=== PATIENT | female | born 1940 | race Caucasian/White ===

== ENCOUNTER 2016-10-13 17:09 | Observation (INO) | payer OTHER ==
[2016-10-13 17:19] VITALS: BMI 23.9
--- NOTE | 2016-10-13 17:20 | PDOC ---
History of Present Illness - General Chief Complaint: Chest Pain Stated Complaint: CHEST PAIN Time Seen by Provider: 10/13/16 17:19 - History of Present Illness Initial Comments: 10/13/16 17:49 CHIEF COMPLAINT: Left sided chest pain and diffuse cramps PCP: Dr. Rj Zhou ([employer]) HISTORY OF PRESENT ILLNESS: 76 year old female presented to the ED with left sided chest pain. A/c to the patient, she developed chest tightness 4days ago on/off, went to [facility] 2 days ago for the same problem, was sent home from the ED after excluding cardiac cause of chest pain and UTI. She was given antibiotics for UTI, urinary symptoms are resolving. Chest pain is located on the left side, 6/10 in intensity, non reproducible, non radiating, pressure type, associated with SOB even at rest. Also reports to have nausea on/off but no episodes of vomiting. Patient has h/o diffuse muscle cramps since 2 years, getting worse since yesterday. Cramps occur for 10-20 sec, 10/10 in intensity, non radiating, more on the right calf and left fingers. Headache on/off mostly on the frontal area since few days. Had fever Tmax 100F 4 days ago, not associated with chills, rigors or sweating. Bowel habit normal. Urinary symptoms improving. Sleep disturbed. Appetite decreased As per EMS, vitals were unremarkable. Patient received 162mg of aspirin stat. Recent Travel: None PAST MEDICAL HISTORY: s/p multiple PCI in past mLAD and pRCA and most recently 12/21/2015 PCI with IRASEMA of D1 with residual RCA disease followed by readmission for chest pain 12/29/15 and underwent PCI of dRCA, moderate b/l carotid stenosis , COPD, HTN, HLD, known chronic LBBB PAST SURGICAL HISTORY: As mentioned above Recent travel: denies Family History: DM, cancer Social History: denies all toxic habits. [place] Allergies: Codeine, Penicillins 10/13/16 18:50 Past History - Past Medical History Allergies/Adverse Reactions: Allergies Allergy/AdvReac Type Severity Reaction Status Date / Time codeine [Codeine] Allergy Intermediate Nausea Verified 10/13/16 18:28 Penicillins Allergy Intermediate Rash Verified 10/13/16 18:28 Home Medications: Ambulatory Orders Albuterol Sulfate Inhaler - [Ventolin HFA Inhaler -] 1 - 2 inh PO Q4H 02/17/16 Aspirin [ASA -] 81 mg PO DAILY 02/17/16 Clopidogrel Bisulfate [Clopidogrel] 75 mg PO DAILY 02/17/16 Furosemide 20 mg PO DAILY 02/17/16 Hydroxyzine HCl [Atarax -] 25 mg PO TID 02/17/16 Meclizine HCl 25 mg PO Q6H PRN 02/17/16 Salmeterol/Fluticasone [Advair 100Mcg/50Mcg -] 1 inh IH DAILY 02/17/16 Gabapentin [Neurontin -] 300 mg PO BID #60 capsule 10/17/16 Losartan Potassium [Cozaar -] 25 mg PO DAILY #30 tablet 10/17/16 Metoprolol Tartrate [Lopressor -] 25 mg PO DAILY #30 tablet 10/17/16 Ranolazine [Ranexa -] 500 mg PO BID #60 tab 10/17/16 Anemia: No Asthma: Yes Cancer: No Cardiac Disorders: Yes (CAD, stent) CVA: No COPD: No CHF: No Dementia: No Diabetes: No GI Disorders: Yes (REFLUX) Disorders: No HTN: Yes Hypercholesterolemia: Yes Liver Disease: No Seizures: No Thyroid Disease: No - Surgical History Abdominal Surgery: No Appendectomy: Yes Cardiac Surgery: Yes (STENTS) Cholecystectomy: No Lung Surgery: No Neurologic Surgery: No Orthopedic Surgery: Yes (right shoulder sx) - Immunization History Immunization Up to Date: No - Psycho/Social/Smoking Cessation Hx Anxiety: No Suicidal Ideation: No Smoking History: Former smoker Have you smoked in the past 12 months: No If you are a former smoker, when did you quit?: 20 years Information on smoking cessation initiated: No 'Breaking Loose' booklet given: 01/28/16 Hx Alcohol Use: No Drug/Substance Use Hx: No Substance Use Type: None Hx Substance Use Treatment: No Review of Systems - Review of Systems Able to Perform ROS?: Yes Comments:: 10/13/16 18:42 CONSTITUTIONAL:~ Absent: fever, chills, diaphoresis, generalized weakness, malaise, loss of appetite HEENT:~ Absent: rhinorrhea, nasal congestion, throat pain, throat swelling, difficulty swallowing, mouth swelling, ear pain, eye pain, visual Changes CARDIOVASCULAR: Present: Chest pain Absent: syncope, palpitations, irregular heart rate, lightheadedness, peripheral edema RESPIRATORY: Present: SOB, dyspnea with exertion Absent: cough,, orthopnea, wheezing, stridor, hemoptysis GASTROINTESTINAL: Absent: abdominal pain, abdominal distension, nausea, vomiting, diarrhea, constipation, melena, hematochezia GENITOURINARY:~ Absent: dysuria, frequency, urgency, hesitancy, hematuria, flank pain, genital pain MUSCULOSKELETAL: Present: Diffuse cramps Absent: myalgia, arthralgia, joint swelling SKIN: Absent: rash, itching, pallor HEMATOLOGIC/IMMUNOLOGIC: Absent: easy bleeding, easy bruising, lymphadenopathy, frequent infections ENDOCRINE: Absent: unexplained weight gain, unexplained weight loss, heat intolerance, cold intolerance NEUROLOGIC: Absent: headache, focal weakness or paresthesias, dizziness, unsteady gait, seizure, mental status changes, bladder or bowel incontinence PSYCHIATRIC: Absent: anxiety, depression, suicidal or homicidal ideation, hallucinations. Is the patient limited Trinidadian proficient: No *Physical Exam - Vital Signs Last Vital Signs Temp Pulse Resp BP Pulse Ox 98.0 F 106 H 20 130/76 100 10/13/16 17:16 10/13/16 17:16 10/13/16 17:16 10/13/16 17:16 10/13/16 17:16 - Physical Exam Comments: 10/13/16 18:43 PE: GENERAL: Awake, alert, and fully oriented, in no acute distress HEAD: No signs of trauma EYES: PERRLA, EOMI, sclera anicteric, conjunctiva clear ENT: Auricles normal inspection, hearing grossly normal, nares patent, oropharynx clear without exudates. Moist mucosa NECK: Normal ROM, supple, no lymphadenopathy, JVD, or masses Chest: Reproducible pain LUNGS: Breath sounds equal, clear to auscultation bilaterally. No wheezes, and no crackles.. HEART: Regular rate and rhythm, normal S1 and S2, soft murmur+ ABDOMEN: Soft, nontender, normoactive bowel sounds. No guarding, no rebound. No masses EXTREMITIES: Normal range of motion, no edema. No clubbing or cyanosis. No cords, erythema, or tenderness NEUROLOGICAL: Cranial nerves II through XII grossly intact. Normal speech, normal gait SKIN: Warm, Dry, normal turgor, no rashes or lesions noted. ED Treatment Course - LABORATORY CBC & Chemistry Diagram: 10/14/16 05:35 10/15/16 06:00 Medical Decision Making - Medical Decision Making 10/13/16 17:20 Patient seen and examined at bed side. Vitals, unremarkable. In severe pain during cramps lasting for 10-20 seconds. Physical examination: Benign Will order CBC, CMP, Cardiac profile, EKG, CXR, UA IV Morphine 2mg stat IV NS 250mls bolus Aspirin 81mg stat As patient received 81mg of aspirin this morning, 162mg of aspirin en route to the ED, will give 81 mg of aspirin, received total of 324mg of aspirin. 10/13/2016 17: 50 Patient reassessed. Still complaining of chest pressure and pain due to diffuse cramps. Ordered IV Morphine 2 mg stat 10/13/2016 18:50 Illness, Investigation and Plan of care explained to the patient. She verbalized understanding. Case seen and discussed with Dr. Castro. *DC/Admit/Observation/Transfer Diagnosis at time of Disposition: Chest pain - Discharge Dispostion Disposition: [facility] Condition at time of disposition: Stable - Prescriptions
[2016-10-13] MEDS ORDERED: morphine CARPU-JECT 2 MG/1 ML DISP.SYRIN ONE ×2 (17:39→18:15)
[2016-10-13] MEDS ORDERED: morphine CARPU-JECT 2 MG/1 ML DISP.SYRIN IVPUSH ONE ×3 (17:40→18:14)
[2016-10-13] MEDS ORDERED: ASPIRIN 81 MG CHEWABLE TABLETS PO ONE (17:47)
[2016-10-13] MEDS ORDERED: SODIUM CHLORIDE 250 ML IV STA (17:48)
--- NOTE | 2016-10-13 17:51 | PDOC ---
Attending Attestation - Resident Resident Name: Imelda Manzanares - ED Attending Attestation I have performed the following: I have examined & evaluated the patient, The case was reviewed & discussed with the resident, I agree w/resident's findings & plan, Exceptions are as noted - HPI HPI: 10/13/16 17:48 76-year-old female with history of asthma, coronary disease status post stents, GERD, hypertension, hyperlipidemia, TIA presents with chest pressure. 5 days ago , patient started developing intermittent chest tightness with radiation to her left side of the chest with intermittent associated with shortness of breath and nausea. Denies diaphoresis or vomiting. Patient went to [facility] 2 days ago where she was evaluated and discharged with a diagnosis of urinary tract infections. Patient was discharged on oral antibiotics which she reports adherence and reports that her urinary frequency has improved. However, patient is started noticed intermittent chest tightness that has not been improving. She currently denies shortness of breath at this time. She noted yesterday of a low-grade temperature 100.1 degrees any tension-like headache and generalized malaise. She came into the ED for further evaluation. Patient has seen cardiology's Dr. Zhou in the past but does not remember last provocative test. - Physicial Exam PE: 10/13/16 17:51 GENERAL: Awake, alert, and fully oriented, in no acute distress. HEAD: No signs of trauma EYES: PERRLA, EOMI, sclera anicteric, conjunctiva clear ENT: Auricles normal inspection, hearing grossly normal, nares patent, oropharynx clear without exudates. NECK: Normal ROM, supple, no lymphadenopathy, JVD, or masses LUNGS: Breath sounds equal, clear to auscultation bilaterally. No wheezes, and no crackles HEART: Regular rate and rhythm, normal S1 and S2, no murmurs, rubs or gallops ABDOMEN: Soft, nontender, normoactive bowel sounds. No guarding, no rebound. No masses EXTREMITIES: Normal range of motion, no edema. No clubbing or cyanosis. No cords, erythema, or tenderness NEUROLOGICAL: Cranial nerves II through XII grossly intact. Normal speech, normal gait SKIN: Warm, Dry, normal turgor, no rashes or lesions noted. - Medical Decision Making 10/13/16 17:48 ECG at 17:22: NSR 112, LBBB, scarbossa negative, QTC 496 msec Given significant cardiac history, patient will need a rule out myocardial infarction. We'll dispense aspirin. Given that the patient is persistent chest pain, differential includes unstable angina versus NSTEMI. Chest x-ray, labs and admission to the hospital for further evaluation.
[2016-10-13 18:14] LABS: INR 0.93 (0.82-1.09); PROTHROMBIN TIME (PATIENT) 10.2 SEC (9.98-11.88)
[2016-10-13 18:24] LABS: BASOPHIL 0.7 % (0-2.0); MCHC 33.4 g/dl (32.0-36.0); MEAN CELL VOLUME 89.9 fl (80-96); NEUTROPHILS 62.3 % (42.8-82.8); PLATELET COUNT 284 K/MM3 (134-434); RDW 13.2 % (11.6-15.6); WHITE BLOOD COUNT 6.6 K/mm3 (4.0-10.0)
[2016-10-13 19:03] LABS: ALBUMIN 3.6 g/dl (3.4-5.0); ANION GAP 11 (8-16); CALCIUM 8.8 mg/dL (8.5-10.1); CO2 25 mmol/L (21-32); GLUCOSE,RANDOM 120 mg/dL (74-106); MAGNESIUM 2.1 mg/dL (1.8-2.4); PHOSPHOROUS 2.6 mg/dL (2.5-4.9); SGOT/AST 33 U/L (15-37)
[2016-10-13 19:08] LABS: ALK PHOS 142 U/L (45-117); BILIRUBIN,TOTAL 0.2 mg/dL (0.2-1.0); CREATININE 0.6 mg/dL (0.55-1.02); SGPT/ALT 48 U/L (12-78); TROPONIN I < 0.02 ng/ml (0.00-0.05)
[2016-10-13] MEDS ORDERED: ASPIRIN 81 MG CHEWABLE TABLETS ONE (19:11)
--- NOTE | 2016-10-13 20:52 | PDOC ---
*Heart Score (ED) - History History: Moderately suspicious - Electrocardiogram EKG: Non specific repolarization disturbance - Age Age: >/= 65 - Risk Factors Based on the list above the patient has:: >/=3 risk factors or Hx atherosclerotic disease - Troponin Troponin: </= normal limit - Score Heart Score - Total: 6
--- NOTE | 2016-10-13 21:00 | HP ---
CHIEF COMPLAINT: Chest Pain, SOB PCP: Dr. De La Rosa HISTORY OF PRESENT ILLNESS: This is a 76 y/o female with a past medical history of s/p multiple PCI, HTN, HLD, Chronic LBBB, COPD, GERD. Who presents to the emergency department with left sided chest pain and SOB. Patient reports the pain occurred while at rest, radiating to her left arm and left side of her face/ear. Patient's daughter reports the patient being seen at [facility] for same 2 days ago - having a work up in the ED- wnl. Patient reports increased SOB, PETTIT. Patient states" I can't walk one block without getting SOB. Patient reports having bilateral leg cramps worse at night. Patient reports seeing her Transfer Man 6 months ago-wnl, last Stress Test and ECHO 2015- wnl per patient and daughter. ER course was notable for: (1) Cardiac Enzyme neg x1 (2) BNP 400 (3) EKG ST with PACs Recent Travel: None PAST MEDICAL HISTORY: See HPI PAST SURGICAL HISTORY: Social History: Smoking: Former Alcohol: Denies Drugs: Denies Family History: Allergies codeine [Codeine] Allergy (Intermediate, Verified 10/13/16 18:28) Nausea vomitting,dizziness Penicillins Allergy (Intermediate, Verified 10/13/16 18:28) Rash HOME MEDICATIONS: Home Medications Medication Instructions Recorded Albuterol Sulfate Inhaler - 1 - 2 inh PO Q4H 02/17/16 [Ventolin Hfa Inhaler -] Amlodipine Besylate 10 mg PO DAILY 02/17/16 Aspirin [ASA -] 81 mg PO DAILY 02/17/16 Clopidogrel Bisulfate [Clopidogrel] 75 mg PO DAILY 02/17/16 Furosemide 20 mg PO DAILY 02/17/16 Hydroxyzine HCl [Atarax -] 25 mg PO TID 02/17/16 Losartan Potassium 10 mg PO DAILY 02/17/16 Meclizine HCl 25 mg PO Q6H PRN 02/17/16 Salmeterol/Fluticasone [Advair 1 inh IH DAILY 02/17/16 100Mcg/50Mcg -] REVIEW OF SYSTEMS CONSTITUTIONAL: Absent: fever, chills, diaphoresis, generalized weakness, malaise, loss of appetite, weight change HEENT: Absent: rhinorrhea, nasal congestion, throat pain, throat swelling, difficulty swallowing, mouth swelling, ear pain, eye pain, visual changes CARDIOVASCULAR: chest pain Absent: syncope, palpitations, irregular heart rate, lightheadedness, peripheral edema RESPIRATORY: shortness of breath, dyspnea with exertion Absent: cough, orthopnea, wheezing, stridor, hemoptysis GASTROINTESTINAL: Absent: abdominal pain, abdominal distension, nausea, vomiting, diarrhea, constipation, melena, hematochezia GENITOURINARY: Absent: dysuria, frequency, urgency, hesitancy, hematuria, flank pain, genital pain MUSCULOSKELETAL: myalgia Absent: arthralgia, joint swelling, back pain, neck pain SKIN: Absent: rash, itching, pallor HEMATOLOGIC/IMMUNOLOGIC: Absent: easy bleeding, easy bruising, lymphadenopathy, frequent infections ENDOCRINE: Absent: unexplained weight gain, unexplained weight loss, heat intolerance, cold intolerance NEUROLOGIC: Absent: headache, focal weakness or paresthesias, dizziness, unsteady gait, seizure, mental status changes, bladder or bowel incontinence PSYCHIATRIC: Absent: anxiety, depression, suicidal or homicidal ideation, hallucinations. PHYSICAL EXAMINATION Vital Signs - 24 hr 10/13/16 10/13/16 17:16 17:50 Temperature 98.0 F Pulse Rate 106 H Respiratory 20 Rate Blood Pressure 130/76 O2 Sat by Pulse 100 100 Oximetry (%) GENERAL: Awake, alert, and fully oriented, in no acute distress. HEAD: Normal with no signs of trauma. EYES: Pupils equal, round and reactive to light, extraocular movements intact, sclera anicteric, conjunctiva clear. No lid lag. EARS, NOSE, THROAT: Ears normal, nares patent, oropharynx clear without exudates. Moist mucous membranes. NECK: Normal range of motion, supple without lymphadenopathy, JVD, or masses. LUNGS: Breath sounds equal, clear to auscultation bilaterally. No wheezes, and no crackles. No accessory muscle use. HEART: Regular rate and rhythm, normal S1 and S2 without murmur, rub or gallop. ABDOMEN: Soft, nontender, not distended, normoactive bowel sounds, no guarding, no rebound, no masses. No hepatomegaly or splenomegaly. MUSCULOSKELETAL: Normal range of motion at all joints. No bony deformities. + tenderness to bilateral lower legs. No CVA tenderness. UPPER EXTREMITIES: 2+ pulses, warm, well-perfused. No cyanosis. No clubbing. Cap refill <2 seconds. No peripheral edema. LOWER EXTREMITIES: 2+ pulses, warm, well-perfused. No calf tenderness. No peripheral edema. NEUROLOGICAL: Cranial nerves II-XII intact. Normal speech. Gait not observed. PSYCHIATRIC: Cooperative. Good eye contact. Appropriate mood and affect. SKIN: Warm, dry, normal turgor, no rashes or lesions noted. Laboratory Results - last 24 hr 10/13/16 10/13/16 10/13/16 17:40 17:40 17:40 WBC 6.6 RBC 3.70 Hgb 11.1 Hct 33.3 MCV 89.9 MCHC 33.4 RDW 13.2 Plt Count 284 MPV 10.0 D Neutrophils % 62.3 Lymphocytes % 20.4 Monocytes % 15.6 H D Eosinophils % 1.0 Basophils % 0.7 INR 0.93 Sodium Cancelled Potassium Cancelled Chloride Cancelled Carbon Dioxide Cancelled Anion Gap Cancelled BUN Cancelled Creatinine Cancelled Creat Clearance w eGFR Cancelled Random Glucose Cancelled Calcium Cancelled Phosphorus Magnesium Cancelled Total Bilirubin Cancelled AST Cancelled ALT Cancelled Alkaline Phosphatase Cancelled Creatine Kinase Cancelled Troponin I Cancelled B-Natriuretic Peptide Total Protein Cancelled Albumin Cancelled 10/13/16 10/13/16 17:49 18:29 WBC RBC Hgb Hct MCV MCHC RDW Plt Count MPV Neutrophils % Lymphocytes % Monocytes % Eosinophils % Basophils % INR Sodium 143 Potassium 4.2 D Chloride 107 Carbon Dioxide 25 Anion Gap 11 BUN 14 D Creatinine 0.6 Creat Clearance w eGFR > 60 Random Glucose 120 H D Calcium 8.8 Phosphorus Cancelled 2.6 D Magnesium 2.1 Total Bilirubin 0.2 D AST 33 ALT 48 D Alkaline Phosphatase 142 H Creatine Kinase 113 Troponin I < 0.02 B-Natriuretic Peptide Cancelled 421.46 H Total Protein 7.0 Albumin 3.6 ASSESSMENT/PLAN: This is a 76 y/o female with a PMHx of s/p multiple PCIs, Chronic LBBB, HTN, HLD , COPD, GERD. Presents to the ED for Chest Pain and SOB. Admitted for Chest Pain r/o AK, SOB for further evaluation of their emergent condition. Plan: FEN - Patient tolerates PO fluids - Replete lytes prn - Low Na Low Cholesterol Diet Code Status: Full Code Dispo: Requires Inpatient Care Problem List - Problem (1) Chest pain in adult Assessment/Plan: - r/o AK vs Angina - Patient reports work up 2 days ago at [facility]- wnl - Tele monitoring - HEART Score 6 - ARIAS 6 - Serial Enzymes - EKG- ST with PACs change compared to prior study - Appreciate Cardiology Consult - Given Asa, Morphine in ED - Continue Asa - Pain Mgmt- Morphine prn - Echo 01/2016- LV normal size, LVSF normal, mild AR - Consider Stress Test Code(s): R07.9 - CHEST PAIN, UNSPECIFIED (2) Stable angina Assessment/Plan: - See above Code(s): I20.9 - ANGINA PECTORIS, UNSPECIFIED (3) Coronary artery disease Assessment/Plan: - Continue Metoprolol, Asa Code(s): I25.10 - ATHSCL HEART DISEASE OF [place] CORONARY ARTERY W/O ANG PCTRS Qualifiers: (4) COPD (chronic obstructive pulmonary disease) Assessment/Plan: - Sub Optimal - Patient reports ability to only walk one block, then having PETTIT - Chest Xray showed no acute interval change - Continue Advair - Albuterol nebs - Post peak flow BID - f/u with Pulmonology outpatient at d/c Code(s): J44.9 - CHRONIC OBSTRUCTIVE PULMONARY DISEASE, UNSPECIFIED (5) Cardiomyopathy Code(s): I42.9 - CARDIOMYOPATHY, UNSPECIFIED (6) Bilateral leg cramps Assessment/Plan: - r/o RLS - Patient reports pain to bilateral legs occurring at night - Mg- wnl - Gabapentin 100mg x1 now Code(s): R25.2 - CRAMP AND SPASM (7) Carotid stenosis Code(s): I65.29 - OCCLUSION AND STENOSIS OF UNSPECIFIED CAROTID ARTERY Qualifiers: (8) HTN (hypertension) Assessment/Plan: - Monitor BP - Continue Metoprolol, Losartan - Monitor renal function Code(s): I10 - ESSENTIAL (PRIMARY) HYPERTENSION (9) Hyperlipemia Assessment/Plan: - Continue Simvastatin - Monitor LFTs Code(s): E78.5 - HYPERLIPIDEMIA, UNSPECIFIED (10) DVT prophylaxis Assessment/Plan: - OOB - SCDs - Hold ACs 2/2 Plavix Code(s): YKS6529 - Visit type - Emergency Visit Emergency Visit: Yes ED Registration Date: 10/13/16 Care time: The patient presented to the Emergency Department on the above date and was hospitalized for further evaluation of their emergent condition. - New Patient This patient is new to me today: Yes Date on this admission: 10/13/16 - Critical Care Critical Care patient: No
--- NOTE | 2016-10-13 21:02 | PDOC ---
*Physical Exam - Vital Signs Last Vital Signs Temp Pulse Resp BP Pulse Ox 98.0 F 106 H 20 130/76 100 10/13/16 17:16 10/13/16 17:16 10/13/16 17:16 10/13/16 17:16 10/13/16 17:50 ED Treatment Course - LABORATORY CBC & Chemistry Diagram: 10/13/16 17:40 10/13/16 18:29 - ADDITIONAL ORDERS Additional order review: Laboratory Results 10/13/16 10/13/16 10/13/16 18:29 17:49 17:40 INR Sodium 143 Cancelled Potassium 4.2 D Cancelled Chloride 107 Cancelled Carbon Dioxide 25 Cancelled Anion Gap 11 Cancelled BUN 14 D Cancelled Creatinine 0.6 Cancelled Creat Clearance w eGFR > 60 Cancelled Random Glucose 120 H D Cancelled Calcium 8.8 Cancelled Phosphorus 2.6 D Cancelled Magnesium 2.1 Cancelled Total Bilirubin 0.2 D Cancelled AST 33 Cancelled ALT 48 D Cancelled Alkaline Phosphatase 142 H Cancelled Creatine Kinase 113 Cancelled Troponin I < 0.02 Cancelled B-Natriuretic Peptide 421.46 H Cancelled Total Protein 7.0 Cancelled Albumin 3.6 Cancelled 10/13/16 17:40 INR 0.93 Sodium Potassium Chloride Carbon Dioxide Anion Gap BUN Creatinine Creat Clearance w eGFR Random Glucose Calcium Phosphorus Magnesium Total Bilirubin AST ALT Alkaline Phosphatase Creatine Kinase Troponin I B-Natriuretic Peptide Total Protein Albumin 10/13/16 17:40 RBC 3.70 MCV 89.9 MCHC 33.4 RDW 13.2 MPV 10.0 D Neutrophils % 62.3 Lymphocytes % 20.4 Monocytes % 15.6 H D Eosinophils % 1.0 Basophils % 0.7 - Medications Given in the ED: ED Medications Discontinued Medications Generic Name Dose Route Start Last Admin Trade Name Freq PRN Reason Stop Dose Admin Aspirin 81 mg 10/13/16 17:47 10/13/16 19:27 Asa - PO 10/13/16 17:48 81 mg ONCE ONE Administration Sodium Chloride 250 mls @ 500 mls/hr 10/13/16 17:48 10/13/16 18:04 Normal Saline - IV 10/13/16 18:17 500 mls/hr ASDIR STA Administration Morphine Sulfate 2 mg 10/13/16 18:00 10/13/16 18:03 Morphine Injection - IVPUSH 10/13/16 18:01 2 mg ONCE ONE Administration Morphine Sulfate 2 mg 10/13/16 18:14 10/13/16 18:32 Morphine Injection - IVPUSH 10/13/16 18:15 2 mg ONCE ONE Administration Medical Decision Making - Medical Decision Making 10/13/16 21:12 CBC, BMP 10/13/16 17:40 10/13/16 18:29 CMP Sodium 143 mmol/L (136-145) 10/13/16 18:29 Potassium 4.2 mmol/L (3.5-5.1) D 10/13/16 18:29 Chloride 107 mmol/L (98-107) 10/13/16 18:29 Carbon Dioxide 25 mmol/L (21-32) 10/13/16 18:29 Anion Gap 11 (8-16) 10/13/16 18:29 BUN 14 mg/dL (7-18) D 10/13/16 18:29 Creatinine 0.6 mg/dL (0.55-1.02) 10/13/16 18:29 Creat Clearance w eGFR > 60 (>60) 10/13/16 18:29 Random Glucose 120 mg/dL (74-106) H D 10/13/16 18:29 Calcium 8.8 mg/dL (8.5-10.1) 10/13/16 18:29 Phosphorus 2.6 mg/dL (2.5-4.9) D 10/13/16 18:29 Magnesium 2.1 mg/dL (1.8-2.4) 10/13/16 18:29 Total Bilirubin 0.2 mg/dL (0.2-1.0) D 10/13/16 18:29 AST 33 U/L (15-37) 10/13/16 18:29 ALT 48 U/L (12-78) D 10/13/16 18:29 Alkaline Phosphatase 142 U/L (45-117) H 10/13/16 18:29 Creatine Kinase 113 IU/L (26-192) 10/13/16 18:29 Troponin I < 0.02 ng/ml (0.00-0.05) 10/13/16 18:29 B-Natriuretic Peptide 421.46 pg/ml (5-125) H 10/13/16 18:29 Total Protein 7.0 g/dl (6.4-8.2) 10/13/16 18:29 Albumin 3.6 g/dl (3.4-5.0) 10/13/16 18:29 Labs reviewed. Trop negative. Case discussed with Dr. Lamas. She accepts the patient to telemetry admission. Dr. Abelardo hansen. Case discussed in detail with admitting physician including history, physical exam and ancillary studies. Admitting physician has assumed care for the patient, will follow all pending diagnostics and will complete the evaluation and treatment. *DC/Admit/Observation/Transfer Diagnosis at time of Disposition: Chest pain Qualifiers: Chest pain type: unspecified Qualified Code(s): R07.9 - Chest pain, unspecified - Discharge Dispostion Condition at time of disposition: Stable Admit: Yes
[2016-10-13] MEDS ORDERED: ALBUTEROL SO4 0.083% IH SOL 2.5 MG/3 ML VIAL.NEB. NEB PRN (21:11)
[2016-10-13] MEDS ORDERED: GABAPENTIN 100 MG CAPSULE (FP) PO ONE (21:49)
[2016-10-13] MEDS ORDERED: HEPARIN NA (PORCINE) 5,000 UNITS/ML 1ML VIAL SQ SCH (22:00)
[2016-10-13] MEDS ORDERED: morphine CARPU-JECT 4 MG/1 ML DISP.SYRIN IVPUSH ONE (22:06)
[2016-10-13] MEDS ORDERED: morphine CARPU-JECT 4 MG/1 ML DISP.SYRIN ONE (22:09)
[2016-10-13] MEDS ORDERED: GABAPENTIN 100 MG CAPSULE (FP) ONE (22:15)
[2016-10-13] MEDS ORDERED: HEPARIN NA (PORCINE) 5,000 UNITS/ML 1ML VIAL ONE (22:15)
[2016-10-13] MEDS: hydrOXYzine HCL 25 MG TABLET (FP) PO SCH (22:53)
[2016-10-14 01:02] LABS: TROPONIN I < 0.02 ng/ml (0.00-0.05)
[2016-10-14] MEDS ORDERED: morphine CARPU-JECT 2 MG/1 ML DISP.SYRIN IVPUSH ONE (01:39)
[2016-10-14] MEDS: hydrOXYzine HCL 25 MG TABLET (FP) PO SCH ×3 (05:20→21:36)
[2016-10-14 07:15] LABS: BASOPHIL 0.5 % (0-2.0); EOSINOPHIL 1.4 % (0-4.5); MCH 30.6 pg (25.7-33.7); MCHC 33.8 g/dl (32.0-36.0); MEAN CELL VOLUME 90.5 fl (80-96); MEAN PLT VOLUME 8.8 fl (7.5-11.1); NEUTROPHILS 61.5 % (42.8-82.8); PLATELET COUNT 231 K/MM3 (134-434); RDW 12.8 % (11.6-15.6); WHITE BLOOD COUNT 5.5 K/mm3 (4.0-10.0)
[2016-10-14 07:47] LABS: ANION GAP 9 (8-16); CO2 26 mmol/L (21-32); CREATININE 0.6 mg/dL (0.55-1.02); GLUCOSE,RANDOM 92 mg/dL (74-106)
[2016-10-14 07:48] LABS: CALCIUM 8.4 mg/dL (8.5-10.1)
[2016-10-14 08:31] LABS: CHOLESTEROL 190 mg/dL (50-200); LDL CHOLESTEROL (ONLY SJRH) 116 mg/dL (5-100); TROPONIN I < 0.02 ng/ml (0.00-0.05)
[2016-10-14] MEDS ORDERED: PT OWN MED DRAWER 7, Y5N ONE ×2 (09:14→21:28)
[2016-10-14] MEDS: CLOPIDOGREL BISULFATE 75 MG TABLET (FP) PO SCH (09:26)
[2016-10-14] MEDS: ASPIRIN 81 MG CHEWABLE TABLETS PO SCH (09:26)
[2016-10-14] MEDS: amLODIPine BESYLATE 10 MG TABLET (FP) PO SCH (09:26)
[2016-10-14] MEDS: METOPROLOL TARTRATE 25 MG TABLET (FP) PO SCH ×2 (09:26→21:29)
[2016-10-14] MEDS: FUROSEMIDE 20 MG TABLET (FP) PO SCH (09:26)
[2016-10-14] MEDS: LOSARTAN POTASSIUM 25 MG TABLET PO SCH (09:27)
[2016-10-14] MEDS ORDERED: LOSARTAN POTASSIUM 25 MG TABLET PO SCH (10:00)
--- NOTE | 2016-10-14 10:34 | CON.CARD ---
Consult Consult Specialty:: Cardiology Referred by:: Hospitalist Reason for Consultation:: chest pain, cad - History of Present Illness Chief Complaint: fever, body aches, chest pain History of Present Illness: 76 year old woman with a history of HTN, HLD, CAD with multiple prior stents including 12/2015 at which time she had IRASEMA D1 followed by IRASEMA dRCA with prior IRASEMA pRCA and LAD, h/o TIA, Asthma, chronic atypical chest pain, possible stable angina, admitted with fever, chills, body aches, chest tightness, sob, nausea. Pt was at [facility] this week treated for UTI. Pt. seen and examined today in [facility]. states her chest pain is the same as it always is, not changed recently. main complaint is total body aches, fever, overall not feeling well. no pnd, orthopnea, or LE edema. no lightheadedness, dizziness, syncope or near syncope. - History Source History Provided By: Patient, Medical Record Limitations to Obtaining History: Language Barrier - Past Medical History Cardio/Vascular: Yes: CAD, CHF (moderate chronic LV dysfunction), HTN, Hyperlipdemia, Other (carotid stenosis) Pulmonary: Yes: COPD ...: No - Past Surgical History Past Surgical History: Yes: Appendectomy, Cholecystectomy, Stent (last 2013) - Alcohol/Substance Use Hx Alcohol Use: No - Smoking History Smoking history: Former smoker Have you smoked in the past 12 months: No If you are a former smoker, when did you quit?: 20 years - Social History ADL: Independent History of Recent Travel: No Home Medications - Allergies Allergies/Adverse Reactions: Allergies Allergy/AdvReac Type Severity Reaction Status Date / Time codeine [Codeine] Allergy Intermediate Nausea Verified 10/13/16 18:28 Penicillins Allergy Intermediate Rash Verified 10/13/16 18:28 - Home Medications Home Medications: Ambulatory Orders Albuterol Sulfate Inhaler - [Ventolin Hfa Inhaler -] 1 - 2 inh PO Q4H 02/17/16 Amlodipine Besylate 10 mg PO DAILY 02/17/16 Aspirin [ASA -] 81 mg PO DAILY 02/17/16 Clopidogrel Bisulfate [Clopidogrel] 75 mg PO DAILY 02/17/16 Furosemide 20 mg PO DAILY 02/17/16 Hydroxyzine HCl [Atarax -] 25 mg PO TID 02/17/16 Losartan Potassium 10 mg PO DAILY 02/17/16 Meclizine HCl 25 mg PO Q6H PRN 02/17/16 Salmeterol/Fluticasone [Advair 100Mcg/50Mcg -] 1 inh IH DAILY 02/17/16 Family Disease History - Family Disease History Family History: Denies Review of Systems - Review of Systems Constitutional: reports: Fever, Malaise. denies: No Symptoms, Chills, Diaphoresis, Lethargy, Loss of Appetite, Night Sweats, Unintentional Wgt. Loss, Weakness, Other Eyes: denies: No Symptoms, Blind Spots, Blurred Vision, Double Vision, Eye Pain , Floaters, Photophobia, Recent Change in Vision, Other HENT: denies: No Symptoms, Difficult Swallowing, Ear Discharge, Ear Pain, Epistaxis, Gingival Bleeding, Hearing Loss, Mouth Swelling, Nasal Congestion, Ocular Prosthesis, Throat Pain, Toothache, Ringing in Ears, Other Neck: denies: No Symptoms, Decreased ROM, Lumps, Pain on Movement, Stiffness, Swollen Glands, Tenderness, Other Cardiovascular: reports: Chest Pain, Shortness of Breath. denies: No Symptoms, Edema, Palpitations, Other Respiratory: reports: Cough, Exercise Intolerance, SOB, SOB on Exertion. denies : No Symptoms, Hemoptysis, Orthopnea, PND, Snoring, Wheezing, Other Gastrointestinal: denies: No Symptoms, Abdominal Pain, Bloating, Constipation, Diarrhea, Dysphagia, Indigestion, Melena, Nausea, Rectal Bleeding, Vomiting, Vomiting Blood, Other Genitourinary: denies: No Symptoms, Burning, Discharge, Dysuria, Flank Pain, Frequency, Hematuria, Incontinence, Lesions, Menses, Pain, Testicular Mass, Testicular Pain, Testicular Swelling, Urgency, Vaginal Bleeding, Other Breasts: denies: No Symptoms Reported, See HPI, Breast Implants, Discharge from Nipple, Lumps, Pain, Skin Changes, Other Musculoskeletal: reports: Muscle Pain, Muscle Cramps. denies: No Symptoms, Back Pain, Crepitus, Decreased ROM, Extremity Pain, Joint Pain, Joint Swelling, Muscle Weakness, Other Integumentary: denies: No Symptoms, Blister, Bruising, Change in Color, Eczema, Erythema, Incision, Lesions, Lump, Pallor, Pruritis, Rash, Wound, Other Neurological: denies: No Symptoms, Change in LOC, Change in Speech, Confusion, Dizziness, Headache, Incoordination, Numbness, Parasthesia, Pre-Existing Deficit , Seizure, Syncope, Tremors, Unsteady Gait, Weakness, Other Endocrine: denies: No Symptoms, Excessive Sweating, Flushing, Increased Hunger, Increased Thirst, Intolerance to Cold, Intolerance to Heat, Unexplained Weight Gain, Unexplained Weight Loss, Other Hematology/Lymphatic: denies: No Symptoms, Easily Bruised, Excessive Bleeding, Swollen Glands, Other Psychiatric: denies: No Symptoms, Altered Sleep Pattern, Anxiety, Depression, Hallucinations, Panic, Paranoia, Suicidal, Other - Risk Factors Known Risk Factors: Yes: Hypercholesterolemia, Hypertension Vital Signs: Vital Signs Temperature 97.8 F 10/14/16 09:14 Pulse Rate 75 10/14/16 09:14 Respiratory Rate 18 10/14/16 09:14 Blood Pressure 114/69 10/14/16 09:14 O2 Sat by Pulse Oximetry (%) 96 10/14/16 09:14 Constitutional: Yes: Well Nourished, No Distress, Calm Eyes: Yes: WNL, Conjunctiva Clear, EOM Intact HENT: Yes: WNL, Atraumatic, Normocephalic Neck: Yes: WNL, Supple, Trachea Midline Respiratory: Yes: Regular, On Nasal O2, Rhonchi, Wheezes. No: Rales, SOB, Tachypnea Gastrointestinal: Yes: WNL, Normal Bowel Sounds, Soft. No: Distention, Tenderness Renal/: Yes: WNL Cardiovascular: Yes: Regular Rate and Rhythm. No: Bradycardia, Tachycardia, Pulse Irregular, Gallop, Rub, Varicosities JVD: No Carotid Bruit: No PMI: Non-Displaced Heart Sounds: Yes: S1, S2. No: Split S2, S3, S4, Clicks, Gallop, Rub, Bruit Murmur: No: Systolic Murmur, Diastolic Murmur Musculoskeletal: Yes: Muscle Pain Extremities: Yes: WNL Edema: No Peripheral Pulses WNL: Yes Peripheral Pulses: 2+ Left Doralis Pedis, 2+ Right Dorsalis Pedis Integumentary: Yes: WNL Neurological: Yes: WNL, Alert, Oriented, Cran Nerves II-XII Intact ...Motor Strength: WNL Psychiatric: Yes: WNL, Alert, Oriented - Other Data Labs, Other Data: INR, PTT INR 0.93 (0.82-1.09) 10/13/16 17:40 ekg-sinus tach 112bpm, LBBB, baseline 1st deg AVB Echo: Report Reviewed Prior Cardiac Procedures: Cardiac Catheterization, PTCA with Stent Ejection Fraction %: LVEF > or = 40 % Imaging - Results Chest X-ray: Report Reviewed, Image Reviewed EKG: Report Reviewed, Image Reviewed Other: Report Reviewed, Image Reviewed (tele-nsr, apcs, pvcs) Assessment/Plan 76 year old woman with a history of HTN, HLD, CAD with multiple prior stents including 12/2015 at which time she had IRASEMA D1 followed by IRASEMA dRCA with prior IRASEMA pRCA and LAD, h/o TIA, Asthma, chronic atypical chest pain, possible stable angina, admitted with fever, chills, body aches, chest tightness, sob, nausea. Pt was at [facility] this week treated for UTI. Chest pain-atypical, prior stents as above, unlikely ACS -cardiac enzymes wnl x3 -no ischemia on ekg -no sig arrhythmia on telemetry -cont ASA, Plavix, lopressor, losartan -clarify why not on statin and start if no contraindication -no additional inpatient cardiac work up needed at this time, pt is acceptable for discharge with close outpatient follow up -will consider anti-anginals as outpatient, she was treated with Ranexa in the past SOB-possible asthma exacerbation, chronic diastolic CHF -does not appear to be in decompensated chf -cont home lasix HTN-adequately controlled -cont home medical regimen
[2016-10-14] MEDS ORDERED: ACETAMINOPHEN 325 MG TABLET (FP) PO PRN (12:49)
--- NOTE | 2016-10-14 14:27 | PN ---
Physical Exam: SUBJECTIVE: Patient seen and examined. She says she feels chest tightness, no sob or pain. She does say her lower extremities are painful and she can't walk. OBJECTIVE: Last Vital Signs Temp Pulse Resp BP Pulse Ox 97.8 F 102 H 18 114/69 95 10/14/16 09:14 10/14/16 11:33 10/14/16 09:14 10/14/16 09:14 10/14/16 11:33 PE Neuro: alert, awake, cn 2-12intact Pulm: bi basilar crackles + NC, no cough noted, or sob CV: s1 s2 rrr no mrg Abd: s nt nd + bs Ext: ++tender to palpation, gait unsteady CBCD WBC 5.5 K/mm3 (4.0-10.0) 10/14/16 05:35 RBC 3.29 M/mm3 (3.60-5.2) L 10/14/16 05:35 Hgb 10.1 GM/dL (10.7-15.3) L 10/14/16 05:35 Hct 29.7 % (32.4-45.2) L 10/14/16 05:35 MCV 90.5 fl (80-96) 10/14/16 05:35 MCHC 33.8 g/dl (32.0-36.0) 10/14/16 05:35 RDW 12.8 % (11.6-15.6) 10/14/16 05:35 Plt Count 231 K/MM3 (134-434) 10/14/16 05:35 MPV 8.8 fl (7.5-11.1) D 10/14/16 05:35 CMP Sodium 143 mmol/L (136-145) 10/14/16 05:35 Potassium 4.1 mmol/L (3.5-5.1) 10/14/16 05:35 Chloride 108 mmol/L (98-107) H 10/14/16 05:35 Carbon Dioxide 26 mmol/L (21-32) 10/14/16 05:35 Anion Gap 9 (8-16) 10/14/16 05:35 BUN 13 mg/dL (7-18) 10/14/16 05:35 Creatinine 0.6 mg/dL (0.55-1.02) 10/14/16 05:35 Creat Clearance w eGFR > 60 (>60) 10/13/16 18:29 Calcium 8.4 mg/dL (8.5-10.1) L 10/14/16 05:35 Total Bilirubin 0.2 mg/dL (0.2-1.0) D 10/13/16 18:29 AST 33 U/L (15-37) 10/13/16 18:29 ALT 48 U/L (12-78) D 10/13/16 18:29 Alkaline Phosphatase 142 U/L (45-117) H 10/13/16 18:29 Total Protein 7.0 g/dl (6.4-8.2) 10/13/16 18:29 Albumin 3.6 g/dl (3.4-5.0) 10/13/16 18:29 10/13/16 10/14/16 10/14/16 18:29 00:01 05:35 Hemoglobin A1c % Creatine Kinase 260 H D CK-MB (CK-2) 2.000 Troponin I < 0.02 < 0.02 < 0.02 Triglycerides 58 D Cholesterol 190 Total LDL Cholesterol 116 H HDL Cholesterol 69 10/14/16 05:35 Hemoglobin A1c % 5.7 D Active Medications Generic Name Dose Route Start Last Admin Trade Name Freq PRN Reason Stop Dose Admin Acetaminophen 650 mg 10/14/16 12:49 Tylenol - PO Q6H PRN FEVER OR PAIN Albuterol Sulfate 1 amp 10/13/16 21:11 Ventolin 0.083% Nebulizer Soln - NEB Q8H PRN SHORT OF BREATH/WHEEZING Amlodipine Besylate 10 mg 10/14/16 10:00 10/14/16 09:26 Norvasc - PO 10 mg DAILY EUGENE Administration Aspirin 81 mg 10/14/16 10:00 10/14/16 09:26 Asa - PO 81 mg DAILY EUGENE Administration Clopidogrel Bisulfate 75 mg 10/14/16 10:00 10/14/16 09:26 Plavix - PO 75 mg DAILY EUGENE Administration Furosemide 20 mg 10/14/16 10:00 10/14/16 09:26 Lasix - PO 20 mg DAILY EUGENE Administration Gabapentin 100 mg 10/14/16 13:00 Neurontin - PO BID EUGENE Hydroxyzine HCl 25 mg 10/13/16 22:00 10/14/16 05:20 Atarax - PO 25 mg TID EUGENE Administration Losartan Potassium 25 mg 10/14/16 10:00 10/14/16 09:27 Cozaar - PO 25 mg DAILY EUGENE Administration Metoprolol Tartrate 12.5 mg 10/14/16 10:00 10/14/16 09:26 Lopressor - PO 10/14/16 23:59 12.5 mg BID EUGENE Administration Metoprolol Tartrate 25 mg 10/15/16 10:00 Lopressor - PO DAILY EUGENE Fluticasone/Salmeterol 1 puff 10/14/16 10:00 Advair 100mcg/50mcg - IH DAILY EUGENE Assessment: 76 year old female with pmhx of HTN, HLD, COPD, GERD, CAD, chronic LBBB, with multiple prior stents including 3 more additional placed 12/2015, h/o TIA, Asthma, chronic atypical chest pain, angina pectoris, admitted with left sided chest tightness with left arm radiation and SOB and worsening lower extremity neuropathy. Plan: 1. Atypical CP/ angina pectoris - r/o CO serial trops negative - EKG w/o ischemia - Will resume ranexa 500mg BID 2. CAD - Continue ASA/Plavix - Start metoprolol 25mg daily - Continue Losartan 25mg daily - Continue Norvasc 10mg daily 3. HTN - Well controlled - Meds above 4. Chronic diastolic CHF - Appears euovolemic - Continue lasix 20mg daily 5. Peripheral neuropathy - Start Gabapentin 100mg BID - Monitor for lethargy - Will need outpt neuro eval 6. HLD - Will hold on statin due to severe LE myalgia - D/w cardiology will eval in office once nerve pain improves 7. Asthma - Continue Advair - Albuterol nebs prn 8. PT - Will likely need SNF is agreeable now, per CCM 9. DVT ppx - Lovenox sq Visit type - Emergency Visit Emergency Visit: Yes ED Registration Date: 10/14/16 Care time: The patient presented to the Emergency Department on the above date and was hospitalized for further evaluation of their emergent condition. - New Patient This patient is new to me today: Yes Date on this admission: 10/14/16 - Critical Care Critical Care patient: No
[2016-10-14] MEDS ORDERED: ALBUTEROL SO4 2.5/IPRATROPIUM 0.5 INH SOL 3 ML VIAL.NEB. NEB SCH (14:45)
[2016-10-14] MEDS: GABAPENTIN 100 MG CAPSULE (FP) PO SCH ×2 (14:50→21:36)
--- NOTE | 2016-10-14 16:39 | EKG ---
Test Reason : Blood Pressure : / mmHG Vent. Rate : 112 BPM Atrial Rate : 112 BPM P-R Int : 140 ms QRS Dur : 144 ms QT Int : 364 ms P-R-T Axes : 016 -20 116 degrees QTc Int : 496 ms POOR DATA QUALITY, INTERPRETATION MAY BE ADVERSELY AFFECTED SINUS TACHYCARDIA WITH PREMATURE ATRIAL COMPLEXES LEFT BUNDLE BRANCH BLOCK ABNORMAL ECG WHEN COMPARED WITH ECG OF 18-FEB-2016 00:45, PREMATURE ATRIAL COMPLEXES ARE NOW PRESENT Confirmed by MD CARLOS, ANYI ([id number]) on 10/14/2016 4:39:46 PM Referred By: Confirmed By:ANYI GONZALEZ MD
[2016-10-14 20:43] LABS: URINE APPEARANCE CLEAR; URINE BILIRUBIN NEGATIVE (NEGATIVE); URINE BLOOD NEGATIVE (NEGATIVE); URINE COLOR STRAW; URINE GLUCOSE (UA) NEGATIVE (NEGATIVE); URINE KETONE NEGATIVE (NEGATIVE); URINE LEUK ESTERASE NEGATIVE (NEGATIVE); URINE NITRITE NEGATIVE (NEGATIVE); URINE PROTEIN NEGATIVE (NEGATIVE); URINE UROBILINOGEN NEGATIVE E.U./dl (0.2-1.0)
[2016-10-14] MEDS: RANOLAZINE E.R. 500 MG TABLET (FP) PO SCH (21:35)
[2016-10-14] MEDS: FLUTICASONE/SALMETEROL 100 MCG/50 MCG DISKUS IH SCH (21:36)
[2016-10-15] MEDS: hydrOXYzine HCL 25 MG TABLET (FP) PO SCH ×3 (06:24→22:24)
[2016-10-15 09:05] LABS: CALCIUM 8.9 mg/dL (8.5-10.1); CREATININE 0.7 mg/dL (0.55-1.02)
[2016-10-15] MEDS: METOPROLOL TARTRATE 25 MG TABLET (FP) PO SCH (09:51)
[2016-10-15] MEDS: GABAPENTIN 100 MG CAPSULE (FP) PO SCH (09:51)
[2016-10-15] MEDS: FUROSEMIDE 20 MG TABLET (FP) PO SCH (09:51)
[2016-10-15] MEDS: amLODIPine BESYLATE 10 MG TABLET (FP) PO SCH (09:51)
[2016-10-15] MEDS: RANOLAZINE E.R. 500 MG TABLET (FP) PO SCH ×2 (09:51→22:24)
[2016-10-15] MEDS: ASPIRIN 81 MG CHEWABLE TABLETS PO SCH (09:51)
[2016-10-15] MEDS: CLOPIDOGREL BISULFATE 75 MG TABLET (FP) PO SCH (09:51)
[2016-10-15] MEDS: LOSARTAN POTASSIUM 25 MG TABLET PO SCH (09:51)
[2016-10-15] MEDS: FLUTICASONE/SALMETEROL 100 MCG/50 MCG DISKUS IH SCH (09:52)
[2016-10-15] MEDS: ENOXAPARIN NA (PORCINE) 40 MG/0.4 ML DISP.SYRIN SQ SCH (09:52)
[2016-10-15] MEDS ORDERED: GABAPENTIN 100 MG CAPSULE (FP) PO ONE (10:37)
[2016-10-15] MEDS ORDERED: GABAPENTIN 100 MG CAPSULE (FP) PO SCH (10:39)
--- NOTE | 2016-10-15 10:39 | PN ---
Physical Exam: SUBJECTIVE: Patient seen and examined. She says she feels better in her chest. She wants to go to SNF for PT. Her legs are still painful, however mildly better per RN. OBJECTIVE: Vital Signs Period Temp Pulse Resp BP Sys/Vieira Pulse Ox Last 24 Hr 97.8 F-99.1 F 83-102 18-20 111-152/55-80 95-98 PE Neuro: alert, awake, cn 2-12intact Pulm: L base crackles, no sob CV: s1 s2 rrr no mrg, denies chest tightness Abd: s nt nd + bs Ext: ++tender to palpation, increased le movement today Laboratory Results - last 24 hr 10/14/16 10/15/16 20:15 06:00 Sodium 142 Potassium 4.2 Chloride 105 Carbon Dioxide 29 Anion Gap 8 BUN 16 D Creatinine 0.7 Random Glucose 120 H D Calcium 8.9 Urine Color Straw Urine Appearance Clear Urine pH 6.0 Ur Specific Cornelius 1.010 Urine Protein Negative Urine Glucose (UA) Negative Urine Ketones Negative Urine Blood Negative Urine Nitrite Negative Urine Bilirubin Negative Urine Urobilinogen Negative Ur Leukocyte Esterase Negative Active Medications Generic Name Dose Route Start Last Admin Trade Name Freq PRN Reason Stop Dose Admin Acetaminophen 650 mg 10/14/16 12:49 Tylenol - PO Q6H PRN FEVER OR PAIN Albuterol Sulfate 1 amp 10/13/16 21:11 Ventolin 0.083% Nebulizer Soln - NEB Q8H PRN SHORT OF BREATH/WHEEZING Amlodipine Besylate 10 mg 10/14/16 10:00 10/15/16 09:51 Norvasc - PO 10 mg DAILY EUGENE Administration Aspirin 81 mg 10/14/16 10:00 10/15/16 09:51 Asa - PO 81 mg DAILY EUGENE Administration Clopidogrel Bisulfate 75 mg 10/14/16 10:00 10/15/16 09:51 Plavix - PO 75 mg DAILY EUGENE Administration Enoxaparin Sodium 40 mg 10/15/16 10:00 10/15/16 09:52 Lovenox - SQ 40 mg DAILY EUGENE Administration Furosemide 20 mg 10/14/16 10:00 10/15/16 09:51 Lasix - PO 20 mg DAILY EUGENE Administration Hydroxyzine HCl 25 mg 10/13/16 22:00 10/15/16 06:24 Atarax - PO 25 mg TID EUGENE Administration Losartan Potassium 25 mg 10/14/16 10:00 10/15/16 09:51 Cozaar - PO 25 mg DAILY EUGENE Administration Metoprolol Tartrate 25 mg 10/15/16 10:00 10/15/16 09:51 Lopressor - PO 25 mg DAILY EUGENE Administration Ranolazine 500 mg 10/14/16 22:00 10/15/16 09:51 Ranexa - PO 500 mg BID EUGENE Administration Fluticasone/Salmeterol 1 puff 10/14/16 10:00 10/15/16 09:52 Advair 100mcg/50mcg - IH 1 puff DAILY EUGENE Administration Assessment: 76 year old female with pmhx of HTN, HLD, COPD, GERD, CAD, chronic LBBB, with multiple prior stents including 3 more additional placed 12/2015, h/o TIA, Asthma, chronic atypical chest pain, angina pectoris, admitted with left sided chest tightness with left arm radiation and SOB and worsening lower extremity neuropathy. Plan: 1. Atypical CP/ angina pectoris - Improved - Continue ranexa 500mg BID 2. CAD - Continue ASA/Plavix - Continue etoprolol 25mg daily - Continue Losartan 25mg daily - Continue Norvasc 10mg daily 3. HTN - Well controlled - Meds above 4. Chronic diastolic CHF - Continue lasix 20mg daily 5. Peripheral neuropathy - Increase Gabapentin 200mg BID - Will need outpt neuro eval 6. HLD - Will hold on statin due to severe LE myalgia - D/w cardiology will eval in office once nerve pain improves 7. Asthma - Continue Advair - Albuterol nebs prn 8. PT - Daily PT 9. DVT ppx - Lovenox sq Dispo: - SNF initiation Visit type - Emergency Visit Emergency Visit: Yes ED Registration Date: 10/14/16 Care time: The patient presented to the Emergency Department on the above date and was hospitalized for further evaluation of their emergent condition. - New Patient This patient is new to me today: No - Critical Care Critical Care patient: No
[2016-10-15] MEDS ORDERED: PT OWN MED DRAWER 7, Y5N ONE ×3 (15:48→22:20)
[2016-10-16] MEDS ORDERED: PT OWN MED DRAWER 7, Y5N ONE ×3 (06:06→21:56)
[2016-10-16] MEDS: hydrOXYzine HCL 25 MG TABLET (FP) PO SCH ×3 (06:15→21:58)
[2016-10-16] MEDS ORDERED: MAGNESIUM HYDROX 2400MG/30ML ORAL SUSPENSION 30 ML CUP PO PRN (08:42)
[2016-10-16] MEDS ORDERED: MAGNESIUM HYDROX 2400MG/30ML ORAL SUSPENSION 30 ML CUP PO ONE (08:42)
--- NOTE | 2016-10-16 08:44 | PN ---
Physical Exam: SUBJECTIVE: Patient seen and examined. She says she feels her legs are asleep and tingling. She is moving them better. She says she has a runny nose and has not moved her bowels in 4 days. OBJECTIVE: Vital Signs Period Temp Pulse Resp BP Sys/Vieira Pulse Ox Last 24 Hr 97.6 F-98.2 F 76-89 18-20 109-143/54-72 97-100 PE Neuro: alert, awake, cn 2-12intact HEENT: rhinorrhea Pulm: clear with scattered rhonchi CV: s1 s2 rrr no mrg Abd: s nt nd + bs Ext: + LE tenderness- mildly improved Laboratory Results - last 24 hr 10/15/16 06:00 Sodium 142 Potassium 4.2 Chloride 105 Carbon Dioxide 29 Anion Gap 8 BUN 16 D Creatinine 0.7 Random Glucose 120 H D Calcium 8.9 Active Medications Generic Name Dose Route Start Last Admin Trade Name Freq PRN Reason Stop Dose Admin Acetaminophen 650 mg 10/14/16 12:49 Tylenol - PO Q6H PRN FEVER OR PAIN Albuterol Sulfate 1 amp 10/13/16 21:11 Ventolin 0.083% Nebulizer Soln - NEB Q8H PRN SHORT OF BREATH/WHEEZING Amlodipine Besylate 10 mg 10/14/16 10:00 10/15/16 09:51 Norvasc - PO 10 mg DAILY EUGENE Administration Aspirin 81 mg 10/14/16 10:00 10/15/16 09:51 Asa - PO 81 mg DAILY EUGENE Administration Clopidogrel Bisulfate 75 mg 10/14/16 10:00 10/15/16 09:51 Plavix - PO 75 mg DAILY EUGENE Administration Enoxaparin Sodium 40 mg 10/15/16 10:00 10/15/16 09:52 Lovenox - SQ 40 mg DAILY EUGENE Administration Furosemide 20 mg 10/14/16 10:00 10/15/16 09:51 Lasix - PO 20 mg DAILY EUGENE Administration Gabapentin 200 mg 10/15/16 10:39 10/15/16 22:24 Neurontin - PO 200 mg BID EUGENE Administration Hydroxyzine HCl 25 mg 10/13/16 22:00 10/16/16 06:15 Atarax - PO 25 mg TID EUGENE Administration Losartan Potassium 25 mg 10/14/16 10:00 10/15/16 09:51 Cozaar - PO 25 mg DAILY EUGENE Administration Magnesium Hydroxide 30 ml 10/16/16 08:42 Milk Of Magnesia - PO Q8H PRN INDIGESTION Magnesium Hydroxide 30 ml 10/16/16 08:42 Milk Of Magnesia - PO 10/16/16 08:43 ONCE ONE Metoprolol Tartrate 25 mg 10/15/16 10:00 10/15/16 09:51 Lopressor - PO 25 mg DAILY EUGENE Administration Polyethylene Glycol 17 gm 10/16/16 10:00 Miralax (For Daily Use) - PO DAILY EUGENE Ranolazine 500 mg 10/14/16 22:00 10/15/16 22:24 Ranexa - PO 500 mg BID EUGENE Administration Fluticasone/Salmeterol 1 puff 10/14/16 10:00 10/15/16 09:52 Advair 100mcg/50mcg - IH 1 puff DAILY EUGENE Administration Assessment: 76 year old female with pmhx of HTN, HLD, COPD, GERD, CAD, chronic LBBB, with multiple prior stents including 3 more additional placed 12/2015, h/o TIA, Asthma, chronic atypical chest pain, angina pectoris, admitted with left sided chest tightness with left arm radiation and SOB and worsening lower extremity neuropathy. Plan: 1. Atypical CP/ angina pectoris - Improved - Continue ranexa 500mg BID 2. CAD - Continue ASA/Plavix - Continue Metoprolol 25mg daily - Continue Losartan 25mg daily - Continue Norvasc 10mg daily 3. HTN - Well controlled - Meds above 4. Chronic diastolic CHF - Continue lasix 20mg daily 5. Peripheral neuropathy - Increase Gabapentin 300mg BID - Will need outpt neuro eval 6. HLD - Will hold on statin due to severe LE myalgia - D/w cardiology will eval in office once nerve pain improves 7. Asthma - Continue Advair - Albuterol nebs prn 8. PT - Daily PT 9. DVT ppx - Lovenox sq 10. Constipation - Milk of mag now, then q8 prn - Daily miralax Dispo: - SNF initiation Visit type - Emergency Visit Emergency Visit: Yes ED Registration Date: 10/14/16 Care time: The patient presented to the Emergency Department on the above date and was hospitalized for further evaluation of their emergent condition. - New Patient This patient is new to me today: No - Critical Care Critical Care patient: No
[2016-10-16] MEDS: FUROSEMIDE 20 MG TABLET (FP) PO SCH (10:22)
[2016-10-16] MEDS: amLODIPine BESYLATE 10 MG TABLET (FP) PO SCH (10:22)
[2016-10-16] MEDS: RANOLAZINE E.R. 500 MG TABLET (FP) PO SCH ×2 (10:22→21:58)
[2016-10-16] MEDS: ASPIRIN 81 MG CHEWABLE TABLETS PO SCH (10:23)
[2016-10-16] MEDS: METOPROLOL TARTRATE 25 MG TABLET (FP) PO SCH (10:23)
[2016-10-16] MEDS: LOSARTAN POTASSIUM 25 MG TABLET PO SCH (10:23)
[2016-10-16] MEDS: CLOPIDOGREL BISULFATE 75 MG TABLET (FP) PO SCH (10:23)
[2016-10-16] MEDS: GABAPENTIN 300 MG CAPSULE (FP) PO SCH ×2 (10:23→21:58)
[2016-10-16] MEDS: FLUTICASONE/SALMETEROL 100 MCG/50 MCG DISKUS IH SCH (10:24)
[2016-10-16] MEDS: ENOXAPARIN NA (PORCINE) 40 MG/0.4 ML DISP.SYRIN SQ SCH (10:24)
[2016-10-16] MEDS: POLYETHYLENE GLYCOL 3350 119 GM BTL PO SCH (12:14)
[2016-10-17] MEDS ORDERED: PT OWN MED DRAWER 7, Y5N ONE (05:40)
[2016-10-17] MEDS: hydrOXYzine HCL 25 MG TABLET (FP) PO SCH ×2 (05:41→14:04)
[2016-10-17] MEDS: ENOXAPARIN NA (PORCINE) 40 MG/0.4 ML DISP.SYRIN SQ SCH (10:00)
[2016-10-17] MEDS: RANOLAZINE E.R. 500 MG TABLET (FP) PO SCH (10:00)
[2016-10-17] MEDS: LOSARTAN POTASSIUM 25 MG TABLET PO SCH (10:01)
[2016-10-17] MEDS: CLOPIDOGREL BISULFATE 75 MG TABLET (FP) PO SCH (10:01)
[2016-10-17] MEDS: GABAPENTIN 300 MG CAPSULE (FP) PO SCH (10:01)
[2016-10-17] MEDS: ASPIRIN 81 MG CHEWABLE TABLETS PO SCH (10:01)
[2016-10-17] MEDS: FUROSEMIDE 20 MG TABLET (FP) PO SCH (10:01)
[2016-10-17] MEDS: METOPROLOL TARTRATE 25 MG TABLET (FP) PO SCH (10:01)
[2016-10-17] MEDS: FLUTICASONE/SALMETEROL 100 MCG/50 MCG DISKUS IH SCH (10:02)
[2016-10-17] MEDS: POLYETHYLENE GLYCOL 3350 119 GM BTL PO SCH (10:03)
[2016-10-17] MEDS: amLODIPine BESYLATE 10 MG TABLET (FP) PO SCH (10:03)
--- NOTE | 2016-10-17 11:13 | PN ---
Progress Note, Physician History of Present Illness: seen and examined today in [facility]. no overnight events. no new complaints. feeling better but still having diffuse muscle aches. no further chest pain. - Current Medication List Current Medications: Active Medications Acetaminophen (Tylenol -) 650 mg PO Q6H PRN PRN Reason: FEVER OR PAIN Albuterol Sulfate (Ventolin 0.083% Nebulizer Soln -) 1 amp NEB Q8H PRN PRN Reason: SHORT OF BREATH/WHEEZING Amlodipine Besylate (Norvasc -) 10 mg PO DAILY [facility] Last Admin: 10/16/16 10:22 Dose: 10 mg Aspirin (Asa -) 81 mg PO DAILY [facility] Last Admin: 10/17/16 10:01 Dose: 81 mg Clopidogrel Bisulfate (Plavix -) 75 mg PO DAILY [facility] Last Admin: 10/17/16 10:01 Dose: 75 mg Enoxaparin Sodium (Lovenox -) 40 mg SQ DAILY [facility] Last Admin: 10/17/16 10:00 Dose: 40 mg Furosemide (Lasix -) 20 mg PO DAILY [facility] Last Admin: 10/17/16 10:01 Dose: 20 mg Gabapentin (Neurontin -) 300 mg PO BID [facility] Last Admin: 10/17/16 10:01 Dose: 300 mg Hydroxyzine HCl (Atarax -) 25 mg PO TID [facility] Last Admin: 10/17/16 05:41 Dose: 25 mg Losartan Potassium (Cozaar -) 25 mg PO DAILY [facility] Last Admin: 10/17/16 10:01 Dose: 25 mg Magnesium Hydroxide (Milk Of Magnesia -) 30 ml PO Q8H PRN PRN Reason: INDIGESTION Metoprolol Tartrate (Lopressor -) 25 mg PO DAILY [facility] Last Admin: 10/17/16 10:01 Dose: 25 mg Polyethylene Glycol (Miralax (For Daily Use) -) 17 gm PO DAILY [facility] Last Admin: 10/17/16 10:03 Dose: Not Given Ranolazine (Ranexa -) 500 mg PO BID [facility] Last Admin: 10/17/16 10:00 Dose: 500 mg Fluticasone/Salmeterol (Advair 100mcg/50mcg -) 1 puff IH DAILY [facility] Last Admin: 10/17/16 10:02 Dose: 1 puff - Objective Vital Signs: Vital Signs Temperature 98.2 F 10/17/16 08:05 Pulse Rate 92 H 10/17/16 08:05 Respiratory Rate 14 10/17/16 08:05 Blood Pressure 104/56 10/17/16 08:05 O2 Sat by Pulse Oximetry (%) 97 10/17/16 06:00 Constitutional: Yes: No Distress, Calm, Obese Eyes: Yes: WNL, Conjunctiva Clear, EOM Intact, PERRL HENT: Yes: WNL, Atraumatic, Normocephalic Neck: Yes: WNL, Supple, Trachea Midline Cardiovascular: Yes: Regular Rate and Rhythm, S1, S2. No: Bradycardia, Tachycardia, Pulse Irregular, Bruit, JVD, Gallop, Murmur, Rub, S3, S4, Varicosities Respiratory: Yes: Regular, Diminished, Rhonchi. No: Rales, SOB, Wheezes Gastrointestinal: Yes: WNL, Normal Bowel Sounds, Soft. No: Distention, Tenderness Musculoskeletal: Yes: WNL Extremities: Yes: WNL Edema: No Peripheral Pulses WNL: Yes Peripheral Pulses: Left Doralis Pedis: 2+, Right Dorsalis Pedis: 2+ Integumentary: Yes: WNL Neurological: Yes: Alert, Oriented Psychiatric: Yes: Alert, Oriented Labs: CBC, BMP 10/15/16 06:00 INR, PTT INR 0.93 (0.82-1.09) 10/13/16 17:40 - ....Imaging Chest X-ray: Report Reviewed, Image Reviewed EKG: Report Reviewed, Image Reviewed Other: Report Reviewed, Image Reviewed (tele-sinus tach, apcs, pvcs, no sig arrhythmia) Assessment/Plan 76 year old woman with a history of HTN, HLD, CAD with multiple prior stents including 12/2015 at which time she had IRASEMA D1 followed by IRASEMA dRCA with prior IRASEMA pRCA and LAD, h/o TIA, Asthma, chronic atypical chest pain, possible stable angina, admitted with fever, chills, body aches, chest tightness, sob, nausea. Pt was at [facility] this week treated for UTI. Chest pain-atypical, prior stents as above, unlikely ACS -cardiac enzymes wnl x3 -no ischemia on ekg -no sig arrhythmia on telemetry -cont ASA, Plavix, lopressor (clarify why only ordered for daily dosing), losartan -cont Ranexa 500mg bid and uptitrate as needed as outpatient -holding starting statin for now as pt c/o muscle aches -no additional inpatient cardiac work up needed at this time, pt is acceptable for discharge with close outpatient follow up -dc tele if remains inpatient SOB-possible asthma exacerbation, chronic diastolic CHF -does not appear to be in decompensated chf -cont home lasix HTN-adequately controlled -cont home medical regimen
--- NOTE | 2016-10-17 15:34 | DS ---
Physical Exam: SUBJECTIVE: Patient seen and examined. She feels her legs are weak. The pain has improved mildly. OBJECTIVE: Vital Signs Period Temp Pulse Resp BP Sys/Vieira Pulse Ox Last 24 Hr 97.0 F-98.6 F 75-110 14-19 104-115/49-60 96-97 PE Neuro: alert, awake, cn 2-12intact Pulm: clear with scattered rhonchi CV: s1 s2 rrr no mrg Abd: s nt nd + bs Ext: + LE tenderness b/l, no le edema HOSPITAL COURSE: Date of Admission:10/14/16 Date of Discharge: 10/17/16 Minutes to complete discharge: 35 Discharge Summary Reason For Visit: CHEST PAIN Current Active Problems Bilateral leg cramps (Acute) Chest pain (Acute) DVT prophylaxis (Acute) Stable angina (Acute) Hospital Course: Initial Hospital Course: 76 year old female with pmhx of HTN, HLD, COPD, GERD, CAD, chronic LBBB, with multiple prior stents including 3 more additional placed 12/2015, h/o TIA, Asthma , chronic atypical chest pain, angina pectoris, recent admission to [facility] for UTI, body aches, fever. admitted with left sided chest tightness with left arm radiation and SOB and worsening lower extremity neuropathy. Cardiac hx Stents: 12/2015 IRASEMA D1 followed by IRASEMA CA with prior IRASEMA pRCA and LAD Subsequent Hospital Course/Progress Note/Discharge Summary by p: Plan: 1. Atypical CP/ angina pectoris - r/o AK serial trops negative - EKG w/o ischemia - Started ranexa 500mg BID; maintain 2. CAD - Continue ASA/Plavix - Started Metoprolol 25mg daily; maintain - Continue Losartan 25mg daily - Continue Norvasc 10mg daily 3. HTN - Well controlled - Meds above 4. Chronic diastolic CHF - Continue lasix 20mg daily 5. Peripheral neuropathy - Started Gabapentin 300mg BID; maintain - Will need outpt neuro eval; referral enclosed 6. HLD - Will hold on statin due to severe LE myalgia - D/w cardiology will eval in office once nerve pain improves 7. Asthma - Continue Advair - Albuterol nebs prn 8. Constipation - Resolved, + bowel movement Dispo: - Transfer to [facility] for rehab - PT aware to take new medications as listed when discharged and follow up with neuro, pcp and cardiology Condition: Stable - Instructions Diet, Activity, Other Instructions: Please return to the ED for any new, persistent, or worsening symptoms. Follow up with your PCP in 1 week. Take new medications as listed on home medication list (renexa, metroprolol, neurontin) Follow up with community placement worker in 2 weeks (referral enclosed) Follow up with neurologist for lower extremity peripheral neuropathy (referral enclosed) Referrals: Radha Escamilla MD [Primary Care Provider] - Paresh Milton MD [Staff Physician] - Shon Cortez MD [Staff Physician] - Disposition: [facility] - Home Medications Comprehensive Discharge Medication List: Ambulatory Orders Albuterol Sulfate Inhaler - [Ventolin HFA Inhaler -] 1 - 2 inh PO Q4H 02/17/16 Amlodipine Besylate 10 mg PO DAILY 02/17/16 Aspirin [ASA -] 81 mg PO DAILY 02/17/16 Clopidogrel Bisulfate [Clopidogrel] 75 mg PO DAILY 02/17/16 Furosemide 20 mg PO DAILY 02/17/16 Hydroxyzine HCl [Atarax -] 25 mg PO TID 02/17/16 Meclizine HCl 25 mg PO Q6H PRN 02/17/16 Salmeterol/Fluticasone [Advair 100Mcg/50Mcg -] 1 inh IH DAILY 02/17/16 Gabapentin [Neurontin -] 300 mg PO BID #60 capsule 10/17/16 Losartan Potassium [Cozaar -] 25 mg PO DAILY #30 tablet 10/17/16 Metoprolol Tartrate [Lopressor -] 25 mg PO DAILY #30 tablet 10/17/16 Ranolazine [Ranexa -] 500 mg PO BID #60 tab 10/17/16 This patient is new to me today: No Emergency Visit: Yes ED Registration Date: 10/14/16 Care time: The patient presented to the Emergency Department on the above date and was hospitalized for further evaluation of their emergent condition. Critical Care patient: No - Discharge Referral Referred to [facility] No
[2016-10-17 17:36] VITALS: BP 108/56; PULSE 78; TEMP 97.3
== END 2016-10-17 18:29 ==
LOC: JER 17:09 → JERBED 21:13 → UNDOADMOB 21:13 → INTOOBSV 21:13 → JERBED 10-14 00:50 → J4W 10-14 00:50 → JERBED 10-14 09:14 → J4W 10-14 09:14
PROVIDERS: ADMIT Internal Medicine; ATTEND Nurse Practitioner Acute Care
DX: I25.10 Atherosclerotic heart disease of native coronary artery without angina pectoris (principal); R07.89 Other chest pain; I20.9 Angina pectoris, unspecified; I50.32 Chronic diastolic (congestive) heart failure; G62.9 Polyneuropathy, unspecified; E78.5 Hyperlipidemia, unspecified; J45.909 Unspecified asthma, uncomplicated; K59.00 Constipation, unspecified; Z98.61 Coronary angioplasty status; Z87.891 Personal history of nicotine dependence; K21.9 Gastro-esophageal reflux disease without esophagitis; J44.9 Chronic obstructive pulmonary disease, unspecified; I42.9 Cardiomyopathy, unspecified; R25.2 Cramp and spasm; I65.29 Occlusion and stenosis of unspecified carotid artery; I11.0 Hypertensive heart disease with heart failure
CPT/HCPCS: 36415; 71010-TC; 80048; 80053; 80061; 81003; 82550; 82553; 83036; 83721; 83735; 83880; 84100; 84484; 85025; 85610; 87254; 87804; 93005; 93010; 94761; 97116-GP; 97162-PG; 99284-25; G0378

== ENCOUNTER 2016-10-28 00:49 | Emergency (ER) | payer OTHER ==
[2016-10-28 00:53] VITALS: BMI 21.2
[2016-10-28 01:00] VITALS: TEMP 98.2
--- NOTE | 2016-10-28 01:09 | PDOC ---
History of Present Illness - General History Source: Patient Exam Limitations: No Limitations - History of Present Illness Initial Comments: 10/28/16 01:42 The patient is a 76 year old female with significant past medical history of CAD s/p stents, hypertension, hyperlipidemia, and COPD who presents to the ED [facility] from [place] with midsternal chest pain prior to arrival. Patient reports she went to bed in her usual state of health when she suddenly was awoken by a midsternal chest pain that is nonradiating and 8/10, in severity. She reports associated diaphoresis, SOB, and nausea. Denies lightheadedness, jaw pain, shoulder pain, arm pain, or vomiting. Patient received a sublingual nitroglycerine at the [facility]. At time of evaluation, she reports having chest discomfort that is now a 5/10 and nonradiating. The patient denies fever, chills, cough, abdominal pain, and diarrhea. Allergies: codeine, penicillins Social History: Former smoker (quit 20 years ago). No alcohol or drug use reported. Past Surgical History: s/p cardiac stents, right shoulder sx, appendectomy PCP: Dr. Radha Escamilla <Amirah Marte - Last Filed: 10/28/16 05:35> - General History Source: Patient, [facility] <JennaChalino - Last Filed: 10/28/16 05:56> - General Chief Complaint: Chest Pain Stated Complaint: CHEST PAIN Time Seen by Provider: 10/28/16 01:06 Past History <Amirah Marte - Last Filed: 10/28/16 05:35> - Past Medical History Anemia: No Asthma: Yes Cancer: No Cardiac Disorders: Yes (CAD, stent) CVA: No COPD: No CHF: No Dementia: No Diabetes: No GI Disorders: Yes (REFLUX) Disorders: No HTN: Yes Hypercholesterolemia: Yes Liver Disease: No Seizures: No Thyroid Disease: No - Surgical History Abdominal Surgery: No Appendectomy: Yes Cardiac Surgery: Yes (STENTS) Cholecystectomy: No Lung Surgery: No Neurologic Surgery: No Orthopedic Surgery: Yes (right shoulder sx) - Immunization History Immunization Up to Date: No - Psycho/Social/Smoking Cessation Hx Anxiety: No Suicidal Ideation: No Smoking History: Former smoker Have you smoked in the past 12 months: No If you are a former smoker, when did you quit?: 20 years Information on smoking cessation initiated: No 'Breaking Loose' booklet given: 01/28/16 Hx Alcohol Use: No Drug/Substance Use Hx: No Substance Use Type: None Hx Substance Use Treatment: No <KhaiaartiChalino - Last Filed: 10/28/16 05:56> - Past Medical History Allergies/Adverse Reactions: Allergies Allergy/AdvReac Type Severity Reaction Status Date / Time codeine [Codeine] Allergy Intermediate Nausea Verified 10/28/16 00:51 Penicillins Allergy Intermediate Rash Verified 10/28/16 00:51 Home Medications: Ambulatory Orders Albuterol Sulfate Inhaler - [Ventolin HFA Inhaler -] 1 - 2 inh PO Q4H 02/17/16 Aspirin [ASA -] 81 mg PO DAILY 02/17/16 Clopidogrel Bisulfate [Clopidogrel] 75 mg PO DAILY 02/17/16 Furosemide 20 mg PO DAILY 02/17/16 Hydroxyzine HCl [Atarax -] 25 mg PO TID 02/17/16 Meclizine HCl 25 mg PO Q6H PRN 02/17/16 Salmeterol/Fluticasone [Advair 100Mcg/50Mcg -] 1 inh IH DAILY 02/17/16 Gabapentin [Neurontin -] 300 mg PO BID #60 capsule 10/17/16 Losartan Potassium [Cozaar -] 25 mg PO DAILY #30 tablet 10/17/16 Metoprolol Tartrate [Lopressor -] 25 mg PO DAILY #30 tablet 10/17/16 Ranolazine [Ranexa -] 500 mg PO BID #60 tab 10/17/16 Review of Systems - Review of Systems Able to Perform ROS?: Yes Comments:: 10/28/16 01:42 CONSTITUTIONAL: +diaphoresis Absent: fever, chills, generalized weakness, malaise, loss of appetite HEENT: Absent: rhinorrhea, nasal congestion, throat pain, throat swelling, difficulty swallowing, mouth swelling, ear pain, eye pain, visual Changes CARDIOVASCULAR: +midsternal chest pain Absent: syncope, palpitations, irregular heart rate, lightheadedness, peripheral edema RESPIRATORY: +SOB Absent: cough, dyspnea with exertion, orthopnea, wheezing, stridor, hemoptysis GASTROINTESTINAL: +nausea Absent: abdominal pain, abdominal distension, vomiting, diarrhea, constipation, melena, hematochezia GENITOURINARY: Absent: dysuria, frequency, urgency, hesitancy, hematuria, flank pain, genital pain MUSCULOSKELETAL: Absent: myalgia, arthralgia, joint swelling SKIN: Absent: rash, itching, pallor NEUROLOGIC: Absent: headache, focal weakness or paresthesias, dizziness, unsteady gait, seizure, mental status changes, bladder or bowel incontinence PSYCHIATRIC: Absent: anxiety, depression, suicidal or homicidal ideation, hallucinations. <RosannaAmirah - Last Filed: 10/28/16 05:35> *Physical Exam - Vital Signs Last Vital Signs Temp Pulse Resp BP Pulse Ox 98.2 F 82 18 168/88 100 10/28/16 00:59 10/28/16 00:51 10/28/16 00:51 10/28/16 00:51 10/28/16 00:51 - Physical Exam Comments: 10/28/16 01:43 GENERAL: Well developed, well nourished. Awake and alert. No acute distress. HEENT: Normocephalic, atraumatic. PERRLA, EOMI. No conjunctival pallor. Sclera are non- icteric. Moist mucous membranes. Oropharynx is clear. NECK: Supple. Full ROM. No JVD. Carotid pulses 2+ and symmetric, without bruits. No thyromegaly. No lymphadenopathy. CARDIOVASCULAR: Regular rate and rhythm. No murmurs, rubs, or gallops. Distal pulses are 2+ and symmetric. PULMONARY: No evidence of respiratory distress. Lungs clear to auscultation bilaterally. No wheezing, rales or rhonchi. ABDOMINAL: Soft. Non-tender. Non-distended. No rebound or guarding. No organomegaly. Normoactive bowel sounds. MUSCULOSKELETAL Normal range of motion at all joints. No bony deformities or tenderness. No CVA tenderness. EXTREMITIES: No cyanosis. No clubbing. No edema. No calf tenderness. SKIN: Warm and dry. Normal capillary refill. No rashes. No jaundice. NEUROLOGICAL: Alert, awake, appropriate. Cranial nerves 2-12 intact. Moving all extremities. No gross focal neurological deficits. PSYCHIATRIC: Cooperative. Good eye contact. Appropriate mood and affect. <Amirah Marte - Last Filed: 10/28/16 05:35> - Vital Signs Last Vital Signs Temp Pulse Resp BP Pulse Ox 98.2 F 82 18 168/88 100 10/28/16 00:59 10/28/16 00:51 10/28/16 00:51 10/28/16 00:51 10/28/16 00:51 <Chalino West - Last Filed: 10/28/16 05:56> Heart Score/ECG Review - ECG Impressions Comment:: 10/28/16 01:43 NSR @85bpm LBBB Abnormal ECG 10/28/16 05:35 NSR @84bpm LBBB Abnormal ECG <Amirah Marte - Last Filed: 10/28/16 05:35> ED Treatment Course - LABORATORY CBC & Chemistry Diagram: 10/28/16 01:22 10/28/16 01:22 <Amirah Marte - Last Filed: 10/28/16 05:35> - LABORATORY CBC & Chemistry Diagram: 10/28/16 01:22 10/28/16 01:22 <Chalino West - Last Filed: 10/28/16 05:56> Medical Decision Making - Medical Decision Making 10/28/16 05:55 Dr. West: The scribe's documentation has been prepared under my direction and personally reviewed by me in its entirery. I confirm that the note above accurately reflects all work, treatment, procedures, and medical decision making performed by me. 10/28/16 05:55 Pt cardiac enzymes x2 are negative. Pt hemodynamically stable. Pt to return to [facility]. <Chalino West - Last Filed: 10/28/16 05:56> *DC/Admit/Observation/Transfer - Attestations Scribe Attestion: 10/28/16 01:43 Documentation prepared by Amirah Marte, acting as medical record assistant for Chalino West MD <Amirah Marte - Last Filed: 10/28/16 05:35> - Discharge Dispostion Admit: No <Chalino West - Last Filed: 10/28/16 05:56> Diagnosis at time of Disposition: Chest pain in adult, Chest pain - Discharge Dispostion Disposition: HOME Condition at time of disposition: Stable - Patient Instructions Printed Discharge Instructions: DI for Chest Pain
[2016-10-28 02:07] LABS: EOSINOPHIL 3.4 % (0-4.5); MCH 30.3 pg (25.7-33.7); MCHC 34.1 g/dl (32.0-36.0); MEAN CELL VOLUME 88.9 fl (80-96); MEAN PLT VOLUME 9.2 fl (7.5-11.1); NEUTROPHILS 48.8 % (42.8-82.8); PLATELET COUNT 299 K/MM3 (134-434); WHITE BLOOD COUNT 5.2 K/mm3 (4.0-10.0)
[2016-10-28 02:16] LABS: INR 0.94 (0.82-1.09); PROTHROMBIN TIME (PATIENT) 10.3 SEC (9.98-11.88)
[2016-10-28 02:29] LABS: ALBUMIN 3.3 g/dl (3.4-5.0); ANION GAP 9 (8-16); BILIRUBIN,TOTAL 0.3 mg/dL (0.2-1.0); CALCIUM 8.6 mg/dL (8.5-10.1); CO2 27 mmol/L (21-32); CREATININE 0.7 mg/dL (0.55-1.02); GLUCOSE,RANDOM 110 mg/dL (74-106); SGOT/AST 16 U/L (15-37); SGPT/ALT 25 U/L (12-78); TOT PROT 6.8 g/dl (6.4-8.2)
[2016-10-28 02:32] LABS: ALK PHOS 132 U/L (45-117); TROPONIN I < 0.02 ng/ml (0.00-0.05)
[2016-10-28 05:50] LABS: TROPONIN I 0.02 ng/ml (0.00-0.05)
[2016-10-28 06:50] VITALS: BP 141/63; PULSE 75
--- NOTE | 2016-10-28 09:53 | EKG ---
Test Reason : Blood Pressure : / mmHG Vent. Rate : 085 BPM Atrial Rate : 085 BPM P-R Int : 202 ms QRS Dur : 148 ms QT Int : 424 ms P-R-T Axes : 067 -22 071 degrees QTc Int : 504 ms NORMAL SINUS RHYTHM LEFT BUNDLE BRANCH BLOCK ABNORMAL ECG WHEN COMPARED WITH ECG OF 13-OCT-2016 17:22, PREMATURE ATRIAL COMPLEXES ARE NO LONGER PRESENT Confirmed by CORONA REBOLLAR MD ([id number]) on 10/28/2016 9:53:30 AM Referred By: Confirmed By:CORONA REBOLLAR MD
--- NOTE | 2016-10-28 09:53 | EKG ---
Test Reason : Blood Pressure : / mmHG Vent. Rate : 084 BPM Atrial Rate : 084 BPM P-R Int : 184 ms QRS Dur : 148 ms QT Int : 440 ms P-R-T Axes : 067 -18 072 degrees QTc Int : 519 ms NORMAL SINUS RHYTHM LEFT BUNDLE BRANCH BLOCK ABNORMAL ECG WHEN COMPARED WITH ECG OF 28-OCT-2016 01:13, NO SIGNIFICANT CHANGE WAS FOUND Confirmed by CORONA REBOLLAR MD ([id number]) on 10/28/2016 9:52:58 AM Referred By: Confirmed By:CORONA REBOLLAR MD
== END 2016-10-28 06:50 | disposition home or self-care (01) ==
LOC: JER 00:49
DX: R07.9 Chest pain, unspecified (principal); I25.10 Atherosclerotic heart disease of native coronary artery without angina pectoris; Z95.5 Presence of coronary angioplasty implant and graft; I10 Essential (primary) hypertension; E78.5 Hyperlipidemia, unspecified; Z87.891 Personal history of nicotine dependence; K21.9 Gastro-esophageal reflux disease without esophagitis; J45.909 Unspecified asthma, uncomplicated
CPT/HCPCS: 36415; 71010-TC; 80053; 82550; 83735; 84484; 85025; 85610; 93005; 93010; 99284-25

== ENCOUNTER 2017-04-01 06:07 | Inpatient (IN) | payer OTHER ==
--- NOTE | 2017-04-01 06:41 | PDOC ---
History of Present Illness - General Chief Complaint: Pain, Acute Stated Complaint: ABDOMINAL PAIN Time Seen by Provider: 04/01/17 06:19 History Source: Patient Exam Limitations: No Limitations - History of Present Illness Initial Comments: 04/01/17 06:32 The patient is a 76F with a PMH of CAD s/p 3 stents, HTn, HLD, COPD who presents with abdominal pain. The pain started last night and the patient states that it feels like gas and feels like a "ball in her stomach". She tried drinking tea for the pain and it didn't help. She also feels nauseous and cannot eat due to nausea. This has never happened before. She is also complaining of dysuria. LBM: yesterday; currently passing gas All: PCN Soc: does not smoke, drink, or use recreational drugs The patient lives at home and does her own ADL. Past History - Past Medical History Allergies/Adverse Reactions: Allergies Allergy/AdvReac Type Severity Reaction Status Date / Time codeine [Codeine] Allergy Intermediate Nausea Verified 04/01/17 06:17 Penicillins Allergy Intermediate Rash Verified 04/01/17 06:17 Home Medications: Ambulatory Orders Albuterol Sulfate Inhaler - [Ventolin HFA Inhaler -] 90 mcg IH Q4HWA PRN Amlodipine Besylate 10 mg PO DAILY 04/01/17 Aspirin [Aspirin EC] 81 mg PO DAILY 04/01/17 Atorvastatin Ca [Lipitor] 10 mg PO HS 04/01/17 Furosemide 20 mg PO DAILY 04/01/17 Gabapentin 300 mg PO BID 04/01/17 Losartan Potassium 100 mg PO DAILY 04/01/17 Meclizine HCl 25 mg PO DAILY 04/01/17 Metoprolol Succinate [Toprol Xl] 50 mg PO DAILY 04/01/17 Ranolazine [Ranexa] 500 mg PO BID 04/01/17 Salmeterol/Fluticasone [Advair 250Mcg/50Mcg -] 1 puff IN BID 04/01/17 Anemia: No Asthma: Yes Cancer: No Cardiac Disorders: Yes (CAD, stent) CVA: No COPD: No CHF: No Dementia: No Diabetes: No GI Disorders: Yes (REFLUX) Disorders: No HTN: Yes Hypercholesterolemia: Yes Liver Disease: No Seizures: No Thyroid Disease: No - Surgical History Abdominal Surgery: No Appendectomy: Yes Cardiac Surgery: Yes (STENTS) Cholecystectomy: No Lung Surgery: No Neurologic Surgery: No Orthopedic Surgery: Yes (right shoulder sx) - Immunization History Immunization Up to Date: No - Psycho/Social/Smoking Cessation Hx Anxiety: No Suicidal Ideation: No Smoking History: Never smoked Have you smoked in the past 12 months: No If you are a former smoker, when did you quit?: 20 years Information on smoking cessation initiated: No 'Breaking Loose' booklet given: 01/28/16 Hx Alcohol Use: No Drug/Substance Use Hx: No Substance Use Type: None Hx Substance Use Treatment: No Review of Systems - Review of Systems Able to Perform ROS?: Yes Is the patient limited [place] proficient: No Constitutional: No: Chills, Fever Respiratory: No: Shortness of Breath Cardiac (ROS): No: Chest Pain ABD/GI: Yes: Constipated, Nausea. No: Diarrhea, Vomiting : Yes: Dysuria Neurological: Yes: Numbness (baseline) *Physical Exam - Vital Signs Last Vital Signs Temp Pulse Resp BP Pulse Ox 97.6 F 76 20 137/64 98 04/01/17 06:17 04/01/17 06:17 04/01/17 06:17 04/01/17 06:17 04/01/17 06:17 - Physical Exam General Appearance: Yes: Nourished, Appropriately Dressed, Obese HEENT: positive: Normal Voice, Hearing Grossly Normal Respiratory/Chest: positive: Lungs Clear, Normal Breath Sounds. negative: Chest Tender Cardiovascular: positive: Regular Rhythm, Regular Rate, S1, S2 Gastrointestinal/Abdominal: positive: Flat, Soft. negative: Tender, Protuberent , Distended, Guarding ED Treatment Course - LABORATORY CBC & Chemistry Diagram: 04/03/17 06:45 04/03/17 06:45 Medical Decision Making - Medical Decision Making 04/01/17 07:17 The patient is a 76F with a cardiac hx who presents to the ED with epigastric pain and dysuria. I have signed her out to the day team, Dr. Fuentes, who will take over care and place orders for the pt. *DC/Admit/Observation/Transfer Diagnosis at time of Disposition: Elevated lipase - Attestations Physician Attestion: 04/03/17 15:27 I, Dr. Jey Bliss, attest that this document has been prepared under my direction and personally reviewed by me in its entirety. I further attest, that it accurately reflects all work, treatment, procedures and medical decision -making performed by me.
[2017-04-01 06:53] LABS: BASOPHIL 0.8 % (0-2.0); EOSINOPHIL 1.6 % (0-4.5); MCH 30.6 pg (25.7-33.7); MCHC 33.7 g/dl (32.0-36.0); MEAN CELL VOLUME 90.8 fl (80-96); NEUTROPHILS 71.5 % (42.8-82.8); PLATELET COUNT 272 K/MM3 (134-434); RDW 13.2 % (11.6-15.6); WHITE BLOOD COUNT 9.7 K/mm3 (4.0-10.0)
[2017-04-01 07:21] LABS: ALBUMIN 3.8 g/dl (3.4-5.0); ANION GAP 8 (8-16); CALCIUM 8.9 mg/dL (8.5-10.1); CO2 27 mmol/L (21-32); CREATININE 0.8 mg/dL (0.55-1.02); GLUCOSE,RANDOM 132 mg/dL (74-106); SGPT/ALT 274 U/L (12-78)
--- NOTE | 2017-04-01 07:21 | PDOC ---
Attending Attestation - Resident Resident Name: RuthyJey - HPI HPI: 04/01/17 07:18 Pt complains of having chronic constipation. She has been taking blue liquid medication for her abdominal pain and constipation. Now with extreme gas. She states that she had to move her bowels multiple times yesterday. States that she is worried about her abdominal pain. - Physicial Exam PE: 04/01/17 07:19 Pt has infraumbilical old surgical scars. Pt has no rebound, but she has some guarding diffusely in her abdomen. SHe has hadr stool and gas in her bowels. Agree with resident's note. She is afebrile and she has no flank pain. - Medical Decision Making 04/01/17 07:20 labs; CT scan abd/pelvis. Signout to the day ER attending.
[2017-04-01 07:23] LABS: ALK PHOS 209 U/L (45-117); BILIRUBIN,TOTAL 0.6 mg/dL (0.2-1.0); TOT PROT 7.6 g/dl (6.4-8.2)
[2017-04-01 07:27] LABS: SGOT/AST 548 U/L (15-37)
[2017-04-01] MEDS ORDERED: ONDANSETRON 4 MG/2 ML VIAL IVPUSH ONE (07:27)
[2017-04-01] MEDS ORDERED: MAG HYDROX/AL HYDROX/SIMETH 355 ML ORAL.SUSP PO ONE (07:28)
[2017-04-01] MEDS ORDERED: FAMOTIDINE 20 MG/50 ML IVPB 50 ML IVPB ONE ×2 (07:28→07:57)
--- NOTE | 2017-04-01 07:41 | PDOC ---
History of Present Illness - General Chief Complaint: Pain, Acute Stated Complaint: ABDOMINAL PAIN Time Seen by Provider: 04/01/17 06:19 - History of Present Illness Initial Comments: 04/01/17 07:22 Ms. Bose is a 76 year old female with a significant past medical history of CAD s/p 3 stents, HTN, HLD, COPD who presents to the emergency department with an overnight history of abdominal pain she describes as feeling like gas and a "ball in her stomach." She tried drinking tea for the pain w/out relief and describes some nausea as well. Has never had pain like this before. The patient denies chest pain, shortness of breath, headache and dizziness. Denies fever, chills, nausea, vomit, diarrhea and constipation. Denies dysuria, frequency, urgency and hematuria. Allergies: Penicillin Past surgical history: As above Social history: Denies Past History - Past Medical History Allergies/Adverse Reactions: Allergies Allergy/AdvReac Type Severity Reaction Status Date / Time codeine [Codeine] Allergy Intermediate Nausea Verified 04/01/17 06:17 Penicillins Allergy Intermediate Rash Verified 04/01/17 06:17 Home Medications: Ambulatory Orders Amlodipine Besylate 10 mg PO DAILY 04/01/17 Aspirin [Aspirin EC] 81 mg PO DAILY 04/01/17 Atorvastatin Ca [Lipitor] 10 mg PO HS 04/01/17 Furosemide 20 mg PO DAILY 04/01/17 Gabapentin 300 mg PO DAILY 04/01/17 Losartan Potassium 100 mg PO DAILY 04/01/17 Meclizine HCl 25 mg PO DAILY 04/01/17 Metoprolol Tartrate 50 mg PO DAILY 04/01/17 Ranolazine [Ranexa] 500 mg PO DAILY 04/01/17 Anemia: No Asthma: Yes Cancer: No Cardiac Disorders: Yes (CAD, stent) CVA: No COPD: No CHF: No Dementia: No Diabetes: No GI Disorders: Yes (REFLUX) Disorders: No HTN: Yes Hypercholesterolemia: Yes Liver Disease: No Seizures: No Thyroid Disease: No - Surgical History Abdominal Surgery: No Appendectomy: Yes Cardiac Surgery: Yes (STENTS) Cholecystectomy: No Lung Surgery: No Neurologic Surgery: No Orthopedic Surgery: Yes (right shoulder sx) - Immunization History Immunization Up to Date: No - Psycho/Social/Smoking Cessation Hx Anxiety: No Suicidal Ideation: No Smoking History: Never smoked Have you smoked in the past 12 months: No If you are a former smoker, when did you quit?: 20 years Information on smoking cessation initiated: No 'Breaking Loose' booklet given: 01/28/16 Hx Alcohol Use: No Drug/Substance Use Hx: No Substance Use Type: None Hx Substance Use Treatment: No Review of Systems - Review of Systems Comments:: 04/01/17 07:25 GENERAL/CONSTITUTIONAL: No fever or chills. No weakness. HEAD, EYES, EARS, NOSE AND THROAT: No change in vision. No ear pain or discharge. No sore throat. CARDIOVASCULAR: No chest pain or shortness of breath RESPIRATORY: No cough, wheezing, or hemoptysis. GASTROINTESTINAL: +Abdominal pain with nausea had constipation intermittently until recently taking some blue liquid and has had diarrhea since. No vomiting. GENITOURINARY: No dysuria, frequency, or change in urination. MUSCULOSKELETAL: No joint or muscle swelling or pain. No neck or back pain. SKIN: No rash NEUROLOGIC: No headache, vertigo, loss of consciousness, or change in strength/ sensation. ENDOCRINE: No increased thirst. No abnormal weight change HEMATOLOGIC/LYMPHATIC: No anemia, easy bleeding, or history of blood clots. ALLERGIC/IMMUNOLOGIC: No hives or skin allergy. Is the patient limited [place] proficient: No *Physical Exam - Vital Signs Last Vital Signs Temp Pulse Resp BP Pulse Ox 97.6 F 76 20 137/64 98 04/01/17 06:17 04/01/17 06:17 04/01/17 06:17 04/01/17 06:17 04/01/17 06:55 - Physical Exam Comments: 04/01/17 07:26 GENERAL: Awake, alert, and fully oriented, in no acute distress HEAD: No signs of trauma, normocephalic, atraumatic EYES: PERRLA, EOMI, sclera anicteric, conjunctiva clear ENT: Auricles normal inspection, hearing grossly normal, nares patent, oropharynx clear without exudates. Moist mucosa NECK: Normal ROM, supple, no lymphadenopathy, JVD, or masses LUNGS: No distress, speaks full sentences, clear to auscultation bilaterally HEART: Regular rate and rhythm, normal S1 and S2, no murmurs, rubs or gallops, peripheral pulses normal and equal bilaterally. ABDOMEN: +Patient diffusely tender throughout the abdomen. Soft, normoactive bowel sounds. No guarding, no rebound. No masses EXTREMITIES: Normal inspection, Normal range of motion, no edema. No clubbing or cyanosis. NEUROLOGICAL: Cranial nerves II through XII grossly intact. Normal speech, normal gait, no focal sensorimotor deficits SKIN: Warm, Dry, normal turgor, no rashes or lesions noted. ED Treatment Course - LABORATORY CBC & Chemistry Diagram: 04/01/17 06:45 04/01/17 06:45 - ADDITIONAL ORDERS Additional order review: 04/01/17 06:45 RBC 3.95 MCV 90.8 MCHC 33.7 RDW 13.2 MPV 9.0 Neutrophils % 71.5 D Lymphocytes % 16.8 D Monocytes % 9.3 Eosinophils % 1.6 Basophils % 0.8 Medical Decision Making - Medical Decision Making 04/01/17 07:58 Patient presents with diffuse abdominal pain after a several day history of constipation followed by diarrhea after taking a blue liquid. Has had gas and stomach pain since. Says she feels nauseated and gassy. GIven mylanta, pepcid, and zofran. 04/01/17 11:58 Patient improved but ce admit for f/u with lipase above 900. *DC/Admit/Observation/Transfer Diagnosis at time of Disposition: Elevated lipase - Discharge Dispostion Admit: Yes - Referrals - Attestations Physician Attestion: 04/01/17 11:58 I, Dr. Stoney Fuentes, attest that this document has been prepared under my direction and personally reviewed by me in its entirety. I further attest, that it accurately reflects all work, treatment, procedures and medical decision -making performed by me.
[2017-04-01] MEDS ORDERED: MAG HYDROX/AL HYDROX/SIMETH 30 ML UNIT-DOSE CUP ONE (07:56)
[2017-04-01] MEDS ORDERED: ONDANSETRON 4 MG/2 ML VIAL ONE (07:56)
[2017-04-01 07:57] LABS: CPK 102 IU/L (26-192)
[2017-04-01 07:58] LABS: TROPONIN I < 0.02 ng/ml (0.00-0.05)
[2017-04-01 11:42] LABS: URINE APPEARANCE CLEAR; URINE BILIRUBIN NEGATIVE (NEGATIVE); URINE BLOOD NEGATIVE (NEGATIVE); URINE COLOR LTYELLOW; URINE GLUCOSE (UA) NEGATIVE (NEGATIVE); URINE KETONE NEGATIVE (NEGATIVE); URINE LEUK ESTERASE TRACE (NEGATIVE); URINE NITRITE NEGATIVE (NEGATIVE); URINE PROTEIN NEGATIVE (NEGATIVE)
--- NOTE | 2017-04-01 12:11 | PN ---
Teaching Attending Note Name of Resident: Sammi Chand ATTENDING PHYSICIAN STATEMENT I saw and evaluated the patient. I reviewed the resident's note and discussed the case with the resident. I agree with the resident's findings and plan as documented. SUBJECTIVE: CC: Abd pain. HPI : she complains of ABd pain that started yesterday. intermittent, located in epigastric area. associated with nausea butno Vomitng. no fever or chills. had diarrhea for few days ( 10 watery BMs /day). diarrhea stopped yesterday. she took a liquid medicine yesterday which did not help her abd pain. she continued taking her lasix daily but not this am. She had CCY 10 yrs ago. She has chronci SOB due tho her asthma and continues to have chronci exertional CP for which she was started on ranexa last admission. OBJECTIVE: NAD , AAOx3 HEENT: Dry MM, no facial droop. no LAP inneck. CV: RRR, nl S1, S2, no MRG, R sided JVD Lungs : L base crackles Abd: soft, TTP in epigastric area and to a lesser degree in periambilical area and suprapubic area. Nl BS . no rebound tenderness or guarding Ext : 1+ edema Neuro : EOMI, round equal pupils reactive to light, no facial droop, nl facial sensation, tongue and uvula at mid line Strength5/5 inupper and lower extremities proximally and distally. sensation tolight touch nL . reflexes 2+ knee jerk and biceps b/l ASSESSMENT AND PLAN: 75 y/o lady with h/o CAD s/p PCI s/p stents placement, chronic angina, HTN, HL , vertigo , carotid stenosis ,D CHF , TIA, and athma , who presented with acute Abd pain and was found to have acute pancreatitis. 1- Abd pain: with the elevated lipase, typical ABd pain and tenderness, along with acutely elevated LFTS , Acute pancreatitis is the likely diagnosis there might be component of gastritis/PUD due to improvement with mylanta. No hypercalcemia, has no ALcohol or drug abuse. Although she has h/o CCY , gall stone pancreatitis is still in differential. other causes like CBD obstruction with cholangiocarcinoma or panceatic duct carcinoma is in Dx - CT scan of abdomen is not going to filter changer - check TG - check MRCP to r/o CBD stone/tumor , or pancreatic duct tumor/obstruction - start IVF ( carefully as she has JVD already ) - IV protonix - NPO for now as has nausea - GI consult - check stool studies if diarrhea recurs. 2- H/o DCHF: although has JVD and L base crackles , she looks comfortable and has nL o2 sats. last echo showed nl Ef and mild AR - Check Cxray - hold her lasix - cont BB , and losartan 3- H/o CAD , with chronic anginal symptoms : currently being treated medically - cont ASa. - cont BB and renexa and ARB 4- h/o AShma , - cont advair and ALbuterol 5- HTN: cont meds DVT PX : Heparin SQ
--- NOTE | 2017-04-01 12:15 | HP ---
CHIEF COMPLAINT: PCP: HISTORY OF PRESENT ILLNESS: ER course was notable for: (1) (2) (3) Recent Travel: PAST MEDICAL HISTORY: PAST SURGICAL HISTORY: Social History: Smoking: Alcohol: Drugs: Family History: Allergies codeine [Codeine] Allergy (Intermediate, Verified 04/01/17 06:17) Nausea vomitting,dizziness Penicillins Allergy (Intermediate, Verified 04/01/17 06:17) Rash HOME MEDICATIONS: Home Medications Medication Instructions Recorded Amlodipine Besylate 10 mg PO DAILY 04/01/17 Aspirin [Aspirin EC] 81 mg PO DAILY 04/01/17 Atorvastatin Ca [Lipitor] 10 mg PO HS 04/01/17 Furosemide 20 mg PO DAILY 04/01/17 Gabapentin 300 mg PO DAILY 04/01/17 Losartan Potassium 100 mg PO DAILY 04/01/17 Meclizine HCl 25 mg PO DAILY 04/01/17 Metoprolol Tartrate 50 mg PO DAILY 04/01/17 Ranolazine [Ranexa] 500 mg PO DAILY 04/01/17 REVIEW OF SYSTEMS CONSTITUTIONAL: Absent: fever, chills, diaphoresis, generalized weakness, malaise, loss of appetite, weight change HEENT: Absent: rhinorrhea, nasal congestion, throat pain, throat swelling, difficulty swallowing, mouth swelling, ear pain, eye pain, visual changes CARDIOVASCULAR: Absent: chest pain, syncope, palpitations, irregular heart rate, lightheadedness , peripheral edema RESPIRATORY: Absent: cough, shortness of breath, dyspnea with exertion, orthopnea, wheezing, stridor, hemoptysis GASTROINTESTINAL: Absent: abdominal pain, abdominal distension, nausea, vomiting, diarrhea, constipation, melena, hematochezia GENITOURINARY: Absent: dysuria, frequency, urgency, hesitancy, hematuria, flank pain, genital pain MUSCULOSKELETAL: Absent: myalgia, arthralgia, joint swelling, back pain, neck pain SKIN: Absent: rash, itching, pallor HEMATOLOGIC/IMMUNOLOGIC: Absent: easy bleeding, easy bruising, lymphadenopathy, frequent infections ENDOCRINE: Absent: unexplained weight gain, unexplained weight loss, heat intolerance, cold intolerance NEUROLOGIC: Absent: headache, focal weakness or paresthesias, dizziness, unsteady gait, seizure, mental status changes, bladder or bowel incontinence PSYCHIATRIC: Absent: anxiety, depression, suicidal or homicidal ideation, hallucinations. PHYSICAL EXAMINATION Vital Signs - 24 hr 04/01/17 04/01/1704/01/17 06:17 06:55 07:37 Temperature 97.6 F Pulse Rate 76 Pulse Rate [ Apical] Respiratory 20 Rate Blood Pressure 137/64 Blood Pressure [Right Arm] O2 Sat by Pulse 98 98 98 Oximetry (%) 04/01/17 04/01/17 08:08 09:56 Temperature Pulse Rate Pulse Rate [ 78 Apical] Respiratory 18 Rate Blood Pressure Blood Pressure 124/55 [Right Arm] O2 Sat by Pulse 98 Oximetry (%) GENERAL: Awake, alert, and fully oriented, in no acute distress. HEAD: Normal with no signs of trauma. EYES: Pupils equal, round and reactive to light, extraocular movements intact, sclera anicteric, conjunctiva clear. No lid lag. EARS, NOSE, THROAT: Ears normal, nares patent, oropharynx clear without exudates. Moist mucous membranes. NECK: Normal range of motion, supple without lymphadenopathy, JVD, or masses. LUNGS: Breath sounds equal, clear to auscultation bilaterally. No wheezes, and no crackles. No accessory muscle use. HEART: Regular rate and rhythm, normal S1 and S2 without murmur, rub or gallop. ABDOMEN: Soft, nontender, not distended, normoactive bowel sounds, no guarding, no rebound, no masses. No hepatomegaly or splenomegaly. MUSCULOSKELETAL: Normal range of motion at all joints. No bony deformities or tenderness. No CVA tenderness. UPPER EXTREMITIES: 2+ pulses, warm, well-perfused. No cyanosis. No clubbing. No peripheral edema. LOWER EXTREMITIES: 2+ pulses, warm, well-perfused. No calf tenderness. No peripheral edema. NEUROLOGICAL: Cranial nerves II-XII intact. Normal speech. Normal gait. PSYCHIATRIC: Cooperative. Good eye contact. Appropriate mood and affect. SKIN: Warm, dry, normal turgor, no rashes or lesions noted, normal capillary refill. Laboratory Results - last 24 hr 04/01/17 04/01/17 04/01/17 06:45 06:45 07:30 WBC 9.7 D RBC 3.95 Hgb 12.1 Hct 35.8 MCV 90.8 MCH 30.6 MCHC 33.7 RDW 13.2 Plt Count 272 MPV 9.0 Neutrophils % 71.5 D Lymphocytes % 16.8 D Monocytes % 9.3 Eosinophils % 1.6 Basophils % 0.8 Sodium 139 Potassium 4.2 Chloride 104 Carbon Dioxide 27 Anion Gap 8 BUN 19 H Creatinine 0.8 Creat Clearance w eGFR > 60 Random Glucose 132 H Calcium 8.9 Total Bilirubin 0.6 D AST 548 H D ALT 274 H D Alkaline Phosphatase 209 H D Creatine Kinase 102 Troponin I < 0.02 Total Protein 7.6 Albumin 3.8 Lipase 905 H Urine Color Urine Appearance Urine pH Urine Protein Urine Glucose (UA) Urine Ketones Urine Blood Urine Nitrite Urine Bilirubin Urine Urobilinogen Ur Leukocyte Esterase 04/01/17 11:20 WBC RBC Hgb Hct MCV MCH MCHC RDW Plt Count MPV Neutrophils % Lymphocytes % Monocytes % Eosinophils % Basophils % Sodium Potassium Chloride Carbon Dioxide Anion Gap BUN Creatinine Creat Clearance w eGFR Random Glucose Calcium Total Bilirubin AST ALT Alkaline Phosphatase Creatine Kinase Troponin I Total Protein Albumin Lipase Urine Color Ltyellow Urine Appearance Clear Urine pH 8.0 D Urine Protein Negative Urine Glucose (UA) Negative Urine Ketones Negative Urine Blood Negative Urine Nitrite Negative Urine Bilirubin Negative Urine Urobilinogen 2.0 H Ur Leukocyte Esterase Trace ASSESSMENT/PLAN:
[2017-04-01 12:24] LABS: URINE WBC 2 /hpf (3-5)
--- NOTE | 2017-04-01 12:28 | HP ---
Addendum entered and electronically signed by Sammi Chand RES 04/02/17 06: 00: Pt re-examined this AM, noted to have slightly increased JVD and more crackles on lung exam. States she feels mildly SOB, but attributes that to her asthma/ COPD. Decreased LR fluids from 75cc/hr --> 42cc/hr. Original Note: CHIEF COMPLAINT: Abdominal Pain PCP: Dr. De La Rosa HISTORY OF PRESENT ILLNESS: 76yo F w/ hx of CAD, GERD, s/p CCK who presented with 10/10 epigastric pain after she finished her dinner last night. She states the pain felt like "a ball was in her stomach". The pain radiated into her RUQ and up into her chest. The chest pain is atypical, pleuritic, non-pressure like, nonradiating. She never had this kind of abdominal pain before. She endorses nausea, dizziness, no emesis. She had CCK 10+ years ago without complications. She denies alcohol intake, denies trauma, denies recent steroid use, denies malignancy. She states that the only new medication she took was Immodium that same night for diarrhea , when she had multiple bouts of liquid stool She was given Mylanta, Pepcid, and Zofran in the ED which improved her pain to 5 /10. ER course was notable for: (1) Labs (2) EKG - NSR w/ LBBB - chronic (3) Mylanta, Pepcid, Zofran Recent Travel: Denies PAST MEDICAL HISTORY: GERD, Diastolic CHF, CAD s/p 3 stents, HTN, COPD, Asthma, Peripheral Neuropathy without DM2, Chronic LBBB PAST SURGICAL HISTORY: CCK +10 years ago, Appendectomy, Hernia surgeries, 3x stents (last stent in December 2015), [facility] Social History: Smoking: Previous smoker, for 20 years, 1-2 cigs per day Alcohol: Dee Drugs: Denies Family History: No FHx cancer Allergies codeine [Codeine] Allergy (Intermediate, Verified 04/01/17 06:17) Nausea vomitting,dizziness Penicillins Allergy (Intermediate, Verified 04/01/17 06:17) Rash HOME MEDICATIONS: Home Medications Medication Instructions Recorded Amlodipine Besylate 10 mg PO DAILY 04/01/17 Aspirin [Aspirin EC] 81 mg PO DAILY 04/01/17 Atorvastatin Ca [Lipitor] 10 mg PO HS 04/01/17 Furosemide 20 mg PO DAILY 04/01/17 Gabapentin 300 mg PO BID 04/01/17 Losartan Potassium 100 mg PO DAILY 04/01/17 Meclizine HCl 25 mg PO DAILY 04/01/17 Metoprolol Tartrate 50 mg PO DAILY 04/01/17 Ranolazine [Ranexa] 500 mg PO BID 04/01/17 Reconciled on 04/01 with patient who had her medication bottles with her Also reconciled with patient's pharmacy REVIEW OF SYSTEMS CONSTITUTIONAL: Absent: fever, chills, diaphoresis, generalized weakness, malaise, loss of appetite, weight change HEENT: Absent: rhinorrhea, nasal congestion, throat pain, throat swelling, difficulty swallowing, mouth swelling, ear pain, eye pain, visual changes CARDIOVASCULAR: Absent: chest pain, syncope, palpitations, irregular heart rate, lightheadedness , peripheral edema RESPIRATORY: Absent: cough, dyspnea with exertion, orthopnea, wheezing, stridor, hemoptysis Present: shortness of breath GASTROINTESTINAL: Absent: abdominal distension, vomiting, diarrhea, constipation, melena, hematochezia Present: abdominal pain, nausea GENITOURINARY: Absent: dysuria, frequency, urgency, hesitancy, hematuria, flank pain, genital pain MUSCULOSKELETAL: Absent: myalgia, arthralgia, joint swelling, back pain, neck pain SKIN: Absent: rash, itching, pallor HEMATOLOGIC/IMMUNOLOGIC: Absent: easy bleeding, easy bruising, lymphadenopathy, frequent infections ENDOCRINE: Absent: unexplained weight gain, unexplained weight loss, heat intolerance, cold intolerance NEUROLOGIC: Absent: headache, focal weakness or paresthesias, dizziness, unsteady gait, seizure, mental status changes, bladder or bowel incontinence PSYCHIATRIC: Absent: anxiety, depression, suicidal or homicidal ideation, hallucinations. PHYSICAL EXAMINATION Vital Signs - 24 hr 04/01/17 04/01/17 04/01/17 06:17 06:55 07:37 Temperature 97.6 F Pulse Rate 76 Pulse Rate [ Apical] Respiratory 20 Rate Blood Pressure 137/64 Blood Pressure [Right Arm] O2 Sat by Pulse 98 98 98 Oximetry (%) 04/01/17 04/01/17 08:08 09:56 Temperature Pulse Rate Pulse Rate [ 78 Apical] Respiratory 18 Rate Blood Pressure Blood Pressure 124/55 [Right Arm] O2 Sat by Pulse 98 Oximetry (%) GEN: AAOx3, lying comfortable in NAD HEENT: PERRLA, EOMi, no LAD, mild JVD CV: S1, S2, RRR, 2/6 systolic murmur LUSB LUNG: CTABL possible basilar crackles, nonlabored respirations ABD: Soft, TTP in multiple areas, predominantly in epigastrium MSK: +1 pitting edema in BLLE, no erythema, 5/5 musc strength NEURO: CN 2-12 intact, no sensation deficits in face/body, no facial droop, mSK 5/5, reflexes 2+ Laboratory Results - last 24 hr 04/01/17 04/01/17 04/01/17 06:45 06:45 07:30 WBC 9.7 D RBC 3.95 Hgb 12.1 Hct 35.8 MCV 90.8 MCH 30.6 MCHC 33.7 RDW 13.2 Plt Count 272 MPV 9.0 Neutrophils % 71.5 D Lymphocytes % 16.8 D Monocytes % 9.3 Eosinophils % 1.6 Basophils % 0.8 Sodium 139 Potassium 4.2 Chloride 104 Carbon Dioxide 27 Anion Gap 8 BUN 19 H Creatinine 0.8 Creat Clearance w eGFR > 60 Random Glucose 132 H Calcium 8.9 Total Bilirubin 0.6 D AST 548 H D ALT 274 H D Alkaline Phosphatase 209 H D Creatine Kinase 102 Troponin I < 0.02 Total Protein 7.6 Albumin 3.8 Lipase 905 H Urine Color Urine Appearance Urine pH Urine Protein Urine Glucose (UA) Urine Ketones Urine Blood Urine Nitrite Urine Bilirubin Urine Urobilinogen Ur Leukocyte Esterase 04/01/17 11:20 WBC RBC Hgb Hct MCV MCH MCHC RDW Plt Count MPV Neutrophils % Lymphocytes % Monocytes % Eosinophils % Basophils % Sodium Potassium Chloride Carbon Dioxide Anion Gap BUN Creatinine Creat Clearance w eGFR Random Glucose Calcium Total Bilirubin AST ALT Alkaline Phosphatase Creatine Kinase Troponin I Total Protein Albumin Lipase Urine Color Ltyellow Urine Appearance Clear Urine pH 8.0 D Urine Protein Negative Urine Glucose (UA) Negative Urine Ketones Negative Urine Blood Negative Urine Nitrite Negative Urine Bilirubin Negative Urine Urobilinogen 2.0 H Ur Leukocyte Esterase Trace ASSESSMENT/PLAN: Patient is a 76yo F with hx of CCK, GERD who presented with epigastric abdominal pain and nausea # Abdominal Pain - Likely pancreatitis, possibly due to stone or outside obstruction - CT not needed, pt has pain + elevated lipase - MRCP w/ lauren to check for cause Pt had shoulder pain, could not complete MRCP, did not receive contrast, images obtained read by On-call Rad demonstrates dilated CBD without gross stone , possible CBD stricture, also pancreatic neck cyst Repeat MRCP ordered for tomorrow morning, pt will receive morphine before test, informed nurse, ok to do again bc pt did not receive contrast on first MRCP. - No HyperTG - Hepatitis panel pending - IV LR 75cc/hr due to DCHF - NPO for now, assess tomorrow - IV protonix - Morphine PRN (pharmacy confirmed no interaction w/ pts codeine allergy) - GI Consult # Diastolic CHF - Prior echo shows EF 38.6% - CXR shows no congestion, pt slightly overloaded - LR gentle - Hold lasix - Reasses volume status tmrw # Diarrhea - Pt had episodes of diarrhea yesterday - Resolved w/ immodium - No WBC, no fever, not worreid about infection - Monitor, no meds for now # Hx of CAD - Continue ASA # Hx of HTN - Well controlled - Continue metoprolol, losartan, norvasc # HLD - Held atorvastatin due to transaminitis # Hx of Neuropathy - Continue Neurontin # Hx of COPD - Confirm Albuterol + Advair - Home advair (200/50) is NF, will start Advair 100/50 1 puff BID # Hx of Vertigo - Continue Meclizine # FEN - Fluids: LR 75cc/hr - Electrolytes: Monitor, no abn - Nutrition: NPO, reassess tmrw # Prophylaxis - DVT: Heparin SQ BID - GI: IV protonix - Deconditioning: PT ordered # Dispo - Admit to med/surg - Reassess fluid status - Await MRCP + GI consult # Med Rec - Pts meds were verified with pts bottles and with her pharmacy on 04/01 Dr. Sammi Chand PGY1 - Internal Medicine Visit type - Emergency Visit Emergency Visit: Yes ED Registration Date: 04/01/17 Care time: The patient presented to the Emergency Department on the above date and was hospitalized for further evaluation of their emergent condition. - New Patient This patient is new to me today: Yes Date on this admission: 04/02/17 - Critical Care Critical Care patient: No
--- NOTE | 2017-04-01 13:19 | EKG ---
Test Reason : Blood Pressure : / mmHG Vent. Rate : 076 BPM Atrial Rate : 076 BPM P-R Int : 194 ms QRS Dur : 152 ms QT Int : 440 ms P-R-T Axes : 054 -18 083 degrees QTc Int : 495 ms NORMAL SINUS RHYTHM LEFT BUNDLE BRANCH BLOCK ABNORMAL ECG WHEN COMPARED WITH ECG OF 28-OCT-2016 05:26, NO SIGNIFICANT CHANGE WAS FOUND BASELINE ARTIFACT Confirmed by ADELIA RAYA, ANABELA ([id number]) on 04/01/2017 1:18:30 PM Referred By: Confirmed By:ANABELA DELVALLE MD
[2017-04-01] MEDS ORDERED: morphine CARPU-JECT 2 MG/1 ML DISP.SYRIN IVPUSH PRN ×2 (14:19→14:28)
[2017-04-01] MEDS ORDERED: PATIENT'S OWN MEDICATION (NON-FORMULARY) (Losartan Potassium [Losartan Potassium] 100 MG) PO SCH (14:45)
[2017-04-01] MEDS ORDERED: METOPROLOL TARTRATE 50 MG TABLET (FP) PO SCH (14:45)
[2017-04-01 15:10] VITALS: BMI 33.1
[2017-04-01] MEDS: amLODIPine BESYLATE 10 MG TABLET (FP) PO SCH (15:15)
[2017-04-01] MEDS: HEPARIN NA (PORCINE) 5,000 UNITS/ML 1ML VIAL SQ SCH ×2 (15:15→22:01)
[2017-04-01] MEDS: MECLIZINE HCL 25 MG TABLET (FP) PO SCH (15:15)
[2017-04-01] MEDS: ASPIRIN COATED 81 MG TABLET.EC PO SCH (15:15)
[2017-04-01] MEDS ORDERED: ALBUTEROL SO4 6.7 GM HFA INHALER IH PRN ×2 (15:31→15:38)
[2017-04-01] MEDS: LACTATED RINGERS SOLUTION 1,000 ML IV SCH (16:58)
[2017-04-01 17:02] LABS: CHOLESTEROL 186 mg/dL (50-200); LDL CHOLESTEROL (ONLY SJRH) 101 mg/dL (5-100)
[2017-04-01] MEDS ORDERED: PT OWN MED DRAWER 7, Y5N ONE (19:02)
[2017-04-01] MEDS ORDERED: PATIENT'S OWN MEDICATION (NON-FORMULARY) (Salmeterol/Fluticasone [Advair 250mcg/50mcg -] 1 IN SCH (22:00)
[2017-04-01] MEDS: GABAPENTIN 300 MG CAPSULE (FP) PO SCH (22:01)
[2017-04-01] MEDS: FLUTICASONE/SALMETEROL 100 MCG/50 MCG DISKUS IH SCH (22:01)
[2017-04-01] MEDS: RANOLAZINE E.R. 500 MG TABLET (FP) PO SCH (22:01)
[2017-04-02] MEDS: HEPARIN NA (PORCINE) 5,000 UNITS/ML 1ML VIAL SQ SCH ×3 (05:48→21:09)
[2017-04-02] MEDS: LACTATED RINGERS SOLUTION 1,000 ML IV SCH (05:48)
[2017-04-02] MEDS ORDERED: LACTATED RINGERS SOLUTION 1,000 ML IV SCH (05:57)
[2017-04-02 07:58] LABS: ALBUMIN 3.1 g/dl (3.4-5.0); ANION GAP 7 (8-16); BILIRUBIN,TOTAL 1.4 mg/dL (0.2-1.0); CALCIUM 8.5 mg/dL (8.5-10.1); CO2 29 mmol/L (21-32); CREATININE 0.7 mg/dL (0.55-1.02); GLUCOSE,RANDOM 79 mg/dL (74-106); TOT PROT 6.3 g/dl (6.4-8.2)
[2017-04-02 07:59] LABS: ALK PHOS 322 U/L (45-117)
[2017-04-02 08:04] LABS: INR 1.04 (0.82-1.09); PROTHROMBIN TIME (PATIENT) 11.5 SEC (9.98-11.88)
[2017-04-02 08:06] LABS: SGOT/AST 434 U/L (15-37); SGPT/ALT 434 U/L (12-78)
[2017-04-02 08:07] LABS: ACTIVATED PTT 35.2 SECONDS (26.9-34.4)
[2017-04-02 08:57] LABS: EOSINOPHIL 4.3 % (0-4.5); MCH 30.5 pg (25.7-33.7); MCHC 32.9 g/dl (32.0-36.0); MEAN CELL VOLUME 92.7 fl (80-96); MEAN PLT VOLUME 9.8 fl (7.5-11.1); NEUTROPHILS 47.6 % (42.8-82.8); PLATELET COUNT 231 K/MM3 (134-434); RDW 13.2 % (11.6-15.6)
[2017-04-02] MEDS ORDERED: PT OWN MED DRAWER 7, Y5N ONE ×4 (10:22→15:18)
[2017-04-02] MEDS ORDERED: morphine CARPU-JECT 4 MG/1 ML DISP.SYRIN IVPUSH PRN (10:34)
[2017-04-02] MEDS: PANTOPRAZOLE SODIUM 100 ML IVPB SCH (11:29)
[2017-04-02] MEDS: ASPIRIN COATED 81 MG TABLET.EC PO SCH (11:31)
[2017-04-02] MEDS: LOSARTAN POTASSIUM 50 MG TABLET (FP) PO SCH (11:31)
[2017-04-02] MEDS: FLUTICASONE/SALMETEROL 100 MCG/50 MCG DISKUS IH SCH ×2 (11:31→21:09)
[2017-04-02] MEDS: GABAPENTIN 300 MG CAPSULE (FP) PO SCH ×2 (11:31→21:10)
[2017-04-02] MEDS: RANOLAZINE E.R. 500 MG TABLET (FP) PO SCH ×2 (11:31→21:10)
[2017-04-02] MEDS: MECLIZINE HCL 25 MG TABLET (FP) PO SCH (11:31)
[2017-04-02] MEDS: METOPROLOL SUCCINATE 50 MG TAB.SR.24H (FP) PO SCH (11:31)
[2017-04-02] MEDS: amLODIPine BESYLATE 10 MG TABLET (FP) PO SCH (11:32)
--- NOTE | 2017-04-02 11:53 | CON.GI ---
Consult Consult Specialty:: gastroenterology Referred by:: Dr Ribeiro - History of Present Illness History of Present Illness: 76 y/o F with PMH OF CVA, COPD, CAD, s/p cholecystectomy was admitted with 1 dayory of 10/10 epigastric pain, no nausea and no vomiting. She was given minimal fluid she developed sign of congestion. - Past Medical History Cardio/Vascular: Yes: CAD, CHF (moderate chronic LV dysfunction), HTN, Hyperlipdemia, Other (carotid stenosis) Pulmonary: Yes: COPD - Past Surgical History Past Surgical History: Yes: Appendectomy, Cholecystectomy, Stent (last 2013) - Alcohol/Substance Use Hx Alcohol Use: No - Smoking History Smoking history: Never smoked Have you smoked in the past 12 months: No If you are a former smoker, when did you quit?: 20 years - Social History ADL: Independent History of Recent Travel: No Home Medications - Allergies Allergies/Adverse Reactions: Allergies Allergy/AdvReac Type Severity Reaction Status Date / Time codeine [Codeine] Allergy Intermediate Nausea Verified 04/01/17 06:17 Penicillins Allergy Intermediate Rash Verified 04/01/17 06:17 - Home Medications Home Medications: Ambulatory Orders Albuterol Sulfate Inhaler - [Ventolin HFA Inhaler -] 90 mcg IH Q4HWA PRN Amlodipine Besylate 10 mg PO DAILY 04/01/17 Aspirin [Aspirin EC] 81 mg PO DAILY 04/01/17 Atorvastatin Ca [Lipitor] 10 mg PO HS 04/01/17 Furosemide 20 mg PO DAILY 04/01/17 Gabapentin 300 mg PO BID 04/01/17 Losartan Potassium 100 mg PO DAILY 04/01/17 Meclizine HCl 25 mg PO DAILY 04/01/17 Metoprolol Succinate [Toprol Xl] 50 mg PO DAILY 04/01/17 Ranolazine [Ranexa] 500 mg PO BID 04/01/17 Salmeterol/Fluticasone [Advair 250Mcg/50Mcg -] 1 puff IN BID 04/01/17 Physical Exam-GI Vital Signs: Vital Signs Temperature 98.1 F 04/02/17 09:00 Pulse Rate 70 04/02/17 09:00 Respiratory Rate 18 04/02/17 09:00 Blood Pressure 118/56 04/02/17 09:00 O2 Sat by Pulse Oximetry (%) 98 04/01/17 08:08 Constitutional: Yes: Well Nourished Eyes: Yes: Conjunctiva Clear, Occular Prosthesis Neck: Yes: Supple Cardiovascular: Yes: Regular Rate and Rhythm Respiratory: Yes: CTA Bilaterally ...Palpate: Yes: Soft, Tenderness, Epigastium. No: Firm/Rigid, Guarding, Hepatomegaly, Mass, Pulsatile Mass, Splenomegaly, Tenderness Labs: CBC, BMP 04/02/17 08:00 04/02/17 06:20 INR, PTT INR 1.04 (0.82-1.09) 04/02/17 06:20 Hepatic Panel Total Bilirubin 1.4 mg/dL (0.2-1.0) H D 04/02/17 06:20 AST 434 U/L (15-37) H D 04/02/17 06:20 ALT 434 U/L (12-78) H D 04/02/17 06:20 Alkaline Phosphatase 322 U/L (45-117) H D 04/02/17 06:20 Albumin 3.1 g/dl (3.4-5.0) L 04/02/17 06:20 Problem List - Problems (1) Biliary acute pancreatitis Assessment/Plan: associated with dialted CBD 1.4 cm R> for ERCP if enzymes continue to trend highier, patient is high risk for any procedures Cardiology clearance --DX CHF Actigall 300mg bid Code(s): K85.10 - BILIARY ACUTE PANCREATITIS WITHOUT NECROSIS OR INFECTION
[2017-04-02] MEDS ORDERED: oxyCODONE HCL 5 MG TABLET PO PRN (13:45)
--- NOTE | 2017-04-02 14:06 | PN ---
Progress Note (short form) - Note Progress Note: Subjective: Abd pain resolved, has no N/V, no fever or chills. Denies SOB. Objective: Vital Signs: Last Vital Signs Temp Pulse Resp BP Pulse Ox 98.1 F 70 18 118/56 98 04/02/17 09:00 04/02/17 09:00 04/02/17 09:00 04/02/17 09:00 04/01/17 08:08 I&O: Intake & Output 03/30/17 03/31/17 04/01/17 04/02/17 23:59 23:59 23:59 23:59 Intake Total 1100 567 Balance 1100 567 Weight 187 lb 3.2 oz Laboratory Results - last 24 hr 04/01/17 04/01/17 04/02/17 11:20 15:00 06:20 WBC RBC Hgb Hct MCV MCH MCHC RDW Plt Count MPV Neutrophils % Lymphocytes % Monocytes % Eosinophils % Basophils % INR 1.04 PTT (Actin FS) 35.2 H Sodium Potassium Chloride Carbon Dioxide Anion Gap BUN Creatinine Creat Clearance w eGFR Random Glucose Calcium Total Bilirubin AST ALT Alkaline Phosphatase Total Protein Albumin Triglycerides 76 D Cholesterol 186 Total LDL Cholesterol 101 H HDL Cholesterol 65 H Urine Color Ltyellow Urine Appearance Clear Urine pH 8.0 D Ur Specific [place] 1.015 Urine Protein Negative Urine Glucose (UA) Negative Urine Ketones Negative Urine Blood Negative Urine Nitrite Negative Urine Bilirubin Negative Urine Urobilinogen 2.0 H Ur Leukocyte Esterase Trace Urine RBC None Urine WBC 2 Ur Epithelial Cells Rare Blood Type Antibody Screen 04/02/17 04/02/17 04/02/17 06:20 06:20 08:00 WBC 4.0 D RBC 3.62 Hgb 11.0 Hct 33.5 MCV 92.7 MCH 30.5 MCHC 32.9 RDW 13.2 Plt Count 231 MPV 9.8 Neutrophils % 47.6 D Lymphocytes % 37.6 D Monocytes % 9.5 Eosinophils % 4.3 D Basophils % 1.0 INR PTT (Actin FS) Sodium 143 Potassium 3.8 Chloride 107 Carbon Dioxide 29 Anion Gap 7 L BUN 12 D Creatinine 0.7 Creat Clearance w eGFR > 60 Random Glucose 79 D Calcium 8.5 Total Bilirubin 1.4 H D AST 434 H D ALT 434 H D Alkaline Phosphatase 322 H D Total Protein 6.3 L Albumin 3.1 L Triglycerides Cholesterol Total LDL Cholesterol HDL Cholesterol Urine Color Urine Appearance Urine pH Ur Specific [place] Urine Protein Urine Glucose (UA) Urine Ketones Urine Blood Urine Nitrite Urine Bilirubin Urine Urobilinogen Ur Leukocyte Esterase Urine RBC Urine WBC Ur Epithelial Cells Blood Type O POSITIVE Antibody Screen Negative Physical Exam: NAD , AAOx3 HEENT: MMM, no facial droop. no LAP in neck. CV: RRR, nl S1, S2, no MRG, b/l minimal JVD Lungs : L base crackles not [id number] from yesterday Abd: soft, minimal TTP in epigastric area, no rebound tenderness or guarding Ext : 1+ edema ASSESSMENT AND PLAN: 75 y/o lady with h/o CAD s/p PCI s/p stents placement, chronic angina, HTN, HL , vertigo , carotid stenosis ,D CHF , TIA, and athma , who presented with acute Abd pain and was found to have acute pancreatitis. 1- Acute pancreatitis : likely gall stone pancreatitis or due to cholangiocarcinona or other tumors obstructing received gentle hydration last night , with no increase in her L base crackles , but has slightly worsening JVD today . She has no SOB though . - Cont reduced dose of IVF , only until this evening and will hold overnight . re-assess in am . - mRCP was not comoplete due to pt pain, but it showed dilation in pancreatic duct and CBD. can't r/o tumor vs stone. - D/w Dr. Deal for ERCP. high risk procedure - D/W patient who will d/w Daughter . Unable to reach daughter today . will try again - cont IV protonix - clear diet 2- H/o DCHF: JVD increased with IVF, but crackles and SOB did not increase. Cxray clear - careful IV hydration till PM only - hold lasix - cont BB , and losartan -D/W Dr. Zhou 3- H/o CAD , with chronic anginal symptoms : currently being treated medically - cont ASa. - cont BB and renexa and ARB 4- h/o AShma , - cont advair and ALbuterol 5- HTN: cont meds DVT PX : Heparin SQ Visit type - Emergency Visit Emergency Visit: Yes ED Registration Date: 04/01/17 Care time: The patient presented to the Emergency Department on the above date and was hospitalized for further evaluation of their emergent condition. - New Patient This patient is new to me today: No - Critical Care Critical Care patient: No
[2017-04-02] MEDS: URSODIOL 300 MG CAPSULE PO SCH ×2 (15:14→21:09)
[2017-04-03] MEDS: HEPARIN NA (PORCINE) 5,000 UNITS/ML 1ML VIAL SQ SCH ×3 (06:39→21:28)
[2017-04-03 07:44] LABS: BASOPHIL 0.9 % (0-2.0); EOSINOPHIL 5.1 % (0-4.5); MCH 30.2 pg (25.7-33.7); MCHC 32.8 g/dl (32.0-36.0); MEAN CELL VOLUME 92.1 fl (80-96); MEAN PLT VOLUME 9.6 fl (7.5-11.1); NEUTROPHILS 36.2 % (42.8-82.8); PLATELET COUNT 233 K/MM3 (134-434); RDW 12.9 % (11.6-15.6); WHITE BLOOD COUNT 4.1 K/mm3 (4.0-10.0)
[2017-04-03 08:11] LABS: ALBUMIN 3.5 g/dl (3.4-5.0); ANION GAP 8 (8-16); BILIRUBIN,TOTAL 1.2 mg/dL (0.2-1.0); CO2 28 mmol/L (21-32); CREATININE 0.7 mg/dL (0.55-1.02); GLUCOSE,RANDOM 90 mg/dL (74-106); MAGNESIUM 2.2 mg/dL (1.8-2.4); PHOSPHOROUS 3.4 mg/dL (2.5-4.9); SGOT/AST 263 U/L (15-37); TOT PROT 7.5 g/dl (6.4-8.2)
[2017-04-03 08:12] LABS: ALK PHOS 411 U/L (45-117)
[2017-04-03 08:20] LABS: SGPT/ALT 402 U/L (12-78)
--- NOTE | 2017-04-03 09:03 | CON.CARD ---
Consult Consult Specialty:: Cardiology Referred by:: Hospitalist Reason for Consultation:: h/o CHF current condition requires IVF - History of Present Illness Chief Complaint: abdominal pain History of Present Illness: 76 year old woman with a history of HTN, HLD, CAD with multiple prior stents including 12/2015 at which time she had IRASEMA D1 followed by IRASEMA dRCA with prior IRASEMA pRCA and LAD, h/o cardiomyopathy with prior moderately reduced LV systolic function which improved to normal systolic function after revascularization, chronic combined systolic/diastholic CHF, moderate b/l carotid stenosis being medically managed and monitored for now, h/o TIA, Asthma, chronic atypical chest pain, admitted with abdominal pain found to have pancreatitis presumed due to biliary obstruction. Pt seen and examined today in nad. states she is feeling better. no current abd pain. denies sob currently. no chest pain. no pnd, orthopnea, or LE edema. - History Source History Provided By: Patient, Medical Record Limitations to Obtaining History: Language Barrier - Past Medical History Cardio/Vascular: Yes: CAD, CHF (moderate chronic LV dysfunction), HTN, Hyperlipdemia, Other (carotid stenosis) Pulmonary: Yes: Asthma, COPD - Past Surgical History Past Surgical History: Yes: Appendectomy, Cholecystectomy, Stent (last 2013) - Alcohol/Substance Use Hx Alcohol Use: No - Smoking History Smoking history: Never smoked Have you smoked in the past 12 months: No If you are a former smoker, when did you quit?: 20 years - Social History ADL: Independent History of Recent Travel: No Home Medications - Allergies Allergies/Adverse Reactions: Allergies Allergy/AdvReac Type Severity Reaction Status Date / Time codeine [Codeine] Allergy Intermediate Nausea Verified 04/01/17 06:17 Penicillins Allergy Intermediate Rash Verified 04/01/17 06:17 - Home Medications Home Medications: Ambulatory Orders Albuterol Sulfate Inhaler - [Ventolin HFA Inhaler -] 90 mcg IH Q4HWA PRN Amlodipine Besylate 10 mg PO DAILY 04/01/17 Aspirin [Aspirin EC] 81 mg PO DAILY 04/01/17 Atorvastatin Ca [Lipitor] 10 mg PO HS 04/01/17 Furosemide 20 mg PO DAILY 04/01/17 Gabapentin 300 mg PO BID 04/01/17 Losartan Potassium 100 mg PO DAILY 04/01/17 Meclizine HCl 25 mg PO DAILY 04/01/17 Metoprolol Succinate [Toprol Xl] 50 mg PO DAILY 04/01/17 Ranolazine [Ranexa] 500 mg PO BID 04/01/17 Salmeterol/Fluticasone [Advair 250Mcg/50Mcg -] 1 puff IN BID 04/01/17 Family Disease History - Family Disease History Family History: Denies Review of Systems - Review of Systems Constitutional: reports: Loss of Appetite. denies: No Symptoms, Chills, Diaphoresis, Fever, Lethargy, Malaise, Night Sweats, Unintentional Wgt. Loss, Weakness, Other Eyes: denies: No Symptoms, Blind Spots, Blurred Vision, Double Vision, Eye Pain , Floaters, Photophobia, Recent Change in Vision, Other HENT: denies: No Symptoms, Difficult Swallowing, Ear Discharge, Ear Pain, Epistaxis, Gingival Bleeding, Hearing Loss, Mouth Swelling, Nasal Congestion, Ocular Prosthesis, Throat Pain, Toothache, Ringing in Ears, Other Neck: denies: No Symptoms, Decreased ROM, Lumps, Pain on Movement, Stiffness, Swollen Glands, Tenderness, Other Cardiovascular: reports: Shortness of Breath. denies: No Symptoms, Chest Pain, Edema, Palpitations, Other Respiratory: reports: SOB. denies: No Symptoms, Cough, Exercise Intolerance, Hemoptysis, Orthopnea, PND, Snoring, SOB on Exertion, Wheezing, Other Gastrointestinal: reports: Abdominal Pain, Nausea. denies: No Symptoms, Bloating, Constipation, Diarrhea, Dysphagia, Indigestion, Melena, Rectal Bleeding, Vomiting, Vomiting Blood, Other Genitourinary: denies: No Symptoms, Burning, Discharge, Dysuria, Flank Pain, Frequency, Hematuria, Incontinence, Lesions, Menses, Pain, Testicular Mass, Testicular Pain, Testicular Swelling, Urgency, Vaginal Bleeding, Other Breasts: denies: No Symptoms Reported, See HPI, Breast Implants, Discharge from Nipple, Lumps, Pain, Skin Changes, Other Musculoskeletal: denies: No Symptoms, Back Pain, Crepitus, Decreased ROM, Extremity Pain, Joint Pain, Joint Swelling, Muscle Pain, Muscle Cramps, Muscle Weakness, Other Integumentary: denies: No Symptoms, Blister, Bruising, Change in Color, Eczema, Erythema, Incision, Lesions, Lump, Pallor, Pruritis, Rash, Wound, Other Neurological: denies: No Symptoms, Change in LOC, Change in Speech, Confusion, Dizziness, Headache, Incoordination, Numbness, Parasthesia, Pre-Existing Deficit , Seizure, Syncope, Tremors, Unsteady Gait, Weakness, Other Endocrine: denies: No Symptoms, Excessive Sweating, Flushing, Increased Hunger, Increased Thirst, Intolerance to Cold, Intolerance to Heat, Unexplained Weight Gain, Unexplained Weight Loss, Other Hematology/Lymphatic: denies: No Symptoms, Easily Bruised, Excessive Bleeding, Swollen Glands, Other Psychiatric: denies: No Symptoms, Altered Sleep Pattern, Anxiety, Depression, Hallucinations, Panic, Paranoia, Suicidal, Other - Risk Factors Known Risk Factors: Yes: Hypercholesterolemia, Hypertension Vital Signs: Vital Signs Temperature 97.8 F 04/03/17 06:00 Pulse Rate 74 04/03/17 06:00 Respiratory Rate 18 04/03/17 06:00 Blood Pressure 140/52 04/03/17 06:00 O2 Sat by Pulse Oximetry (%) 97 04/02/17 21:00 Constitutional: Yes: No Distress, Calm, Obese Eyes: Yes: WNL, Conjunctiva Clear, EOM Intact, PERRL HENT: Yes: WNL, Atraumatic, Normocephalic Neck: Yes: WNL, Supple, Trachea Midline Respiratory: Yes: WNL, Regular, CTA Bilaterally. No: Rales, Rhonchi, Wheezes Gastrointestinal: Yes: Normal Bowel Sounds, Soft. No: Distention, Tenderness Cardiovascular: Yes: Regular Rate and Rhythm. No: Bradycardia, Tachycardia, Pulse Irregular, Gallop, Rub, Varicosities JVD: No Carotid Bruit: No PMI: Non-Displaced Heart Sounds: Yes: S1, S2. No: Split S2, S3, S4, Clicks, Gallop, Rub, Bruit Murmur: No: Systolic Murmur, Diastolic Murmur Musculoskeletal: Yes: WNL Extremities: Yes: WNL Edema: No Peripheral Pulses WNL: Yes Peripheral Pulses: 2+ Left Doralis Pedis, 2+ Right Dorsalis Pedis Integumentary: Yes: WNL Neurological: Yes: Alert, Oriented Psychiatric: Yes: Alert, Oriented - Other Data Labs, Other Data: CBC, BMP 04/03/17 06:45 04/03/17 06:45 INR, PTT INR 1.04 (0.82-1.09) 04/02/17 06:20 EKG-NSR 76bpm, LBBB, no sig change from prior EKGS Echo: Report Reviewed Prior Cardiac Procedures: Cardiac Catheterization, PTCA with Stent Ejection Fraction %: LVEF > or = 40 % Imaging - Results Chest X-ray: Report Reviewed, Image Reviewed EKG: Report Reviewed, Image Reviewed Other: Report Reviewed, Image Reviewed Assessment/Plan 76 year old woman with a history of HTN, HLD, CAD with multiple prior stents including 12/2015 at which time she had IRASEMA D1 followed by IRASEMA dRCA with prior IRASEMA pRCA and LAD, h/o cardiomyopathy with prior moderately reduced LV systolic function which improved to normal systolic function after revascularization, chronic combined systolic/diastholic CHF, moderate b/l carotid stenosis being medically managed and monitored for now, h/o TIA, Asthma, chronic atypical chest pain, admitted with abdominal pain found to have pancreatitis presumed due to biliary obstruction. Chronic CHF-h/o systolic dysfunction which improved post revascularization and chronic diastolic CHF -currently overall euvolemic -can give IVF as needed for her current condition that requires IVF -monitor closely and if becomes symptomatically fluid overloaded can dose Lasix prn -can check an echo to re-evaluate LV function and valvular function and help guide volume status CAD with h/o stents as above, last being 12/2015, chronic atypical chest pain -no chest pain at this time -known chronic LBBB on ekg -cont ASA 81mg daily -cont toprol and losartan -statin on hold for now, re-evaluate as outpatient SOB-chronic secondary to asthma and chronic diastolic CHF -nebs as needed -Lasix as needed HTN-adequately controlled -cont current medical regimen
[2017-04-03] MEDS ORDERED: PT OWN MED DRAWER 7, Y5N ONE (10:29)
[2017-04-03] MEDS: FLUTICASONE/SALMETEROL 100 MCG/50 MCG DISKUS IH SCH ×2 (10:39→21:28)
[2017-04-03] MEDS: PANTOPRAZOLE SODIUM 100 ML IVPB SCH (10:39)
[2017-04-03] MEDS: URSODIOL 300 MG CAPSULE PO SCH ×2 (10:39→21:27)
[2017-04-03] MEDS: METOPROLOL SUCCINATE 50 MG TAB.SR.24H (FP) PO SCH (10:40)
[2017-04-03] MEDS: MECLIZINE HCL 25 MG TABLET (FP) PO SCH (10:40)
[2017-04-03] MEDS: LOSARTAN POTASSIUM 50 MG TABLET (FP) PO SCH (10:40)
[2017-04-03] MEDS: RANOLAZINE E.R. 500 MG TABLET (FP) PO SCH ×2 (10:41→21:28)
[2017-04-03] MEDS: amLODIPine BESYLATE 10 MG TABLET (FP) PO SCH (10:41)
[2017-04-03] MEDS: ASPIRIN COATED 81 MG TABLET.EC PO SCH (10:41)
[2017-04-03] MEDS: GABAPENTIN 300 MG CAPSULE (FP) PO SCH ×2 (10:41→21:28)
--- NOTE | 2017-04-03 14:35 | PN ---
Teaching Attending Note Name of Resident: Sammi Chand ATTENDING PHYSICIAN STATEMENT I saw and evaluated the patient. I reviewed the resident's note and discussed the case with the resident. I agree with the resident's findings and plan as documented. SUBJECTIVE: no fever or chills. no abd pain, tolerated clears. denies any SOB. no cough OBJECTIVE: NAD , AAOx3 HEENT: MMM, no facial droop. no LAP in neck. CV: RRR, nl S1, S2, no MRG,no JVD today Lungs : L base crackles not increased from yesterday Abd: soft, minimal TTP in epigastric area, no rebound tenderness or guarding Ext : 1+ edema ASSESSMENT AND PLAN: 75 y/o lady with h/o CAD s/p PCI s/p stents placement, chronic angina, HTN, HL , vertigo , carotid stenosis ,D CHF , TIA, and athma , who presented with acute Abd pain and was found to have acute pancreatitis. 1- Acute pancreatitis : likely gall stone pancreatitis or due to cholangiocarcinona or other obstructing tumor ALt, ASt improved but ALK phos worsened . - Resume IVF at a low rate - Pt is not sure and needs family help to decide on ERCP. will d/w family today - cont IV protonix - clear diet - D/W Dr. Milton. No contraindication to ERCP 2- H/o DCHF: today she has no SOB and no JVDs - Resume hydration - appreciate Card input - hold lasix - cont BB , and losartan - echo 3- H/o CAD , with chronic anginal symptoms : currently being treated medically - cont ASa. - cont BB,renexa and ARB 4- H/o AShma , - Cont advair and Albuterol 5- HTN: cont meds DVT PX: Heparin SQ.
[2017-04-03] MEDS: LACTATED RINGERS SOLUTION 1,000 ML IV SCH (17:28)
--- NOTE | 2017-04-03 19:05 | PN ---
Physical Exam: SUBJECTIVE: Patient seen and examined this AM. Still complaints of epigastric pain. No diarrhea. No Cp, no SOB, no fevers, no chills. OBJECTIVE: Vital Signs Period Temp Pulse Resp BP Sys/Vieira Pulse Ox Last 24 Hr 97.6 F-99.0 F 67-74 18-20 131-152/52-66 97 GEN: AAOx3, lying comfortable in NAD HEENT: PERRLA, EOMi, no LAD, mild JVD CV: S1, S2, RRR, 2/6 systolic murmur LUSB LUNG: CTABL possible basilar crackles, nonlabored respirations ABD: Soft, TTp in epigastrium has decreased MSK: +1 pitting edema in BLLE, no erythema, 5/5 musc strength NEURO: CN 2-12 intact, no sensation deficits in face/body, no facial droop, mSK 5/5, reflexes 2+ Laboratory Results - last 24 hr 04/01/17 04/03/17 04/03/17 15:00 06:45 06:45 WBC 4.1 RBC 4.16 Hgb 12.5 D Hct 38.3 MCV 92.1 MCH 30.2 MCHC 32.8 RDW 12.9 Plt Count 233 MPV 9.6 Neutrophils % 36.2 L D Lymphocytes % 44.6 H Monocytes % 13.2 H Eosinophils % 5.1 H Basophils % 0.9 Sodium 142 Potassium 3.7 Chloride 106 Carbon Dioxide 28 Anion Gap 8 BUN 9 D Creatinine 0.7 Creat Clearance w eGFR > 60 Random Glucose 90 Calcium 9.0 Phosphorus 3.4 D Magnesium 2.2 Total Bilirubin 1.2 H AST 263 H D ALT 402 H Alkaline Phosphatase 411 H D Total Protein 7.5 Albumin 3.5 Hepatitis A IgM Ab Negative Hep Bs Antigen Negative Hep B Core IgM Ab Negative Hepatitis C Ab (EIA) <0.1 Active Medications Generic Name Dose Route Start Last Admin Trade Name Freq PRN Reason Stop Dose Admin Albuterol Sulfate 2 puff 04/01/17 15:38 Ventolin Hfa Inhaler - IH Q4H PRN SHORTNESS OF BREATH Amlodipine Besylate 10 mg 04/01/17 14:45 04/03/17 10:41 Norvasc - PO 10 mg DAILY EUGENE Administration Aspirin 81 mg 04/01/17 14:45 04/03/17 10:41 Ecotrin - PO 81 mg DAILY EUGENE Administration Gabapentin 300 mg 04/01/17 22:00 04/03/17 10:41 Neurontin - PO 300 mg BID EUGENE Administration Heparin Sodium (Porcine) 5,000 unit 04/01/17 14:30 04/03/17 15:44 Heparin - SQ 5,000 unit TID EUGENE Administration Pantoprazole Sodium 100 mls @ 200 mls/hr 04/02/17 10:00 04/03/17 10:39 Protonix 40mg Ivpb (Pre-Docked) IVPB 200 mls/hr DAILY EUGENE Administration Lactated Ringer's 1,000 mls @ 42 mls/hr 04/03/17 11:15 04/03/17 17:28 Lactated Ringers Solution IV 42 mls/hr ASDIR EUGENE Administration Losartan Potassium 100 mg 04/02/17 10:00 04/03/17 10:40 Cozaar - PO 100 mg DAILY EUGENE Administration Meclizine HCl 25 mg 04/01/17 14:45 04/03/17 10:40 Antivert - PO 25 mg DAILY EUGENE Administration Metoprolol Succinate 50 mg 04/02/17 10:00 04/03/17 10:40 Toprol Xl - PO 50 mg DAILY EUGENE Administration Prochlorperazine Edisylate 5 mg 04/01/17 14:31 Compazine Injection - IM Q6H PRN NAUSEA AND/OR VOMITING Ranolazine 500 mg 04/01/17 22:00 04/03/17 10:41 Ranexa - PO 500 mg BID EUGENE Administration Fluticasone/Salmeterol 1 puff 04/01/17 22:00 04/03/17 10:39 Advair 100mcg/50mcg - IH 1 puff BID EUGENE Administration Ursodiol 300 mg 04/02/17 12:00 04/03/17 10:39 Actigal - PO 300 mg BID EUGENE Administration ASSESSMENT/PLAN: Patient is a 76yo F with hx of CCK, GERD who presented with epigastric abdominal pain and nausea with elevated lipase. Diagnosed with acute pancreatitis. # Acute Pancreatitis - Possibly due to stone or outside obstruction - CT not needed, pt has pain + elevated lipase - MRCP was incomplete, Cardiac cleared for ERCP - Await GI reccs on ERCP - Pt and daughter informed and agree - Hep panel negative - IV LR 42cc/hr due to DCHF - Tolerating clears, if plan for ERCP, NPO past midnight - Morphine PRN (pharmacy confirmed no interaction w/ pts codeine allergy) # Diastolic CHF - Prior echo shows EF 38.6% - CXR shows no congestion, pt slightly overloaded - Gentle LR, hold lasix # Diarrhea - resolved - Pt had episodes of diarrhea - Resolved w/ immodium - No WBC, no fever, not worreid about infection - Monitor # Hx of CAD - Continue ASA # Hx of HTN - Well controlled - Continue metoprolol, losartan, norvasc # HLD - Held atorvastatin due to transaminitis # Hx of Neuropathy - Continue Neurontin # Hx of COPD - Confirm Albuterol + Advair - Home advair (200/50) is NF, will start Advair 100/50 1 puff BID # Hx of Vertigo - Continue Meclizine # FEN - Fluids: LR 42cc/hr - Electrolytes: Monitor, no abn - Nutrition: clears # Prophylaxis - DVT: Heparin SQ BID - GI: IV protonix - Deconditioning: PT ordered # Dispo - Await GI reccs on when to do ERCP Dr. Sammi Chand PGY1 - Internal Medicine Visit type - Emergency Visit Emergency Visit: No - New Patient This patient is new to me today: No - Critical Care Critical Care patient: No - Discharge Referral Referred to [facility] Med P.C.: No
--- NOTE | 2017-04-03 19:23 | PN ---
GI Progress Note Subjective: still with epigastric pain, medically cleared for ERCP - Objective Vital Signs: Vital Signs Temperature 97.7 F 04/03/17 18:00 Pulse Rate 67 04/03/17 18:00 Respiratory Rate 20 04/03/17 18:00 Blood Pressure 131/60 04/03/17 18:00 O2 Sat by Pulse Oximetry (%) 97 04/02/17 21:00 Constitutional: Well Nourished Eyes: Yes: Conjunctiva Clear HENT: Yes: Atraumatic Neck: Yes: Supple Cardiovascular: Yes: Regular Rate and Rhythm Respiratory: Yes: CTA Bilaterally ...Palpate: Yes: Soft, Tenderness, Epigastium. No: Firm/Rigid, Guarding, Hepatomegaly, Mass, Splenomegaly, Tenderness Labs: CBC, BMP 04/03/17 06:45 04/03/17 06:45 INR, PTT INR 1.04 (0.82-1.09) 04/02/17 06:20 Problem List - Problems (1) Biliary acute pancreatitis Assessment/Plan: resolving R> dilated CBD for ERCP Monday 2 d echo in am to r/o worsenning cardiac function Code(s): K85.10 - BILIARY ACUTE PANCREATITIS WITHOUT NECROSIS OR INFECTION
[2017-04-04] MEDS ORDERED: MAG HYDROX/AL HYDROX/SIMETH 30 ML UNIT-DOSE CUP PO PRN ×2 (00:53→17:35)
[2017-04-04] MEDS ORDERED: PROCHLORPERAZINE INJECTION 10 MG/2 ML VIAL IVPB ONE (06:27)
[2017-04-04] MEDS: HEPARIN NA (PORCINE) 5,000 UNITS/ML 1ML VIAL SQ SCH ×3 (06:49→21:11)
[2017-04-04 07:51] LABS: MCH 30.5 pg (25.7-33.7); MCHC 33.4 g/dl (32.0-36.0); MEAN CELL VOLUME 91.2 fl (80-96); MEAN PLT VOLUME 9.4 fl (7.5-11.1); PLATELET COUNT 245 K/MM3 (134-434); RDW 12.8 % (11.6-15.6); WHITE BLOOD COUNT 5.3 K/mm3 (4.0-10.0)
[2017-04-04 08:03] LABS: ALBUMIN 3.4 g/dl (3.4-5.0); ANION GAP 12 (8-16); CO2 26 mmol/L (21-32); GLUCOSE,RANDOM 92 mg/dL (74-106); SGPT/ALT 274 U/L (12-78)
[2017-04-04 08:06] LABS: ALK PHOS 370 U/L (45-117); BILIRUBIN,TOTAL 1.3 mg/dL (0.2-1.0); CREATININE 0.6 mg/dL (0.55-1.02); SGOT/AST 120 U/L (15-37); TOT PROT 6.9 g/dl (6.4-8.2)
[2017-04-04] MEDS ORDERED: PT OWN MED DRAWER 7, Y5N ONE ×2 (09:47→17:13)
[2017-04-04] MEDS: METOPROLOL SUCCINATE 50 MG TAB.SR.24H (FP) PO SCH (09:50)
[2017-04-04] MEDS: ASPIRIN COATED 81 MG TABLET.EC PO SCH (09:50)
[2017-04-04] MEDS: MECLIZINE HCL 25 MG TABLET (FP) PO SCH (09:51)
[2017-04-04] MEDS: RANOLAZINE E.R. 500 MG TABLET (FP) PO SCH ×2 (09:51→21:11)
[2017-04-04] MEDS: GABAPENTIN 300 MG CAPSULE (FP) PO SCH ×2 (09:51→21:11)
[2017-04-04] MEDS: amLODIPine BESYLATE 10 MG TABLET (FP) PO SCH (09:51)
--- NOTE | 2017-04-04 09:51 | PN ---
Progress Note, Physician Chief Complaint: nausea and mild epigastric pain - Current Medication List Current Medications: Active Medications Al Hydroxide/Mg Hydroxide (Mylanta Oral Suspension -) 30 ml PO Q6H PRN PRN Reason: DYSPEPSIA Last Admin: 04/04/17 01:15 Dose: 30 ml Albuterol Sulfate (Ventolin Hfa Inhaler -) 2 puff IH Q4H PRN PRN Reason: SHORTNESS OF BREATH Amlodipine Besylate (Norvasc -) 10 mg PO DAILY [facility] Last Admin: 04/03/17 10:41 Dose: 10 mg Aspirin (Ecotrin -) 81 mg PO DAILY [facility] Last Admin: 04/03/17 10:41 Dose: 81 mg Gabapentin (Neurontin -) 300 mg PO BID [facility] Last Admin: 04/03/17 21:28 Dose: 300 mg Heparin Sodium (Porcine) (Heparin -) 5,000 unit SQ TID [facility] Last Admin: 04/04/17 06:49 Dose: 5,000 unit Pantoprazole Sodium (Protonix 40mg Ivpb (Pre-Docked)) 100 mls @ 200 mls/hr IVPB DAILY [facility] Last Admin: 04/03/17 10:39 Dose: 200 mls/hr Lactated Ringer's (Lactated Ringers Solution) 1,000 mls @ 42 mls/hr IV ASDIR [facility] Last Admin: 04/03/17 17:28 Dose: 42 mls/hr Losartan Potassium (Cozaar -) 100 mg PO DAILY [facility] Last Admin: 04/03/17 10:40 Dose: 100 mg Meclizine HCl (Antivert -) 25 mg PO DAILY [facility] Last Admin: 04/03/17 10:40 Dose: 25 mg Metoprolol Succinate (Toprol Xl -) 50 mg PO DAILY [facility] Last Admin: 04/03/17 10:40 Dose: 50 mg Prochlorperazine Edisylate (Compazine Injection -) 5 mg IM Q6H PRN PRN Reason: NAUSEA AND/OR VOMITING Ranolazine (Ranexa -) 500 mg PO BID [facility] Last Admin: 04/03/17 21:28 Dose: 500 mg Fluticasone/Salmeterol (Advair 100mcg/50mcg -) 1 puff IH BID [facility] Last Admin: 04/03/17 21:28 Dose: 1 puff Ursodiol (Actigal -) 300 mg PO BID [facility] Last Admin: 04/03/17 21:27 Dose: 300 mg - Objective Vital Signs: Vital Signs Temperature 98.2 F 04/04/17 06:00 Pulse Rate 90 04/04/17 09:28 Respiratory Rate 18 04/04/17 09:28 Blood Pressure 104/74 04/04/17 09:28 O2 Sat by Pulse Oximetry (%) 98 04/03/17 22:00 Constitutional: Yes: Calm Eyes: Yes: Conjunctiva Clear Cardiovascular: Yes: Regular Rate and Rhythm Respiratory: Yes: Other (rales initially 1/3 up, but mostly clear with coughing) Gastrointestinal: Yes: Soft (no rebound or guarding) Edema: No Neurological: Yes: Alert, Oriented Labs: CBC, BMP 04/04/17 07:00 04/04/17 07:00 INR, PTT INR 1.04 (0.82-1.09) 04/02/17 06:20 Laboratory Tests 01/26/16 04/04/17 04/04/17 06:00 07:00 07:00 WBC 5.3 Hgb 12.1 Plt Count 245 Sodium 142 139 Potassium 4.4 3.7 BUN 20 H D Creatinine 0.8 0.6 ALT 105 H 274 H D Alkaline Phosphatase 186 H 370 H AST 120 H D Assessment/Plan IMP: Dilated CBP, abdominal pain w/ increased LFT- suspected choledocholithiasis ASHD w/ prior PCI > 1 year ago REC: With careful management of volume administration over the last 48 hours, she has remained stable with no decompensation of her chronic diastolic CHF. I think she is now euvolemic and should tolerate ERCP well.
[2017-04-04] MEDS: URSODIOL 300 MG CAPSULE PO SCH ×2 (09:56→21:17)
[2017-04-04] MEDS: PANTOPRAZOLE SODIUM 100 ML IVPB SCH (09:56)
[2017-04-04] MEDS: FLUTICASONE/SALMETEROL 100 MCG/50 MCG DISKUS IH SCH ×2 (09:56→21:11)
[2017-04-04] MEDS: LOSARTAN POTASSIUM 50 MG TABLET (FP) PO SCH (09:57)
[2017-04-04] MEDS: PROCHLORPERAZINE INJECTION 10 MG/2 ML VIAL IM PRN ×2 (10:00→17:14)
[2017-04-04] MEDS: LACTATED RINGERS SOLUTION 1,000 ML IV SCH (11:55)
[2017-04-04] MEDS ORDERED: LIDOCAINE HCL/PF 2% SDV 5ML VIAL ONE (14:26)
[2017-04-04] MEDS ORDERED: PROPOFOL 20 ML ONE (14:27)
[2017-04-04] MEDS ORDERED: ONDANSETRON 4 MG/2 ML VIAL ONE (14:27)
[2017-04-04] MEDS ORDERED: GLUCAGON 1 MG KIT ONE (14:27)
[2017-04-04] MEDS ORDERED: DEXAMETHASONE SOD PHOSPHATE 10 MG/1 ML VIAL ONE (14:27)
[2017-04-04] MEDS ORDERED: NEOSTIGMINE METHYLSULFATE 0.5 MG/ML - 10 ML MDV ONE (14:27)
[2017-04-04] MEDS ORDERED: GLYCOPYRROLATE 0.2 MG/1 ML VIAL ONE ×3 (14:27)
[2017-04-04] MEDS ORDERED: ROCURONIUM BROMIDE 50 MG/5 ML VIAL ONE (14:27)
[2017-04-04] MEDS ORDERED: INDOMETHACIN 50 MG RECTAL SUPPOSITORY PR ONE (14:33)
--- NOTE | 2017-04-04 14:33 | PN ---
Teaching Attending Note Name of Resident: Sammi Chand ATTENDING PHYSICIAN STATEMENT I saw and evaluated the patient. I reviewed the resident's note and discussed the case with the resident. I agree with the resident's findings and plan as documented. SUBJECTIVE: denies abd pain , has no nausea or vomiting . tolerated clears OBJECTIVE: NAD, AAOx3 HEENT: MMM, no facial droop. no LAP in neck. CV: RRR, nl S1, S2, no MRG, no JVD today Lungs: CTAB Abd: soft, minimal TTP in epigastric area, no rebound tenderness or guarding Ext: 1+ edema ASSESSMENT AND PLAN: 75 y/o lady with h/o CAD s/p PCI s/p stents placement, chronic angina, HTN, HL , vertigo , carotid stenosis ,D CHF , TIA, and athma , who presented with acute Abd pain and was found to have acute pancreatitis. 1- Acute pancreatitis : likely gall stone pancreatitis or due to cholangiocarcinona or other obstructing tumor - D/w Dr. Deal . for ERCP today . Pt and family aware - will hydrate carefully after ERCP due to her h/o heart failure 2- H/o DCHF:euvolemic today - appreciate Card input - hold lasix - cont BB , and losartan - echo reviewed. - careful hydration after ERCP 3- H/o CAD , with chronic anginal symptoms : currently being treated medically - cont ASa. - cont BB,Ranexa and ARB 4- H/o AShma , - Cont advair and Albuterol 5- HTN: cont meds DVT PX: Heparin SQ.
[2017-04-04] MEDS ORDERED: LEVOFLOXACIN 500 MG IVPB 100 ML IVPB SCH (14:45)
--- NOTE | 2017-04-04 14:55 | PN ---
Physical Exam: SUBJECTIVE: Patient seen and examined this AM. Less epigastric pain, but pt has nausea, gave patient her PRN antinausea meds. No CP, no SOB, no fevers, no chills OBJECTIVE: Vital Signs Period Temp Pulse Resp BP Sys/Vieira Pulse Ox Last 24 Hr 97.6 F-98.4 F 67-90 16-20 104-149/56-74 97-98 GEN: AAOx3, lying comfortable in NAD HEENT: PERRLA, EOMi, no LAD, no JVD CV: S1, S2, RRR, 2/6 systolic murmur LUSB LUNG: CTABL, nonlabored respirations ABD: Soft, TTp in epigastrium has decreased MSK: +1 pitting edema in BLLE, no erythema, 5/5 musc strength NEURO: CN 2-12 intact, no sensation deficits in face/body, no facial droop, MSK 5/5, reflexes 2+ Laboratory Results - last 24 hr 04/04/17 04/04/17 07:00 07:00 WBC 5.3 RBC 3.99 Hgb 12.1 Hct 36.4 MCV 91.2 MCH 30.5 MCHC 33.4 RDW 12.8 Plt Count 245 MPV 9.4 Sodium 139 Potassium 3.7 Chloride 101 Carbon Dioxide 26 Anion Gap 12 BUN 8 Creatinine 0.6 Creat Clearance w eGFR > 60 Random Glucose 92 Calcium 9.0 Total Bilirubin 1.3 H AST 120 H D ALT 274 H D Alkaline Phosphatase 370 H Total Protein 6.9 Albumin 3.4 Active Medications Generic Name Dose Route Start Last Admin Trade Name Freq PRN Reason Stop Dose Admin Al Hydroxide/Mg Hydroxide 30 ml 04/04/17 00:53 04/04/17 01:15 Mylanta Oral Suspension - PO 30 ml Q6H PRN Administration DYSPEPSIA Albuterol Sulfate 2 puff 04/01/17 15:38 Ventolin Hfa Inhaler - IH Q4H PRN SHORTNESS OF BREATH Amlodipine Besylate 10 mg 04/01/17 14:45 04/04/17 09:51 Norvasc - PO 10 mg DAILY [facility] Administration Aspirin 81 mg 04/01/17 14:45 04/04/17 09:50 Ecotrin - PO 81 mg DAILY [facility] Administration Gabapentin 300 mg 04/01/17 22:00 04/04/17 09:51 Neurontin - PO 300 mg BID [facility] Administration Heparin Sodium (Porcine) 5,000 unit 04/01/17 14:30 04/04/17 14:16 Heparin - SQ Not Given TID [facility] Pantoprazole Sodium 100 mls @ 200 mls/hr 04/02/17 10:00 04/04/17 09:56 Protonix 40mg Ivpb (Pre-Docked) IVPB 200 mls/hr DAILY [facility] Administration Lactated Ringer's 1,000 mls @ 42 mls/hr 04/03/17 11:15 04/03/17 17:28 Lactated Ringers Solution IV 42 mls/hr ASDIR [facility] Administration Levofloxacin 100 mls @ 100 mls/hr 04/04/17 14:45 Levaquin 500 Mg Premixed Ivpb - IVPB DAILY [facility] Indomethacin 100 mg 04/04/17 14:33 04/04/17 14:42 Indocin Suppository - DC 04/04/17 14:34 100 mg ONCE ONE Administration Losartan Potassium 100 mg 04/02/17 10:00 04/04/17 09:57 Cozaar - PO 100 mg DAILY [facility] Administration Meclizine HCl 25 mg 04/01/17 14:45 04/04/17 09:51 Antivert - PO 25 mg DAILY [facility] Administration Metoprolol Succinate 50 mg 04/02/17 10:00 04/04/17 09:50 Toprol Xl - PO 50 mg DAILY [facility] Administration Prochlorperazine Edisylate 5 mg 04/01/17 14:31 04/04/17 10:00 Compazine Injection - IM 5 mg Q6H PRN Administration NAUSEA AND/OR VOMITING Ranolazine 500 mg 04/01/17 22:00 04/04/17 09:51 Ranexa - PO 500 mg BID [facility] Administration Fluticasone/Salmeterol 1 puff 04/01/17 22:00 04/04/17 09:56 Advair 100mcg/50mcg - IH 1 puff BID [facility] Administration Ursodiol 300 mg 04/02/17 12:00 04/04/17 09:56 Actigal - PO 300 mg BID [facility] Administration ASSESSMENT/PLAN: Patient is a 76yo F with hx of CCK, GERD who presented with epigastric abdominal pain and nausea with elevated lipase. Diagnosed with acute pancreatitis. CT was not needed since patient had pain + elevated lipase. MRCP was incomplete, and cardio cleared patient for ERCP. # Acute Pancreatitis - Possibly due to stone or outside obstruction - ERCP today - Postop Levo 500IV antibiotics - IV LR 42cc/hr due to DCHF - Tolerating clears, if plan for ERCP, NPO past midnight - Morphine PRN (pharmacy confirmed no interaction w/ pts codeine allergy) # Diastolic CHF - Prior echo shows EF 38.6% - Currently euvolemic, cardio cleared for surgery - Gentle LR, hold lasix # Hx of CAD - Continue ASA # Hx of HTN - Well controlled - Continue metoprolol, losartan, norvasc # HLD - Held atorvastatin due to transaminitis # Hx of Neuropathy - Continue Neurontin # Hx of COPD - Confirm Albuterol + Advair - Home advair (200/50) is NF, will start Advair 100/50 1 puff BID # Hx of Vertigo - Continue Meclizine # FEN - Fluids: LR 42cc/hr - Electrolytes: Monitor, no abn - Nutrition: clears # Prophylaxis - DVT: Heparin SQ BID - GI: IV protonix - Deconditioning: PT ordered # Dispo - Await GI reccs post ERCP - If patient doing better, can discharge soon Dr. Sammi Chand PGY1 - Internal Medicine Visit type - Emergency Visit Emergency Visit: No - New Patient This patient is new to me today: No - Critical Care Critical Care patient: No - Discharge Referral Referred to [facility] Med P.C.: No
--- NOTE | 2017-04-04 15:39 | PN ---
Progress Note (short form) - Note Progress Note: Procedure: attempted ERC patient with large ampulla with redundant ampullary folds making cannulation difficult R> continue antibiotics will transfer for further evaluation and management Problem List - Problems (1) Biliary acute pancreatitis Code(s): K85.10 - BILIARY ACUTE PANCREATITIS WITHOUT NECROSIS OR INFECTION
[2017-04-04] MEDS ORDERED: LACTATED RINGERS SOLUTION 1,000 ML IV SCH (17:35)
[2017-04-04] MEDS ORDERED: PROCHLORPERAZINE INJECTION 10 MG/2 ML VIAL IM PRN (17:35)
[2017-04-04] MEDS ORDERED: ALBUTEROL SO4 6.7 GM HFA INHALER IH PRN (17:35)
[2017-04-05] MEDS: HEPARIN NA (PORCINE) 5,000 UNITS/ML 1ML VIAL SQ SCH ×2 (06:03→14:06)
[2017-04-05 07:36] LABS: MCH 30.3 pg (25.7-33.7); MCHC 33.1 g/dl (32.0-36.0); MEAN CELL VOLUME 91.3 fl (80-96); MEAN PLT VOLUME 9.1 fl (7.5-11.1); PLATELET COUNT 252 K/MM3 (134-434); WHITE BLOOD COUNT 4.9 K/mm3 (4.0-10.0)
--- NOTE | 2017-04-05 07:48 | PN ---
Physical Exam: SUBJECTIVE: Patient seen and examined this AM. No complaints of abd pain or nausea. To be transferred to [facility] today for HLOC. Unable to perform ERCP yesterday. No CP, no SOB OBJECTIVE: Vital Signs Period Temp Pulse Resp BP Sys/Vieira Pulse Ox Last 24 Hr 97.2 F-98.5 F 80-102 16-20 104-164/60-91 97-100 GEN: AAOx3, lying comfortable in NAD HEENT: PERRLA, EOMi, no LAD, no JVD CV: S1, S2, RRR, 2/6 systolic murmur LUSB LUNG: CTABL, nonlabored respirations ABD: Soft, TTp in epigastrium has decreased MSK: +1 pitting edema in BLLE, no erythema, 5/5 musc strength NEURO: CN 2-12 intact, no sensation deficits in face/body, no facial droop, MSK 5/5, reflexes 2+ Laboratory Results - last 24 hr 04/04/17 04/04/17 07:00 07:00 WBC 5.3 RBC 3.99 Hgb 12.1 Hct 36.4 MCV 91.2 MCH 30.5 MCHC 33.4 RDW 12.8 Plt Count 245 MPV 9.4 Sodium 139 Potassium 3.7 Chloride 101 Carbon Dioxide 26 Anion Gap 12 BUN 8 Creatinine 0.6 Creat Clearance w eGFR > 60 Random Glucose 92 Calcium 9.0 Total Bilirubin 1.3 H AST 120 H D ALT 274 H D Alkaline Phosphatase 370 H Total Protein 6.9 Albumin 3.4 Active Medications Generic Name Dose Route Start Last Admin Trade Name Freq PRN Reason Stop Dose Admin Al Hydroxide/Mg Hydroxide 30 ml 04/04/17 17:35 Mylanta Oral Suspension - PO Q6H PRN DYSPEPSIA Albuterol Sulfate 2 puff 04/04/17 17:35 Ventolin Hfa Inhaler - IH Q4H PRN SHORTNESS OF BREATH Amlodipine Besylate 10 mg 04/05/17 10:00 Norvasc - PO DAILY [facility] Aspirin 81 mg 04/05/17 10:00 Ecotrin - PO DAILY [facility] Gabapentin 300 mg 04/04/17 22:00 04/04/17 21:11 Neurontin - PO 300 mg BID [facility] Administration Heparin Sodium (Porcine) 5,000 unit 04/04/17 22:00 08/16/17 06:03 Heparin - SQ 5,000 unit TID [facility] Administration Lactated Ringer's 1,000 mls @ 42 mls/hr 04/04/17 17:35 04/04/17 21:17 Lactated Ringers Solution IV 42 mls/hr ASDIR [facility] Administration Levofloxacin 100 mls @ 100 mls/hr 04/05/17 10:00 Levaquin 500 Mg Premixed Ivpb - IVPB DAILY [facility] Pantoprazole Sodium 100 mls @ 200 mls/hr 04/05/17 10:00 Protonix 40mg Ivpb (Pre-Docked) IVPB DAILY [facility] Losartan Potassium 100 mg 04/05/17 10:00 Cozaar - PO DAILY [facility] Meclizine HCl 25 mg 04/05/17 10:00 Antivert - PO DAILY [facility] Metoprolol Succinate 50 mg 04/05/17 10:00 Toprol Xl - PO DAILY [facility] Prochlorperazine Edisylate 5 mg 04/04/17 17:35 Compazine Injection - IM Q6H PRN NAUSEA AND/OR VOMITING Ranolazine 500 mg 04/04/17 22:00 04/04/17 21:11 Ranexa - PO 500 mg BID [facility] Administration Fluticasone/Salmeterol 1 puff 04/04/17 22:00 04/04/17 21:11 Advair 100mcg/50mcg - IH 1 puff BID [facility] Administration Ursodiol 300 mg 04/04/17 22:00 04/04/17 21:17 Actigal - PO 300 mg BID [facility] Administration ASSESSMENT/PLAN: Patient is a 76yo F with hx of CCK, GERD who presented with epigastric abdominal pain and nausea with elevated lipase. Diagnosed with acute pancreatitis. CT was not needed since patient had pain + elevated lipase. MRCP was incomplete, and cardio cleared patient for ERCP. # Acute Pancreatitis - Possibly due to stone or outside obstruction - ERCP unable to be completed - Pt to be transferred to [facility] this AM for HLOC - Pt tolerating clears - Postop Levo 500IV antibiotics - IV LR 42cc/hr due to DCHF - Compezine for nausea # Diastolic CHF - Prior echo shows EF 38.6% - Currently euvolemic, cardio cleared for surgery - Gentle LR at 42cc, hold lasix, continue to hold at discharge # Hx of CAD - Continue ASA # Hx of HTN - Well controlled - Continue metoprolol, losartan, norvasc # HLD - Held atorvastatin due to transaminitis # Hx of Neuropathy - Continue Neurontin # Hx of COPD - Confirm Albuterol + Advair - Home advair (200/50) is NF, will start Advair 100/50 1 puff BID # Hx of Vertigo - Continue Meclizine # FEN - Fluids: LR 42cc/hr - Electrolytes: Monitor, no abn - Nutrition: clears # Prophylaxis - DVT: Heparin SQ BID - GI: IV protonix - Deconditioning: PT ordered # Dispo - Transfer to [facility] today - Transfer paperwork has been filed, pt has accepting physician Dr Armando Herndon. Dr. Sammi Chand PGY1 - Internal Medicine
[2017-04-05 07:57] LABS: ALBUMIN 3.2 g/dl (3.4-5.0); ANION GAP 12 (8-16); CALCIUM 8.8 mg/dL (8.5-10.1); CO2 23 mmol/L (21-32)
[2017-04-05 08:03] LABS: ALK PHOS 338 U/L (45-117); BILIRUBIN,TOTAL 0.6 mg/dL (0.2-1.0); CREATININE 0.8 mg/dL (0.55-1.02); GLUCOSE,RANDOM 123 mg/dL (74-106); SGOT/AST 68 U/L (15-37); SGPT/ALT 215 U/L (12-78); TOT PROT 6.8 g/dl (6.4-8.2)
--- NOTE | 2017-04-05 08:50 | PN ---
Progress Note, Physician Chief Complaint: s/p attempted ERCP, was unsuccessful Being transferred to [facility] History of Present Illness: No CP or SOB - Current Medication List Current Medications: Active Medications Al Hydroxide/Mg Hydroxide (Mylanta Oral Suspension -) 30 ml PO Q6H PRN PRN Reason: DYSPEPSIA Albuterol Sulfate (Ventolin Hfa Inhaler -) 2 puff IH Q4H PRN PRN Reason: SHORTNESS OF BREATH Amlodipine Besylate (Norvasc -) 10 mg PO DAILY [facility] Aspirin (Ecotrin -) 81 mg PO DAILY [facility] Gabapentin (Neurontin -) 300 mg PO BID [facility] Last Admin: 04/04/17 21:11 Dose: 300 mg Heparin Sodium (Porcine) (Heparin -) 5,000 unit SQ TID [facility] Last Admin: 04/05/17 06:03 Dose: 5,000 unit Lactated Ringer's (Lactated Ringers Solution) 1,000 mls @ 42 mls/hr IV ASDIR [facility] Last Admin: 04/04/17 21:17 Dose: 42 mls/hr Levofloxacin (Levaquin 500 Mg Premixed Ivpb -) 100 mls @ 100 mls/hr IVPB DAILY [facility] Pantoprazole Sodium (Protonix 40mg Ivpb (Pre-Docked)) 100 mls @ 200 mls/hr IVPB DAILY [facility] Losartan Potassium (Cozaar -) 100 mg PO DAILY [facility] Meclizine HCl (Antivert -) 25 mg PO DAILY [facility] Metoprolol Succinate (Toprol Xl -) 50 mg PO DAILY [facility] Prochlorperazine Edisylate (Compazine Injection -) 5 mg IM Q6H PRN PRN Reason: NAUSEA AND/OR VOMITING Ranolazine (Ranexa -) 500 mg PO BID [facility] Last Admin: 04/04/17 21:11 Dose: 500 mg Fluticasone/Salmeterol (Advair 100mcg/50mcg -) 1 puff IH BID [facility] Last Admin: 04/04/17 21:11 Dose: 1 puff Ursodiol (Actigal -) 300 mg PO BID [facility] Last Admin: 04/04/17 21:17 Dose: 300 mg - Objective Vital Signs: Vital Signs Temperature 97.9 F 04/05/17 06:00 Pulse Rate 92 H 04/05/17 06:00 Respiratory Rate 16 04/05/17 06:00 Blood Pressure 123/60 08/16/17 06:00 O2 Sat by Pulse Oximetry (%) 98 04/04/17 22:00 Constitutional: Yes: No Distress Eyes: Yes: Conjunctiva Clear Cardiovascular: Yes: Regular Rate and Rhythm Respiratory: Yes: Other (decreased breath sounds at bases) Gastrointestinal: Yes: Soft Edema: No Neurological: Yes: Alert, Oriented Labs: CBC, BMP 04/05/17 06:10 04/05/17 06:10 INR, PTT INR 1.04 (0.82-1.09) 04/02/17 06:20 Laboratory Tests 04/05/17 04/05/17 06:10 06:10 WBC 4.9 Hgb 11.3 Plt Count 252 Sodium 139 Potassium 4.0 BUN 21 H D Creatinine 0.8 D Total Bilirubin 0.6 D AST 68 H D ALT 215 H D Alkaline Phosphatase 338 H Assessment/Plan IMP: Dilated CBP, abdominal pain w/ increased LFT- suspected choledocholithiasis s/p attempted ERCP ASHD w/ prior PCI > 1 year ago Mild volume overload (chronic diastolic CHF) now resolved/improved REC: Currently euvolemic. Holding statin (elevated LFTs) Plan for transfer to [facility], will ask Dr. Navarrete's group to follow there.
[2017-04-05] MEDS ORDERED: PT OWN MED DRAWER 7, Y5N ONE (09:07)
[2017-04-05] MEDS: RANOLAZINE E.R. 500 MG TABLET (FP) PO SCH (09:09)
[2017-04-05] MEDS: GABAPENTIN 300 MG CAPSULE (FP) PO SCH (09:10)
[2017-04-05] MEDS: FLUTICASONE/SALMETEROL 100 MCG/50 MCG DISKUS IH SCH (09:11)
[2017-04-05] MEDS: URSODIOL 300 MG CAPSULE PO SCH (09:12)
[2017-04-05] MEDS ORDERED: amLODIPine BESYLATE 10 MG TABLET (FP) PO SCH (10:00)
[2017-04-05] MEDS ORDERED: LEVOFLOXACIN 500 MG IVPB 100 ML IVPB SCH (10:00)
[2017-04-05] MEDS ORDERED: ASPIRIN COATED 81 MG TABLET.EC PO SCH (10:00)
[2017-04-05] MEDS ORDERED: LOSARTAN POTASSIUM 50 MG TABLET (FP) PO SCH (10:00)
[2017-04-05] MEDS ORDERED: MECLIZINE HCL 25 MG TABLET (FP) PO SCH (10:00)
[2017-04-05] MEDS ORDERED: PANTOPRAZOLE SODIUM 100 ML IVPB SCH (10:00)
[2017-04-05] MEDS ORDERED: METOPROLOL SUCCINATE 50 MG TAB.SR.24H (FP) PO SCH (10:00)
[2017-04-05] MEDS ORDERED: PANTOPRAZOLE SODIUM 40 MG in SODIUM CHLORIDE 100 ML IVPB SCH ×2 (10:39→12:00)
--- NOTE | 2017-04-05 11:35 | DS ---
Physical Exam: SUBJECTIVE: Patient seen and examined this AM. No complaints of abd pain or nausea. To be transferred to [facility] today for HLOC. Unable to perform ERCP yesterday. No CP, no SOB, no fevers, no chills. OBJECTIVE: Vital Signs Period Temp Pulse Resp BP Sys/Vieira Pulse Ox Last 24 Hr 97.2 F-98.5 F 80-102 16-20 111-164/60-91 97-100 PHYSICAL EXAM GEN: AAOx3, lying comfortable in NAD HEENT: PERRLA, EOMi, no LAD, no JVD CV: S1, S2, RRR, 2/6 systolic murmur LUSB LUNG: CTABL, nonlabored respirations ABD: Soft, no TTP in the abdomen MSK: +1 pitting edema in BLLE, no erythema, 5/5 musc strength NEURO: CN 2-12 intact, no sensation deficits in face/body, no facial droop, MSK 5/5, reflexes 2+ LABS Laboratory Results - last 24 hr 04/05/17 04/05/17 06:10 06:10 WBC 4.9 RBC 3.73 Hgb 11.3 Hct 34.0 MCV 91.3 MCH 30.3 MCHC 33.1 RDW 13.0 Plt Count 252 MPV 9.1 Sodium 139 Potassium 4.0 Chloride 104 Carbon Dioxide 23 Anion Gap 12 BUN 21 H D Creatinine 0.8 D Creat Clearance w eGFR > 60 Random Glucose 123 H D Calcium 8.8 Total Bilirubin 0.6 D AST 68 H D ALT 215 H D Alkaline Phosphatase 338 H Total Protein 6.8 Albumin 3.2 L HOSPITAL COURSE: Date of Admission:04/01/17 Date of Discharge: 04/05/17 Patient is a 76yo F with hx of CCK, GERD who presented with epigastric abdominal pain and nausea with elevated lipase. Diagnosed with acute pancreatitis. CT was not needed since patient had pain + elevated lipase. MRCP was incomplete, and cardio cleared patient for ERCP. # Acute Pancreatitis - With the elevated transaminitis, the acute pancreatitis was likely due to a stone vs stricture vs outside obstruction. The patient was put on bowel rest, fluids, and antiemetics. An MRCP was ordered, but patient could not tolerate the exam due to shoulder pain. A second MRCP was ordered, and morphine was given , but the patient still did not tolerate due to musculoskeletal pain. Gastroenterology saw the patient and recommended an ERCP for the patient. An ERCP was attempted by Dr. Mir, but cannulation was difficult due to redundant ampullary folds. The patient will be transferred to [facility] for further evaluation and management. She is placed on postop antibiotics after the procedure. # Diastolic CHF - A Prior echo shows EF 38.6% with normal systolic function. The patient is known to have diastolic CHF. We gave the patient's gentle fluids for her pancreatitis, and to keep her euvolemic status. She will be discharged on 42cc/ hr of Lactated Ringers. # Other: - Hx of CAD - The patient has a history of stents, last one in 12/2015, we continued her ASA 81mg daily. Her statin is held due to transaminitis - Hx of HTN - Well controlled, the patient will be discontinued on her home medications For all other chronic medical problems, the patient was continued on all of her home medications The patient was made aware of the hospital course and agrees with the plan to transfer to [facility]. The daughters are also aware. Minutes to complete discharge: 55 <Sammi Chand - Last Filed: 04/05/17 11:53> Physical Exam: SUBJECTIVE: Patient seen and examined <Nikia White - Last Filed: 04/10/17 16:36> Discharge Summary Reason For Visit: ELEVATED LIPASE Current Active Problems Biliary acute pancreatitis (Acute) DVT prophylaxis (Acute) Elevated lipase (Acute) Stable angina (Acute) - Home Medications Comprehensive Discharge Medication List: Ambulatory Orders Albuterol Sulfate Inhaler - [Ventolin HFA Inhaler -] 90 mcg IH Q4HWA PRN Amlodipine Besylate 10 mg PO DAILY 04/01/17 Aspirin [Aspirin EC] 81 mg PO DAILY 04/01/17 Atorvastatin Ca [Lipitor] 10 mg PO HS 04/01/17 Gabapentin 300 mg PO BID 04/01/17 Losartan Potassium 100 mg PO DAILY 04/01/17 Meclizine HCl 25 mg PO DAILY 04/01/17 Metoprolol Succinate [Toprol Xl] 50 mg PO DAILY 04/01/17 Ranolazine [Ranexa] 500 mg PO BID 04/01/17 Salmeterol/Fluticasone [Advair 250Mcg/50Mcg -] 1 puff IN BID 04/01/17 Lactated Ringers Solution 1,000 ml IV ASDIR #1 bag 04/04/17 Ursodiol [Actigal -] 300 mg PO BID #30 tab 04/04/17 <Sammi Chand - Last Filed: 04/05/17 11:53> Current Active Problems DVT prophylaxis (Acute) Stable angina (Acute) - Home Medications Comprehensive Discharge Medication List: Ambulatory Orders Albuterol Sulfate Inhaler - [Ventolin HFA Inhaler -] 90 mcg IH Q4HWA PRN Amlodipine Besylate 10 mg PO DAILY 04/01/17 Aspirin [Aspirin EC] 81 mg PO DAILY 04/01/17 Gabapentin 300 mg PO BID 04/01/17 Losartan Potassium 100 mg PO DAILY 04/01/17 Meclizine HCl 25 mg PO DAILY 04/01/17 Metoprolol Succinate [Toprol Xl] 50 mg PO DAILY 04/01/17 Ranolazine [Ranexa] 500 mg PO BID 04/01/17 Salmeterol/Fluticasone [Advair 250Mcg/50Mcg -] 1 puff IN BID 04/01/17 Lactated Ringers Solution 1,000 ml IV ASDIR #1 bag 04/04/17 Ursodiol [Actigal -] 300 mg PO BID #30 tab 04/04/17 <Nikia White - Last Filed: 04/10/17 16:36> Condition: Good - Instructions Diet, Activity, Other Instructions: - You will be transferred to [facility] for higher level of care - Your new Pharmacy Benefits Coordinator is Dr. Armando Herndon - Your family will be notified when they discharge you - Please stay hydrated - We are stopping your Furosemide (lasix) 20mg daily, and treating you with fluids. - We are stopping your Atorvastatin 10mg daily, because of your high liver enzymes - Continue taking your Ursodiol which was given by gastroenterology here - When you are discharged and you have any serious symptoms, please return to the nearest emergency room Referrals: Radha Escamilla MD [Primary Care Provider] - 1 Week Disposition: TRANSFER ACUTE CARE/OTHER HOSP - Discharge Referral Referred to [facility] Med P.C.: No <Sammi Chand - Last Filed: 04/05/17 11:53> This patient is new to me today: No Emergency Visit: Yes ED Registration Date: 04/01/17 Care time: The patient presented to the Emergency Department on the above date and was hospitalized for further evaluation of their emergent condition. Critical Care patient: No <Nikia White - Last Filed: 04/10/17 16:36>
[2017-04-05] MEDS ORDERED: PANTOPRAZOLE SODIUM 40 MG VIAL ONE (11:48)
[2017-04-05] MEDS ORDERED: SODIUM CHLORIDE 100 ML IVPB ONE (11:48)
[2017-04-05 14:47] VITALS: TEMP 98
--- NOTE | 2017-04-05 15:26 | PN ---
Progress Note (short form) - Note Progress Note: Anesthesia POD#1 S/P Attempted ERCP under [place]. Doing well .No complications seen. Balbina Eason MD.
--- NOTE | 2017-04-05 16:27 | PN ---
Teaching Attending Note Name of Resident: Sammi Chand ATTENDING PHYSICIAN STATEMENT I saw and evaluated the patient. I reviewed the resident's note and discussed the case with the resident. I agree with the resident's findings and plan as documented. SUBJECTIVE: Patient is feeling better with no acute distress. OBJECTIVE: Vital Signs Temperature 98 F 04/05/17 14:45 Pulse Rate 85 04/05/17 14:57 Respiratory Rate 18 04/05/17 14:45 Blood Pressure 126/63 04/05/17 14:57 O2 Sat by Pulse Oximetry (%) 97 04/05/17 09:00 CBCD WBC 4.9 K/mm3 (4.0-10.0) 04/05/17 06:10 RBC 3.73 M/mm3 (3.60-5.2) 04/05/17 06:10 Hgb 11.3 GM/dL (10.7-15.3) 04/05/17 06:10 Hct 34.0 % (32.4-45.2) 04/05/17 06:10 MCV 91.3 fl (80-96) 04/05/17 06:10 MCHC 33.1 g/dl (32.0-36.0) 04/05/17 06:10 RDW 13.0 % (11.6-15.6) 04/05/17 06:10 Plt Count 252 K/MM3 (134-434) 04/05/17 06:10 MPV 9.1 fl (7.5-11.1) 04/05/17 06:10 CMP Sodium 139 mmol/L (136-145) 04/05/17 06:10 Potassium 4.0 mmol/L (3.5-5.1) 04/05/17 06:10 Chloride 104 mmol/L (98-107) 04/05/17 06:10 Carbon Dioxide 23 mmol/L (21-32) 04/05/17 06:10 Anion Gap 12 (8-16) 04/05/17 06:10 BUN 21 mg/dL (7-18) H D 04/05/17 06:10 Creatinine 0.8 mg/dL (0.55-1.02) D 04/05/17 06:10 Creat Clearance w eGFR > 60 (>60) 04/05/17 06:10 Random Glucose 123 mg/dL (74-106) H D 04/05/17 06:10 Calcium 8.8 mg/dL (8.5-10.1) 04/05/17 06:10 Total Bilirubin 0.6 mg/dL (0.2-1.0) D 04/05/17 06:10 AST 68 U/L (15-37) H D 04/05/17 06:10 ALT 215 U/L (12-78) H D 04/05/17 06:10 Alkaline Phosphatase 338 U/L (45-117) H 04/05/17 06:10 Total Protein 6.8 g/dl (6.4-8.2) 04/05/17 06:10 Albumin 3.2 g/dl (3.4-5.0) L 04/05/17 06:10 CARDIAC ENZYMES Creatine Kinase 102 IU/L (26-192) 04/01/17 07:30 Troponin I < 0.02 ng/ml (0.00-0.05) 04/01/17 07:30 Current Medications Generic Name Dose Route Start Last Admin Trade Name Freq PRN Reason Stop Dose Admin Al Hydroxide/Mg Hydroxide 30 ml 04/04/17 17:35 Mylanta Oral Suspension - PO Q6H PRN DYSPEPSIA Albuterol Sulfate 2 puff 04/04/17 17:35 Ventolin Hfa Inhaler - IH Q4H PRN SHORTNESS OF BREATH Amlodipine Besylate 10 mg 04/05/17 10:00 04/05/17 09:10 Norvasc - PO 10 mg DAILY EUGENE Administration Aspirin 81 mg 04/05/17 10:00 04/05/17 09:10 Ecotrin - PO 81 mg DAILY EUGENE Administration Gabapentin 300 mg 04/04/17 22:00 04/05/17 09:10 Neurontin - PO 300 mg BID EUGENE Administration Heparin Sodium (Porcine) 5,000 unit 04/04/17 22:00 04/05/17 14:06 Heparin - SQ 5,000 unit TID EUGENE Administration Lactated Ringer's 1,000 mls @ 42 mls/hr 04/04/17 17:35 04/04/17 21:17 Lactated Ringers Solution IV 42 mls/hr ASDIR EUGENE Administration Levofloxacin 100 mls @ 100 mls/hr 04/05/17 10:00 04/05/17 09:12 Levaquin 500 Mg Premixed Ivpb - IVPB 100 mls/hr DAILY EUGENE Administration Pantoprazole Sodium 40 mg/ 100 mls @ 200 mls/hr 04/05/17 12:00 04/05/17 12:07 Sodium Chloride IVPB 200 mls/hr DAILY EUGENE Administration Losartan Potassium 100 mg 04/05/17 10:00 04/05/17 09:10 Cozaar - PO 100 mg DAILY EUGENE Administration Meclizine HCl 25 mg 04/05/17 10:00 04/05/17 09:10 Antivert - PO 25 mg DAILY EUGENE Administration Metoprolol Succinate 50 mg 04/05/17 10:00 04/05/17 09:10 Toprol Xl - PO 50 mg DAILY EUGENE Administration Prochlorperazine Edisylate 5 mg 04/04/17 17:35 Compazine Injection - IM Q6H PRN NAUSEA AND/OR VOMITING Ranolazine 500 mg 04/04/17 22:00 04/05/17 09:09 Ranexa - PO 500 mg BID EUGENE Administration Fluticasone/Salmeterol 1 puff 04/04/17 22:00 04/05/17 09:11 Advair 100mcg/50mcg - IH 1 puff BID EUGENE Administration Ursodiol 300 mg 04/04/17 22:00 04/05/17 09:12 Actigal - PO 300 mg BID EUGENE Administration Home Medications Medication Instructions Recorded Albuterol Sulfate Inhaler - 90 mcg IH Q4HWA PRN 04/01/17 [Ventolin HFA Inhaler -] Amlodipine Besylate 10 mg PO DAILY 04/01/17 Aspirin [Aspirin EC] 81 mg PO DAILY 04/01/17 Gabapentin 300 mg PO BID 04/01/17 Losartan Potassium 100 mg PO DAILY 04/01/17 Meclizine HCl 25 mg PO DAILY 04/01/17 Metoprolol Succinate [Toprol Xl] 50 mg PO DAILY 04/01/17 Ranolazine [Ranexa] 500 mg PO BID 04/01/17 Salmeterol/Fluticasone [Advair 1 puff IN BID 04/01/17 250Mcg/50Mcg -] Lactated Ringers Solution 1,000 ml IV ASDIR #1 bag 04/04/17 Ursodiol [Actigal -] 300 mg PO BID #30 tab 04/04/17 PE: per resident's note ASSESSMENT AND PLAN: 75 y/o lady with h/o CAD s/p PCI s/p stents placement, chronic angina, HTN, HL , vertigo , carotid stenosis ,D CHF , TIA, and athma , who presented with acute Abd pain and was found to have acute pancreatitis. # Acute pancreatitis r/o gallstone pancreatitis, cholangiocarcinoma , obstructing tumor . Patient is being transferred to [facility] for further testing and evaluation since was not able to do ERCP due to pancreatic structure . Pt and family aware #H/o of Diastolic CHF: Cardiology on the case, will hold lasix , will continue BB , and losartan , echo reviewed; No changes from prior echo. - careful hydration after ERCP # H/o CAD , with chronic anginal symptoms : currently being treated medically, on ASa, BB,Ranexa and ARB # H/o Asthma cont advair and Albuterol # HTN: cont meds DVT PX: Heparin SQ. Patient is being transferred to [facility] for further evaluation and testing of her Pancreas
[2017-04-05 17:10] VITALS: BP 130/56; PULSE 80
== END 2017-04-05 17:36 | disposition short-term general hospital (02) | DRG 439 ==
LOC: JER 06:07 → JERBED 11:59 → J5S 13:41
PROVIDERS: ADMIT Internal Medicine; ATTEND Internal Medicine
PROC: BF10YZZ Fluoroscopy of Bile Ducts using Other Contrast (ICD-10-PCS; 2017-04-04)
PROC: 0FJB8ZZ Inspection of Hepatobiliary Duct, Via Natural or Artificial Opening Endoscopic (ICD-10-PCS; principal; 2017-04-04 12:00)
DX: K85.90 Acute pancreatitis without necrosis or infection, unspecified (principal); I50.32 Chronic diastolic (congestive) heart failure; J45.909 Unspecified asthma, uncomplicated; I11.0 Hypertensive heart disease with heart failure; I25.10 Atherosclerotic heart disease of native coronary artery without angina pectoris; Z98.61 Coronary angioplasty status; K21.9 Gastro-esophageal reflux disease without esophagitis; E78.5 Hyperlipidemia, unspecified; J44.9 Chronic obstructive pulmonary disease, unspecified; G62.9 Polyneuropathy, unspecified; R19.7 Diarrhea, unspecified; E87.70 Fluid overload, unspecified
CPT/HCPCS: 36415; 71010-TC; 74182-TC; 76000-TC; 76705-TC; 80053; 80061; 80074; 81003; 81015; 83690; 83721; 83735; 84100; 84484; 85025; 85027; 85610; 85730; 86850; 86900; 86901; 93005; 93010; 93306-TC; 97116-GP; 97161-GP; 99284-25; A9576; J1644

== ENCOUNTER 2017-04-13 20:02 | Emergency (ER) | payer OTHER ==
[2017-04-13 20:28] VITALS: BP 129/60; PULSE 77; TEMP 98.3; BMI 31.9
[2017-04-13] MEDS ORDERED: ONDANSETRON 4 MG/2 ML VIAL IVPUSH ONE (21:08)
[2017-04-13] MEDS ORDERED: FAMOTIDINE 20 MG/50 ML IVPB 50 ML IVPB ONE ×2 (21:08→21:14)
[2017-04-13] MEDS ORDERED: ONDANSETRON 4 MG/2 ML VIAL ONE (21:14)
--- NOTE | 2017-04-13 21:31 | PDOC ---
History of Present Illness - General History Source: Patient Exam Limitations: No Limitations <Mary Ann Odell - Last Filed: 04/14/17 01:46> - General History Source: Patient Exam Limitations: No Limitations - History of Present Illness Initial Comments: 04/13/17 21:31 The patient is a 76 year old female, with a significant past medical history of coronary artery disease s/p 3 stents, hypertension, hyperlipidemia, COPD, GERD, who presents to the emergency department complaining of subjective fever, nausea and left sided abdominal pain that began this evening. She reports associated symptoms of dizziness and chills. The patient states she was recently admitted to [facility] from April 05 to April 11 and had a pancreatic duct stone removed. The patient reports nausea, dysuria and left sided abdominal pain s/p pancreatic duct stone removal. She denies recent headache. She denies recent vomit, diarrhea or constipation. She denies recent urinary frequency, urgency or hematuria. She denies recent chest pain or shortness of breath. Allergies: Codeine, Penicillins. Social history: Nonsmoker. Denies EtOH use and recreational drug use. Primary Care Physician: Dr. Radha Garcia <Franco Zafar - Last Filed: 04/14/17 01:53> - General Chief Complaint: Nausea/Vomiting Stated Complaint: FEVER Past History - Past Medical History Anemia: No Asthma: Yes Cancer: No Cardiac Disorders: Yes (CAD, stent) CVA: No COPD: No CHF: No Dementia: No Diabetes: No GI Disorders: Yes (REFLUX) Disorders: No HTN: Yes Hypercholesterolemia: Yes Liver Disease: No Seizures: No Thyroid Disease: No - Surgical History Abdominal Surgery: No Appendectomy: Yes Cardiac Surgery: Yes (STENTS) Cholecystectomy: No Lung Surgery: No Neurologic Surgery: No Orthopedic Surgery: Yes (right shoulder sx) - Immunization History Immunization Up to Date: No - Psycho/Social/Smoking Cessation Hx Anxiety: No Suicidal Ideation: No Smoking History: Never smoked Have you smoked in the past 12 months: No If you are a former smoker, when did you quit?: 20 years Information on smoking cessation initiated: No 'Breaking Loose' booklet given: 01/28/16 Hx Alcohol Use: No Drug/Substance Use Hx: No Substance Use Type: None Hx Substance Use Treatment: No <Mary Ann Odell - Last Filed: 04/14/17 01:46> <Franco Zafar - Last Filed: 04/14/17 01:53> - Past Medical History Allergies/Adverse Reactions: Allergies Allergy/AdvReac Type Severity Reaction Status Date / Time codeine [Codeine] Allergy Intermediate Nausea Verified 04/13/17 20:28 Penicillins Allergy Intermediate Rash Verified 04/13/17 20:28 Home Medications: Ambulatory Orders Amlodipine Besylate 10 mg PO DAILY 04/01/17 Aspirin [Aspirin EC] 81 mg PO DAILY 04/01/17 Gabapentin 300 mg PO BID 04/01/17 Losartan Potassium 100 mg PO DAILY 04/01/17 Meclizine HCl 25 mg PO DAILY 04/01/17 Metoprolol Succinate [Toprol Xl] 50 mg PO DAILY 04/01/17 Ranolazine [Ranexa] 500 mg PO BID 04/01/17 Atorvastatin Ca [Lipitor] 10 mg PO HS 04/13/17 Furosemide 20 mg PO DAILY 04/13/17 Sulfamethoxazole/Trimethoprim [Bactrim Ds Tablet] 1 each PO BID #14 tablet 04/14 Review of Systems - Review of Systems Comments:: 04/13/17 21:32 GENERAL/CONSTITUTIONAL: +Subjective fever. +Chills. No weakness. HEAD, EYES, EARS, NOSE AND THROAT: No change in vision. No ear pain or discharge. No sore throat. CARDIOVASCULAR: No chest pain or shortness of breath. RESPIRATORY: No cough, wheezing, or hemoptysis. GASTROINTESTINAL: +Nausea. +Left sided abdominal pain. No vomiting, diarrhea or constipation. GENITOURINARY: +Dysuria. No frequency, or change in urination. MUSCULOSKELETAL: No joint or muscle swelling or pain. No neck or back pain. SKIN: No rash NEUROLOGIC: +Dizziness. No headache, loss of consciousness, or change in strength/sensation. ENDOCRINE: No increased thirst. No abnormal weight change. HEMATOLOGIC/LYMPHATIC: No anemia, easy bleeding, or history of blood clots. ALLERGIC/IMMUNOLOGIC: No hives or skin allergy. <Franco Zafar - Last Filed: 04/14/17 01:53> *Physical Exam - Vital Signs Last Vital Signs Temp Pulse Resp BP Pulse Ox 98.3 F 77 16 129/60 77 L 04/13/17 20:23 04/13/17 20:23 04/13/17 20:23 04/13/17 20:23 04/13/17 20:23 <GilbertoalexanderMary Ann - Last Filed: 04/14/17 01:46> - Vital Signs Last Vital Signs Temp Pulse Resp BP Pulse Ox 98.3 F 77 16 129/60 77 L 04/13/17 20:23 04/13/17 20:23 04/13/17 20:23 04/13/17 20:23 04/13/17 20:23 - Physical Exam Comments: 04/13/17 21:32 GENERAL: Awake, alert, and fully oriented. HEAD: No signs of trauma EYES: PERRLA, EOMI, sclera anicteric, conjunctiva clear ENT: Auricles normal inspection, hearing grossly normal, nares patent, oropharynx clear without exudates. Moist mucosa NECK: Normal ROM, supple, no lymphadenopathy, JVD, or masses LUNGS: Breath sounds equal, clear to auscultation bilaterally. No wheezes, and no crackles HEART: Regular rate and rhythm, normal S1 and S2, no murmurs, rubs or gallops ABDOMEN: +Left upper quadrant tenderness. +Left lower quadrant tenderness. Soft , normoactive bowel sounds. No rebound. No masses EXTREMITIES: Normal range of motion, no edema. No clubbing or cyanosis. No cords, erythema, or tenderness NEUROLOGICAL: Cranial nerves II through XII grossly intact. Normal speech, normal gait SKIN: Warm, Dry, normal turgor, no rashes or lesions noted. <Fracno Zafar - Last Filed: 04/14/17 01:53> ED Treatment Course - LABORATORY CBC & Chemistry Diagram: 04/13/17 21:28 04/13/17 22:20 - RADIOLOGY Radiology Studies Ordered: Category Date Time Status ABDOMEN & PELVIS CT WITH CONTR [CT] Stat CT Scan 04/13/17 21:20 Ordered <Mary Ann Odell - Last Filed: 04/14/17 01:46> - LABORATORY CBC & Chemistry Diagram: 04/13/17 21:28 04/13/17 22:20 - RADIOLOGY Radiograph Interpretation: 04/14/17 01:18 EXAM: CT abdomen and pelvis with contrast IMAGES: 510 INDICATION: Left lower quadrant pain. Rule out diverticulitis. DATE OF SERVICE: 2017-04-14 00:17:10 COMPARISON: none FINDINGS: Lung bases are clear. The visualized cardiac chambers are normal size and configuration. Status post cholecystectomy small amount of pneumobilia. Normal pancreas, spleen, adrenal glands and kidneys. A moderate size hernia is noted abdominal small and large bowel are normal. There is no aortic aneurysm. There is no significant retroperitoneal lymphadenopathy. The pelvic small and large bowel are notable for sigmoid diverticulosis without diverticulitis. There is no evidence of appendicitis, although the appendix is not clearly visualized. The uterus and adnexal structures are normal. Urinary bladder is unremarkable. There is no pelvic free fluid. No discrete pelvic lymphadenopathy is identified. IMPRESSION: Sigmoid diverticulosis but no diverticulitis. Moderate sized hiatal hernia. No definite acute pathology. THIS DOCUMENT HAS BEEN ELECTRONICALLY SIGNED Pal Jett MD 04/14/2017 00:46 EST - Medications Given in the ED: ED Medications Discontinued Medications Generic Name Dose Route Start Last Admin Trade Name Freq PRN Reason Stop Dose Admin Ondansetron HCl 4 mg 04/13/17 21:08 04/13/17 21:29 Zofran Injection IVPUSH 04/13/17 21:09 4 mg ONCE ONE Administration <Franco Zafar - Last Filed: 04/14/17 01:53> Medical Decision Making - Medical Decision Making 04/13/17 21:24 76 yo F with h/o copd GERD HTN HLD CAD ( s/p 3 stents ) here with c/o abd pain , nausea, left sided. started this evening. was recently admitted for the same at [facility] 04/05 - 04/11 , had ercp for pancreatic duct stone removal. pain similar. also c/o dysuria. subjective fever, chills . on exam pt with luq, and llq ttp. differential diverticulitis, pancreatitis. ut pyelo plan labs reassess <Mayr Ann Odell - Last Filed: 04/14/17 01:46> *DC/Admit/Observation/Transfer - Discharge Dispostion Admit: No <Mary Ann Odell - Last Filed: 04/14/17 01:46> - Attestations Scribe Attestion: 04/13/17 21:34 Documentation prepared by Franco Zafar, acting as medical planner for Mary Ann Odell MD. <Franco Zafar - Last Filed: 04/14/17 01:53> Diagnosis at time of Disposition: Urinary tract infection - Prescriptions Prescriptions: Sulfamethoxazole/Trimethoprim [Bactrim Ds Tablet] 1 each PO BID #14 tablet - Referrals Referrals: Radha Escamilla MD [Primary Care Provider] - - Patient Instructions Printed Discharge Instructions: Urinary Tract Infection Additional Instructions: you should follow up with your primary doctor. return for any problems or concerns. take bactrim twice daily x 7 days for your urinary tract infection. return for fever. vomiting or any concern.
[2017-04-13 21:33] LABS: BASOPHIL 1.2 % (0-2.0); EOSINOPHIL 5.6 % (0-4.5); MCH 31.1 pg (25.7-33.7); MCHC 33.9 g/dl (32.0-36.0); MEAN CELL VOLUME 91.6 fl (80-96); MEAN PLT VOLUME 9.2 fl (7.5-11.1); NEUTROPHILS 52.2 % (42.8-82.8); PLATELET COUNT 351 K/MM3 (134-434); RDW 13.6 % (11.6-15.6); WHITE BLOOD COUNT 6.9 K/mm3 (4.0-10.0)
[2017-04-13 21:38] LABS: URINE APPEARANCE SLCLOUDY; URINE BILIRUBIN NEGATIVE (NEGATIVE); URINE BLOOD NEGATIVE (NEGATIVE); URINE COLOR YELLOW; URINE GLUCOSE (UA) NEGATIVE (NEGATIVE); URINE KETONE NEGATIVE (NEGATIVE); URINE NITRITE NEGATIVE (NEGATIVE); URINE PROTEIN NEGATIVE (NEGATIVE)
[2017-04-13 21:39] LABS: URINE LEUK ESTERASE 2+ (NEGATIVE)
[2017-04-13 21:40] LABS: URINE HYALINE CAST 12 /lpf; URINE MUCUS RARE; URINE RBC 2 /hpf (0-3); URINE WBC 49 /hpf (3-5)
[2017-04-13 23:00] LABS: ALBUMIN 3.4 g/dl (3.4-5.0); ALK PHOS 205 U/L (45-117); ANION GAP 9 (8-16); BILIRUBIN,TOTAL 0.3 mg/dL (0.2-1.0); CALCIUM 8.9 mg/dL (8.5-10.1); CO2 29 mmol/L (21-32); GLUCOSE,RANDOM 95 mg/dL (74-106); SGOT/AST 18 U/L (15-37); SGPT/ALT 39 U/L (12-78); TOT PROT 7.1 g/dl (6.4-8.2)
[2017-04-14] MEDS ORDERED: SULFAMETHOXAZOLE/TRIMETHOPRIM 800MG/160MG D.S. TABLET PO ONE (01:27)
[2017-04-14] MEDS ORDERED: SULFAMETHOXAZOLE/TRIMETHOPRIM 800MG/160MG D.S. TABLET ONE (01:30)
--- NOTE | 2017-04-14 12:25 | EKG ---
Test Reason : Blood Pressure : / mmHG Vent. Rate : 073 BPM Atrial Rate : 073 BPM P-R Int : 200 ms QRS Dur : 156 ms QT Int : 450 ms P-R-T Axes : 070 -29 079 degrees QTc Int : 495 ms NORMAL SINUS RHYTHM LEFT BUNDLE BRANCH BLOCK ABNORMAL ECG WHEN COMPARED WITH ECG OF 01-APR-2017 07:00, NO SIGNIFICANT CHANGE WAS FOUND Confirmed by MD CARLOS, ANYI ([id number]) on 04/14/2017 12:24:46 PM Referred By: Confirmed By:ANYI GONZALEZ MD
== END 2017-04-14 02:20 | disposition home or self-care (01) ==
LOC: JER 20:02
PROC: 3E033GC Introduction of Other Therapeutic Substance into Peripheral Vein, Percutaneous Approach (ICD-10-PCS; principal; 2017-04-13)
DX: N39.0 Urinary tract infection, site not specified (principal); K21.9 Gastro-esophageal reflux disease without esophagitis; I10 Essential (primary) hypertension; E78.5 Hyperlipidemia, unspecified; I25.10 Atherosclerotic heart disease of native coronary artery without angina pectoris
CPT/HCPCS: 36415; 74177-TC; 80053; 81003; 81015; 83690; 85025; 93005; 93010; 99283-25

== ENCOUNTER 2019-07-04 22:56 | Observation (INO) | payer OTHER ==
[2019-07-04 23:29] VITALS: BMI 28.3
[2019-07-05] MEDS ORDERED: ASPIRIN 81 MG CHEWABLE TABLETS PO ONE (02:40)
[2019-07-05] MEDS ORDERED: ASPIRIN 81 MG CHEWABLE TABLETS ONE (02:55)
[2019-07-05 03:56] LABS: BASO % 0.7 % (0-2.0); EOS % 1.7 % (0-4.5); HEMATOCRIT 38.7 % (32.4-45.2); HEMOGLOBIN 12.9 GM/dL (10.7-15.3); LYMPH % 24.9 % (8-40); MCH 31.4 pg (25.7-33.7); MCHC 33.3 g/dl (32.0-36.0); MEAN CELL VOLUME 94.4 fl (80-96); MEAN PLT VOLUME 9.8 fl (7.5-11.1); MONO % 7.4 % (3.8-10.2); NEUT % 65.3 % (42.8-82.8); PLATELET COUNT 281 K/MM3 (134-434); RBC 4.09 M/mm3 (3.60-5.2); RDW 12.8 % (11.6-15.6)
[2019-07-05 04:15] LABS: INR 0.95 (0.83-1.09); PROTHROMBIN TIME (PATIENT) 11.2 SEC (9.7-13.0)
[2019-07-05 04:18] LABS: ACTIVATED PTT 33.4 SECONDS (25.2-36.5)
[2019-07-05 04:20] LABS: ALBUMIN 3.6 g/dl (3.4-5.0); BILIRUBIN,TOTAL 0.3 mg/dL (0.2-1); BLOOD UREA NITROGEN 13.6 mg/dL (7-18); CALCIUM 9.2 mg/dL (8.5-10.1); CREATININE 0.6 mg/dL (0.55-1.3); MAGNESIUM 2.2 mg/dL (1.8-2.4); N-TERMINAL BNP 1206.3 pg/ml (5-450); POTASSIUM 4.7 mmol/L (3.5-5.1); TOT PROT 7.2 g/dl (6.4-8.2)
[2019-07-05] MEDS ORDERED: LACTATED RINGERS SOLUTION 1,000 ML/1,000 ML INFUS.BAG IV SCH (05:00)
--- NOTE | 2019-07-05 05:51 | PDOC ---
History of Present Illness - General Chief Complaint: Pain Stated Complaint: WEAKNESS AND PAIN Time Seen by Provider: 07/04/19 23:49 - History of Present Illness Initial Comments: 07/05/19 05:39 HPI: 78 y/o F with hx of CAD s/p 8 stents, HTN, HLD, COPD, GERD presenting with headache, LH and chest tightness since 8pm this evening. She reported no inciting events. She reports prior to this was feeling generalized body aches. The chest pain is described as tightness and discomfort and not similar to her previous chest pain requiring stents. Her headache has no pattern. She has not attempted any meds at home. She reports nausea but no emesis. She denies fever, chills, SOB, abd pain, dysuria, change in BM, syncope, fall, trauma. PMHx: as noted above PSx: appy, danielle ROS: as noted SHx: Denies tobacco use; no alcohol use; no rec drugs Allergies: NKDA ROS: GENERAL/CONSTITUTIONAL: No fever or chills. +generalized weakness. HEAD, EYES, EARS, NOSE AND THROAT: No change in vision. No ear pain or discharge. No sore throat. CARDIOVASCULAR: +chest pain; no shortness of breath RESPIRATORY: No cough, wheezing, or hemoptysis. GASTROINTESTINAL: +nausea; no vomiting, diarrhea or constipation. GENITOURINARY: No dysuria, frequency, or change in urination. MUSCULOSKELETAL: +mylagias SKIN: No rash NEUROLOGIC: +headache; no vertigo, loss of consciousness, or change in strength/ sensation. ENDOCRINE: No increased thirst. No abnormal weight change HEMATOLOGIC/LYMPHATIC: No anemia, easy bleeding, or history of blood clots. ALLERGIC/IMMUNOLOGIC: No hives or skin allergy. PE: GENERAL: Awake, alert, and fully oriented, no acute distress HEAD: No signs of trauma, normocephalic, atraumatic EYES: EOMI, sclera anicteric, conjunctiva clear ENT: Auricles normal inspection, hearing grossly normal, nares patent, oropharynx clear without exudates NECK: Normal ROM, no lymphadenopathy LUNGS: No increased work of breathing, symmetrical chest rise, BL lower lung base rales HEART: Regular rate and rhythm, normal S1 and S2, no murmurs, peripheral pulses 2+ and equal bilaterally. ABDOMEN: Soft, nondistended, nontender, normoactive bowel sounds. No guarding, no rebound. No masses. No CVAT EXTREMITIES: Normal inspection, Normal range of motion, no edema. No clubbing or cyanosis. NEUROLOGICAL: Cranial nerves II through XII grossly intact. Normal speech, normal gait, no focal sensorimotor deficits SKIN: Warm, Dry, normal turgor, no rashes or lesions noted Past History - Past Medical History Allergies/Adverse Reactions: Allergies Allergy/AdvReac Type Severity Reaction Status Date / Time codeine [Codeine] Allergy Intermediate Nausea Verified 07/04/19 23:29 Penicillins Allergy Intermediate Rash Verified 07/04/19 23:29 Home Medications: Ambulatory Orders Amlodipine Besylate 10 mg PO DAILY 04/01/17 Aspirin [Aspirin EC] 81 mg PO DAILY 04/01/17 Gabapentin 300 mg PO BID 04/01/17 Losartan Potassium 100 mg PO DAILY 04/01/17 Meclizine HCl 25 mg PO DAILY 04/01/17 Metoprolol Succinate [Toprol Xl] 50 mg PO DAILY 04/01/17 Ranolazine [Ranexa] 500 mg PO BID 04/01/17 Atorvastatin Ca [Lipitor] 10 mg PO HS 04/13/17 Furosemide 20 mg PO DAILY 04/13/17 Sulfamethoxazole/Trimethoprim [Bactrim Ds Tablet] 1 each PO BID #14 tablet 04/14 Anemia: No Asthma: Yes Cancer: No Cardiac Disorders: Yes (CAD, stent) CVA: No COPD: No CHF: No Dementia: No Diabetes: No GI Disorders: Yes (REFLUX) Disorders: No HTN: Yes Hypercholesterolemia: Yes Liver Disease: No Seizures: No Thyroid Disease: No - Surgical History Abdominal Surgery: No Appendectomy: Yes Cardiac Surgery: Yes (STENTS) Cholecystectomy: No Lung Surgery: No Neurologic Surgery: No Orthopedic Surgery: Yes (right shoulder sx) - Immunization History Immunization Up to Date: No - Psycho Social/Smoking Cessation Hx Smoking History: Never smoked Have you smoked in the past 12 months: No If you are a former smoker, when did you quit?: 20 years Information on smoking cessation initiated: No 'Breaking Loose' booklet given: 01/28/16 Hx Alcohol Use: No Drug/Substance Use Hx: No Substance Use Type: None Hx Substance Use Treatment: No *Physical Exam - Vital Signs Last Vital Signs Temp Pulse Resp BP Pulse Ox 98.1 F 64 19 165/57 L 99 11/14/19 23:26 07/04/19 23:26 07/04/19 23:26 07/04/19 23:26 07/05/19 05:32 ED Treatment Course - LABORATORY CBC & Chemistry Diagram: 07/05/19 03:45 07/05/19 03:45 - ADDITIONAL ORDERS Additional order review: Laboratory Results 07/05/19 07/05/19 07/05/19 03:45 03:45 03:45 PT with INR 11.20 INR 0.95 PTT (Actin FS) 33.4 Sodium 159 H Potassium 4.7 Chloride 121 H Carbon Dioxide 31 Anion Gap 7 L BUN 13.6 Creatinine 0.6 Est GFR (CKD-EPI)AfAm 102.62 Est GFR (CKD-EPI)NonAf 88.54 Random Glucose 104 Calcium 9.2 Magnesium 2.2 Total Bilirubin 0.3 AST 21 ALT 26 Alkaline Phosphatase 112 Creatine Kinase 95 Troponin I < 0.02 B-Natriuretic Peptide 1206.3 H Total Protein 7.2 Albumin 3.6 07/05/19 03:45 RBC 4.09 MCV 94.4 MCHC 33.3 RDW 12.8 MPV 9.8 Neutrophils % 65.3 D Lymphocytes % 24.9 Monocytes % 7.4 Eosinophils % 1.7 Basophils % 0.7 - Medications Given in the ED: ED Medications Discontinued Medications Generic Name Dose Route Start Last Admin Trade Name Freq PRN Reason Stop Dose Admin Aspirin 162 mg 07/05/19 02:40 07/05/19 02:56 Asa - PO 07/05/19 02:41 162 mg ONCE ONE Administration Medical Decision Making - Medical Decision Making 07/05/19 05:51 78 y/o F with hx of CAD s/p 8 stents, HTN, HLD, COPD, GERD presenting with headache, LH and chest tightness since 8pm this evening associated with generalized body aches. VSS, AF. PE notable for BL lower lung base rales -cbc, cmp, cardiac profile, mg, phos, bnp, coags, ekg, cxr -ASA 162mg 07/05/19 05:53 Hypernatremic 159 hyperchloremic 121 will administer LRs 200cc/hr will admit for chest pain workup and hypernatremia Discharge - Discharge Information Problems reviewed: Yes Clinical Impression/Diagnosis: Hypernatremia Chest pain Qualifiers: Chest pain type: unspecified Qualified Code(s): R07.9 - Chest pain, unspecified Condition: Stable - Admission Yes - Follow up/Referral Referrals: Saravanan iSngh MD [Primary Care Provider] - - Patient Discharge Instructions - Post Discharge Activity
--- NOTE | 2019-07-05 06:25 | PDOC ---
Attending Attestation - Resident Resident Name: Gisell Valentine - ED Attending Attestation I have performed the following: I have examined & evaluated the patient, The case was reviewed & discussed with the resident, I agree w/resident's findings & plan, Exceptions are as noted - HPI HPI: 07/05/19 07:16 78F pmh CAD s/p 8 stents, HTN, HLD, COPD here with generalized body aches for a day followed by L sided chest tightness, headache, lightheadedness. - Physicial Exam PE: 07/05/19 07:18 Agree with exam as documented by resident - Medical Decision Making 07/05/19 07:19 Atypical chest pain in high risk patient f/u cxr, ekg, labs, trop Na 159 admit for ACS w/u and eval/gentle correction of Na
--- NOTE | 2019-07-05 08:25 | HP ---
<AtilioellenTramaine - Last Filed: 07/05/19 19:42> CHIEF COMPLAINT: PCP: HISTORY OF PRESENT ILLNESS: ER course was notable for: (1) (2) (3) Recent Travel: PAST MEDICAL HISTORY: PAST SURGICAL HISTORY: Social History: Smoking: Alcohol: Drugs: Allergies codeine [Codeine] Allergy (Intermediate, Verified 07/04/19 23:29) Nausea vomitting,dizziness Penicillins Allergy (Intermediate, Verified 07/04/19 23:29) Rash HOME MEDICATIONS: Home Medications Medication Instructions Recorded Aspirin [Aspirin EC] 81 mg PO DAILY 04/01/17 Gabapentin 300 mg PO BID 04/01/17 Losartan Potassium 100 mg PO DAILY 04/01/17 Meclizine HCl 25 mg PO DAILY 04/01/17 Metoprolol Succinate [Toprol Xl] 50 mg PO DAILY 04/01/17 Ranolazine [Ranexa] 500 mg PO BID 04/01/17 Atorvastatin Ca [Lipitor] 10 mg PO HS 04/13/17 Furosemide 20 mg PO DAILY 04/13/17 REVIEW OF SYSTEMS CONSTITUTIONAL: Absent: fever, chills, diaphoresis, generalized weakness, malaise, loss of appetite, weight change HEENT: Absent: rhinorrhea, nasal congestion, throat pain, throat swelling, difficulty swallowing, mouth swelling, ear pain, eye pain, visual changes CARDIOVASCULAR: Absent: chest pain, syncope, palpitations, irregular heart rate, lightheadedness , peripheral edema RESPIRATORY: Absent: cough, shortness of breath, dyspnea with exertion, orthopnea, wheezing, stridor, hemoptysis GASTROINTESTINAL: Absent: abdominal pain, abdominal distension, nausea, vomiting, diarrhea, constipation, melena, hematochezia GENITOURINARY: Absent: dysuria, frequency, urgency, hesitancy, hematuria, flank pain, genital pain MUSCULOSKELETAL: Absent: myalgia, arthralgia, joint swelling, back pain, neck pain SKIN: Absent: rash, itching, pallor HEMATOLOGIC/IMMUNOLOGIC: Absent: easy bleeding, easy bruising, lymphadenopathy, frequent infections ENDOCRINE: Absent: unexplained weight gain, unexplained weight loss, heat intolerance, cold intolerance NEUROLOGIC: Absent: headache, focal weakness or paresthesias, dizziness, unsteady gait, seizure, mental status changes, bladder or bowel incontinence PSYCHIATRIC: Absent: anxiety, depression, suicidal or homicidal ideation, hallucinations. PHYSICAL EXAMINATION Vital Signs - 24 hr 07/04/19 07/05/19 07/05/19 23:26 05:32 06:35 Temperature 98.1 F 98.7 F Pulse Rate 64 Pulse Rate [ 60 Radial] Respiratory 19 18 Rate Blood Pressure 165/57 L Blood Pressure 125/51 L [Left Arm] O2 Sat by Pulse 97 99 99 Oximetry (%) GENERAL: Awake, alert, and fully oriented, in no acute distress. HEAD: Normal with no signs of trauma. EYES: Pupils equal, round and reactive to light, extraocular movements intact, sclera anicteric, conjunctiva clear. No lid lag. EARS, NOSE, THROAT: Ears normal, nares patent, oropharynx clear without exudates. Moist mucous membranes. NECK: Normal range of motion, supple without lymphadenopathy, JVD, or masses. LUNGS: Breath sounds equal, clear to auscultation bilaterally. No wheezes, and no crackles. No accessory muscle use. HEART: Regular rate and rhythm, normal S1 and S2 without murmur, rub or gallop. ABDOMEN: Soft, nontender, not distended, normoactive bowel sounds, no guarding, no rebound, no masses. No hepatomegaly or splenomegaly. MUSCULOSKELETAL: Normal range of motion at all joints. No bony deformities or tenderness. No CVA tenderness. UPPER EXTREMITIES: 2+ pulses, warm, well-perfused. No cyanosis. No clubbing. No peripheral edema. LOWER EXTREMITIES: 2+ pulses, warm, well-perfused. No calf tenderness. No peripheral edema. NEUROLOGICAL: Cranial nerves II-XII intact. Normal speech. Normal gait. PSYCHIATRIC: Cooperative. Good eye contact. Appropriate mood and affect. SKIN: Warm, dry, normal turgor, no rashes or lesions noted, normal capillary refill. Laboratory Results - last 24 hr 07/05/19 07/05/19 07/05/19 03:45 03:45 03:45 WBC 8.0 RBC 4.09 Hgb 12.9 Hct 38.7 MCV 94.4 MCH 31.4 MCHC 33.3 RDW 12.8 Plt Count 281 MPV 9.8 Absolute Neuts (auto) 5.2 Neutrophils % 65.3 D Lymphocytes % 24.9 Monocytes % 7.4 Eosinophils % 1.7 Basophils % 0.7 Nucleated RBC % 0 PT with INR 11.20 INR 0.95 PTT (Actin FS) 33.4 Sodium Potassium Chloride Carbon Dioxide Anion Gap BUN Creatinine Est GFR (CKD-EPI)AfAm Est GFR (CKD-EPI)NonAf Random Glucose Calcium Magnesium Total Bilirubin AST ALT Alkaline Phosphatase Creatine Kinase 95 Troponin I < 0.02 B-Natriuretic Peptide Total Protein Albumin 07/05/19 03:45 WBC RBC Hgb Hct MCV MCH MCHC RDW Plt Count MPV Absolute Neuts (auto) Neutrophils % Lymphocytes % Monocytes % Eosinophils % Basophils % Nucleated RBC % PT with INR INR PTT (Actin FS) Sodium 159 H Potassium 4.7 Chloride 121 H Carbon Dioxide 31 Anion Gap 7 L BUN 13.6 Creatinine 0.6 Est GFR (CKD-EPI)AfAm 102.62 Est GFR (CKD-EPI)NonAf 88.54 Random Glucose 104 Calcium 9.2 Magnesium 2.2 Total Bilirubin 0.3 AST 21 ALT 26 Alkaline Phosphatase 112 Creatine Kinase Troponin I B-Natriuretic Peptide 1206.3 H Total Protein 7.2 Albumin 3.6 ASSESSMENT/PLAN: Pt being treated for vertiginous episode with suspicion of central vertigo leading to fall given her symptoms. Chest pain atypical and likely not cardiac, however will r/o with troponin x2, echo, cardiac monitoring, and cardio consult. Will f/u lab studies and continue home meds for now. ATTENDING PHYSICIAN STATEMENT I saw and evaluated the patient. I reviewed the resident's note and discussed the case with the resident. I agree with the resident's findings and plan as documented. SUBJECTIVE: OBJECTIVE: ASSESSMENT AND PLAN: <Félix Lou - Last Filed: 07/06/19 09:33> Please count this attending encounter only as the note for the day due to incomplete documentation prior. Case was seen and discussed with resident team. This note will count for the billing for the 24-hour. Indicated. Patient presents with atypical chest pain after being hospitalized at an outside facility that is not similar to her prior episodes that resulted in catheterization and hospitalization. She is status post PCI and follows with Dr. Milton as an outpatient and continues to have these episodes despite ongoing intervention. She has moderate chronic LV dysfunction but is not in fluid overload. She is stated to have carotid artery stenosis but has unknown degree of stenosis. She had a component of dizziness to her presentation that was not classic for syncope or vertigo. She is hemodynamically stable and afebrile. Orthostatic vital signs are pending. She has no other complaints. 10/system review of systems is completed and is negative aside from history of present illness VS, labs, imaging reviewed NAD, AAO, resting comfortably in bed. RRR s1/2 no mgr Normal muscle tone, moves all 5 extremities with normal apparent strength Neck is supple, trachea midline, no ross LN Lungs CTAB with sym expansion NT ND +BS no ross organomegaly CN2-12 wnl; no FND NC AT EOMI PERRLA Normal mood, appropriate behavior, euthymic affect No skin breakdown or rashes noted EKG shows no new ST/T changes, will defer to cardiology for ultimate interpretation. We will defer need for further echocardiogram to cardiology services Laboratory results are noted and as per EMR. Telemetry is reviewed. Assessment and plan patient with a history of coronary artery disease, carotid artery stenosis, and moderate chronic left ventricular dysfunction presents to the hospital with presyncope and atypical chest pain. We will have cardiology see them and obtain carotid artery Dopplers to rule out need for vascular intervention given the ongoing dizziness she experiences at home. Overall, if her symptoms remain resolved and if she is cleared by subspecialty service that she will likely be cleared to go home. Discussed case with resident team. 40 minutes were spent on this observation patient. Visit type - Emergency Visit Emergency Visit: Yes ED Registration Date: 07/04/19 Care time: The patient presented to the Emergency Department on the above date and was hospitalized for further evaluation of their emergent condition. - New Patient This patient is new to me today: No - Critical Care Critical Care patient: No ATTENDING PHYSICIAN STATEMENT I saw and evaluated the patient. I reviewed the resident's note and discussed the case with the resident. I agree with the resident's findings and plan as documented. SUBJECTIVE: OBJECTIVE: ASSESSMENT AND PLAN:
[2019-07-05] MEDS ORDERED: RANOLAZINE E.R. 500 MG TABLET (FP) PO SCH (10:00)
[2019-07-05 10:51] LABS: ANION GAP 3 MMOL/L (8-16); BLOOD UREA NITROGEN 13.4 mg/dL (7-18); CALCIUM 9.2 mg/dL (8.5-10.1); CHLORIDE 109 mmol/L (98-107); CO2 32 mmol/L (21-32); CREATININE 0.5 mg/dL (0.55-1.3); GLUCOSE,RANDOM 89 mg/dL (74-106); POTASSIUM 4.1 mmol/L (3.5-5.1); SODIUM 144 mmol/L (136-145)
--- NOTE | 2019-07-05 11:23 | ECHO ---
Name: ALBARO KAUR Exam:Adult Echocardiogram Study Date: 07/05/2019 10:47 AM Age: 78 yrs Reason For Study: Chest pain Height: 52 in Weight: 165 lb BSA: 1.6 m2 MMode/2D Measurements & Calculations IVSd: 1.0 cm Ao root diam: 2.7 cm LVIDd: 4.0 cm LA dimension: 3.3 cm LVIDs: 2.4 cm LVPWd: 1.0 cm EDV(Teich): 70.0 ml LVOT diam: 2.0 cm ESV(Teich): 19.6 ml LAV (MOD-bp): 41.5 ml Doppler Measurements & Calculations MV E max hudson: 85.9 cm/sec Ao V2 max: 133.0 cm/sec MV A max hudson: 106.2 cm/sec Ao max P.1 mmHg MV E/A: 0.81 AI P1/2t: 423.1 msec MV dec time: 0.24 sec SAGE(V,D): 1.9 cm2 AI max hudson: 371.2 cm/sec LV V1 max P.8 mmHg AI max P.3 mmHg LV V1 max: 83.4 cm/sec AI dec slope: 257.0 cm/sec2 TR max hudson: 238.2 cm/sec PA V2 max: 114.0 cm/sec TR max P.2 mmHg PA max P.2 mmHg Med Peak E' Hudson: 5.2 cm/sec PI Vmax: 97.7 cm/sec Med E/e': 16.4 Lat Peak E' Hudson: 9.6 cm/sec Lat E/e': 9.0 Left Ventricle Left ventricular systolic function is grossly normal. Ejection Fraction = 50-55%. The transmitral spe ctral Doppler flow pattern is suggestive of impaired LV relaxation. Septal motion is consistent with conduc tion abnormality. Right Ventricle The right ventricle is normal in size and function. Atria The left atrium is borderline dilated. Right atrial size is normal. Mitral Valve There is mild mitral annular calcification. There is no mitral valve stenosis. There is trace mitral regurgitation. Tricuspid Valve The tricuspid valve is normal in structure and function. There is mild tricuspid regurgitation. Right ventricular systolic pressure is normal. Aortic Valve The aortic valve opens well. No hemodynamically significant valvular aortic stenosis. Mild aortic regurgitation. Pulmonic Valve The pulmonic valve is not well seen, but is grossly normal. There is no pulmonic valvular stenosis. T here is no pulmonic valvular regurgitation. Great Vessels The aortic root is normal size. Pericardium/Pleura There is no pericardial effusion. Interpretation Summary Left ventricular systolic function is grossly normal. Ejection Fraction = 50-55%. The transmitral spectral Doppler flow pattern is suggestive of impaired LV relaxation. Septal motion is consistent with conduction abnormality. The right ventricle is normal in size and function. The left atrium is borderline dilated. There is mild mitral annular calcification. There is mild tricuspid regurgitation. Right ventricular systolic pressure is normal. Mild aortic regurgitation. There is no pericardial effusion. MD Teixeira *Abelardo 07/05/2019 11:23 AM
--- NOTE | 2019-07-05 13:21 | CON.CARD ---
Consult Consult Specialty:: Cardiology Referred by:: Dasha Reason for Consultation:: Chest pain - History of Present Illness Chief Complaint: Dizziness and chest pain History of Present Illness: The patient is a 78-year-old female, we have a history of hypertension, hyperlipidemia, COPD, GERD, coronary artery disease with multiple prior stents, vertigo,now presenting with dizziness, lightheadedness, and left-sided chest pains at rest. The patient was recently admittedto a different hospital with a syncopal event. Apparently the workup was unremarkable. She is currently comfortable and symptom free. Chest pains are partially reproducible.She is breathing quite normally. - History Source History Provided By: Patient, Medical Record Limitations to Obtaining History: No Limitations - Past Medical History Cardio/Vascular: Yes: CAD, CHF (moderate chronic LV dysfunction), HTN, Hyperlipdemia, Other (carotid stenosis) Pulmonary: Yes: Asthma, COPD - Past Surgical History Past Surgical History: Yes: Appendectomy, Cholecystectomy, Stent (last 2013) - Alcohol/Substance Use Hx Alcohol Use: No - Smoking History Smoking history: Never smoked Have you smoked in the past 12 months: No If you are a former smoker, when did you quit?: 20 years - Social History ADL: Independent History of Recent Travel: No Home Medications - Allergies Allergies/Adverse Reactions: Allergies Allergy/AdvReac Type Severity Reaction Status Date / Time codeine [Codeine] Allergy Intermediate Nausea Verified 07/04/19 23:29 Penicillins Allergy Intermediate Rash Verified 07/04/19 23:29 - Home Medications Home Medications: Ambulatory Orders Aspirin [Aspirin EC] 81 mg PO DAILY 04/01/17 Gabapentin 300 mg PO BID 04/01/17 Losartan Potassium 100 mg PO DAILY 04/01/17 Meclizine HCl 25 mg PO DAILY 04/01/17 Metoprolol Succinate [Toprol Xl] 50 mg PO DAILY 04/01/17 Ranolazine [Ranexa] 500 mg PO BID 04/01/17 Atorvastatin Ca [Lipitor] 10 mg PO HS 04/13/17 Furosemide 20 mg PO DAILY 04/13/17 Review of Systems - Review of Systems Constitutional: reports: No Symptoms Eyes: reports: No Symptoms HENT: reports: No Symptoms Neck: reports: No Symptoms Cardiovascular: reports: Chest Pain Respiratory: reports: No Symptoms Gastrointestinal: reports: No Symptoms Genitourinary: reports: No Symptoms Breasts: reports: No Symptoms Reported Musculoskeletal: reports: Back Pain, Muscle Pain Integumentary: reports: No Symptoms Neurological: reports: No Symptoms Endocrine: reports: No Symptoms Hematology/Lymphatic: reports: No Symptoms Psychiatric: reports: No Symptoms Vital Signs: Vital Signs Temperature 98.7 F 07/05/19 06:35 Pulse Rate 60 07/05/19 06:35 Respiratory Rate 18 07/05/19 06:35 Blood Pressure 125/51 L 07/05/19 06:35 O2 Sat by Pulse Oximetry (%) 99 07/05/19 06:35 Constitutional: Yes: Well Nourished, No Distress, Calm Eyes: Yes: WNL, Conjunctiva Clear, EOM Intact HENT: Yes: WNL, Atraumatic, Normocephalic Neck: Yes: WNL, Supple, Trachea Midline Respiratory: Yes: WNL, Regular, CTA Bilaterally Gastrointestinal: Yes: WNL, Normal Bowel Sounds, Soft Renal/: Yes: WNL Cardiovascular: Yes: WNL, Regular Rate and Rhythm JVD: No Heart Sounds: Yes: S1, S2 Murmur: Yes: Systolic Murmur, Grade 2 Musculoskeletal: Yes: Back Pain, Muscle Pain Extremities: Yes: WNL Edema: No Peripheral Pulses WNL: Yes Peripheral Pulses: 2+ Left Carotid, 2+ Right Carotid, 2+ Left Femoral, 2+ Right Femoral, 2+ Left Popliteal, 2+ Right Popliteal, 2+ Left Doralis Pedis, 2+ Right Dorsalis Pedis Integumentary: Yes: WNL Neurological: Yes: WNL, Alert, Oriented ...Motor Strength: WNL Psychiatric: Yes: WNL, Alert, Oriented - Other Data Labs, Other Data: CBC, BMP 07/05/19 03:45 07/05/19 09:45 INR, PTT INR 0.95 (0.83-1.09) 07/05/19 03:45 Troponin, BNP 07/05/19 07/05/19 07/05/19 03:45 03:45 09:45 Troponin I < 0.02 < 0.02 B-Natriuretic Peptide 1206.3 H Troponin, BNP 07/05/19 07/05/19 07/05/19 03:45 03:45 09:45 Troponin I < 0.02 < 0.02 B-Natriuretic Peptide 1206.3 H Assessment/Plan The patient is a 78-year-old female, we have a history of hypertension, hyperlipidemia, COPD, GERD, coronary artery disease with multiple prior stents, vertigo,now presenting with dizziness, lightheadedness, and left-sided chest pains at rest. The patient was recently admittedto a different hospital with a syncopal event. Apparently the workup was unremarkable. She is currently comfortable and symptom free. Chest pains are partially reproducible.She is breathing quite normally. There is no evidence of ischemia nor acute coronary syndrome. Atypical chest pains. The patient is in sinus rhythm. There are no acute ECG changes. the echocardiogram showed that both ventricles are functioning normally.There were no other clinically significant findings on the echo. there is no need for further cardiac workup at this point. No need for cardiac monitoring. Please arrange for an outpatient follow-up visit with within one week of discharge. Please do not hesitate to call us PRN.
--- NOTE | 2019-07-05 13:23 | EKG ---
Test Reason : Blood Pressure : / mmHG Vent. Rate : 059 BPM Atrial Rate : 059 BPM P-R Int : 208 ms QRS Dur : 150 ms QT Int : 490 ms P-R-T Axes : 063 -15 048 degrees QTc Int : 485 ms SINUS BRADYCARDIA LEFT BUNDLE BRANCH BLOCK ABNORMAL ECG WHEN COMPARED WITH ECG OF 13-APR-2017 21:40, NO SIGNIFICANT CHANGE WAS FOUND Confirmed by CORONA REBOLLAR MD ([id number]) on 07/05/2019 1:23:09 PM Referred By: Confirmed By:CORONA REBOLLAR MD
[2019-07-05] MEDS: GABAPENTIN 300 MG CAPSULE (FP) PO SCH ×2 (14:34→21:38)
[2019-07-05] MEDS: RANOLAZINE E.R. 500 MG TABLET (FP) PO SCH (21:38)
[2019-07-05] MEDS ORDERED: ATORVASTATIN CA 10 MG TABLET (FP) PO SCH (22:00)
--- NOTE | 2019-07-06 09:35 | DS ---
Physical Exam: SUBJECTIVE: Patient seen and examined The patient is a 78-year-old female, we have a history of hypertension, hyperlipidemia, COPD, GERD, coronary artery disease with multiple prior stents, vertigo,now presenting with dizziness, lightheadedness, and left-sided chest pains at rest. The patient was recently admittedto a different hospital with a syncopal event. Apparently the workup was unremarkable. She is currently comfortable and symptom free. Chest pains are partially reproducible.She is breathing quite normally. OBJECTIVE: Vital Signs Period Temp Pulse Resp BP Sys/Vieira Pulse Ox Last 24 Hr 97.3 F-98.9 F 52-75 18-18 122-148/22-89 97-99 PHYSICAL EXAM GENERAL: The patient is awake, alert, and fully oriented, in no acute distress. HEAD: Normal with no signs of trauma. EYES: PERRL, extraocular movements intact, sclera anicteric, conjunctiva clear. ENT: Ears normal, nares patent, oropharynx clear without exudates, moist mucous membranes. NECK: Trachea midline, full range of motion, supple. LUNGS: Breath sounds equal, clear to auscultation bilaterally, no wheezes, no crackles, no accessory muscle use. HEART: Regular rate and rhythm, S1, S2 without murmur, rub or gallop. ABDOMEN: Soft, nontender, nondistended, normoactive bowel sounds, no guarding, no rebound, no hepatosplenomegaly, no masses. EXTREMITIES: 2+ pulses, warm, well-perfused, no edema. NEUROLOGICAL: Cranial nerves II through XII grossly intact. Normal speech, gait not observed. LABS Laboratory Results - last 24 hr 07/05/19 07/05/19 09:45 09:45 Sodium 144 Potassium 4.1 Chloride 109 H Carbon Dioxide 32 Anion Gap 3 L BUN 13.4 Creatinine 0.5 L Est GFR (CKD-EPI)AfAm 108.96 Est GFR (CKD-EPI)NonAf 94.01 Random Glucose 89 Calcium 9.2 Troponin I < 0.02 Influenza A (Rapid) Negative Influenza B (Rapid) Negative HOSPITAL COURSE: The patient is a 78-year-old female, we have a history of hypertension, hyperlipidemia, COPD, GERD, coronary artery disease with multiple prior stents, vertigo,now presenting with dizziness, lightheadedness, and left-sided chest pains at rest. The patient was recently admittedto a different hospital with a syncopal event. Apparently the workup was unremarkable. She is currently comfortable and symptom free. Chest pains are partially reproducible.She is breathing quite normally. There is no evidence of ischemia nor acute coronary syndrome. Atypical chest pains. The patient is in sinus rhythm. There are no acute ECG changes. the echocardiogram showed that both ventricles are functioning normally.There were no other clinically significant findings on the echo. there is no need for further cardiac workup at this point. No need for cardiac monitoring. Please arrange for an outpatient follow-up visit with within one week of discharge. she is going home on meds Current Medications Atorvastatin Calcium (Lipitor -) 10 mg PO HS [facility] Last Admin: 07/05/19 21:38 Dose: 10 mg Gabapentin (Neurontin -) 300 mg PO BID [facility] Last Admin: 07/05/19 21:38 Dose: 300 mg Metoprolol Succinate (Toprol Xl -) 50 mg PO DAILY [facility] Last Admin: 07/05/19 14:16 Dose: Not Given Ranolazine (Ranexa -) 1,000 mg PO BID [facility] Last Admin: 07/05/19 21:38 Dose: 1,000 mg Date of Admission:07/05/19 Date of Discharge: 07/06/19 Minutes to complete discharge: 30 Discharge Summary Problems reviewed: Yes Reason For Visit: HYPERNATREMIA,CHEST PAIN Current Active Problems Chest pain (Acute) Hypernatremia (Acute) Condition: Good - Instructions Diet, Activity, Other Instructions: low sodium diet Referrals: Saravanan Singh MD [Primary Care Provider] - Paresh Milton MD [Staff Physician] - 1 Week () Disposition: HOME - Home Medications Comprehensive Discharge Medication List: Ambulatory Orders Aspirin [Aspirin EC] 81 mg PO DAILY 04/01/17 Gabapentin 300 mg PO BID 04/01/17 Losartan Potassium 100 mg PO DAILY 04/01/17 Meclizine HCl 25 mg PO DAILY 04/01/17 Metoprolol Succinate [Toprol Xl] 50 mg PO DAILY 04/01/17 Ranolazine [Ranexa] 500 mg PO BID 04/01/17 Atorvastatin Ca [Lipitor] 10 mg PO HS 04/13/17 Furosemide 20 mg PO DAILY 04/13/17 This patient is new to me today: Yes Date on this admission: 07/06/19 Emergency Visit: Yes ED Registration Date: 07/05/19 Care time: The patient presented to the Emergency Department on the above date and was hospitalized for further evaluation of their emergent condition. Critical Care patient: No - Discharge Referral Referred to [facility] No
[2019-07-06] MEDS: GABAPENTIN 300 MG CAPSULE (FP) PO SCH (10:27)
[2019-07-06] MEDS: RANOLAZINE E.R. 500 MG TABLET (FP) PO SCH (10:28)
[2019-07-06 14:37] LABS: EPI CELLS 2.2 /HPF (0-5/HPF); HYALINE CASTS 2 /lpf (0-8); URINE APPEARANCE CLOUDY; URINE BACTERIA >9000 /hpf (NEGATIVE); URINE BILIRUBIN 1+ (NEGATIVE); URINE COLOR DK YELLOW; URINE GLUCOSE (UA) NEGATIVE (NEGATIVE); URINE KETONE TRACE (NEGATIVE); URINE LEUK ESTERASE 3+ (NEGATIVE); URINE NITRITE NEGATIVE (NEGATIVE); URINE PROTEIN 1+ (NEGATIVE); URINE RBC 7 /hpf (0-4); URINE UROBILINOGEN 0.2 mg/dL (0.2-1.0); URINE WBC 421 /hpf (0-5)
[2019-07-06 16:05] VITALS: BP 110/48; PULSE 72; TEMP 98.4
== END 2019-07-06 17:40 | disposition home or self-care (01) ==
LOC: JER 22:56 → INTOOBSV 07-05 06:28 → JERBED 07-05 06:28 → J4W 07-05 11:31
PROVIDERS: ADMIT Internal Medicine; ATTEND Internal Medicine
PROC: 3E0337Z Introduction of Electrolytic and Water Balance Substance into Peripheral Vein, Percutaneous Approach (ICD-10-PCS; principal; 2019-07-05)
DX: E87.0 Hyperosmolality and hypernatremia (principal); R07.89 Other chest pain; I10 Essential (primary) hypertension; E78.5 Hyperlipidemia, unspecified; I25.10 Atherosclerotic heart disease of native coronary artery without angina pectoris; J44.9 Chronic obstructive pulmonary disease, unspecified; K21.9 Gastro-esophageal reflux disease without esophagitis; Z79.82 Long term (current) use of aspirin; Z95.5 Presence of coronary angioplasty implant and graft; Z88.0 Allergy status to penicillin; Z88.5 Allergy status to narcotic agent
CPT/HCPCS: 36415; 71046-TC-FY; 73030-TC-RT-FY; 73502-TC-RT-FY; 80048; 80053; 81003; 82550; 83735; 83880; 84484; 85025; 85610; 85730; 87804; 93005; 93010; 93306-TC; 93880-TC; 99285-25; G0378

== ENCOUNTER 2019-10-18 11:39 | Inpatient (IN) | payer OTHER ==
[2019-10-18 12:00] VITALS: BMI 28.3
--- NOTE | 2019-10-18 12:10 | PDOC ---
History of Present Illness - General Chief Complaint: Chest Pain Stated Complaint: CHEST PAIN/SOB History Source: Patient Exam Limitations: Language Barrier ([id number]) - History of Present Illness Initial Comments: 10/18/19 12:14 78-year-old female, we have a history of hypertension, hyperlipidemia, COPD, GERD, coronary artery disease with multiple prior stents (8x; currently on plavix), and vertigo presents to the emergency department with dizziness, acute on chronic left UE with associative headache, and nausea. Per the patient, she has had chronic LUE weakness but today at 7 am when she awoke, she stated it felt worse. Per the patient, last night she was washing the dishes when she had a sudden onset of dizziness resulting in her falling. The patient denies LOC but endorses head trauma. Currently, the patient has had a headache in the frontal and left parietal/temporal region with worsening arm weakness since 7 am today. Endorses nausea without vomiting. Concurrently, she developed center sternum chest pain at approximately 10 am that lasted for approximately 5 minutes, described as a pressure like sensation, without radiation, and terminated on its own spontaneously. Denies the following: fever, chills, visual disturbance, abdominal pain, dysuria, ears/nose/throat pain, diarrhea, and leg swelling. Allergies: codeine and PCN tPA Exclusion Checklist 0-3hr - Time Elapsed Date last known well: 10/18/19 Time last known well: 01:00 Elaspsed time: 2 Day(s) and 23 Hour(s) and 51 Minutes - Thrombolytic Therapy Candidate Is the patient eligible for Thrombolytic Therapy?: No - Ineligibility reason(s) Reasons No tPA given: Outside of window - delayed arrival NIH Stroke Scale - Last Known Well Date/Time & Onset Date Last Known Well: 10/18/19 Time Last Known Well: 01:00 - Initial Evaluation Level of consciousness: Alert Ask patient the month and their age: Answers both correctly Ask patient to open & close eyes; make fist and let go: Obeys both correctly Best gaze (horizontal eye movement): Normal Visual field testing: No visual field loss Facial paresis (Show teeth/raise eyebrows/close eyes tight): Normal symmetrical movement Motor Function: Left Arm: Normal Motor Function: Right Arm: Normal (extends arm 90 (or 45) degrees for 10 seconds without drift Motor Function: Left Leg: Normal (extends leg 30 degrees for 5 seconds without drift) Motor Function: Right Leg: Normal (extends leg 30 degrees for 5 seconds without drift) Limb Ataxia: Present in one limb Sensory(Use pinprick test arms,legs,trunk,face/side to side): Mild to moderate decrease in sensation Best language (Describe picture, name items, read sentences): No Aphasia Dysarthria (read several words): Normal articulation Extinction and Inattention: No abnormality - Total Score NIH Stroke Scale Score: 2 Past History - Past Medical History Allergies/Adverse Reactions: Allergies Allergy/AdvReac Type Severity Reaction Status Date / Time codeine [Codeine] Allergy Intermediate Nausea Verified 10/18/19 11:49 Penicillins Allergy Intermediate Rash Verified 10/18/19 11:49 Home Medications: Ambulatory Orders Meclizine HCl 25 mg PO BID 04/01/17 Ranolazine [Ranexa] 500 mg PO BID 04/01/17 Atorvastatin Ca [Lipitor] 40 mg PO HS 04/13/17 Clopidogrel Bisulfate [Clopidogrel] 75 mg PO DAILY 10/14/19 Telmisartan [Micardis] 80 mg PO DAILY 10/14/19 Albuterol Sulfate Inhaler - [Ventolin HFA Inhaler -] 1 - 2 inh PO Q4H PRN 10/18/19 Furosemide 20 mg PO DAILY 10/18/19 Metoprolol Tartrate [Lopressor] 100 mg PO BID 10/18/19 Cefuroxime Axetil [Ceftin -] 250 mg PO BID 5 Days #10 tablet 10/20/19 Cyclobenzaprine HCl 5 mg PO HS #15 tablet 10/20/19 Anemia: No Asthma: Yes Cancer: No Cardiac Disorders: Yes (CAD, stent(multiple)) CVA: No COPD: Yes CHF: No Dementia: No Diabetes: No GI Disorders: Yes (REFLUX) Disorders: No HTN: Yes Hypercholesterolemia: Yes Liver Disease: No Seizures: No Thyroid Disease: No - Surgical History Abdominal Surgery: No Appendectomy: Yes Cardiac Surgery: Yes (STENTS) Cholecystectomy: No Lung Surgery: No Neurologic Surgery: No Orthopedic Surgery: Yes (right shoulder sx) - Immunization History Immunization Up to Date: No - Psycho Social/Smoking Cessation Hx Smoking History: Never smoked Have you smoked in the past 12 months: No If you are a former smoker, when did you quit?: 20 years 'Breaking Loose' booklet given: 01/28/16 Hx Alcohol Use: No Drug/Substance Use Hx: No Substance Use Type: None Hx Substance Use Treatment: No Review of Systems - Review of Systems Able to Perform ROS?: Yes Is the patient limited Spanish proficient: No Constitutional: Yes: Weakness. No: Chills, Diaphoresis, Fever HEENTM: No: Eye Pain, Ear Pain, Nose Pain, Throat Pain, Mouth Pain Respiratory: Yes: Shortness of Breath. No: Cough, Hemoptysis Cardiac (ROS): Yes: Chest Pain, Lightheadedness. No: Chest Tightness ABD/GI: Yes: Nausea. No: Constipated, Diarrhea, Rectal Bleeding, Vomiting, Tarry Stools : No: Burning, Dysuria, Hematuria Musculoskeletal: No: Back Pain, Joint Pain, Neck Pain Integumentary: No: Bruising, Erythema, Rash Neurological: Yes: Headache, Pre-Existing Deficit (LUE weakness), Weakness (lue). No: Numbness, Tingling, Tremors Psychiatric: No: Change in Appetite Endocrine: No: Unexplained Weight Loss Hematologic/Lymphatic: No: Anemia *Physical Exam - Vital Signs Last Vital Signs Temp Pulse Resp BP Pulse Ox 98.3 F 74 18 140/84 100 10/18/19 11:58 10/18/19 11:58 10/18/19 11:58 10/18/19 11:58 10/18/19 11:58 - Physical Exam General Appearance: Yes: Nourished, Appropriately Dressed. No: Apparent Distress, Intoxicated HEENT: positive: EOMI, CYNTHIA, Normal Voice, Symmetrical, Pharynx Normal, Hearing Grossly Normal. negative: Pale Conjunctivae, Scleral Icterus (R), Scleral Icterus (L), Muffled/Hoarse voice, Pharyngeal Erythema, Tonsillar Exudate, Tonsillar Erythema, Nasal Congestion, Rhinorrhea, Sinus Tenderness, Excessive drooling Neck: positive: Trachea midline, Supple. negative: Tender, Lymphadenopathy (R), Lymphadenopathy (L), Tender lateral, Tender midline Respiratory/Chest: positive: Lungs Clear, Normal Breath Sounds. negative: Chest Tender, Respiratory Distress, Accessory Muscle Use, Crackles, Rales, Rhonchi, Stridor, Wheezing Cardiovascular: positive: Regular Rhythm, Regular Rate, S1, S2. negative: Systolic Murmur Gastrointestinal/Abdominal: positive: Normal Bowel Sounds, Flat, Soft. neg ative: Tender, Distended, Guarding, Rebound Lymphatic: negative: Adenopathy Musculoskeletal: positive: Normal Inspection. negative: CVA Tenderness, V ertebral Tenderness Extremity: positive: Normal Capillary Refill, Normal Inspection, Normal Range of Motion. negative: Tender, Swelling, Calf Tenderness Integumentary: positive: Normal Color, Dry, Warm Neurologic: positive: records custodian II-XII NML intact, Fully Oriented, Alert, Normal Mood/Affect, Normal Response. negative: Motor Strength 5/5 (4/5 strength LUE), EOM Palsy, Facial Droop, Finger to Nose (deficit ) ED Treatment Course - LABORATORY CBC & Chemistry Diagram: 10/19/19 05:50 10/19/19 05:50 Medical Decision Making - Medical Decision Making 78-year-old female, we have a history of hypertension, hyperlipidemia, COPD, GERD, coronary artery disease with multiple prior stents,vertigo presents to the emergency department with multiple complaints most notably sudden onset of LUE weakness at 7 am this morning when she awoke from sleep. Initial vitals: Initial Vital Signs Temp Pulse Resp BP Pulse Ox 98.3 F 74 18 140/84 100 10/18/19 11:58 10/18/19 11:58 10/18/19 11:58 10/18/19 11:58 10/18/19 11:58 Work up: CVA vs TIA vs radiculopathy Laboratory Tests 10/18/19 10/18/19 10/18/19 13:30 15:00 15:00 WBC RBC Hgb Hct MCV MCH MCHC RDW Plt Count MPV Absolute Neuts (auto) Neutrophils % Lymphocytes % Monocytes % Eosinophils % Basophils % Nucleated RBC % PT with INR 10.20 INR 0.87 PTT (Actin FS) 36.2 Sodium 141 Potassium 4.1 Chloride 107 Carbon Dioxide 32 Anion Gap 3 L BUN 12.8 Creatinine 0.6 Est GFR (CKD-EPI)AfAm 101.90 Est GFR (CKD-EPI)NonAf 87.92 Random Glucose 97 Calcium 8.6 Magnesium 1.9 Total Bilirubin 0.5 AST 23 ALT 26 Alkaline Phosphatase 109 Creatine Kinase 127 Troponin I < 0.02 Total Protein 7.4 Albumin 3.5 Triglycerides 77 Cholesterol 186 Total LDL Cholesterol 94 HDL Cholesterol 69 H TSH 1.10 Urine Color Yellow Urine Appearance Clear Urine pH 7.5 D Ur Specific [place] 1.008 L Urine Protein Negative Urine Glucose (UA) Negative Urine Ketones Negative Urine Blood Negative Urine Nitrite Positive H Urine Bilirubin Negative Urine Urobilinogen 0.2 Ur Leukocyte Esterase 1+ H Urine WBC (Auto) 10 Urine RBC (Auto) 4 Urine Casts (Auto) 0 U Epithel Cells (Auto) 0.5 Urine Bacteria (Auto) 6576.1 Blood Type Antibody Screen 10/18/19 10/18/19 15:00 15:00 WBC 5.0 RBC 4.05 Hgb 12.7 Hct 37.4 MCV 92.4 MCH 31.3 MCHC 33.9 RDW 13.4 Plt Count 240 MPV 9.3 Absolute Neuts (auto) 3.5 Neutrophils % 70.7 Lymphocytes % 21.8 Monocytes % 5.8 Eosinophils % 1.1 Basophils % 0.6 Nucleated RBC % 0 PT with INR INR PTT (Actin FS) Sodium Potassium Chloride Carbon Dioxide Anion Gap BUN Creatinine Est GFR (CKD-EPI)AfAm Est GFR (CKD-EPI)NonAf Random Glucose Calcium Magnesium Total Bilirubin AST ALT Alkaline Phosphatase Creatine Kinase Troponin I Total Protein Albumin Triglycerides Cholesterol Total LDL Cholesterol HDL Cholesterol TSH Urine Color Urine Appearance Urine pH Ur Specific [place] Urine Protein Urine Glucose (UA) Urine Ketones Urine Blood Urine Nitrite Urine Bilirubin Urine Urobilinogen Ur Leukocyte Esterase Urine WBC (Auto) Urine RBC (Auto) Urine Casts (Auto) U Epithel Cells (Auto) Urine Bacteria (Auto) Blood Type Cancelled Antibody Screen Cancelled labs within normal limits save for UA which is positive for UTI patient's head CT is negative for acute process patient's head CTA does not show new acute infarctions. 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 recommended atorvastatin and aspirin. not a tpa candidate due to outside of window. Patient's EKG shows NSR with LBBB that was there in prior EKG. No ST elevations or depressions. Patient was re-assessed. continues to have weakness in the LUE. CT cervical spine negative for acute process. CXR negative for acute process. Will admit for CVA work up. Will require additional imaging. Discharge - Discharge Information Problems reviewed: Yes Clinical Impression/Diagnosis: Vertigo, CVA (cerebral vascular accident) - Follow up/Referral - Patient Discharge Instructions - Post Discharge Activity
[2019-10-18] MEDS ORDERED: ACETAMINOPHEN 1000 MG/100 ML VIAL (NON FORMULARY) IVPB ONE (12:38)
--- NOTE | 2019-10-18 12:44 | PDOC ---
*Physical Exam - Vital Signs Last Vital Signs Temp Pulse Resp BP Pulse Ox 98.3 F 74 18 140/84 100 10/18/19 11:58 10/18/19 11:58 10/18/19 11:58 10/18/19 11:58 10/18/19 11:58 ED Treatment Course - LABORATORY CBC & Chemistry Diagram: 10/18/19 15:00 10/18/19 15:00 Medical Decision Making - Medical Decision Making 10/18/19 12:40 79 y/o female with a PMHx of HTN, CAD (s/p 8 stents), COPD, GERD, and vertigo. Here because of acute onset of vertiginous symptoms around 7 a.m. this morning. Non-positional, no tinnitus, visual changes. C/o all over weakness. 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 Stroke Scale [address] Cisneros Acute of LUE weakness, + headache frontal, parietal MACK starting this morning H/o fall yesterday evening, with head trauma, no LOC. [place] weak all over. 10/18/19 14:[address] negative for acute stroke however patient requires MRI/CTA to r/o posterior cerebellar stroke Dr. Cisneros discussed case w/Dr. Roldan (Neurology) - request CTA Patient admitted to hospitalist service. Discharge - Discharge Information Problems reviewed: Yes Clinical Impression/Diagnosis: Vertigo Condition: Fair - Admission Yes - Follow up/Referral - Patient Discharge Instructions - Post Discharge Activity
[2019-10-18] MEDS ORDERED: SODIUM CHLORIDE 1,000 ML IV SCH ×2 (13:00→15:45)
[2019-10-18] MEDS ORDERED: ASPIRIN 325 MG TABLET PO ONE (14:01)
[2019-10-18] MEDS ORDERED: ATORVASTATIN CA 80 MG TABLET (FP) PO ONE (14:01)
--- NOTE | 2019-10-18 14:47 | PDOC ---
Documentation entered by Sukhdev Wells SCRIBE, acting as scribe for Art Cabrera MD. Art Cabrera MD: This documentation has been prepared by the Russell esparza Xhesika, SCRIBE, under my direction and personally reviewed by me in its entirety. I confirm that the documentation accurately reflects all work, treatment, procedures, and medical decision making performed by me. Attending Attestation - Resident Resident Name: Félix Cisneros - ED Attending Attestation I have performed the following: I have examined & evaluated the patient, The case was reviewed & discussed with the resident, I agree w/resident's findings & plan, Exceptions are as noted - HPI HPI: 10/18/19 13:46 The patient is a 79 year old female with a PMH of hypertension, hyperlipidemia, COPD, GERD, coronary artery disease with multiple prior stents (8x; currently on plavix), and vertigo who presents to the ED for room spinning dizziness and generalized weakness. Pt states ehr dizziness is worsened with changes positions. The patient denies chest pain, shortness of breath, fever, chills, cough, vomiting, and constipation. Denies dysuria, frequency, urgency and hematuria. Allergy: Codeine, Penicillins Social: Denies alcohol, cigarette or drug use. - Physicial Exam PE: 10/18/19 13:47 Vitals: Triage Vital signs reviewed General Appearance: no acute distress, well nourished well developed, Cardiac: Regular rate and rhythm, no murmurs, no rubs, no gallops, Lungs: Clear to auscultation bilateral, good air movement bilaterally, Abdomen: Soft, nondistended, normal bowel sounds, nontender to palpation Extremities: Full range of motion to all extremities, no cyanosis, clubbing, or edema Skin: Warm and dry, no rashes or lesions, no petechiae Neuro: Strength intact to upper extremities, Sensation intact to upper extremities - Medical Decision Making 10/18/19 14:54 Last known normal last night NIHSS stroke scale 0 Persistent constant vertigo No acute findings on head CT Case discussed with neurology We will admit to medicine for observation and further management.
[2019-10-18] MEDS ORDERED: MECLIZINE HCL 12.5 MG TABLET PO ONE (14:50)
[2019-10-18 15:21] LABS: BASO % 0.6 % (0-2.0); EOS % 1.1 % (0-4.5); HEMATOCRIT 37.4 % (32.4-45.2); HEMOGLOBIN 12.7 GM/dL (10.7-15.3); LYMPH % 21.8 % (8-40); MCH 31.3 pg (25.7-33.7); MCHC 33.9 g/dl (32.0-36.0); MEAN CELL VOLUME 92.4 fl (80-96); MEAN PLT VOLUME 9.3 fl (7.5-11.1); MONO % 5.8 % (3.8-10.2); NEUT % 70.7 % (42.8-82.8); PLATELET COUNT 240 K/MM3 (134-434); RBC 4.05 M/mm3 (3.60-5.2); RDW 13.4 % (11.6-15.6)
[2019-10-18] MEDS ORDERED: ACETAMINOPHEN INJECTION 100 ML IVPB ONE (15:29)
[2019-10-18 15:39] LABS: INR 0.87 (0.83-1.09); PROTHROMBIN TIME (PATIENT) 10.2 SEC (9.7-13.0)
[2019-10-18 15:41] LABS: ACTIVATED PTT 36.2 SECONDS (25.2-36.5)
[2019-10-18 15:58] LABS: EPI CELLS 0.5 /HPF (0-5/HPF); HYALINE CASTS 0 /lpf (0-8); PH,URINE 7.5 (5.0-8.0); URINE APPEARANCE CLEAR; URINE BACTERIA 6576.1 /hpf (NEGATIVE); URINE BILIRUBIN NEGATIVE (NEGATIVE); URINE COLOR YELLOW; URINE GLUCOSE (UA) NEGATIVE (NEGATIVE); URINE KETONE NEGATIVE (NEGATIVE); URINE LEUK ESTERASE 1+ (NEGATIVE); URINE NITRITE POSITIVE (NEGATIVE); URINE PROTEIN NEGATIVE (NEGATIVE); URINE RBC 4 /hpf (0-4); URINE UROBILINOGEN 0.2 mg/dL (0.2-1.0); URINE WBC 10 /hpf (0-5)
[2019-10-18 16:02] LABS: ALBUMIN 3.5 g/dl (3.4-5.0); ALK PHOS 109 U/L (45-117); ANION GAP 3 MMOL/L (8-16); BILIRUBIN,TOTAL 0.5 mg/dL (0.2-1); BLOOD UREA NITROGEN 12.8 mg/dL (7-18); CALCIUM 8.6 mg/dL (8.5-10.1); CHLORIDE 107 mmol/L (98-107); CHOLESTEROL 186 mg/dL (50-200); CO2 32 mmol/L (21-32); CREATININE 0.6 mg/dL (0.55-1.3); GLUCOSE,RANDOM 97 mg/dL (74-106); HDL CHOLESTEROL 69 mg/dL (40-60); LDL CHOLESTEROL (ONLY SJRH) 94 mg/dL (5-100); MAGNESIUM 1.9 mg/dL (1.8-2.4); POTASSIUM 4.1 mmol/L (3.5-5.1); SGOT/AST 23 U/L (15-37); SGPT/ALT 26 U/L (13-61); SODIUM 141 mmol/L (136-145); TOT PROT 7.4 g/dl (6.4-8.2); TRIGLYCERIDES 77 mg/dL (0-150)
[2019-10-18] MEDS ORDERED: NITROFURANTOIN MACROCRYSTAL 50 MG CAPSULE (FP) PO SCH (16:45)
--- NOTE | 2019-10-18 17:47 | PN ---
Teaching Attending Note Name of Resident: Tramaine Fraser ATTENDING PHYSICIAN STATEMENT I saw and evaluated the patient. I reviewed the resident's note and discussed the case with the resident. I agree with the resident's findings and plan as documented. SUBJECTIVE: Patient is a 79yof with PMhx of HTN, HLD, COPD, GERD, CAD with 8 stents, GERD, HFpEF (last echo Jun 2019 EF50-55% impaired LV relaxation), peripheral neuropathy, chronic LBBB who presents today with an episode of dizziness and subsequent fall. Patient c/o having left sided neck pain , and feels very dizzy with any neck movement specially with range of motion. OBJECTIVE: Vital Signs Temperature 98.3 F 10/18/19 11:58 Pulse Rate 74 10/18/19 11:58 Respiratory Rate 18 10/18/19 11:58 Blood Pressure 140/84 10/18/19 11:58 O2 Sat by Pulse Oximetry (%) 100 10/18/19 11:58 GENERAL: The patient is awake, alert, and fully oriented, decreased rom of the neck , c/o dizziness. HEAD: Normal with no signs of trauma. EYES: PERRL, extraocular movements intact, sclera anicteric, conjunctiva clear. ENT: Ears normal, oropharynx clear without exudates, moist mucous membranes. NECK: Trachea midline, full range of motion, supple. LUNGS: Breath sounds equal, clear to auscultation bilaterally, no wheezes, no crackles, no accessory muscle use. HEART: Regular rate and rhythm, S1, S2 without murmur, rub or gallop. ABDOMEN: Soft, NT,ND, normoactive bowel sounds, no guarding, no rebound, no hepatosplenomegaly, no masses. EXTREMITIES: 2+ pulses, warm, well-perfused, no edema. NEUROLOGICAL: Cranial nerves II through XII grossly intact. Normal speech, gait not observed. PSYCH: Normal mood, normal affect. SKIN: Warm, dry, normal turgor, no rashes or lesions noted CBCD WBC 5.0 K/mm3 (4.0-10.0) 10/18/19 15:00 RBC 4.05 M/mm3 (3.60-5.2) 10/18/19 15:00 Hgb 12.7 GM/dL (10.7-15.3) 10/18/19 15:00 Hct 37.4 % (32.4-45.2) 10/18/19 15:00 MCV 92.4 fl (80-96) 10/18/19 15:00 MCHC 33.9 g/dl (32.0-36.0) 10/18/19 15:00 RDW 13.4 % (11.6-15.6) 10/18/19 15:00 Plt Count 240 K/MM3 (134-434) 10/18/19 15:00 MPV 9.3 fl (7.5-11.1) 10/18/19 15:00 CMP Sodium 141 mmol/L (136-145) 10/18/19 15:00 Potassium 4.1 mmol/L (3.5-5.1) 10/18/19 15:00 Chloride 107 mmol/L (98-107) 10/18/19 15:00 Carbon Dioxide 32 mmol/L (21-32) 10/18/19 15:00 Anion Gap 3 MMOL/L (8-16) L 10/18/19 15:00 BUN 12.8 mg/dL (7-18) 10/18/19 15:00 Creatinine 0.6 mg/dL (0.55-1.3) 10/18/19 15:00 Random Glucose 97 mg/dL (74-106) 10/18/19 15:00 Calcium 8.6 mg/dL (8.5-10.1) 10/18/19 15:00 Total Bilirubin 0.5 mg/dL (0.2-1) 10/18/19 15:00 AST 23 U/L (15-37) 10/18/19 15:00 ALT 26 U/L (13-61) 10/18/19 15:00 Alkaline Phosphatase 109 U/L (45-117) 10/18/19 15:00 Total Protein 7.4 g/dl (6.4-8.2) 10/18/19 15:00 Albumin 3.5 g/dl (3.4-5.0) 10/18/19 15:00 CARDIAC ENZYMES Creatine Kinase 127 U/L (26-192) 10/18/19 15:00 Troponin I < 0.02 ng/ml (0.00-0.05) 10/18/19 15:00 Home Medications Medication Instructions Recorded Losartan Potassium 100 mg PO DAILY 04/01/17 Meclizine HCl 25 mg PO DAILY 04/01/17 Metoprolol Succinate [Toprol Xl] 100 mg PO DAILY 04/01/17 Ranolazine [Ranexa] 500 mg PO BID 04/01/17 Atorvastatin Ca [Lipitor] 40 mg PO HS 04/13/17 Clopidogrel Bisulfate [Clopidogrel] 75 mg PO DAILY 10/14/19 Telmisartan [Micardis] 80 mg PO DAILY 10/14/19 Current Medications Generic Name Dose Route Start Last Admin Trade Name Freq PRN Reason Stop Dose Admin Albuterol/Ipratropium 1 amp 10/18/19 18:43 Duoneb - NEB Q6H PRN SHORTNESS OF BREATH Atorvastatin Calcium 40 mg 10/18/19 22:00 Lipitor - PO HS [facility] Clopidogrel Bisulfate 75 mg 10/19/19 10:00 Plavix - PO DAILY [facility] Cyclobenzaprine HCl 5 mg 10/18/19 22:00 Cyclobenzaprine Hcl PO HS [facility] Enoxaparin Sodium 40 mg 10/19/19 10:00 Lovenox - SQ DAILY [facility] Furosemide 20 mg 10/18/19 18:45 10/18/19 19:03 Lasix Injection - IVPUSH 20 mg DAILY [facility] Administration Meclizine HCl 25 mg 10/18/19 22:00 Antivert - PO TID EUGENE Metoprolol Tartrate 100 mg 10/18/19 22:00 Lopressor - PO BID [facility] Pregabalin 75 mg 10/18/19 22:00 Lyrica - PO BID [facility] Ranolazine 500 mg 10/18/19 22:00 Ranexa - PO BID [facility] Valsartan 320 mg 10/19/19 10:00 Diovan - PO DAILY [facility] ASSESSMENT AND PLAN: Patient is a 79 year old female with a past medical history of HTN, HLD, COPD, GERD, CAD with 8 stents, GERD, HFpEF (last echo Jun 2019 EF50-55% impaired LV relaxation), peripheral neuropathy, chronic LBBB admitted for fall secondary to dizziness episode that happened ths morning. # Acute Dizziness over chronic will continue Meclizine tid 25mg tid, neuro consult, will order MRI , NEURO ON THE CASE. # S/p Fall , FALL PRECAUTION MONITOR # Cervical neck Radiculopathy : FLEXERIL WITH roM EXERCISES # HTN: UNCONTROLLED DUE TO HAVING PAIN. WILL MONITOR # Acute chest pain r/o ACS #Acute SOB with possible decomposation #HTN: continue home telmisartan, metoprolol #hX OF cad S/P Cardiac stents: CONTINUE HOME Plavix/LIPITOR/DIOVAN #HLD: continue home Lipitor DVT PPx: Lovenox 40 mg subq daily admit to telemetry
[2019-10-18] MEDS ORDERED: ALBUTEROL SO4 2.5/IPRATROPIUM 0.5 INH SOL 3 ML VIAL.NEB. NEB PRN (18:43)
[2019-10-18] MEDS ORDERED: ASPIRIN 325 MG ENTERIC COATED TABLET (FP) ONE (18:48)
[2019-10-18] MEDS ORDERED: MECLIZINE HCL 12.5 MG TABLET ONE (18:48)
[2019-10-18] MEDS ORDERED: ATORVASTATIN CA 80 MG TABLET (FP) ONE (18:49)
--- NOTE | 2019-10-18 18:56 | HP ---
CHIEF COMPLAINT: dizziness and fall PCP: Dr. Saravanan Singh HISTORY OF PRESENT ILLNESS: Neema Bose is a 79 year old female with a past medical history of HTN, HLD, COPD, GERD, CAD with 8 stents, GERD, HFpEF (last echo Jun 2019 EF50-55% impaired LV relaxation), peripheral neuropathy, chronic LBBB who presents today with an episode of dizziness and subsequent fall. The patient had an episode of dizziness and fall for which she was briefly admitted in Jun 2019. Today the patient stated that she had been having a dizziness episode and subsequent fall. She noted that she feels dizzy when she turns her head to the left. States she has had episodes like this in the past, but this episode appears to be more severe. She denied any new activities today or trauma prior to the episode of dizziness. She noted that she had fallen and hit her head on this current episode. Endorsed nausea with the episode of dizziness without vomiting. She denied any prodromal symptoms such as palpitations, chest pain, shortness of breath, lightheadedness, visual changes, prior to the dizziness and fall. After the fall and head hit the patient complained of head and neck pain. Additionally, the patient states she had worsening of her LUE weakness today. She endorses chronic weakness of her LUE but felt that it had worsened today. Denied focal weakness of her lower extremities. Does endorse decreased sensation on her left upper and lower extremities which she stated is chronic. While she was in the ED, she endorsed a brief episode of chest pain that had resolved. On evaluation the patient stated she had some shortness of breath and stated it was difficult to breathe when she was laying down. Patient denies recent travel, sick contacts. Says that she lives alone but has family visiting her ER course was notable for: (1) UA + nitrites, 1+ LE, 10 WBC, 6576 bacteria (2) CXR with large heart and unfolded sclerotic aorta (3) Head CT with chronic L supraganglionic white matter infarct with no acute infarcts, mass effect, hemmorhage, skull fx noted (4) Head CTA without evidence of large vessel stenosis of occlusion (5) Cervical spine CT noting C3-C4 mild posterior disc osteophyte and no evidence of acute fracture Recent Travel: denies PAST MEDICAL HISTORY: as above PAST SURGICAL HISTORY: multiple cardiac stents x8, cholecystectomy, appendectomy , hernia surgeries, total abdominal hysterectomy Social History: Smoking: former smoker Alcohol: denies Drugs: denies Allergies codeine [Codeine] Allergy (Intermediate, Verified 10/18/19 11:49) Nausea vomitting,dizziness Penicillins Allergy (Intermediate, Verified 10/18/19 11:49) Rash HOME MEDICATIONS: Home Medications Medication Instructions Recorded Meclizine HCl 25 mg PO BID 04/01/17 Ranolazine [Ranexa] 500 mg PO BID 04/01/17 Atorvastatin Ca [Lipitor] 40 mg PO HS 04/13/17 Clopidogrel Bisulfate [Clopidogrel] 75 mg PO DAILY 10/14/19 Telmisartan [Micardis] 80 mg PO DAILY 10/14/19 Albuterol Sulfate Inhaler - 1 - 2 inh PO Q4H PRN 10/18/19 [Ventolin Hfa Inhaler -] Furosemide 20 mg PO DAILY 10/18/19 Metoprolol Tartrate [Lopressor] 100 mg PO BID 10/18/19 Pregabalin [Lyrica -] 75 mg PO BID 10/18/19 REVIEW OF SYSTEMS CONSTITUTIONAL: generalized weakness Absent: fever, chills, diaphoresis, malaise, loss of appetite, weight change HEENT: Absent: rhinorrhea, nasal congestion, throat pain, throat swelling, difficulty swallowing, visual changes CARDIOVASCULAR: chest pain, Absent: syncope, palpitations, irregular heart rate, peripheral edema RESPIRATORY: cough, shortness of breath, orthopnea Absent: wheezing, stridor, hemoptysis GASTROINTESTINAL: nausea Absent: abdominal pain, abdominal distension, vomiting, diarrhea, constipation, GENITOURINARY: Absent: dysuria, frequency, urgency, hesitancy, hematuria, flank pain MUSCULOSKELETAL: back pain, neck pain Absent: myalgia, arthralgia, joint swelling SKIN: Absent: rash, itching, pallor HEMATOLOGIC/IMMUNOLOGIC: Absent: easy bleeding, easy bruising, lymphadenopathy ENDOCRINE: Absent: unexplained weight gain, unexplained weight loss, heat intolerance, cold intolerance NEUROLOGIC: headache, focal weakness, dizziness, unsteady gait Absent: seizure, mental status changes, bladder or bowel incontinence PSYCHIATRIC: Absent: anxiety, depression, suicidal or homicidal ideation PHYSICAL EXAMINATION Vital Signs - 24 hr 10/18/19 11:58 Temperature 98.3 F Pulse Rate 74 Respiratory 18 Rate Blood Pressure 140/84 O2 Sat by Pulse 100 Oximetry (%) GENERAL: Awake, alert, and fully oriented, in moderate acute distress. HEAD: Normal with no signs of trauma. Spurling maneuver positive. EYES: Pupils equal, round and reactive to light, 5mm, extraocular movements intact, no noted nystagmus at rest. Unable to tolerate looking to the left without experiencing dizziness. THROAT: Oropharynx clear without exudates. Moist mucous membranes. NECK: Pain to palpation on the left side of the neck. LUNGS: Significant crackles and coarse breath sounds heard. Using some accessory muscle intermittently when lying down. No wheezes auscultated. HEART: Regular rate and rhythm, normal S1 and S2 without murmur. ABDOMEN: Soft, nontender, not distended, normoactive bowel sounds, no guarding, no rebound. MUSCULOSKELETAL: No bony deformities or tenderness. No CVA tenderness. UPPER EXTREMITIES: 2+ pulses, warm, well-perfused. No cyanosis. No clubbing. No peripheral edema. LOWER EXTREMITIES: 2+ pulses, warm, well-perfused. No calf tenderness. Trace peripheral edema. NEUROLOGICAL: Cranial nerves II-XII intact. 4/5 muscle strength on hand drip and triceps extension, Decreased sensation in the C6-C7 distribution. Decreased sensation on the left lower extremity in no dermatomal pattern. 5/5 muscle strength elsewhere. 1+ reflexes of knee and ankle jerk reflexes. PSYCHIATRIC: Cooperative. Nervous appearing. SKIN: Warm, dry, normal turgor. Laboratory Results - last 24 hr 10/18/19 10/18/19 10/18/19 13:30 15:00 15:00 WBC RBC Hgb Hct MCV MCH MCHC RDW Plt Count MPV Absolute Neuts (auto) Neutrophils % Lymphocytes % Monocytes % Eosinophils % Basophils % Nucleated RBC % PT with INR 10.20 INR 0.87 PTT (Actin FS) 36.2 Sodium 141 Potassium 4.1 Chloride 107 Carbon Dioxide 32 Anion Gap 3 L BUN 12.8 Creatinine 0.6 Est GFR (CKD-EPI)AfAm 101.90 Est GFR (CKD-EPI)NonAf 87.92 Random Glucose 97 Calcium 8.6 Magnesium 1.9 Total Bilirubin 0.5 AST 23 ALT 26 Alkaline Phosphatase 109 Creatine Kinase 127 Troponin I < 0.02 Total Protein 7.4 Albumin 3.5 Triglycerides 77 Cholesterol 186 Total LDL Cholesterol 94 HDL Cholesterol 69 H TSH 1.10 Urine Color Yellow Urine Appearance Clear Urine pH 7.5 D Ur Specific [place] 1.008 L Urine Protein Negative Urine Glucose (UA) Negative Urine Ketones Negative Urine Blood Negative Urine Nitrite Positive H Urine Bilirubin Negative Urine Urobilinogen 0.2 Ur Leukocyte Esterase 1+ H Urine WBC (Auto) 10 Urine RBC (Auto) 4 Urine Casts (Auto) 0 U Epithel Cells (Auto) 0.5 Urine Bacteria (Auto) 6576.1 Blood Type Antibody Screen 10/18/19 10/18/19 15:00 15:00 WBC 5.0 RBC 4.05 Hgb 12.7 Hct 37.4 MCV 92.4 MCH 31.3 MCHC 33.9 RDW 13.4 Plt Count 240 MPV 9.3 Absolute Neuts (auto) 3.5 Neutrophils % 70.7 Lymphocytes % 21.8 Monocytes % 5.8 Eosinophils % 1.1 Basophils % 0.6 Nucleated RBC % 0 PT with INR INR PTT (Actin FS) Sodium Potassium Chloride Carbon Dioxide Anion Gap BUN Creatinine Est GFR (CKD-EPI)AfAm Est GFR (CKD-EPI)NonAf Random Glucose Calcium Magnesium Total Bilirubin AST ALT Alkaline Phosphatase Creatine Kinase Troponin I Total Protein Albumin Triglycerides Cholesterol Total LDL Cholesterol HDL Cholesterol TSH Urine Color Urine Appearance Urine pH Ur Specific [place] Urine Protein Urine Glucose (UA) Urine Ketones Urine Blood Urine Nitrite Urine Bilirubin Urine Urobilinogen Ur Leukocyte Esterase Urine WBC (Auto) Urine RBC (Auto) Urine Casts (Auto) U Epithel Cells (Auto) Urine Bacteria (Auto) Blood Type Cancelled Antibody Screen Cancelled ASSESSMENT/PLAN: Neema Bose is a 79 year old female with a past medical history of HTN, HLD, COPD, GERD, CAD with 8 stents, GERD, HFpEF (last echo Jun 2019 EF50-55% impaired LV relaxation), peripheral neuropathy, chronic LBBB admitted for fall secondary to dizziness episode. Dizziness - history appears consistent with BPPV, however patient unable to tolerate Natalya- Hallpike at bedside - will need Gabriella maneuver - increase meclizine 25mg to tid - neurology consulted - CT scans as above - fall risk precautions - unlikely in setting of stroke as no posterior lesions identified Fall - in setting of dizziness - has residual pain in the neck - Flexeril 5mg qhs for pain - fall risk precautions - physical therapy evaluation LUE Weakness and Numbness - appears to be chronic in setting of cervical neck radiculopathy - Spurling maneuver positive - CT cervical spine as above, may need MRI as outpatient - unlikely effect of old stroke as neurologic symptoms do not correspond with location of the chronic infarct - continue home Lyrica Shortness of breath - potentially in setting of CHF decompensation as patient with orthopnea and significant crackles - CXR without infiltrates - obtain CT to evaluate - Lasix 20mg IV daily - Duoneb q6h prn - fluid restriction Chest Pain - EKG with chronic LBBB, Sgarbossa +2 low specificity - troponin negative, will repeat - cardiac monitoring - continue home Ranexa Asymptomatic Bacteruria - UA positive, Ucx sent - no current symptoms, fevers, WBC - will hold off on antibiotics and monitor HTN - continue home telmisartan, metoprolol Hx of Cardiac stents - continue home Plavix - continue Lipitor HLD - continue home Lipitor DVT PPx - Lovenox 40 mg subq daily FEN - no standing fluids, avoid fluids in hx of HFpEF - continue to monitor electrolytes and replete as necessary - sodium controlled diet Dispo - admit to telemetry Family Medical History Family History: Denies Visit type - Emergency Visit Emergency Visit: Yes ED Registration Date: 10/18/19 Care time: The patient presented to the Emergency Department on the above date and was hospitalized for further evaluation of their emergent condition. - New Patient This patient is new to me today: Yes Date on this admission: 10/18/19 - Critical Care Critical Care patient: No
[2019-10-18] MEDS: FUROSEMIDE 40 MG/4 ML INJECTABLE VIAL IVPUSH SCH (19:03)
[2019-10-18] MEDS ORDERED: METOPROLOL TARTRATE 50 MG TABLET (FP) PO ONE (20:36)
[2019-10-18] MEDS: PREGABALIN 75 MG CAPSULE PO SCH (22:00)
[2019-10-18] MEDS: ATORVASTATIN CA 40 MG TABLET (FP) PO SCH (22:00)
[2019-10-18] MEDS: RANOLAZINE E.R. 500 MG TABLET (FP) PO SCH (22:00)
[2019-10-18] MEDS: MECLIZINE HCL 25 MG TABLET (FP) PO SCH (22:00)
[2019-10-18] MEDS: CYCLOBENZAPRINE HCL 5 MG TABLET PO SCH (22:35)
[2019-10-19] MEDS: MECLIZINE HCL 25 MG TABLET (FP) PO SCH ×3 (05:47→21:28)
[2019-10-19 06:44] LABS: BASO % 0.5 % (0-2.0); EOS % 1.2 % (0-4.5); HEMATOCRIT 35.5 % (32.4-45.2); HEMOGLOBIN 11.9 GM/dL (10.7-15.3); LYMPH % 22.2 % (8-40); MCH 31.1 pg (25.7-33.7); MCHC 33.6 g/dl (32.0-36.0); MEAN CELL VOLUME 92.6 fl (80-96); MEAN PLT VOLUME 9.7 fl (7.5-11.1); NEUT % 67.1 % (42.8-82.8); PLATELET COUNT 224 K/MM3 (134-434); RBC 3.84 M/mm3 (3.60-5.2); RDW 13.5 % (11.6-15.6); WHITE BLOOD COUNT 5.5 K/mm3 (4.0-10.0)
[2019-10-19 07:00] LABS: ALBUMIN 2.9 g/dl (3.4-5.0); BILIRUBIN,TOTAL 0.7 mg/dL (0.2-1); BLOOD UREA NITROGEN 21.7 mg/dL (7-18); CALCIUM 8.1 mg/dL (8.5-10.1); CREATININE 0.8 mg/dL (0.55-1.3); MAGNESIUM 1.9 mg/dL (1.8-2.4); POTASSIUM 3.4 mmol/L (3.5-5.1); TOT PROT 6.1 g/dl (6.4-8.2)
[2019-10-19] MEDS: FUROSEMIDE 40 MG/4 ML INJECTABLE VIAL IVPUSH SCH (09:05)
[2019-10-19] MEDS: PREGABALIN 75 MG CAPSULE PO SCH ×2 (09:06→21:28)
[2019-10-19] MEDS: ENOXAPARIN NA (PORCINE) 40 MG/0.4 ML DISP.SYRIN SQ SCH (09:06)
[2019-10-19] MEDS: CLOPIDOGREL BISULFATE 75 MG TABLET (FP) PO SCH (09:06)
[2019-10-19] MEDS: RANOLAZINE E.R. 500 MG TABLET (FP) PO SCH ×2 (09:07→21:28)
--- NOTE | 2019-10-19 09:26 | PN ---
Progress Note (short form) - Note Progress Note: Patient is comfortable with no acute distress. no further headache. Vital Signs Temperature 97.7 F 10/19/19 06:00 Pulse Rate 68 10/19/19 06:00 Respiratory Rate 18 10/19/19 06:00 Blood Pressure 124/50 L 10/19/19 06:00 O2 Sat by Pulse Oximetry (%) 98 10/19/19 03:00 GENERAL: The patient is awake, alert, and fully oriented, in no acute distress. HEAD: Normal with no signs of trauma. EYES: PERRL, extraocular movements intact, sclera anicteric, conjunctiva clear. ENT: Ears normal, oropharynx clear without exudates, moist mucous membranes. NECK: Trachea midline, full range of motion, supple. LUNGS: Breath sounds equal, clear to auscultation bilaterally, no wheezes, no crackles, no accessory muscle use. HEART: Regular rate and rhythm, S1, S2 without murmur, rub or gallop. ABDOMEN: Soft, nontender, nondistended, normoactive bowel sounds, no guarding, no rebound, no hepatosplenomegaly, no masses. EXTREMITIES: 2+ pulses, warm, well-perfused, no edema. NEUROLOGICAL: Cranial nerves II through XII grossly intact. Normal speech, gait not observed. decreased ROM of the neck specially to the left. PSYCH: Normal mood, normal affect. SKIN: Warm, dry, normal turgor, no rashes or lesions noted CBCD WBC 5.5 K/mm3 (4.0-10.0) 10/19/19 05:50 RBC 3.84 M/mm3 (3.60-5.2) 10/19/19 05:50 Hgb 11.9 GM/dL (10.7-15.3) 10/19/19 05:50 Hct 35.5 % (32.4-45.2) 10/19/19 05:50 MCV 92.6 fl (80-96) 10/19/19 05:50 MCHC 33.6 g/dl (32.0-36.0) 10/19/19 05:50 RDW 13.5 % (11.6-15.6) 10/19/19 05:50 Plt Count 224 K/MM3 (134-434) 10/19/19 05:50 MPV 9.7 fl (7.5-11.1) 10/19/19 05:50 CMP Sodium 143 mmol/L (136-145) 10/19/19 05:50 Potassium 3.4 mmol/L (3.5-5.1) L 10/19/19 05:50 Chloride 108 mmol/L (98-107) H 10/19/19 05:50 Carbon Dioxide 30 mmol/L (21-32) 10/19/19 05:50 Anion Gap 5 MMOL/L (8-16) L 10/19/19 05:50 BUN 21.7 mg/dL (7-18) H 10/19/19 05:50 Creatinine 0.8 mg/dL (0.55-1.3) 10/19/19 05:50 Random Glucose 85 mg/dL (74-106) 10/19/19 05:50 Calcium 8.1 mg/dL (8.5-10.1) L 10/19/19 05:50 Total Bilirubin 0.7 mg/dL (0.2-1) 10/19/19 05:50 AST 18 U/L (15-37) 10/19/19 05:50 ALT 21 U/L (13-61) 10/19/19 05:50 Alkaline Phosphatase 98 U/L (45-117) 10/19/19 05:50 Total Protein 6.1 g/dl (6.4-8.2) L 10/19/19 05:50 Albumin 2.9 g/dl (3.4-5.0) L 10/19/19 05:50 CARDIAC ENZYMES Creatine Kinase 127 U/L (26-192) 10/18/19 15:00 Troponin I 0.02 ng/ml (0.00-0.05) 10/18/19 21:45 Current Medications Generic Name Dose Route Start Last Admin Trade Name Freq PRN Reason Stop Dose Admin Albuterol/Ipratropium 1 amp 10/18/19 18:43 Duoneb - NEB Q6H PRN SHORTNESS OF BREATH Atorvastatin Calcium 40 mg 10/18/19 22:00 10/18/19 22:00 Lipitor - PO 40 mg HS EUGENE Administration Clopidogrel Bisulfate 75 mg 10/19/19 10:00 10/19/19 09:06 Plavix - PO 75 mg DAILY EUGENE Administration Cyclobenzaprine HCl 5 mg 10/18/19 22:00 10/18/19 22:35 Cyclobenzaprine Hcl PO 5 mg HS EUGENE Administration Enoxaparin Sodium 40 mg 10/19/19 10:00 10/19/19 09:06 Lovenox - SQ 40 mg DAILY EUGENE Administration Furosemide 20 mg 10/18/19 18:45 10/19/19 09:05 Lasix Injection - IVPUSH 20 mg DAILY EUGEEN Administration Meclizine HCl 25 mg 10/18/19 22:00 10/19/19 05:47 Antivert - PO 25 mg TID EUGENE Administration Metoprolol Tartrate 100 mg 10/18/19 22:00 Lopressor - PO BID EUGENE Pregabalin 75 mg 10/18/19 22:00 10/19/19 09:06 Lyrica - PO 75 mg BID EUGENE Administration Ranolazine 500 mg 10/18/19 22:00 10/19/19 09:07 Ranexa - PO 500 mg BID EUGENE Administration Valsartan 320 mg 10/19/19 10:00 Diovan - PO DAILY [facility] Urine Test Results Urine Color Yellow 10/18/19 13:30 Urine Appearance Clear 10/18/19 13:30 Urine pH 7.5 (5.0-8.0) D 10/18/19 13:30 Ur Specific [place] 1.008 (1.010-1.035) L 10/18/19 13:30 Urine Protein Negative (NEGATIVE) 10/18/19 13:30 Urine Glucose (UA) Negative (NEGATIVE) 10/18/19 13:30 Urine Ketones Negative (NEGATIVE) 10/18/19 13:30 Urine Blood Negative (NEGATIVE) 10/18/19 13:30 Urine Nitrite Positive (NEGATIVE) H 10/18/19 13:30 Urine Bilirubin Negative (NEGATIVE) 10/18/19 13:30 Ur Leukocyte Esterase 1+ (NEGATIVE) H 10/18/19 13:30 MRI: negative, no acute infarct ASSESSMENT AND PLAN: Patient is a 79 year old female with a past medical history of HTN, HLD, COPD, GERD, CAD with 8 stents, GERD, HFpEF (last echo Jun 2019 EF50-55% impaired LV relaxation), peripheral neuropathy, chronic LBBB admitted for fall secondary to dizziness episode that happened ths morning. # Acute Dizziness over chronic : continue Meclizine tid 25mg tid, neuro consult , MRI as above, no acute infarct, NEURO ON THE CASE. # S/p Fall , FALL PRECAUTION MONITOR # Cervical neck Radiculopathy : FLEXERIL WITH roM EXERCISES. will dc her on flexeril 5mg hs for muscle spasm # HTN: CONTROLLED now. continue home telmisartan, metoprolol # Acute chest pain r/o ACS, trops negative continue home plavix /lipitor/ diovan #Hx OF cad S/P Cardiac stents: CONTINUE HOME Plavix/LIPITOR/DIOVAN #HLD: continue home Lipitor possible dc home in am Visit type - Emergency Visit Emergency Visit: Yes ED Registration Date: 10/18/19 Care time: The patient presented to the Emergency Department on the above date and was hospitalized for further evaluation of their emergent condition. - New Patient This patient is new to me today: No - Critical Care Critical Care patient: No - Discharge Referral Referred to [facility] Med P.C.: No
[2019-10-19] MEDS ORDERED: POTASSIUM CHLORIDE TABS 20 MEQ TABLET.ER (FP) PO ONE (09:46)
[2019-10-19] MEDS: METOPROLOL TARTRATE 50 MG TABLET (FP) PO SCH ×2 (10:00→23:18)
[2019-10-19] MEDS: VALSARTAN 160 MG TABLET (UD) PO SCH (10:00)
[2019-10-19] MEDS ORDERED: PATIENT'S OWN MEDICATION (NON-FORMULARY) (Telmisartan [Micardis] 80 MG) PO SCH (10:00)
[2019-10-19] MEDS ORDERED: PATIENT'S OWN MEDICATION (NON-FORMULARY) (Metoprolol Tartrate [Lopressor] 100 MG) PO SCH (10:00)
--- NOTE | 2019-10-19 10:02 | CON.CARD ---
Consult Consult Specialty:: Cardiology Referred by:: Dr. White Reason for Consultation:: Dizziness and presyncope - History of Present Illness Chief Complaint: Dizziness and presyncope History of Present Illness: 79F who had seen me for Cardiology for many years who then switched cardiologists when I moved practices because "I did not know where you went." She has a history of HTN, HLD, CAD w/ multiple prior stents (Details not available at this time- she reports the last one was at [facility] with balloon angioplasty); chronic LBBB. Presents to ER with multiple episodes dizziness, light-headedness and presyncope. No CP, sob,palps. ECG shows chronic LBBB TELE: NSR. Vitals reviewed: trend towards lowish BP noted. - History Source History Provided By: Patient, Medical Record - Past Medical History Cardio/Vascular: Yes: CAD, CHF (moderate chronic LV dysfunction), HTN, Hyperlipdemia, Other (carotid stenosis) Pulmonary: Yes: Asthma, COPD - Past Surgical History Past Surgical History: Yes: Appendectomy, Cholecystectomy, Stent (last 2013) - Alcohol/Substance Use Hx Alcohol Use: No - Smoking History Smoking history: Never smoked Have you smoked in the past 12 months: No If you are a former smoker, when did you quit?: 20 years - Social History ADL: Independent History of Recent Travel: No Home Medications - Allergies Allergies/Adverse Reactions: Allergies Allergy/AdvReac Type Severity Reaction Status Date / Time codeine [Codeine] Allergy Intermediate Nausea Verified 10/18/19 11:49 Penicillins Allergy Intermediate Rash Verified 10/18/19 11:49 - Home Medications Home Medications: Ambulatory Orders Meclizine HCl 25 mg PO BID 04/01/17 Ranolazine [Ranexa] 500 mg PO BID 04/01/17 Atorvastatin Ca [Lipitor] 40 mg PO HS 04/13/17 Clopidogrel Bisulfate [Clopidogrel] 75 mg PO DAILY 10/14/19 Telmisartan [Micardis] 80 mg PO DAILY 10/14/19 Albuterol Sulfate Inhaler - [Ventolin Hfa Inhaler -] 1 - 2 inh PO Q4H PRN Furosemide 20 mg PO DAILY 10/18/19 Metoprolol Tartrate [Lopressor] 100 mg PO BID 10/18/19 Pregabalin [Lyrica -] 75 mg PO BID 10/18/19 Family Medical History Family History: Unremarkable (not pertinenet to this presentation) Review of Systems - Review of Systems Constitutional: reports: Weakness Cardiovascular: reports: No Symptoms Respiratory: reports: No Symptoms Gastrointestinal: reports: No Symptoms Genitourinary: reports: No Symptoms Breasts: reports: No Symptoms Reported Musculoskeletal: reports: No Symptoms Integumentary: reports: No Symptoms Neurological: reports: Dizziness Endocrine: reports: No Symptoms Hematology/Lymphatic: reports: No Symptoms Psychiatric: reports: No Symptoms - Risk Factors Known Risk Factors: Yes: Hypercholesterolemia, Hypertension, Other (Known CAD) Vital Signs: Vital Signs Temperature 97.7 F 10/19/19 06:00 Pulse Rate 68 10/19/19 06:00 Respiratory Rate 18 10/19/19 09:00 Blood Pressure 124/50 L 10/19/19 06:00 O2 Sat by Pulse Oximetry (%) 96 10/19/19 09:00 Constitutional: Yes: No Distress, Calm Respiratory: Yes: CTA Bilaterally Gastrointestinal: Yes: Soft Cardiovascular: Yes: Regular Rate and Rhythm JVD: No Carotid Bruit: No PMI: Non-Displaced Heart Sounds: Yes: S1, S2 (rrr, no murmurs) Edema: No Neurological: Yes: Alert, Oriented ...Motor Strength: WNL - Other Data Labs, Other Data: CBC, BMP 10/19/19 05:50 10/19/19 05:50 INR, PTT INR 0.87 (0.83-1.09) 10/18/19 15:00 Troponin, BNP 10/18/19 10/18/19 15:00 21:45 Troponin I < 0.02 0.02 Troponin, BNP 10/18/19 10/18/19 15:00 21:45 Troponin I < 0.02 0.02 Laboratory Tests 10/18/19 10/18/19 10/19/19 15:00 21:45 05:50 WBC 5.5 Hgb 11.9 Plt Count 224 Sodium Potassium Creatinine Troponin I < 0.02 0.02 Total LDL Cholesterol 94 10/19/19 05:50 WBC Hgb Plt Count Sodium 143 Potassium 3.4 L Creatinine 0.8 Troponin I Total LDL Cholesterol Echo: Pending Prior Cardiac Procedures: PTCA with Stent Imaging - Results EKG: Image Reviewed Assessment/Plan IMP: Dizziness with presyncopal episodes Chronic LBBB CAD s/p mulitvessel PCIs Bilateral moderate carotid stenosis. Hypertension REC: 1. Dizziness: -Chronic LBBB, continue tele to r/o higher grade block -Neuro consult pending -Repeat carotid US to assess for progression of moderate b/l stenosis and assess vertebral circulation -Check orthostatics 2. Chronic LBBB: -Tele, echo for EF assessment 3. CAD: s/p multivessel PCIs -Cont ASA, statin. -Currently asx -Please try and obtain last cath report from Jose -Pt has seen me for cardiology for many years and wishes to switch back to my care. 4. Bilateral moderate carotid stenosis: -Cont ASA/Plavix/Statin -Repeat US 5. Hypertension: -softer BPs noted this AM -May need to cut back on meds, check orthostatics
--- NOTE | 2019-10-19 13:26 | CON.NEURO ---
Consult - Past Medical History Cardio/Vascular: Yes: CAD, CHF (moderate chronic LV dysfunction), HTN, Hyperlipdemia, Other (carotid stenosis) Pulmonary: Yes: Asthma, COPD - Past Surgical History Past Surgical History: Yes: Appendectomy, Cholecystectomy, Stent (last 2013) - Alcohol/Substance Use Hx Alcohol Use: No - Smoking History Smoking history: Never smoked Have you smoked in the past 12 months: No If you are a former smoker, when did you quit?: 20 years - Social History ADL: Independent History of Recent Travel: No Home Medications - Allergies Allergies/Adverse Reactions: Allergies Allergy/AdvReac Type Severity Reaction Status Date / Time codeine [Codeine] Allergy Intermediate Nausea Verified 10/18/19 11:49 Penicillins Allergy Intermediate Rash Verified 10/18/19 11:49 - Home Medications Home Medications: Ambulatory Orders Meclizine HCl 25 mg PO BID 04/01/17 Ranolazine [Ranexa] 500 mg PO BID 04/01/17 Atorvastatin Ca [Lipitor] 40 mg PO HS 04/13/17 Clopidogrel Bisulfate [Clopidogrel] 75 mg PO DAILY 10/14/19 Telmisartan [Micardis] 80 mg PO DAILY 10/14/19 Albuterol Sulfate Inhaler - [Ventolin Hfa Inhaler -] 1 - 2 inh PO Q4H PRN Furosemide 20 mg PO DAILY 10/18/19 Metoprolol Tartrate [Lopressor] 100 mg PO BID 10/18/19 Pregabalin [Lyrica -] 75 mg PO BID 10/18/19 Physical Exam-Neuro Vital Signs: Vital Signs Temperature 98.3 F 10/19/19 10:00 Pulse Rate 68 10/19/19 10:00 Respiratory Rate 18 10/19/19 10:00 Blood Pressure 146/51 L 10/19/19 10:00 O2 Sat by Pulse Oximetry (%) 96 10/19/19 09:00 Labs: CBC, BMP 10/19/19 05:50 10/19/19 05:50 INR, PTT INR 0.87 (0.83-1.09) 10/18/19 15:00 Assessment/Plan cc Left Upper extremity weakness HPI 79 year old female histoyr of HT, HLD, COPD, GERD, CAD , GERD, Periheral Neuropathy. Valentín has presented to hospital for dizziness , she describes as spinning sensation and feeling of lightheadedness. Patient has cta of brain it was unremarkable. She also comlaining of left upper and lower extremity subjective weakness, patient do have left arm and leg symptoms getting worse for one year. valentín is feeling better, sitting in chair . I spoke to daughter and nursing staff at bedside. PAST MEDICAL HISTORY: as above PAST SURGICAL HISTORY: multiple cardiac stents x8, cholecystectomy, appendectomy , hernia surgeries, total abdominal hysterectomy Social History: Smoking: former smoker Alcohol: denies Drugs: denies Allergies codeine [Codeine] Allergy (Intermediate, Verified 10/18/19 11:49) Nausea vomitting,dizziness Penicillins Allergy (Intermediate, Verified 10/18/19 11:49) Rash HOME MEDICATIONS: Home Medicationsct Medication Instructions Recorded Meclizine HCl 25 mg PO BID 04/01/17 Ranolazine [Ranexa] 500 mg PO BID 04/01/17 Atorvastatin Ca [Lipitor] 40 mg PO HS 04/13/17 Clopidogrel Bisulfate [Clopidogrel] 75 mg PO DAILY 10/14/19 Telmisartan [Micardis] 80 mg PO DAILY 10/14/19 Albuterol Sulfate Inhaler - 1 - 2 inh PO Q4H PRN 10/18/19 [Ventolin Hfa Inhaler -] Furosemide 20 mg PO DAILY 10/18/19 Metoprolol Tartrate [Lopressor] 100 mg PO BID 10/18/19 Pregabalin [Lyrica -] 75 mg PO BID 10/18/19 ROS,SH, FH reviewed in chart NEUROLOIGCAL EXAMINATION Alert orined x 3, neck is supple eomi, pupils reactive no face asymmtry there is no pronator drift there is mild hand service girl 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 came with severe dizziness and fall. Dizziness seems to be multifactorial. 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 Plan: suggest to do mri contiue statin and plavix pt carotid ultraosund cervical radiculopathy work up can be done outpatient Thankin you so much Kyle Browning MD
--- NOTE | 2019-10-19 13:36 | EKG ---
Test Reason : Blood Pressure : / mmHG Vent. Rate : 077 BPM Atrial Rate : 077 BPM P-R Int : 174 ms QRS Dur : 146 ms QT Int : 440 ms P-R-T Axes : 052 -25 096 degrees QTc Int : 497 ms POOR DATA QUALITY, INTERPRETATION MAY BE ADVERSELY AFFECTED NORMAL SINUS RHYTHM LEFT BUNDLE BRANCH BLOCK ABNORMAL ECG WHEN COMPARED WITH ECG OF 05-JUL-2019 03:42, NO SIGNIFICANT CHANGE WAS FOUND Confirmed by CORONA REBOLLAR MD ([id number]) on 10/19/2019 1:36:10 PM Referred By: Confirmed By:CORONA REBOLLAR MD
[2019-10-19] MEDS ORDERED: PT OWN MED DRAWER 7, Y5N ONE ×4 (16:37→21:26)
[2019-10-19] MEDS: CYCLOBENZAPRINE HCL 5 MG TABLET PO SCH ×2 (17:02→21:28)
[2019-10-19] MEDS: ATORVASTATIN CA 40 MG TABLET (FP) PO SCH (21:28)
[2019-10-20] MEDS: MECLIZINE HCL 25 MG TABLET (FP) PO SCH ×2 (05:38→14:57)
--- NOTE | 2019-10-20 08:54 | PN ---
Progress Note, Physician Chief Complaint: Brain MRI negative TELE: NSR, chronic LBBB History of Present Illness: not orthostatic - Current Medication List Current Medications: Active Medications Albuterol/Ipratropium (Duoneb -) 1 amp NEB Q6H PRN PRN Reason: SHORTNESS OF BREATH Atorvastatin Calcium (Lipitor -) 40 mg PO HS [facility] Last Admin: 10/19/19 21:28 Dose: 40 mg Clopidogrel Bisulfate (Plavix -) 75 mg PO DAILY [facility] Last Admin: 10/19/19 09:06 Dose: 75 mg Cyclobenzaprine HCl (Cyclobenzaprine Hcl) 5 mg PO HS [facility] Last Admin: 10/19/19 21:28 Dose: 5 mg Cyclobenzaprine HCl (Cyclobenzaprine Hcl) 5 mg PO DAILY [facility] Last Admin: 10/19/19 17:02 Dose: 5 mg Enoxaparin Sodium (Lovenox -) 40 mg SQ DAILY [facility] Last Admin: 10/19/19 09:06 Dose: 40 mg Furosemide (Lasix Injection -) 20 mg IVPUSH DAILY [facility] Last Admin: 10/19/19 09:05 Dose: 20 mg Meclizine HCl (Antivert -) 25 mg PO TID [facility] Last Admin: 10/20/19 05:38 Dose: 25 mg Metoprolol Tartrate (Lopressor -) 100 mg PO BID [facility] Last Admin: 10/19/19 23:18 Dose: Not Given Pregabalin (Lyrica -) 75 mg PO BID [facility] Last Admin: 10/19/19 21:28 Dose: 75 mg Ranolazine (Ranexa -) 500 mg PO BID [facility] Last Admin: 10/19/19 21:28 Dose: 500 mg Valsartan (Diovan -) 320 mg PO DAILY [facility] Last Admin: 10/19/19 10:00 Dose: Not Given - Objective Vital Signs: Vital Signs Temperature 97.6 F 10/20/19 06:00 Pulse Rate 72 10/20/19 06:00 Respiratory Rate 18 10/20/19 06:00 Blood Pressure 142/68 10/20/19 06:00 O2 Sat by Pulse Oximetry (%) 95 10/19/19 21:00 Constitutional: Yes: No Distress Cardiovascular: Yes: Regular Rate and Rhythm Respiratory: Yes: CTA Bilaterally Gastrointestinal: Yes: Soft (NT) Edema: No Neurological: Yes: Alert, Oriented Labs: CBC, BMP 10/19/19 05:50 10/19/19 05:50 INR, PTT INR 0.87 (0.83-1.09) 10/18/19 15:00 - ....Imaging EKG: Image Reviewed Assessment/Plan IMP: Dizziness with presyncopal episodes Chronic LBBB CAD s/p mulitvessel PCIs Bilateral moderate carotid stenosis. Hypertension REC: 1. Dizziness: -Chronic LBBB, continue tele to r/o higher grade block thus far negative. -Neuro consult reviewed, MRI brain negative. -Repeat carotid US to assess for progression of moderate b/l stenosis and assess vertebral circulation pending. -Not orthostatic. -Can d/c tele 2. Chronic LBBB: -Tele negative, echo for EF assessment 3. CAD: s/p multivessel PCIs -Cont ASA, statin. -Currently asx -Please try and obtain last cath report from Jose -Pt has seen me for cardiology for many years and wishes to switch back to my care. 4. Bilateral moderate carotid stenosis: -Cont ASA/Plavix/Statin -Repeat US pending. 5. Hypertension: -stable, not orthostatic. No change in meds required at this time.
[2019-10-20] MEDS: ENOXAPARIN NA (PORCINE) 40 MG/0.4 ML DISP.SYRIN SQ SCH (09:23)
[2019-10-20] MEDS: RANOLAZINE E.R. 500 MG TABLET (FP) PO SCH (09:24)
[2019-10-20] MEDS: METOPROLOL TARTRATE 50 MG TABLET (FP) PO SCH (09:24)
[2019-10-20] MEDS: CLOPIDOGREL BISULFATE 75 MG TABLET (FP) PO SCH (09:24)
[2019-10-20] MEDS: PREGABALIN 75 MG CAPSULE PO SCH ×2 (09:24→09:29)
[2019-10-20] MEDS: VALSARTAN 160 MG TABLET (UD) PO SCH (09:25)
--- NOTE | 2019-10-20 09:26 | PN ---
Physical Exam: SUBJECTIVE: Patient seen and examined. She reports mild dizziness when lying down and is slightly more significant when sitting or standing. She denies chest pain or shortness of breath. Overall, she is feeling better than yesterday. OBJECTIVE: Vital Signs Period Temp Pulse Resp BP Sys/Vieira Pulse Ox Last 24 Hr 97.6 F-98.5 F 68-92 18-18 113-146/51-68 95-96 GENERAL: The patient is awake, alert, and fully oriented, in no acute distress. HEAD: Normal with no signs of trauma. EYES: PERRL, extraocular movements intact, conjunctiva clear. ENT: Ears normal, nares patent, moist mucous membranes. NECK: Trachea midline, full range of motion. LUNGS: Breath sounds equal, clear to auscultation bilaterally, no wheezes, no crackles. HEART: Regular rate and rhythm, no murmur. ABDOMEN: Soft, nontender, nondistended, normoactive bowel sounds. EXTREMITIES: Warm, well-perfused, no edema. Right hip pain with movement 5/5 strength hip flexion and extension NEUROLOGICAL: Normal speech, gait not observed. Walker by bedside. PSYCH: Normal mood, normal affect. SKIN: Warm, dry, normal turgor, scattered ecchymosis on left anterior thigh and pelvis Active Medications Generic Name Dose Route Start Last Admin Trade Name Freq PRN Reason Stop Dose Admin Albuterol/Ipratropium 1 amp 10/18/19 18:43 Duoneb - NEB Q6H PRN SHORTNESS OF BREATH Atorvastatin Calcium 40 mg 10/18/19 22:00 10/19/19 21:28 Lipitor - PO 40 mg HS EUGENE Administration Clopidogrel Bisulfate 75 mg 10/19/19 10:00 10/19/19 09:06 Plavix - PO 75 mg DAILY EUGENE Administration Cyclobenzaprine HCl 5 mg 10/18/19 22:00 10/19/19 21:28 Cyclobenzaprine Hcl PO 5 mg HS EUGENE Administration Cyclobenzaprine HCl 5 mg 10/19/19 16:45 10/19/19 17:02 Cyclobenzaprine Hcl PO 5 mg DAILY EUGENE Administration Enoxaparin Sodium 40 mg 10/19/19 10:00 10/19/19 09:06 Lovenox - SQ 40 mg DAILY EUGENE Administration Furosemide 40 mg 10/20/19 10:00 Lasix - PO DAILY EUGENE Meclizine HCl 25 mg 10/18/19 22:00 10/20/19 05:38 Antivert - PO 25 mg TID EUGENE Administration Metoprolol Tartrate 100 mg 10/18/19 22:00 10/19/19 23:18 Lopressor - PO Not Given BID EUGENE Potassium Chloride 20 meq 10/20/19 10:00 K-Dur - PO DAILY EUGENE Pregabalin 75 mg 10/18/19 22:00 10/19/19 21:28 Lyrica - PO 75 mg BID EUGENE Administration Ranolazine 500 mg 10/18/19 22:00 10/19/19 21:28 Ranexa - PO 500 mg BID EUGENE Administration Valsartan 320 mg 10/19/19 10:00 10/19/19 10:00 Diovan - PO Not Given DAILY EUGENE ASSESSMENT/PLAN: d/c tele waiting for carotid studies MRI negative for acute events ATTENDING PHYSICIAN STATEMENT I saw and evaluated the patient. I reviewed the resident's note and discussed the case with the resident. I agree with the resident's findings and plan as documented. SUBJECTIVE: OBJECTIVE: ASSESSMENT AND PLAN:
[2019-10-20] MEDS ORDERED: PT OWN MED DRAWER 7, Y5N ONE (09:48)
[2019-10-20] MEDS: CYCLOBENZAPRINE HCL 5 MG TABLET PO SCH (09:50)
[2019-10-20] MEDS ORDERED: POTASSIUM CHLORIDE TABS 20 MEQ TABLET.ER (FP) PO SCH (10:00)
[2019-10-20] MEDS ORDERED: FUROSEMIDE 40 MG TABLET (FP) PO SCH (10:00)
[2019-10-20 10:33] VITALS: BP 133/76; PULSE 86
--- NOTE | 2019-10-20 10:51 | PN ---
Progress Note (short form) - Note Progress Note: 79 year old female histoyr of HT, HLD, COPD, GERD, CAD , GERD, Periheral Neuropathy. Valentín has presented to hospital for dizziness , she describes as spinning sensation and feeling of lightheadedness. Patient has cta of brain it was unremarkable. She also comlaining of left upper and lower extremity subjective weakness, patient do have left arm and leg symptoms getting worse for one year. valentín is feeling better, sitting in chair . Patient is feeling better. 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 came with severe dizziness and fall. Dizziness seems to be multifactorial. mri fo brain is normal , no evidence of actue stroke . dizziness has improved. Plan: contiue statin and plavix pt cervical radiculopathy work up can be done outpatient Thankin you so much Kyle Browning MD
[2019-10-20] MEDS ORDERED: CEFTRIAXONE 1 GM in DEXTROSE 5%-WATER - 50 ML IVPB ONE (11:45)
[2019-10-20] MEDS ORDERED: DEXTROSE 5%-WATER - 50 ML IVPB ONE (12:22)
[2019-10-20] MEDS ORDERED: cefTRIAXone SODIUM 1 GM VIAL ONE (12:22)
--- NOTE | 2019-10-20 13:44 | DS ---
Physical Exam: SUBJECTIVE: Patient seen and examined. She reports mild dizziness when lying down and is slightly more significant when sitting or standing. She denies chest pain or shortness of breath. Overall, she is feeling better than yesterday. OBJECTIVE: Vital Signs Period Temp Pulse Resp BP Sys/Vieira Pulse Ox Last 24 Hr 97.6 F-98.5 F 68-92 18-18 113-146/51-68 95-96 GENERAL: The patient is awake, alert, and fully oriented, in no acute distress. HEAD: Normal with no signs of trauma. EYES: PERRL, extraocular movements intact, conjunctiva clear. ENT: Ears normal, nares patent, moist mucous membranes. NECK: Trachea midline, full range of motion. LUNGS: Breath sounds equal, clear to auscultation bilaterally, no wheezes, no crackles. HEART: Regular rate and rhythm, no murmur. ABDOMEN: Soft, nontender, nondistended, normoactive bowel sounds. EXTREMITIES: Warm, well-perfused, no edema. Right hip pain with movement 5/5 strength hip flexion and extension NEUROLOGICAL: Normal speech, gait not observed. Walker by bedside. PSYCH: Normal mood, normal affect. SKIN: Warm, dry, normal turgor, scattered ecchymosis on left anterior thigh and pelvis HOSPITAL COURSE: 79 year old female with a past medical history of HTN, HLD, COPD, GERD, CAD with 8 stents, GERD, HFpEF (last echo Jun 2019 EF50-55% impaired LV relaxation) , peripheral neuropathy, chronic LBBB who presents with an episode of dizziness and subsequent fall. MRI was negative for acute pathology. Pt reports some left hip/thigh pain and ecchymosis with associated with fall.Pt reports mild dysuria. UA nitrite pos with 5600 bacteria. Urine cx growing LFGNB >100k cfus. Gave pt 1 dose of ceftriaxone prior to d/c and will take 5 days of ceftin. Carotid doppler studies pending. D/c'ed Lyrica as this could be a cause of dizziness. She was advised to f/u with cards, neuro, PCP, and ortho for b/l knee pain. Date of Admission:10/18/19 Date of Discharge: 10/20/19 Minutes to complete discharge: 35 Discharge Summary Problems reviewed: Yes Reason For Visit: CVA Current Active Problems Vertigo (Chronic) Condition: Fair - Instructions Diet, Activity, Other Instructions: You came into the hospital for neck pain and dizziness. While You were in the hospital you had an MRI of your brain which was negative. Your urine culture shows that you have a UTI. Please continue to take Ceftin 250 mg twice a day for 5 days. Please start taking this medication tomorrow. Please do not continue to take Lyrica You may take Flexeril . Please follow up with your primary care physician in one week regarding your chronic medical conditions Please follow up with your assistant track coach, Dr. Zhou, regarding further cardiac testing. Please follow up with your neurologist, Dr. Browning, in one week regarding your dizziness. Please follow up with the orthopedic physician, Dr. Hernández for your knees If you have any new, worsening, or concerning symptoms please return to the ED or call 911. Referrals: Kyle Browning MD [Staff Physician] - Puneet Zhou MD [Staff Physician] - Jaime Hernández DO [Staff Physician] - 1 Week Disposition: HOME - Home Medications Comprehensive Discharge Medication List: Ambulatory Orders Meclizine HCl 25 mg PO BID 04/01/17 Ranolazine [Ranexa] 500 mg PO BID 04/01/17 Atorvastatin Ca [Lipitor] 40 mg PO HS 04/13/17 Clopidogrel Bisulfate [Clopidogrel] 75 mg PO DAILY 10/14/19 Telmisartan [Micardis] 80 mg PO DAILY 10/14/19 Albuterol Sulfate Inhaler - [Ventolin HFA Inhaler -] 1 - 2 inh PO Q4H PRN Furosemide 20 mg PO DAILY 10/18/19 Metoprolol Tartrate [Lopressor] 100 mg PO BID 10/18/19 Cefuroxime Axetil [Ceftin -] 250 mg PO BID 5 Days #10 tablet 10/20/19 Cyclobenzaprine HCl 5 mg PO HS #15 tablet 10/20/19 This patient is new to me today: Yes Date on this admission: 10/20/19 Emergency Visit: Yes ED Registration Date: 10/18/19 Care time: The patient presented to the Emergency Department on the above date and was hospitalized for further evaluation of their emergent condition. Critical Care patient: No - Discharge Referral Referred to [facility] Med P.C.: No ATTENDING PHYSICIAN STATEMENT I saw and evaluated the patient. I reviewed the resident's note and discussed the case with the resident. I agree with the resident's findings and plan as documented. SUBJECTIVE: OBJECTIVE: ASSESSMENT AND PLAN:
[2019-10-20 14:46] VITALS: TEMP 98.6
--- NOTE | 2019-10-20 17:26 | PN ---
Teaching Attending Note Name of Resident: Roya Lora ATTENDING PHYSICIAN STATEMENT I saw and evaluated the patient. I reviewed the resident's note and discussed the case with the resident. I agree with the resident's findings and plan as documented. SUBJECTIVE: Patient is comfortable with no acute distress. Vital Signs Temperature 98.6 F 10/20/19 14:00 Pulse Rate 86 10/20/19 14:00 Respiratory Rate 18 10/20/19 14:00 Blood Pressure 133/76 10/20/19 14:00 O2 Sat by Pulse Oximetry (%) 97 10/20/19 09:00 GENERAL: The patient is awake, alert, and fully oriented, in no acute distress. HEAD: Normal with no signs of trauma. EYES: PERRL, extraocular movements intact, sclera anicteric, conjunctiva clear. ENT: Ears normal, oropharynx clear without exudates, moist mucous membranes. NECK: Trachea midline, full range of motion, supple. LUNGS: Breath sounds equal, clear to auscultation bilaterally, no wheezes, no crackles, no accessory muscle use. HEART: Regular rate and rhythm, S1, S2 +, no murmur, rub or gallop. ABDOMEN: Soft, NT,ND, normoactive bowel sounds, no guarding, no rebound, no hepatosplenomegaly, no masses. EXTREMITIES: 2+ pulses, warm, well-perfused, no edema. NEUROLOGICAL: Cranial nerves II through XII grossly intact. Normal speech, gait is stable , improved ROM of the neck PSYCH: Normal mood, normal affect. SKIN: Warm, dry, normal turgor, no rashes or lesions noted CBCD WBC 5.5 K/mm3 (4.0-10.0) 10/19/19 05:50 RBC 3.84 M/mm3 (3.60-5.2) 10/19/19 05:50 Hgb 11.9 GM/dL (10.7-15.3) 10/19/19 05:50 Hct 35.5 % (32.4-45.2) 10/19/19 05:50 MCV 92.6 fl (80-96) 10/19/19 05:50 MCHC 33.6 g/dl (32.0-36.0) 10/19/19 05:50 RDW 13.5 % (11.6-15.6) 10/19/19 05:50 Plt Count 224 K/MM3 (134-434) 10/19/19 05:50 MPV 9.7 fl (7.5-11.1) 10/19/19 05:50 CMP Sodium 143 mmol/L (136-145) 10/19/19 05:50 Potassium 3.4 mmol/L (3.5-5.1) L 10/19/19 05:50 Chloride 108 mmol/L (98-107) H 10/19/19 05:50 Carbon Dioxide 30 mmol/L (21-32) 10/19/19 05:50 Anion Gap 5 MMOL/L (8-16) L 10/19/19 05:50 BUN 21.7 mg/dL (7-18) H 10/19/19 05:50 Creatinine 0.8 mg/dL (0.55-1.3) 10/19/19 05:50 Random Glucose 85 mg/dL (74-106) 10/19/19 05:50 Calcium 8.1 mg/dL (8.5-10.1) L 10/19/19 05:50 Total Bilirubin 0.7 mg/dL (0.2-1) 10/19/19 05:50 AST 18 U/L (15-37) 10/19/19 05:50 ALT 21 U/L (13-61) 10/19/19 05:50 Alkaline Phosphatase 98 U/L (45-117) 10/19/19 05:50 Total Protein 6.1 g/dl (6.4-8.2) L 10/19/19 05:50 Albumin 2.9 g/dl (3.4-5.0) L 10/19/19 05:50 CARDIAC ENZYMES Creatine Kinase 127 U/L (26-192) 10/18/19 15:00 Troponin I 0.02 ng/ml (0.00-0.05) 10/18/19 21:45 Current Medications Generic Name Dose Route Start Last Admin Trade Name Freq PRN Reason Stop Dose Admin Albuterol/Ipratropium 1 amp 10/18/19 18:43 Duoneb - NEB Q6H PRN SHORTNESS OF BREATH Atorvastatin Calcium 40 mg 10/18/19 22:00 10/18/19 22:00 Lipitor - PO 40 mg HS EUGENE Administration Clopidogrel Bisulfate 75 mg 10/19/19 10:00 10/19/19 09:06 Plavix - PO 75 mg DAILY EUGENE Administration Cyclobenzaprine HCl 5 mg 10/18/19 22:00 10/18/19 22:35 Cyclobenzaprine Hcl PO 5 mg HS EUGENE Administration Enoxaparin Sodium 40 mg 10/19/19 10:00 10/19/19 09:06 Lovenox - SQ 40 mg DAILY EUGENE Administration Furosemide 20 mg 10/18/19 18:45 10/19/19 09:05 Lasix Injection - IVPUSH 20 mg DAILY EUGENE Administration Meclizine HCl 25 mg 10/18/19 22:00 10/19/19 05:47 Antivert - PO 25 mg TID EUGENE Administration Metoprolol Tartrate 100 mg 10/18/19 22:00 Lopressor - PO BID EUGENE Pregabalin 75 mg 10/18/19 22:00 10/19/19 09:06 Lyrica - PO 75 mg BID EUGENE Administration Ranolazine 500 mg 10/18/19 22:00 10/19/19 09:07 Ranexa - PO 500 mg BID EUGENE Administration Valsartan 320 mg 10/19/19 10:00 Diovan - PO DAILY [facility] Urine Test Results Urine Color Yellow 10/18/19 13:30 Urine Appearance Clear 10/18/19 13:30 Urine pH 7.5 (5.0-8.0) D 10/18/19 13:30 Ur Specific [place] 1.008 (1.010-1.035) L 10/18/19 13:30 Urine Protein Negative (NEGATIVE) 10/18/19 13:30 Urine Glucose (UA) Negative (NEGATIVE) 10/18/19 13:30 Urine Ketones Negative (NEGATIVE) 10/18/19 13:30 Urine Blood Negative (NEGATIVE) 10/18/19 13:30 Urine Nitrite Positive (NEGATIVE) H 10/18/19 13:30 Urine Bilirubin Negative (NEGATIVE) 10/18/19 13:30 Ur Leukocyte Esterase 1+ (NEGATIVE) H 10/18/19 13:30 MRI: negative, no acute infarct ASSESSMENT AND PLAN: Patient is a 79 year old female with a past medical history of HTN, HLD, COPD, GERD, CAD with 8 stents, GERD, HFpEF (last echo Jun 2019 EF50-55% impaired LV relaxation), peripheral neuropathy, chronic LBBB admitted for fall secondary to dizziness episode that happened ths morning. # Acute Dizziness over chronic :improved no further dizziness, continue Meclizine tid 25mg tid, neuro consult, MRI as above, no acute infarct. # S/p Fall , FALL PRECAUTION MONITOR # Cervical neck Radiculopathy : FLEXERIL continue hs for muscle spasm # HTN: CONTROLLED now. continue home telmisartan, metoprolol # Acute chest pain, trops negative continue home plavix /lipitor/ diovan #Hx OF cad S/P Cardiac stents: CONTINUE HOME Plavix/LIPITOR/DIOVAN #HLD: continue home Lipitor possible dc home in am
== END 2019-10-20 16:30 | disposition home or self-care (01) | DRG 74 ==
LOC: JER 11:39 → JERBED 16:36 → J4S 20:51
PROVIDERS: ADMIT Internal Medicine; ATTEND Internal Medicine
DX: M54.12 Radiculopathy, cervical region (principal); N39.0 Urinary tract infection, site not specified; R42 Dizziness and giddiness; I10 Essential (primary) hypertension; E78.5 Hyperlipidemia, unspecified; K21.9 Gastro-esophageal reflux disease without esophagitis; I25.10 Atherosclerotic heart disease of native coronary artery without angina pectoris; Z95.5 Presence of coronary angioplasty implant and graft; G62.9 Polyneuropathy, unspecified; R07.9 Chest pain, unspecified; I44.7 Left bundle-branch block, unspecified; R55 Syncope and collapse
CPT/HCPCS: 36415; 70450-TC; 70496-TC; 70551-TC; 71045-TC-FY; 71250-TC; 72125-TC; 80053; 80061; 81003; 82550; 83721; 83735; 84100; 84443; 84484; 85025; 85610; 85730; 87086; 87186; 93005; 93010; 93880-TC; 97116-GP; 97161-GP; 99285-25; J0131; J7030

== ENCOUNTER 2021-01-16 06:19 | Inpatient (IN) | payer OTHER ==
[2021-01-16 06:41] VITALS: BMI 29.2
[2021-01-16 07:31] LABS: BASO % 0.7 % (0-2.0); EOS % 1.5 % (0-4.5); HEMATOCRIT 43.6 % (32.4-45.2); HEMOGLOBIN 15.1 GM/dL (10.7-15.3); MCH 32.2 pg (25.7-33.7); MCHC 34.7 g/dl (32.0-36.0); MEAN CELL VOLUME 92.9 fl (80-96); MEAN PLT VOLUME 9.6 fl (7.5-11.1); MONO % 8.2 % (3.8-10.2); NEUT % 63.6 % (42.8-82.8); PLATELET COUNT 261 K/MM3 (134-434); RBC 4.69 M/mm3 (3.60-5.2); RDW 12.6 % (11.6-15.6); WHITE BLOOD COUNT 7.9 K/mm3 (4.0-10.0)
[2021-01-16] MEDS ORDERED: ASPIRIN 81 MG CHEWABLE TABLETS PO ONE (07:34)
[2021-01-16] MEDS ORDERED: NITROGLYCERIN SUBLINGUAL 1/150 0.4 MG TAB SL ONE (07:35)
[2021-01-16] MEDS ORDERED: MECLIZINE HCL 25 MG TABLET (FP) PO ONE (07:36)
[2021-01-16] MEDS ORDERED: LOSARTAN POTASSIUM 50 MG TABLET PO ONE (07:37)
[2021-01-16 07:43] LABS: CALCIUM 8.9 mg/dL (8.5-10.1)
[2021-01-16 07:44] LABS: ALBUMIN 3.8 g/dl (3.4-5.0); BLOOD UREA NITROGEN 24.5 mg/dL (7-18)
[2021-01-16 07:46] LABS: CREATININE 0.9 mg/dL (0.55-1.3)
[2021-01-16 07:48] LABS: BILIRUBIN,TOTAL 0.6 mg/dL (0.2-1); TOT PROT 8.2 g/dl (6.4-8.2)
[2021-01-16] MEDS ORDERED: MECLIZINE HCL 25 MG TABLET (FP) ONE (07:49)
[2021-01-16] MEDS ORDERED: NITROGLYCERIN SUBLINGUAL 1/150 0.4 MG TAB ONE (07:49)
[2021-01-16] MEDS ORDERED: LOSARTAN POTASSIUM 50 MG TABLET ONE (07:49)
[2021-01-16] MEDS ORDERED: ASPIRIN COATED 81 MG TABLET.EC ONE (07:49)
[2021-01-16] MEDS ORDERED: LABETALOL HCL 5 MG/1 ML (100MG/20 ML VIAL) IVPUSH ONE (07:51)
[2021-01-16] MEDS ORDERED: morphine CARPU-JECT 4 MG/1 ML DISP.SYRIN IVPUSH ONE (07:52)
[2021-01-16] MEDS ORDERED: MORPHINE SULFATE 2 MG/ML VIAL ONE (08:04)
[2021-01-16 08:36] LABS: INR 0.95 (0.83-1.09); PROTHROMBIN TIME (PATIENT) 11.5 SEC (9.7-13.0)
[2021-01-16 08:39] LABS: ACTIVATED PTT 29.5 SECONDS (25.2-36.5)
[2021-01-16 11:07] LABS: N-TERMINAL BNP 1237.8 pg/ml (5-450)
[2021-01-16] MEDS ORDERED: ALBUTEROL SO4 2.5/IPRATROPIUM 0.5 INH SOL 3 ML VIAL.NEB. NEB ONE ×3 (13:18→13:47)
[2021-01-16] MEDS: ALBUTEROL SO4 2.5/IPRATROPIUM 0.5 INH SOL 3 ML VIAL.NEB. NEB SCH ×4 (13:21→14:13)
[2021-01-16] MEDS ORDERED: ALBUTEROL SO4 HFA INHALER IH PRN (22:53)
[2021-01-16] MEDS: RANOLAZINE E.R. 500 MG TABLET (FP) PO SCH (23:22)
[2021-01-17] MEDS: METOPROLOL TARTRATE 50 MG TABLET (FP) PO SCH ×2 (03:00→09:51)
[2021-01-17 08:30] LABS: BASO % 0.6 % (0-2.0); EOS % 1.6 % (0-4.5); HEMATOCRIT 39.2 % (32.4-45.2); HEMOGLOBIN 13.7 GM/dL (10.7-15.3); LYMPH % 31.7 % (8-40); MCH 32.6 pg (25.7-33.7); MEAN CELL VOLUME 93.1 fl (80-96); MEAN PLT VOLUME 9.6 fl (7.5-11.1); MONO % 8.4 % (3.8-10.2); NEUT % 57.7 % (42.8-82.8); PLATELET COUNT 258 K/MM3 (134-434); RBC 4.21 M/mm3 (3.60-5.2); RDW 12.8 % (11.6-15.6); WHITE BLOOD COUNT 5.6 K/mm3 (4.0-10.0)
[2021-01-17 09:03] LABS: BLOOD UREA NITROGEN 17.1 mg/dL (7-18)
[2021-01-17 09:04] LABS: ALBUMIN 3.2 g/dl (3.4-5.0); CALCIUM 8.2 mg/dL (8.5-10.1)
[2021-01-17 09:05] LABS: BILIRUBIN,TOTAL 0.5 mg/dL (0.2-1)
[2021-01-17 09:06] LABS: TOT PROT 6.8 g/dl (6.4-8.2)
[2021-01-17 09:07] LABS: CREATININE 0.7 mg/dL (0.55-1.3); PHOSPHOROUS 3.5 mg/dL (2.5-4.9)
[2021-01-17] MEDS ORDERED: PT OWN MED DRAWER 7, Y5N ONE (09:48)
[2021-01-17] MEDS: RANOLAZINE E.R. 500 MG TABLET (FP) PO SCH (09:52)
[2021-01-17] MEDS ORDERED: CLOPIDOGREL BISULFATE 75 MG TABLET (FP) PO SCH (10:00)
[2021-01-17] MEDS ORDERED: FUROSEMIDE 40 MG TABLET (FP) PO SCH (10:00)
[2021-01-17] MEDS ORDERED: LOSARTAN POTASSIUM 50 MG TABLET PO SCH (10:00)
[2021-01-17] MEDS ORDERED: BUDESONIDE/FORMETEROL FUMARATE 80/4.5 mcg INHALER IH SCH (10:00)
[2021-01-17] MEDS ORDERED: ENOXAPARIN NA (PORCINE) 40 MG/0.4 ML DISP.SYRIN SQ SCH (10:00)
[2021-01-17] MEDS ORDERED: MECLIZINE HCL 25 MG TABLET (FP) PO SCH (10:00)
[2021-01-17 14:49] VITALS: PULSE 73
[2021-01-17] MEDS ORDERED: FUROSEMIDE 40 MG/4 ML INJECTABLE VIAL IVPUSH SCH (18:15)
[2021-01-17] MEDS ORDERED: ASPIRIN COATED 81 MG TABLET.EC PO SCH (18:15)
[2021-01-17 19:01] VITALS: BP 162/72; TEMP 99.2
[2021-01-17] MEDS ORDERED: amLODIPine BESYLATE 5 MG TABLET (FP) PO ONE (19:51)
[2021-01-17] MEDS ORDERED: ATORVASTATIN CA 40 MG TABLET (FP) PO SCH ×2 (22:00)
[2021-01-17] MEDS ORDERED: ENOXAPARIN NA (PORCINE) 80 MG/0.8 ML DISP.SYRIN SQ SCH (22:00)
== END 2021-01-17 22:21 | disposition short-term general hospital (02) | DRG 281 ==
LOC: JER 06:19 → JERBED 10:30 → J4W 15:20 → OBSVTOIN 22:56
PROVIDERS: ADMIT Internal Medicine; ATTEND Internal Medicine
DX: I21.4 Non-ST elevation (NSTEMI) myocardial infarction (principal); I16.1 Hypertensive emergency; I50.42 Chronic combined systolic (congestive) and diastolic (congestive) heart failure; I10 Essential (primary) hypertension; E78.5 Hyperlipidemia, unspecified; J44.9 Chronic obstructive pulmonary disease, unspecified; K21.9 Gastro-esophageal reflux disease without esophagitis; I25.10 Atherosclerotic heart disease of native coronary artery without angina pectoris; G62.9 Polyneuropathy, unspecified; I44.7 Left bundle-branch block, unspecified; Z95.5 Presence of coronary angioplasty implant and graft; I11.0 Hypertensive heart disease with heart failure; I65.29 Occlusion and stenosis of unspecified carotid artery
CPT/HCPCS: 36415; 71045-TC-FY; 71275-TC; 74174-TC; 80053; 80061; 82550; 82553; 82962; 83036; 83721; 83735; 83880; 84100; 84132; 84436; 84443; 84484; 85025; 85610; 85730; 93005; 93010; 99285-25; C9803; G0378; Q9967; U0003; U0005

== ENCOUNTER 2021-01-30 18:15 | Emergency (ER) | payer OTHER ==
[2021-01-30 18:29] VITALS: TEMP 97.9; BMI 30.2
[2021-01-30] MEDS ORDERED: ASPIRIN 81 MG CHEWABLE TABLETS PO ONE (18:57)
[2021-01-30] MEDS ORDERED: ASPIRIN 81 MG CHEWABLE TABLETS ONE (19:11)
[2021-01-30] MEDS ORDERED: ACETAMINOPHEN 1000 MG/100 ML VIAL (NON FORMULARY) IVPB ONE (20:15)
[2021-01-30] MEDS ORDERED: ACETAMINOPHEN INJECTION 100 ML IVPB ONE (20:51)
[2021-01-30 21:12] LABS: BASO % 0.8 % (0-2.0); EOS % 3.1 % (0-4.5); HEMATOCRIT 35.9 % (32.4-45.2); LYMPH % 23.1 % (8-40); MCH 31.4 pg (25.7-33.7); MCHC 33.5 g/dl (32.0-36.0); MEAN CELL VOLUME 93.6 fl (80-96); MEAN PLT VOLUME 9.5 fl (7.5-11.1); MONO % 6.9 % (3.8-10.2); NEUT % 66.1 % (42.8-82.8); PLATELET COUNT 249 K/MM3 (134-434); RBC 3.84 M/mm3 (3.60-5.2); RDW 12.5 % (11.6-15.6)
[2021-01-30] MEDS ORDERED: DEXAMETHASONE SOD PHOSPHATE 10 MG/1 ML VIAL IVPUSH ONE (21:19)
[2021-01-30 21:21] LABS: INR 0.9 (0.83-1.09); PROTHROMBIN TIME (PATIENT) 10.9 SEC (9.7-13.0)
[2021-01-30 21:23] LABS: ACTIVATED PTT 29.1 SECONDS (25.2-36.5)
[2021-01-30 21:27] LABS: CHLORIDE 107 mmol/L (98-107); SODIUM 142 mmol/L (136-145)
[2021-01-30 21:29] LABS: ANION GAP 5 MMOL/L (8-16); CO2 30 mmol/L (21-32)
[2021-01-30 21:30] LABS: ALBUMIN 3.5 g/dl (3.4-5.0); BLOOD UREA NITROGEN 19.5 mg/dL (7-18); GLUCOSE,RANDOM 107 mg/dL (74-106); MAGNESIUM 2.3 mg/dL (1.8-2.4)
[2021-01-30 21:33] LABS: CREATININE 0.8 mg/dL (0.55-1.3); SGOT/AST 23 U/L (15-37); SGPT/ALT 29 U/L (13-61)
[2021-01-30 21:34] LABS: BILIRUBIN,TOTAL 0.3 mg/dL (0.2-1); CHOLESTEROL 178 mg/dL (50-200); TOT PROT 7.1 g/dl (6.4-8.2)
[2021-01-30 21:35] LABS: ALK PHOS 107 U/L (45-117); HDL CHOLESTEROL 56 mg/dL (40-60); TRIGLYCERIDES 118 mg/dL (0-150)
[2021-01-30 21:36] LABS: LDL CHOLESTEROL (ONLY SJRH) 91 mg/dL (5-100)
[2021-01-30] MEDS ORDERED: DEXAMETHASONE SOD PHOSPHATE 10 MG/1 ML VIAL ONE (21:42)
[2021-01-30 22:38] VITALS: BP 168/92; PULSE 86
== END 2021-01-30 22:46 | disposition home or self-care (01) ==
LOC: JER 18:15
PROC: 3E0333Z Introduction of Anti-inflammatory into Peripheral Vein, Percutaneous Approach (ICD-10-PCS; principal; 2021-01-30)
PROC: 3E033GC Introduction of Other Therapeutic Substance into Peripheral Vein, Percutaneous Approach (ICD-10-PCS; 2021-01-30)
DX: S40.862A Insect bite (nonvenomous) of left upper arm, initial encounter (principal)
CPT/HCPCS: 36415; 70450-TC; 80053; 80061; 82550; 83721; 83735; 84484; 85025; 85610; 85730; 86850; 86900; 86901; 93005; 93010; 96374; 96375; 99285-25; C9803; J0131; J1100; U0003; U0005

== ENCOUNTER 2021-02-26 20:27 | Inpatient (IN) | payer OTHER ==
[2021-02-26] MEDS ORDERED: METOPROLOL TARTRATE 50 MG TABLET (FP) PO ONE (20:59)
[2021-02-26] MEDS ORDERED: METOPROLOL TARTRATE 50 MG TABLET (FP) ONE (21:06)
[2021-02-26 22:09] LABS: BASO % 0.8 % (0-2.0); EOS % 1.5 % (0-4.5); HEMATOCRIT 40.8 % (32.4-45.2); HEMOGLOBIN 13.4 GM/dL (10.7-15.3); LYMPH % 15.3 % (8-40); MCHC 32.9 g/dl (32.0-36.0); MEAN CELL VOLUME 94.1 fl (80-96); MEAN PLT VOLUME 9.2 fl (7.5-11.1); MONO % 6.7 % (3.8-10.2); NEUT % 75.7 % (42.8-82.8); PLATELET COUNT 339 10^3/uL (134-434); RBC 4.34 M/mm3 (3.60-5.2); RDW 13.5 % (11.6-15.6); WHITE BLOOD COUNT 7.5 K/mm3 (4.0-10.0)
[2021-02-26 22:15] LABS: INR 0.92 (0.83-1.09); PROTHROMBIN TIME (PATIENT) 11.4 SEC (9.7-13.0)
[2021-02-26 22:18] LABS: ACTIVATED PTT 29.9 SECONDS (25.2-36.5)
[2021-02-26 22:28] LABS: CHLORIDE 104 mmol/L (98-107); SODIUM 140 mmol/L (136-145)
[2021-02-26 22:30] LABS: ALBUMIN 3.9 g/dl (3.4-5.0); ANION GAP 6 MMOL/L (8-16); CALCIUM 9.2 mg/dL (8.5-10.1); CO2 30 mmol/L (21-32)
[2021-02-26 22:31] LABS: BLOOD UREA NITROGEN 23.1 mg/dL (7-18); GLUCOSE,RANDOM 104 mg/dL (74-106)
[2021-02-26 22:33] LABS: SGPT/ALT 23 U/L (13-61)
[2021-02-26 22:34] LABS: CREATININE 0.9 mg/dL (0.55-1.3); SGOT/AST 20 U/L (15-37)
[2021-02-26 22:35] LABS: BILIRUBIN,TOTAL 0.4 mg/dL (0.2-1); TOT PROT 7.9 g/dl (6.4-8.2)
[2021-02-26 22:36] LABS: ALK PHOS 118 U/L (45-117)
[2021-02-26] MEDS ORDERED: ASPIRIN 81 MG CHEWABLE TABLETS PO ONE (23:06)
[2021-02-26] MEDS ORDERED: ASPIRIN 81 MG CHEWABLE TABLETS ONE (23:34)
[2021-02-27] MEDS ORDERED: ALBUTEROL SO4 2.5/IPRATROPIUM 0.5 INH SOL 3 ML VIAL.NEB. NEB ONE (00:16)
[2021-02-27 02:27] LABS: EPI CELLS 15 /uL (0-25.1); HYALINE CASTS 2 /uL (0-3.1); PH,URINE 7.5 (5.0-8.0); URINE APPEARANCE CLOUDY; URINE BACTERIA 4719 /uL (0-1359); URINE BILIRUBIN NEGATIVE (NEGATIVE); URINE COLOR YELLOW; URINE GLUCOSE (UA) NEGATIVE (NEGATIVE); URINE KETONE NEGATIVE (NEGATIVE); URINE LEUK ESTERASE 2+ (NEGATIVE); URINE NITRITE POSITIVE (NEGATIVE); URINE PROTEIN NEGATIVE (NEGATIVE); URINE RBC 35 /uL (0-23.9); URINE WBC 49 /uL (0-25.8)
[2021-02-27] MEDS ORDERED: ACETAMINOPHEN 325 MG TABLET (FP) PO PRN (02:59)
[2021-02-27] MEDS ORDERED: ALBUTEROL SO4 HFA INHALER IH PRN (03:04)
[2021-02-27] MEDS ORDERED: CLOPIDOGREL BISULFATE 75 MG TABLET (FP) PO ONE (03:27)
[2021-02-27 04:47] VITALS: BMI 30.5
[2021-02-27] MEDS ORDERED: cefTRIAXone SODIUM 1 GM VIAL ONE (09:28)
[2021-02-27] MEDS ORDERED: DEXTROSE 5%-WATER - 50 ML IVPB ONE (09:28)
[2021-02-27] MEDS: ASPIRIN 81 MG CHEWABLE TABLETS PO SCH (09:54)
[2021-02-27] MEDS: ENOXAPARIN NA (PORCINE) 40 MG/0.4 ML DISP.SYRIN SQ SCH (09:54)
[2021-02-27] MEDS: GABAPENTIN 300 MG CAPSULE PO SCH ×2 (09:54→20:59)
[2021-02-27] MEDS: RANOLAZINE E.R. 1,000 MG TABLET (FP) PO SCH ×2 (09:54→20:59)
[2021-02-27] MEDS: CEFTRIAXONE 1 GM in DEXTROSE 5%-WATER - 50 ML IVPB SCH (09:54)
[2021-02-27] MEDS: FUROSEMIDE 20 MG TABLET (FP) PO SCH (09:55)
[2021-02-27] MEDS ORDERED: RANOLAZINE E.R. 500 MG TABLET (FP) PO SCH (10:00)
[2021-02-27] MEDS ORDERED: PT OWN MED DRAWER 7, Y5N ONE (14:02)
[2021-02-27] MEDS: BUDESONIDE/FORMETEROL FUMARATE 80/4.5 mcg INHALER IH SCH ×2 (14:03→21:01)
[2021-02-27] MEDS ORDERED: VALSARTAN 80 MG TABLET PO ONE (14:18)
[2021-02-27] MEDS: METOPROLOL TARTRATE 50 MG TABLET (FP) PO SCH ×2 (14:39→20:59)
[2021-02-27] MEDS ORDERED: ATORVASTATIN CA 80 MG TABLET (FP) PO SCH (22:00)
[2021-02-28 07:29] LABS: BASO % 0.9 % (0-2.0); EOS % 2.5 % (0-4.5); HEMATOCRIT 38.6 % (32.4-45.2); HEMOGLOBIN 12.6 GM/dL (10.7-15.3); LYMPH % 30.6 % (8-40); MCHC 32.7 g/dl (32.0-36.0); MEAN CELL VOLUME 94.8 fl (80-96); MEAN PLT VOLUME 9.6 fl (7.5-11.1); MONO % 9.5 % (3.8-10.2); NEUT % 56.5 % (42.8-82.8); PLATELET COUNT 286 10^3/uL (134-434); RBC 4.07 M/mm3 (3.60-5.2); RDW 13.2 % (11.6-15.6); WHITE BLOOD COUNT 4.8 K/mm3 (4.0-10.0)
[2021-02-28] MEDS ORDERED: ALPRAZolam 1 MG TABLET PO PRN (07:49)
[2021-02-28] MEDS ORDERED: LACTULOSE 20 GM/30 ML UDC (FOR ORAL USE ONLY) PO PRN (07:50)
[2021-02-28] MEDS ORDERED: POLYETHYLENE GLYCOL 3350 119 GM BTL PO PRN (07:50)
[2021-02-28 08:12] LABS: CALCIUM 8.7 mg/dL (8.5-10.1)
[2021-02-28 08:13] LABS: BLOOD UREA NITROGEN 17.7 mg/dL (7-18); MAGNESIUM 2.2 mg/dL (1.8-2.4)
[2021-02-28 08:16] LABS: CREATININE 0.7 mg/dL (0.55-1.3); PHOSPHOROUS 3.4 mg/dL (2.5-4.9)
[2021-02-28 08:17] LABS: BILIRUBIN,TOTAL 0.7 mg/dL (0.2-1)
[2021-02-28 08:18] LABS: TOT PROT 6.6 g/dl (6.4-8.2)
[2021-02-28 08:31] LABS: ALBUMIN 3.1 g/dl (3.4-5.0)
[2021-02-28] MEDS ORDERED: cefTRIAXone SODIUM 1 GM VIAL ONE (08:49)
[2021-02-28] MEDS ORDERED: DEXTROSE 5%-WATER - 50 ML IVPB ONE (08:49)
[2021-02-28] MEDS: GABAPENTIN 300 MG CAPSULE PO SCH (09:09)
[2021-02-28] MEDS: CEFTRIAXONE 1 GM in DEXTROSE 5%-WATER - 50 ML IVPB SCH (09:09)
[2021-02-28] MEDS: ASPIRIN 81 MG CHEWABLE TABLETS PO SCH (09:09)
[2021-02-28] MEDS: METOPROLOL TARTRATE 50 MG TABLET (FP) PO SCH (09:09)
[2021-02-28] MEDS: RANOLAZINE E.R. 1,000 MG TABLET (FP) PO SCH (09:09)
[2021-02-28] MEDS: FUROSEMIDE 20 MG TABLET (FP) PO SCH (09:09)
[2021-02-28] MEDS: ENOXAPARIN NA (PORCINE) 40 MG/0.4 ML DISP.SYRIN SQ SCH (09:09)
[2021-02-28] MEDS: BUDESONIDE/FORMETEROL FUMARATE 80/4.5 mcg INHALER IH SCH (09:09)
[2021-02-28] MEDS ORDERED: ISOSORBIDE MONONITRATE 30 MG TAB.SR.24H (FP) PO SCH (11:00)
[2021-02-28 14:11] VITALS: BP 110/58; PULSE 67; TEMP 98.1
== END 2021-02-28 17:05 | disposition home or self-care (01) | DRG 303 ==
LOC: JER 20:27 → JERBED 02-27 01:29 → J2W 02-27 04:16
PROVIDERS: ADMIT Hospitalist; ATTEND Student in an Organized Health Care Education/Training Program
DX: I25.119 Atherosclerotic heart disease of native coronary artery with unspecified angina pectoris (principal); N39.0 Urinary tract infection, site not specified; I50.42 Chronic combined systolic (congestive) and diastolic (congestive) heart failure; E78.5 Hyperlipidemia, unspecified; I25.10 Atherosclerotic heart disease of native coronary artery without angina pectoris; I11.0 Hypertensive heart disease with heart failure; J44.9 Chronic obstructive pulmonary disease, unspecified; K21.9 Gastro-esophageal reflux disease without esophagitis; I44.7 Left bundle-branch block, unspecified; R20.0 Anesthesia of skin; G62.9 Polyneuropathy, unspecified; I16.0 Hypertensive urgency; K59.00 Constipation, unspecified; R42 Dizziness and giddiness
CPT/HCPCS: 36415; 70450-TC; 71046-TC-FY; 80053; 81003; 82550; 83735; 84100; 84484; 85025; 85610; 85730; 87086; 87186; 93005; 93010; 93880-TC; 99285-25; C9803; U0003; U0005

== ENCOUNTER 2021-11-27 06:42 | Inpatient (IN) | payer OTHER ==
[2021-11-27] MEDS ORDERED: ACETAMINOPHEN 1000 MG/100 ML BAG IVPB ONE (07:43)
[2021-11-27] MEDS ORDERED: MECLIZINE HCL 25 MG TABLET (FP) PO ONE (07:44)
[2021-11-27] MEDS ORDERED: MECLIZINE HCL 25 MG TABLET (FP) ONE (08:29)
[2021-11-27 09:00] LABS: ALBUMIN 3.1 g/dl (3.4-5.0)
[2021-11-27 09:04] LABS: CREATININE 0.5 mg/dL (0.55-1.3)
[2021-11-27 09:05] LABS: BILIRUBIN,TOTAL 0.4 mg/dL (0.2-1); TOT PROT 7.1 g/dl (6.4-8.2)
[2021-11-27] MEDS ORDERED: ACETAMINOPHEN 500 MG TABLET (FP) PO ONE (09:08)
[2021-11-27] MEDS ORDERED: ACETAMINOPHEN 325 MG TABLET (FP) ONE (09:12)
[2021-11-27] MEDS ORDERED: METOPROLOL TARTRATE 50 MG TABLET (FP) PO ONE (09:16)
[2021-11-27] MEDS ORDERED: amLODIPine BESYLATE 5 MG TABLET (FP) PO ONE (09:16)
[2021-11-27] MEDS ORDERED: amLODIPine BESYLATE 5 MG TABLET (FP) ONE (09:30)
[2021-11-27] MEDS ORDERED: METOPROLOL TARTRATE 50 MG TABLET (FP) ONE (09:30)
[2021-11-27 12:47] LABS: BASO % 0.5 % (0-2.0); EOS % 1.5 % (0-4.5); HEMATOCRIT 39.3 % (32.4-45.2); HEMOGLOBIN 12.9 GM/dL (10.7-15.3); LYMPH % 22.1 % (8-40); MCH 30.4 pg (25.7-33.7); MCHC 32.9 g/dl (32.0-36.0); MEAN CELL VOLUME 92.2 fl (80-96); MEAN PLT VOLUME 10.1 fl (7.5-11.1); NEUT % 67.9 % (42.8-82.8); PLATELET COUNT 212 10^3/uL (134-434); RBC 4.26 M/mm3 (3.60-5.2); RDW 13.7 % (11.6-15.6); WHITE BLOOD COUNT 7.5 K/mm3 (4.0-10.0)
[2021-11-27 13:02] LABS: PH,URINE 8.5 (5.0-8.0); URINE APPEARANCE CLEAR; URINE BILIRUBIN NEGATIVE (NEGATIVE); URINE COLOR YELLOW; URINE GLUCOSE (UA) NEGATIVE (NEGATIVE); URINE KETONE NEGATIVE (NEGATIVE); URINE LEUK ESTERASE NEGATIVE (NEGATIVE); URINE NITRITE NEGATIVE (NEGATIVE); URINE PROTEIN NEGATIVE (NEGATIVE); URINE UROBILINOGEN 0.2 mg/dL (0.2-1.0)
[2021-11-27] MEDS ORDERED: ALBUTEROL SO4 HFA INHALER IH PRN (17:05)
[2021-11-27] MEDS ORDERED: ONDANSETRON 4 MG/2 ML VIAL IVPUSH PRN (17:15)
[2021-11-27] MEDS ORDERED: MECLIZINE HCL 25 MG TABLET (FP) PO PRN (17:22)
[2021-11-27] MEDS: METOPROLOL TARTRATE 50 MG TABLET (FP) PO SCH (21:48)
[2021-11-27] MEDS: ATORVASTATIN CA 80 MG TABLET (FP) PO SCH (21:48)
[2021-11-28 00:19] VITALS: BMI 30.5
[2021-11-28] MEDS ORDERED: MAG HYDROX/AL HYDROX/SIMETH 30 ML UNIT-DOSE CUP PO ONE (01:03)
[2021-11-28] MEDS: ACETAMINOPHEN 325 MG TABLET (FP) PO PRN (05:41)
[2021-11-28 07:42] LABS: HEMATOCRIT 36.6 % (32.4-45.2); HEMOGLOBIN 12.1 GM/dL (10.7-15.3); MCH 30.3 pg (25.7-33.7); MCHC 33.1 g/dl (32.0-36.0); MEAN CELL VOLUME 91.6 fl (80-96); MEAN PLT VOLUME 10.7 fl (7.5-11.1); PLATELET COUNT 198 10^3/uL (134-434); RDW 13.3 % (11.6-15.6); WHITE BLOOD COUNT 4.7 K/mm3 (4.0-10.0)
[2021-11-28 07:49] LABS: CALCIUM 8.2 mg/dL (8.5-10.1)
[2021-11-28 07:50] LABS: BLOOD UREA NITROGEN 14.6 mg/dL (7-18)
[2021-11-28 07:53] LABS: CREATININE 0.5 mg/dL (0.55-1.3)
[2021-11-28] MEDS: METOPROLOL TARTRATE 50 MG TABLET (FP) PO SCH ×2 (09:14→21:20)
[2021-11-28] MEDS: ENOXAPARIN NA (PORCINE) 40 MG/0.4 ML DISP.SYRIN SQ SCH (09:14)
[2021-11-28] MEDS: ASPIRIN COATED 81 MG TABLET.EC PO SCH (11:37)
[2021-11-28] MEDS: ATORVASTATIN CA 80 MG TABLET (FP) PO SCH (21:20)
[2021-11-29] MEDS: ACETAMINOPHEN 325 MG TABLET (FP) PO PRN (01:10)
[2021-11-29 08:53] LABS: BASO % 0.9 % (0-2.0); EOS % 3.1 % (0-4.5); HEMATOCRIT 38.3 % (32.4-45.2); HEMOGLOBIN 12.7 GM/dL (10.7-15.3); LYMPH % 36.5 % (8-40); MCH 30.5 pg (25.7-33.7); MCHC 33.2 g/dl (32.0-36.0); MEAN CELL VOLUME 92.1 fl (80-96); MEAN PLT VOLUME 10.7 fl (7.5-11.1); MONO % 10.4 % (3.8-10.2); NEUT % 49.1 % (42.8-82.8); PLATELET COUNT 203 10^3/uL (134-434); RBC 4.16 M/mm3 (3.60-5.2); RDW 13.2 % (11.6-15.6); WHITE BLOOD COUNT 4.7 K/mm3 (4.0-10.0)
[2021-11-29] MEDS: ENOXAPARIN NA (PORCINE) 40 MG/0.4 ML DISP.SYRIN SQ SCH (09:29)
[2021-11-29] MEDS: amLODIPine BESYLATE 5 MG TABLET (FP) PO SCH ×2 (09:30→12:22)
[2021-11-29] MEDS: METOPROLOL TARTRATE 50 MG TABLET (FP) PO SCH ×2 (09:30→20:59)
[2021-11-29] MEDS: ASPIRIN COATED 81 MG TABLET.EC PO SCH (09:31)
[2021-11-29 09:34] LABS: ALBUMIN 2.9 g/dl (3.4-5.0); BLOOD UREA NITROGEN 12.6 mg/dL (7-18); CALCIUM 8.3 mg/dL (8.5-10.1); CREATININE 0.5 mg/dL (0.55-1.3)
[2021-11-29 09:35] LABS: TOT PROT 6.4 g/dl (6.4-8.2)
[2021-11-29 09:36] LABS: BILIRUBIN,TOTAL 0.6 mg/dL (0.2-1)
[2021-11-29] MEDS ORDERED: FUROSEMIDE 20 MG TABLET (FP) PO SCH (11:30)
[2021-11-29] MEDS: CLOPIDOGREL BISULFATE 75 MG TABLET (FP) PO SCH (11:46)
[2021-11-29] MEDS ORDERED: PATIENT'S OWN MEDICATION (NON-FORMULARY) (Ipratropium Bromide [Atrovent Hfa] 12.9 GM Hfa.A IH SCH (14:00)
[2021-11-29] MEDS: IPRATROPIUM BR 0.02% 0.5 MG/2.5 ML VIAL.NEB. NEB SCH ×2 (16:00→21:09)
[2021-11-29] MEDS: ATORVASTATIN CA 80 MG TABLET (FP) PO SCH (20:59)
[2021-11-30 07:46] LABS: BLOOD UREA NITROGEN 12.8 mg/dL (7-18); CALCIUM 7.9 mg/dL (8.5-10.1)
[2021-11-30] MEDS: IPRATROPIUM BR 0.02% 0.5 MG/2.5 ML VIAL.NEB. NEB SCH ×3 (07:47→16:32)
[2021-11-30 07:49] LABS: CREATININE 0.7 mg/dL (0.55-1.3)
[2021-11-30] MEDS: ASPIRIN COATED 81 MG TABLET.EC PO SCH (09:55)
[2021-11-30] MEDS: amLODIPine BESYLATE 5 MG TABLET (FP) PO SCH (09:55)
[2021-11-30] MEDS: CLOPIDOGREL BISULFATE 75 MG TABLET (FP) PO SCH (09:55)
[2021-11-30] MEDS: METOPROLOL TARTRATE 50 MG TABLET (FP) PO SCH (09:55)
[2021-11-30] MEDS: ENOXAPARIN NA (PORCINE) 40 MG/0.4 ML DISP.SYRIN SQ SCH (09:56)
[2021-11-30] MEDS ORDERED: FUROSEMIDE 20 MG TABLET (FP) PO SCH (10:00)
[2021-11-30 14:48] VITALS: BP 110/57; PULSE 67; TEMP 97.5
== END 2021-11-30 19:38 | disposition home or self-care (01) | DRG 312 ==
LOC: JER 06:42 → JERBED 14:06 → OBSVTOIN 17:15 → J4W 21:01
PROVIDERS: ADMIT Internal Medicine
DX: R55 Syncope and collapse (principal); I50.32 Chronic diastolic (congestive) heart failure; R42 Dizziness and giddiness; I11.0 Hypertensive heart disease with heart failure; K21.9 Gastro-esophageal reflux disease without esophagitis; I25.10 Atherosclerotic heart disease of native coronary artery without angina pectoris; Z98.61 Coronary angioplasty status; E78.5 Hyperlipidemia, unspecified
CPT/HCPCS: 36415; 70450-TC; 71045-TC-FY; 72125-TC; 72170-TC-FY; 73502-TC-LT-FY; 80048; 80053; 81003; 82607; 83036; 84443; 84484; 85025; 85027; 86780; 87804; 93005; 93010; 93306-TC; 97116-GP; 97162-GP; 99285-25; C9803-CS; G0378; U0003; U0005

== ENCOUNTER 2022-02-23 12:04 | Inpatient (IN) | payer OTHER ==
[2022-02-23] MEDS ORDERED: ACETAMINOPHEN 1000 MG/100 ML BAG IVPB ONE (13:07)
[2022-02-23] MEDS ORDERED: ACETAMINOPHEN INJECTION 100 ML IVPB ONE (13:12)
[2022-02-23 14:19] LABS: BASO % 0.5 % (0-2.0); EOS % 1.7 % (0-4.5); HEMATOCRIT 41.1 % (32.4-45.2); HEMOGLOBIN 13.7 GM/dL (10.7-15.3); LYMPH % 15.1 % (8-40); MCH 30.5 pg (25.7-33.7); MCHC 33.5 g/dl (32.0-36.0); MEAN CELL VOLUME 91.2 fl (80-96); MEAN PLT VOLUME 9.9 fl (7.5-11.1); MONO % 6.9 % (3.8-10.2); NEUT % 75.8 % (42.8-82.8); PLATELET COUNT 205 10^3/uL (134-434); RDW 13.4 % (11.6-15.6)
[2022-02-23 14:27] LABS: INR 0.97 (0.83-1.09); PROTHROMBIN TIME (PATIENT) 11.1 SEC (9.7-13.0)
[2022-02-23 14:29] LABS: ACTIVATED PTT 31.5 SECONDS (25.2-36.5)
[2022-02-23 14:33] LABS: CALCIUM 9.3 mg/dL (8.5-10.1)
[2022-02-23 14:34] LABS: ALBUMIN 3.5 g/dl (3.4-5.0); BLOOD UREA NITROGEN 16.1 mg/dL (7-18); MAGNESIUM 2.2 mg/dL (1.8-2.4)
[2022-02-23 14:36] LABS: PHOSPHOROUS 3.7 mg/dL (2.5-4.9)
[2022-02-23 14:37] LABS: CREATININE 0.6 mg/dL (0.55-1.3)
[2022-02-23 14:38] LABS: BILIRUBIN,TOTAL 0.5 mg/dL (0.2-1)
[2022-02-23 15:18] LABS: PH,URINE 7.5 (5.0-8.0); URINE APPEARANCE CLEAR; URINE BILIRUBIN NEGATIVE (NEGATIVE); URINE COLOR YELLOW; URINE GLUCOSE (UA) NEGATIVE (NEGATIVE); URINE KETONE NEGATIVE (NEGATIVE); URINE LEUK ESTERASE NEGATIVE (NEGATIVE); URINE NITRITE NEGATIVE (NEGATIVE); URINE PROTEIN NEGATIVE (NEGATIVE); URINE UROBILINOGEN 0.2 mg/dL (0.2-1.0)
[2022-02-23] MEDS ORDERED: methylPREDNISolone NA SUCC 125 MG/2 ML VIAL ONE (15:40)
[2022-02-23] MEDS ORDERED: ALBUTEROL SO4 2.5/IPRATROPIUM 0.5 INH SOL 3 ML VIAL.NEB. NEB ONE (15:41)
[2022-02-23] MEDS ORDERED: EPINEPHrine 1:1,000 1,000 MCG/ML ML SQ ONE (15:41)
[2022-02-23] MEDS ORDERED: EPINEPHrine/PF 1 MG/1 ML (1:1,000) AMPULE ONE (15:42)
[2022-02-23] MEDS ORDERED: RAPID SEQUENCE INTUBATION KIT NR ONE (15:43)
[2022-02-23] MEDS ORDERED: methylPREDNISolone NA SUCC 125 MG/2 ML VIAL IVPUSH ONE (15:45)
[2022-02-23] MEDS ORDERED: ROCURONIUM BROMIDE 50 MG/5 ML VIAL IV ONE (15:57)
[2022-02-23] MEDS ORDERED: EPINEPHrine INTRACARD 1:10,000 1 MG/10 ML DISP.SYRIN ICARD ONE (15:58)
[2022-02-23] MEDS ORDERED: PROPOFOL 1,000,000 MCG/100 ML VIAL IVPB SCH ×3 (16:00→20:00)
[2022-02-23] MEDS ORDERED: NITROGLYCERIN 50MG/D5W 250ML 50 MG/250 ML ML IVPB SCH (16:15)
[2022-02-23] MEDS ORDERED: PROPOFOL 1,000,000 MCG/100 ML VIAL ONE (16:29)
[2022-02-23 16:36] LABS: ARTERIAL BLD GAS O2 SATURATION 98.7 % (95-98); ARTERIAL BLOOD GAS BASE EXCESS -11.9 mmol/L (-2-2); ARTERIAL BLOOD GAS PO2 185.2 mmHg (80-100)
[2022-02-23 16:41] LABS: ARTERIAL BLOOD GAS pH 7.077 (7.350-7.450)
[2022-02-23] MEDS ORDERED: FUROSEMIDE 40 MG/4 ML INJECTABLE VIAL IVPUSH ONE (16:42)
[2022-02-23] MEDS ORDERED: FUROSEMIDE 40 MG/4 ML INJECTABLE VIAL ONE (17:12)
[2022-02-23 17:27] LABS: CALCIUM 8.8 mg/dL (8.5-10.1)
[2022-02-23 17:28] LABS: BLOOD UREA NITROGEN 14.7 mg/dL (7-18)
[2022-02-23 17:31] LABS: CREATININE 0.8 mg/dL (0.55-1.3)
[2022-02-23] MEDS: MIDAZOLAM IN 0.9 % SOD.CHLORID 100 MG/100 ML PLAST..BAG IVPB SCH (17:35)
[2022-02-23 17:36] LABS: N-TERMINAL BNP 2432.6 pg/ml (5-450)
[2022-02-23] MEDS ORDERED: MIDAZOLAM IN 0.9 % SOD.CHLORID 1 MG/1 ML PLAST..BAG ONE (17:36)
[2022-02-23] MEDS: CHLORHEXIDINE GLUCONATE 4% CLEANSER FOR DECOLONIZATION TP SCH (22:18)
[2022-02-23] MEDS: MUPIROCIN 2% TOPICAL OINTMENT FOR DECOLONIZATION NS SCH (22:18)
[2022-02-23 22:32] LABS: ALLENS TEST POSITIVE; ARTERIAL BLD GAS O2 SATURATION 97.3 % (95-98); ARTERIAL BLOOD GAS BASE EXCESS 3.2 mmol/L (-2-2); ARTERIAL BLOOD GAS PO2 95.8 mmHg (80-100); ARTERIAL BLOOD GAS pH 7.406 (7.350-7.450)
[2022-02-23 22:33] LABS: VENT MODE A/C; VENT RATE 14
[2022-02-24] MEDS ORDERED: DEXMEDETOMIDINE IN 0.9 % NACL 400 MCG/100 ML VIAL IVPB SCH (03:30)
[2022-02-24] MEDS: FUROSEMIDE 40 MG/4 ML INJECTABLE VIAL IVPUSH SCH ×2 (05:35→14:08)
[2022-02-24 06:41] LABS: HEMATOCRIT 40.7 % (32.4-45.2); HEMOGLOBIN 13.5 GM/dL (10.7-15.3); MCH 30.4 pg (25.7-33.7); MCHC 33.3 g/dl (32.0-36.0); MEAN CELL VOLUME 91.2 fl (80-96); MEAN PLT VOLUME 10.3 fl (7.5-11.1); PLATELET COUNT 210 10^3/uL (134-434); RBC 4.46 M/mm3 (3.60-5.2); RDW 13.3 % (11.6-15.6); WHITE BLOOD COUNT 9.8 K/mm3 (4.0-10.0)
[2022-02-24 07:05] LABS: INR 1.03 (0.83-1.09); PROTHROMBIN TIME (PATIENT) 11.9 SEC (9.7-13.0)
[2022-02-24 07:08] LABS: ACTIVATED PTT 29.7 SECONDS (25.2-36.5)
[2022-02-24 07:10] LABS: CALCIUM 8.5 mg/dL (8.5-10.1)
[2022-02-24 07:11] LABS: BLOOD UREA NITROGEN 19.7 mg/dL (7-18)
[2022-02-24 07:14] LABS: CREATININE 0.6 mg/dL (0.55-1.3); PHOSPHOROUS 4.4 mg/dL (2.5-4.9)
[2022-02-24 07:15] LABS: BILIRUBIN,TOTAL 0.8 mg/dL (0.2-1)
[2022-02-24 07:16] LABS: TOT PROT 6.6 g/dl (6.4-8.2)
[2022-02-24] MEDS: ENOXAPARIN NA (PORCINE) 40 MG/0.4 ML DISP.SYRIN SQ SCH (09:27)
[2022-02-24] MEDS: MUPIROCIN 2% TOPICAL OINTMENT FOR DECOLONIZATION NS SCH ×2 (09:28→21:37)
[2022-02-24 09:33] LABS: ANISOCYTOSIS 0; MACROCYTOSIS 0
[2022-02-24] MEDS ORDERED: FAMOTIDINE 20 MG/50 ML IVPB 20 MG/50 ML MG IVPB ONE (14:00)
[2022-02-24] MEDS: DEXMEDETOMIDINE IN 0.9 % NACL 400 MCG/100 ML VIAL IVPB SCH (15:15)
[2022-02-24] MEDS: MIDAZOLAM IN 0.9 % SOD.CHLORID 100 MG/100 ML PLAST..BAG IVPB SCH (17:30)
[2022-02-24] MEDS: CHLORHEXIDINE GLUCONATE 4% CLEANSER FOR DECOLONIZATION TP SCH (21:37)
[2022-02-25] MEDS: FUROSEMIDE 40 MG/4 ML INJECTABLE VIAL IVPUSH SCH ×2 (06:37→13:05)
[2022-02-25] MEDS: ENOXAPARIN NA (PORCINE) 40 MG/0.4 ML DISP.SYRIN SQ SCH (09:23)
[2022-02-25] MEDS: MUPIROCIN 2% TOPICAL OINTMENT FOR DECOLONIZATION NS SCH ×2 (09:23→22:19)
[2022-02-25] MEDS ORDERED: ACETAMINOPHEN 1000 MG/100 ML BAG IVPB ONE (15:11)
[2022-02-25] MEDS: DEXMEDETOMIDINE IN 0.9 % NACL 400 MCG/100 ML VIAL IVPB SCH (16:05)
[2022-02-25 16:17] LABS: BASO % 0.2 % (0-2.0); HEMATOCRIT 43.6 % (32.4-45.2); HEMOGLOBIN 14.5 GM/dL (10.7-15.3); LYMPH % 6.6 % (8-40); MCHC 33.3 g/dl (32.0-36.0); MEAN CELL VOLUME 90.1 fl (80-96); MEAN PLT VOLUME 10.2 fl (7.5-11.1); MONO % 6.7 % (3.8-10.2); NEUT % 86.5 % (42.8-82.8); PLATELET COUNT 210 10^3/uL (134-434); RBC 4.84 M/mm3 (3.60-5.2); RDW 13.1 % (11.6-15.6); WHITE BLOOD COUNT 12.5 K/mm3 (4.0-10.0)
[2022-02-25] MEDS: PROPOFOL 1,000,000 MCG/100 ML VIAL IVPB SCH (16:30)
[2022-02-25 16:34] LABS: ALBUMIN 3.4 g/dl (3.4-5.0); CALCIUM 8.4 mg/dL (8.5-10.1)
[2022-02-25 16:35] LABS: BLOOD UREA NITROGEN 29.4 mg/dL (7-18)
[2022-02-25 16:37] LABS: PHOSPHOROUS 3.6 mg/dL (2.5-4.9)
[2022-02-25] MEDS ORDERED: PROPOFOL 1,000,000 MCG/100 ML VIAL ONE (16:37)
[2022-02-25 16:38] LABS: CREATININE 0.9 mg/dL (0.55-1.3)
[2022-02-25 16:39] LABS: BILIRUBIN,TOTAL 0.9 mg/dL (0.2-1); TOT PROT 7.2 g/dl (6.4-8.2)
[2022-02-25] MEDS ORDERED: METOPROLOL TARTRATE 5 MG/5 ML VIAL IVPUSH ONE (16:45)
[2022-02-25] MEDS ORDERED: SODIUM CHLORIDE 500 ML IV STA ×2 (18:16→19:27)
[2022-02-25] MEDS: CHLORHEXIDINE GLUCONATE 4% CLEANSER FOR DECOLONIZATION TP SCH (22:20)
[2022-02-25] MEDS: MIDAZOLAM IN 0.9 % SOD.CHLORID 100 MG/100 ML PLAST..BAG IVPB SCH (22:43)
[2022-02-26] MEDS: PROPOFOL 1,000,000 MCG/100 ML VIAL IVPB SCH ×2 (03:09→16:45)
[2022-02-26] MEDS: FUROSEMIDE 40 MG/4 ML INJECTABLE VIAL IVPUSH SCH ×2 (06:51→14:41)
[2022-02-26 08:15] LABS: PH,URINE 6.5 (5.0-8.0); URINE APPEARANCE CLEAR; URINE BILIRUBIN NEGATIVE (NEGATIVE); URINE COLOR YELLOW; URINE GLUCOSE (UA) NEGATIVE (NEGATIVE); URINE KETONE NEGATIVE (NEGATIVE); URINE LEUK ESTERASE NEGATIVE (NEGATIVE); URINE NITRITE NEGATIVE (NEGATIVE); URINE PROTEIN TRACE (NEGATIVE)
[2022-02-26] MEDS: ENOXAPARIN NA (PORCINE) 40 MG/0.4 ML DISP.SYRIN SQ SCH (10:58)
[2022-02-26] MEDS: MUPIROCIN 2% TOPICAL OINTMENT FOR DECOLONIZATION NS SCH ×2 (10:58→21:20)
[2022-02-26] MEDS: DEXMEDETOMIDINE IN 0.9 % NACL 400 MCG/100 ML VIAL IVPB SCH ×2 (15:00)
[2022-02-26 17:40] LABS: BASO % 0.1 % (0-2.0); EOS % 0.1 % (0-4.5); HEMATOCRIT 43.3 % (32.4-45.2); HEMOGLOBIN 14.4 GM/dL (10.7-15.3); MCH 30.5 pg (25.7-33.7); MCHC 33.3 g/dl (32.0-36.0); MEAN CELL VOLUME 91.7 fl (80-96); MEAN PLT VOLUME 10.4 fl (7.5-11.1); MONO % 12.1 % (3.8-10.2); NEUT % 74.7 % (42.8-82.8); PLATELET COUNT 202 10^3/uL (134-434); RBC 4.73 M/mm3 (3.60-5.2); RDW 13.4 % (11.6-15.6); WHITE BLOOD COUNT 14.1 K/mm3 (4.0-10.0)
[2022-02-26 17:59] LABS: CALCIUM 8.9 mg/dL (8.5-10.1)
[2022-02-26 18:00] LABS: ALBUMIN 3.2 g/dl (3.4-5.0); BLOOD UREA NITROGEN 36.6 mg/dL (7-18); MAGNESIUM 2.2 mg/dL (1.8-2.4)
[2022-02-26 18:03] LABS: CREATININE 0.8 mg/dL (0.55-1.3); PHOSPHOROUS 4.5 mg/dL (2.5-4.9)
[2022-02-26 18:04] LABS: BILIRUBIN,TOTAL 1.2 mg/dL (0.2-1); TOT PROT 7.1 g/dl (6.4-8.2)
[2022-02-26] MEDS: ACETAMINOPHEN 1000 MG/100 ML BAG IVPB PRN (21:18)
[2022-02-26] MEDS: CHLORHEXIDINE GLUCONATE 4% CLEANSER FOR DECOLONIZATION TP SCH (21:21)
[2022-02-26] MEDS ORDERED: NOREPINEPHRINE BITARTRATE 4 MG/4 ML ML IV ONE (23:13)
[2022-02-26] MEDS: NOREPINEPHRINE BITARTRATE 16,000 MCG in SODIUM CHLORIDE 484 ML IV SCH (23:18)
[2022-02-26] MEDS: MIDAZOLAM IN 0.9 % SOD.CHLORID 100 MG/100 ML PLAST..BAG IVPB SCH (23:23)
[2022-02-27] MEDS: FUROSEMIDE 40 MG/4 ML INJECTABLE VIAL IVPUSH SCH ×2 (07:00→15:52)
[2022-02-27 07:12] LABS: HEMATOCRIT 40.4 % (32.4-45.2); HEMOGLOBIN 13.5 GM/dL (10.7-15.3); MCH 30.6 pg (25.7-33.7); MCHC 33.5 g/dl (32.0-36.0); MEAN CELL VOLUME 91.2 fl (80-96); MEAN PLT VOLUME 11.1 fl (7.5-11.1); PLATELET COUNT 248 10^3/uL (134-434); RBC 4.43 M/mm3 (3.60-5.2); RDW 13.4 % (11.6-15.6); WHITE BLOOD COUNT 13.4 K/mm3 (4.0-10.0)
[2022-02-27 07:17] LABS: CHLORIDE 101 mmol/L (98-107); SODIUM 143 mmol/L (136-145)
[2022-02-27 07:18] LABS: CALCIUM 8.5 mg/dL (8.5-10.1)
[2022-02-27 07:19] LABS: BLOOD UREA NITROGEN 46.7 mg/dL (7-18); CO2 27 mmol/L (21-32); GLUCOSE,RANDOM 144 mg/dL (74-106); MAGNESIUM 2.1 mg/dL (1.8-2.4)
[2022-02-27 07:22] LABS: CREATININE 1.1 mg/dL (0.55-1.3); PHOSPHOROUS 5.3 mg/dL (2.5-4.9)
[2022-02-27 07:27] LABS: N-TERMINAL BNP 691.8 pg/ml (5-450)
[2022-02-27 07:31] LABS: ANION GAP 15 MMOL/L (8-16)
[2022-02-27] MEDS: ENOXAPARIN NA (PORCINE) 40 MG/0.4 ML DISP.SYRIN SQ SCH (09:06)
[2022-02-27] MEDS: KCL 10 MEQ IVPB 10 MEQ/100 ML INFUS.BAG IVPB SCH ×2 (09:06→10:18)
[2022-02-27] MEDS: MUPIROCIN 2% TOPICAL OINTMENT FOR DECOLONIZATION NS SCH ×2 (09:06→21:40)
[2022-02-27] MEDS ORDERED: ALBUTEROL SO4 0.083% IH SOL 2.5 MG/3 ML VIAL.NEB. NEB PRN (10:10)
[2022-02-27] MEDS ORDERED: ALBUTEROL SO4 0.083% IH SOL 2.5 MG/3 ML VIAL.NEB. NEB STA ×2 (10:11→10:12)
[2022-02-27] MEDS ORDERED: ALBUTEROL SO4 0.083% IH SOL 2.5 MG/3 ML VIAL.NEB. NEB ONE (10:29)
[2022-02-27 12:00] VITALS: BMI 29.7
[2022-02-27] MEDS: DEXMEDETOMIDINE IN 0.9 % NACL 400 MCG/100 ML VIAL IVPB SCH (16:50)
[2022-02-27] MEDS: PROPOFOL 1,000,000 MCG/100 ML VIAL IVPB SCH (16:50)
[2022-02-27] MEDS: ACETAMINOPHEN 1000 MG/100 ML BAG IVPB PRN (17:53)
[2022-02-27] MEDS: CHLORHEXIDINE GLUCONATE 4% CLEANSER FOR DECOLONIZATION TP SCH (21:40)
[2022-02-28] MEDS: FUROSEMIDE 40 MG/4 ML INJECTABLE VIAL IVPUSH SCH ×2 (05:41→13:27)
[2022-02-28] MEDS: NOREPINEPHRINE BITARTRATE 16,000 MCG in SODIUM CHLORIDE 484 ML IV SCH (06:35)
[2022-02-28] MEDS: MIDAZOLAM IN 0.9 % SOD.CHLORID 100 MG/100 ML PLAST..BAG IVPB SCH (06:35)
[2022-02-28] MEDS: MUPIROCIN 2% TOPICAL OINTMENT FOR DECOLONIZATION NS SCH (09:08)
[2022-02-28] MEDS: ENOXAPARIN NA (PORCINE) 40 MG/0.4 ML DISP.SYRIN SQ SCH (09:08)
[2022-02-28] MEDS ORDERED: dilTIAZem HCL 125 MG/25 ML - 25 ML VIAL ONE (10:05)
[2022-02-28] MEDS ORDERED: METOPROLOL TARTRATE 50 MG TABLET (FP) PO SCH ×3 (10:15→22:00)
[2022-02-28] MEDS ORDERED: dilTIAZem HCL 50 MG/10 ML - 10 ML VIAL IVPUSH ONE (10:15)
[2022-02-28 10:30] LABS: BASO % 0.8 % (0-2.0); EOS % 0.3 % (0-4.5); HEMATOCRIT 41.9 % (32.4-45.2); HEMOGLOBIN 13.9 GM/dL (10.7-15.3); LYMPH % 15.1 % (8-40); MCH 30.5 pg (25.7-33.7); MCHC 33.1 g/dl (32.0-36.0); MEAN CELL VOLUME 92.2 fl (80-96); NEUT % 72.8 % (42.8-82.8); PLATELET COUNT 265 10^3/uL (134-434); RBC 4.54 M/mm3 (3.60-5.2); RDW 13.5 % (11.6-15.6); WHITE BLOOD COUNT 10.2 K/mm3 (4.0-10.0)
[2022-02-28 11:01] LABS: ALBUMIN 3.2 g/dl (3.4-5.0); CALCIUM 9.5 mg/dL (8.5-10.1)
[2022-02-28 11:02] LABS: BLOOD UREA NITROGEN 42.9 mg/dL (7-18); MAGNESIUM 2.7 mg/dL (1.8-2.4)
[2022-02-28 11:05] LABS: CREATININE 0.8 mg/dL (0.55-1.3)
[2022-02-28 11:06] LABS: TOT PROT 7.6 g/dl (6.4-8.2)
[2022-02-28 11:07] LABS: BILIRUBIN,TOTAL 1.2 mg/dL (0.2-1)
[2022-02-28] MEDS: KCL 10 MEQ IVPB 10 MEQ/100 ML INFUS.BAG IVPB SCH ×2 (13:46→15:52)
[2022-02-28] MEDS: DEXMEDETOMIDINE IN 0.9 % NACL 400 MCG/100 ML VIAL IVPB SCH (16:04)
[2022-02-28] MEDS: PROPOFOL 1,000,000 MCG/100 ML VIAL IVPB SCH (17:44)
[2022-02-28] MEDS: CHLORHEXIDINE GLUCONATE 4% CLEANSER FOR DECOLONIZATION TP SCH (21:16)
[2022-02-28] MEDS ORDERED: ALBUTEROL SO4 0.083% IH SOL 2.5 MG/3 ML VIAL.NEB. NEB PRN (22:37)
[2022-03-01] MEDS ORDERED: FUROSEMIDE 40 MG/4 ML INJECTABLE VIAL IVPUSH SCH (06:00)
[2022-03-01 07:31] LABS: BASO % 0.7 % (0-2.0); HEMATOCRIT 37.8 % (32.4-45.2); HEMOGLOBIN 12.6 GM/dL (10.7-15.3); LYMPH % 19.2 % (8-40); MCH 30.7 pg (25.7-33.7); MCHC 33.4 g/dl (32.0-36.0); MEAN CELL VOLUME 92.1 fl (80-96); MEAN PLT VOLUME 9.8 fl (7.5-11.1); MONO % 12.5 % (3.8-10.2); NEUT % 66.6 % (42.8-82.8); PLATELET COUNT 253 10^3/uL (134-434); RBC 4.11 M/mm3 (3.60-5.2); RDW 13.5 % (11.6-15.6); WHITE BLOOD COUNT 9.7 K/mm3 (4.0-10.0)
[2022-03-01 08:24] LABS: CALCIUM 9.1 mg/dL (8.5-10.1)
[2022-03-01 08:25] LABS: BLOOD UREA NITROGEN 40.5 mg/dL (7-18); MAGNESIUM 2.6 mg/dL (1.8-2.4)
[2022-03-01 08:27] LABS: CREATININE 0.6 mg/dL (0.55-1.3)
[2022-03-01 08:29] LABS: BILIRUBIN,TOTAL 0.9 mg/dL (0.2-1); TOT PROT 7.1 g/dl (6.4-8.2)
[2022-03-01] MEDS: ENOXAPARIN NA (PORCINE) 40 MG/0.4 ML DISP.SYRIN SQ SCH (09:29)
[2022-03-01] MEDS ORDERED: METOPROLOL TARTRATE 50 MG TABLET (FP) PO SCH (10:00)
[2022-03-01] MEDS: POTASSIUM CHLORIDE ORAL LIQUID 20 MEQ/15 ML PO SCH ×2 (11:32→21:31)
[2022-03-01] MEDS: ASPIRIN COATED 81 MG TABLET.EC PO SCH (11:32)
[2022-03-01] MEDS: amLODIPine BESYLATE 5 MG TABLET (FP) PO SCH (11:32)
[2022-03-01] MEDS: VALSARTAN 160 MG TABLET PO SCH (11:32)
[2022-03-01] MEDS ORDERED: GABAPENTIN 300 MG CAPSULE PO ONE (20:56)
[2022-03-01] MEDS ORDERED: ACETAMINOPHEN 325 MG TABLET (FP) PO ONE (20:57)
[2022-03-01] MEDS ORDERED: MECLIZINE HCL 25 MG TABLET (FP) PO ONE (21:07)
[2022-03-01] MEDS ORDERED: CHLORHEXIDINE GLUCONATE 4% CLEANSER FOR DECOLONIZATION TP SCH (22:00)
[2022-03-02 07:28] LABS: EPI CELLS 1 /uL (0-25.1); HYALINE CASTS 1 /uL (0-3.1); PH,URINE 6.5 (5.0-8.0); URINE APPEARANCE CLOUDY; URINE BACTERIA >9,000 /uL (0-1359); URINE BILIRUBIN NEGATIVE (NEGATIVE); URINE COLOR YELLOW; URINE GLUCOSE (UA) NEGATIVE (NEGATIVE); URINE KETONE NEGATIVE (NEGATIVE); URINE LEUK ESTERASE 3+ (NEGATIVE); URINE NITRITE NEGATIVE (NEGATIVE); URINE PROTEIN TRACE (NEGATIVE); URINE WBC 2185 /uL (0-25.8)
[2022-03-02 08:23] LABS: HEMATOCRIT 38.4 % (32.4-45.2); HEMOGLOBIN 12.4 GM/dL (10.7-15.3); MCH 30.2 pg (25.7-33.7); MCHC 32.4 g/dl (32.0-36.0); MEAN CELL VOLUME 93.4 fl (80-96); MEAN PLT VOLUME 9.8 fl (7.5-11.1); PLATELET COUNT 278 10^3/uL (134-434); RBC 4.11 M/mm3 (3.60-5.2); RDW 13.4 % (11.6-15.6); WHITE BLOOD COUNT 7.1 K/mm3 (4.0-10.0)
[2022-03-02] MEDS: VALSARTAN 160 MG TABLET PO SCH (11:11)
[2022-03-02] MEDS: ASPIRIN COATED 81 MG TABLET.EC PO SCH (11:11)
[2022-03-02] MEDS: LACTOBACILLUS ACIDOPHILUS 1 TABLET PO SCH (11:11)
[2022-03-02] MEDS: FUROSEMIDE 40 MG TABLET (FP) PO SCH (11:12)
[2022-03-02] MEDS: ENOXAPARIN NA (PORCINE) 40 MG/0.4 ML DISP.SYRIN SQ SCH (11:12)
[2022-03-02] MEDS: amLODIPine BESYLATE 5 MG TABLET (FP) PO SCH (11:12)
[2022-03-02] MEDS: CEFTRIAXONE 1 GM in DEXTROSE 5%-WATER - 50 ML IVPB SCH (11:13)
[2022-03-02 12:30] LABS: URINE RBC 59.8 /uL (0-23.9)
[2022-03-02 13:25] LABS: BLOOD UREA NITROGEN 30.5 mg/dL (7-18); CALCIUM 8.9 mg/dL (8.5-10.1)
[2022-03-02 13:26] LABS: ALBUMIN 2.8 g/dl (3.4-5.0)
[2022-03-02 13:28] LABS: PHOSPHOROUS 2.6 mg/dL (2.5-4.9)
[2022-03-02 13:29] LABS: CREATININE 0.5 mg/dL (0.55-1.3)
[2022-03-02 13:31] LABS: BILIRUBIN,TOTAL 0.6 mg/dL (0.2-1); TOT PROT 6.6 g/dl (6.4-8.2)
[2022-03-03] MEDS ORDERED: LORazepam 0.5 MG TABLET PO ONE (05:22)
[2022-03-03] MEDS ORDERED: DEXTROSE 5%-WATER - 50 ML IVPB ONE (08:47)
[2022-03-03] MEDS ORDERED: cefTRIAXone SODIUM 1 GM VIAL ONE (08:47)
[2022-03-03 08:48] LABS: CALCIUM 9.2 mg/dL (8.5-10.1)
[2022-03-03 08:49] LABS: BLOOD UREA NITROGEN 30.1 mg/dL (7-18); MAGNESIUM 2.2 mg/dL (1.8-2.4)
[2022-03-03 08:52] LABS: CREATININE 0.8 mg/dL (0.55-1.3); PHOSPHOROUS 3.3 mg/dL (2.5-4.9)
[2022-03-03 08:53] LABS: BILIRUBIN,TOTAL 0.4 mg/dL (0.2-1); TOT PROT 7.5 g/dl (6.4-8.2)
[2022-03-03] MEDS ORDERED: metoPROLOL SUCCINATE 25 MG TAB.SR.24H (FP) PO ONE (09:10)
[2022-03-03] MEDS: ENOXAPARIN NA (PORCINE) 40 MG/0.4 ML DISP.SYRIN SQ SCH (09:13)
[2022-03-03] MEDS: ASPIRIN COATED 81 MG TABLET.EC PO SCH (09:13)
[2022-03-03] MEDS: VALSARTAN 160 MG TABLET PO SCH (09:13)
[2022-03-03] MEDS: CEFTRIAXONE 1 GM in DEXTROSE 5%-WATER - 50 ML IVPB SCH (09:13)
[2022-03-03] MEDS: LACTOBACILLUS ACIDOPHILUS 1 TABLET PO SCH (09:13)
[2022-03-03] MEDS: FUROSEMIDE 40 MG TABLET (FP) PO SCH (09:13)
[2022-03-03] MEDS: amLODIPine BESYLATE 5 MG TABLET (FP) PO SCH (09:13)
[2022-03-03 09:19] LABS: HEMATOCRIT 40.3 % (32.4-45.2); HEMOGLOBIN 13.4 GM/dL (10.7-15.3); MCH 30.5 pg (25.7-33.7); MCHC 33.2 g/dl (32.0-36.0); PLATELET COUNT 295 10^3/uL (134-434); RBC 4.38 M/mm3 (3.60-5.2); RDW 13.3 % (11.6-15.6)
[2022-03-03] MEDS ORDERED: METOPROLOL SUCCINATE 100 MG, METOPROLOL SUCCINATE 25 MG PO SCH (10:00)
[2022-03-03] MEDS ORDERED: BACITRACIN 15 GM TUBE TOPICAL OINTMENT TP SCH (10:15)
[2022-03-03 15:40] VITALS: BP 154/69; PULSE 91; TEMP 98.4
== END 2022-03-03 18:05 | DRG 208 ==
LOC: JER 12:04 → JERBED 16:10 → JICU 20:40 → J4W 02-28 22:12
PROVIDERS: ADMIT Internal Medicine; ATTEND Internal Medicine
PROC: 0BH17EZ Insertion of Endotracheal Airway into Trachea, Via Natural or Artificial Opening (ICD-10-PCS; principal; 2022-02-23)
PROC: 5A1945Z Respiratory Ventilation, 24-96 Consecutive Hours (ICD-10-PCS; 2022-02-23)
DX: J96.01 Acute respiratory failure with hypoxia (principal); J81.0 Acute pulmonary edema; I50.33 Acute on chronic diastolic (congestive) heart failure; I46.9 Cardiac arrest, cause unspecified; J18.9 Pneumonia, unspecified organism; I24.8 Other forms of acute ischemic heart disease; N39.0 Urinary tract infection, site not specified; J98.11 Atelectasis; J96.02 Acute respiratory failure with hypercapnia; J44.1 Chronic obstructive pulmonary disease with (acute) exacerbation; R51.9 Headache, unspecified; J44.9 Chronic obstructive pulmonary disease, unspecified; E78.5 Hyperlipidemia, unspecified; K21.9 Gastro-esophageal reflux disease without esophagitis; I44.7 Left bundle-branch block, unspecified; I25.10 Atherosclerotic heart disease of native coronary artery without angina pectoris; I71.4 Abdominal aortic aneurysm, without rupture; I16.0 Hypertensive urgency; I11.0 Hypertensive heart disease with heart failure; B95.2 Enterococcus as the cause of diseases classified elsewhere; B96.1 Klebsiella pneumoniae [K. pneumoniae] as the cause of diseases classified elsewhere; E87.6 Hypokalemia; R94.5 Abnormal results of liver function studies; G93.89 Other specified disorders of brain; Z95.5 Presence of coronary angioplasty implant and graft
CPT/HCPCS: 0241U-QW; 36415; 36600; 70450-TC; 71045-TC-FY; 71046-TC-FY; 74177-TC; 80048; 80053; 81003; 82803; 82962; 83735; 83880; 84100; 84484; 85025; 85027; 85610; 85730; 87040; 87086; 87186; 93005; 93010; 93306-TC; 93970-TC; 94002; 94010; 94640; 97116-GP; 97162-GP; 99291; C9803-CS; Q9967; U0003; U0005

== ENCOUNTER 2022-07-13 19:22 | Observation (INO) | payer OTHER ==
[2022-07-13 19:36] VITALS: BMI 29.2
[2022-07-13] MEDS ORDERED: MECLIZINE HCL 25 MG TABLET (FP) PO ONE (20:38)
[2022-07-13] MEDS ORDERED: ACETAMINOPHEN 500 MG TABLET (FP) PO ONE ×2 (20:39→20:46)
[2022-07-13] MEDS ORDERED: ACETAMINOPHEN 325 MG TABLET (FP) ONE (20:46)
[2022-07-13] MEDS ORDERED: MECLIZINE HCL 25 MG TABLET (FP) ONE (20:46)
[2022-07-13 21:30] LABS: EOS % 2.2 % (0-4.5); HEMATOCRIT 40.1 % (32.4-45.2); HEMOGLOBIN 13.3 GM/dL (10.7-15.3); LYMPH % 17.7 % (8-40); MCH 30.6 pg (25.7-33.7); MCHC 33.2 g/dl (32.0-36.0); MEAN CELL VOLUME 91.9 fl (80-96); MEAN PLT VOLUME 10.7 fl (7.5-11.1); MONO % 7.3 % (3.8-10.2); NEUT % 71.8 % (42.8-82.8); PLATELET COUNT 260 10^3/uL (134-434); RBC 4.36 M/mm3 (3.60-5.2); RDW 12.9 % (11.6-15.6)
[2022-07-13 21:34] LABS: EPI CELLS 4 /uL (0-25.1); HYALINE CASTS 0 /uL (0-3.1); URINE APPEARANCE CLEAR; URINE BACTERIA 47 /uL (0-1359); URINE BILIRUBIN NEGATIVE (NEGATIVE); URINE COLOR YELLOW; URINE GLUCOSE (UA) NEGATIVE (NEGATIVE); URINE KETONE NEGATIVE (NEGATIVE); URINE LEUK ESTERASE TRACE (NEGATIVE); URINE NITRITE NEGATIVE (NEGATIVE); URINE PROTEIN NEGATIVE (NEGATIVE); URINE RBC 11 /uL (0-23.9); URINE UROBILINOGEN 0.2 mg/dL (0.2-1.0); URINE WBC 12 /uL (0-25.8)
[2022-07-13 21:36] LABS: INR 0.92 (0.83-1.09); PROTHROMBIN TIME (PATIENT) 10.6 SEC (9.7-13.0)
[2022-07-13 21:38] LABS: ACTIVATED PTT 29.7 SECONDS (25.2-36.5)
[2022-07-13 21:50] LABS: BLOOD UREA NITROGEN 28.2 mg/dL (7-18); CALCIUM 9.4 mg/dL (8.5-10.1)
[2022-07-13 21:51] LABS: ALBUMIN 3.7 g/dl (3.4-5.0)
[2022-07-13 21:54] LABS: CREATININE 0.7 mg/dL (0.55-1.3)
[2022-07-13 21:55] LABS: TOT PROT 7.9 g/dl (6.4-8.2)
[2022-07-13 21:56] LABS: BILIRUBIN,TOTAL 0.4 mg/dL (0.2-1)
[2022-07-14] MEDS ORDERED: ALBUTEROL SO4 HFA INHALER IH PRN (01:20)
[2022-07-14] MEDS ORDERED: GABAPENTIN 300 MG CAPSULE PO SCH (01:30)
[2022-07-14] MEDS ORDERED: LOSARTAN POTASSIUM 50 MG TABLET ONE (03:02)
[2022-07-14] MEDS: LOSARTAN POTASSIUM 50 MG TABLET PO SCH (03:06)
[2022-07-14 03:07] LABS: CALCIUM 8.9 mg/dL (8.5-10.1)
[2022-07-14 03:08] LABS: BLOOD UREA NITROGEN 22.2 mg/dL (7-18)
[2022-07-14 03:11] LABS: CREATININE 0.5 mg/dL (0.55-1.3)
[2022-07-14] MEDS: GABAPENTIN 300 MG CAPSULE PO SCH ×3 (06:12→21:55)
[2022-07-14 08:19] LABS: BASO % 0.7 % (0-2.0); EOS % 2.5 % (0-4.5); HEMATOCRIT 35.8 % (32.4-45.2); HEMOGLOBIN 12.2 GM/dL (10.7-15.3); LYMPH % 27.2 % (8-40); MCHC 34.1 g/dl (32.0-36.0); MEAN PLT VOLUME 9.8 fl (7.5-11.1); MONO % 8.8 % (3.8-10.2); NEUT % 60.8 % (42.8-82.8); PLATELET COUNT 192 10^3/uL (134-434); RBC 3.93 M/mm3 (3.60-5.2); WHITE BLOOD COUNT 5.7 K/mm3 (4.0-10.0)
[2022-07-14 08:55] LABS: CALCIUM 9.1 mg/dL (8.5-10.1)
[2022-07-14 08:56] LABS: ALBUMIN 3.1 g/dl (3.4-5.0)
[2022-07-14 08:59] LABS: CREATININE 0.5 mg/dL (0.55-1.3); PHOSPHOROUS 3.3 mg/dL (2.5-4.9)
[2022-07-14 09:00] LABS: BILIRUBIN,TOTAL 0.6 mg/dL (0.2-1); TOT PROT 6.3 g/dl (6.4-8.2)
[2022-07-14] MEDS: MECLIZINE HCL 25 MG TABLET (FP) PO SCH ×2 (09:57→21:55)
[2022-07-14] MEDS: ENOXAPARIN NA (PORCINE) 40 MG/0.4 ML DISP.SYRIN SQ SCH (09:57)
[2022-07-14] MEDS: METOPROLOL SUCCINATE 100 MG, METOPROLOL SUCCINATE 25 MG PO SCH (09:57)
[2022-07-14] MEDS ORDERED: HYDROCHLOROTHIAZIDE 25 MG TABLET (FP) PO SCH (10:00)
[2022-07-14] MEDS ORDERED: amLODIPine BESYLATE 10 MG TABLET (FP) PO ONE (14:27)
[2022-07-14] MEDS ORDERED: ATORVASTATIN CA 80 MG TABLET (FP) PO SCH (22:00)
[2022-07-15] MEDS: GABAPENTIN 300 MG CAPSULE PO SCH ×3 (05:21→21:33)
[2022-07-15 08:43] LABS: BILIRUBIN,TOTAL 0.7 mg/dL (0.2-1)
[2022-07-15] MEDS: MECLIZINE HCL 25 MG TABLET (FP) PO SCH ×2 (10:04→21:33)
[2022-07-15] MEDS: ENOXAPARIN NA (PORCINE) 40 MG/0.4 ML DISP.SYRIN SQ SCH (10:04)
[2022-07-15] MEDS: CLOPIDOGREL BISULFATE 75 MG TABLET (FP) PO SCH (10:04)
[2022-07-15] MEDS: ASPIRIN 81 MG CHEWABLE TABLETS PO SCH (10:04)
[2022-07-15] MEDS: METOPROLOL SUCCINATE 100 MG, METOPROLOL SUCCINATE 25 MG PO SCH (10:07)
[2022-07-15] MEDS: LOSARTAN POTASSIUM 50 MG TABLET PO SCH (10:10)
[2022-07-15] MEDS ORDERED: ATORVASTATIN CA 80 MG TABLET (FP) PO SCH (22:00)
[2022-07-16] MEDS: GABAPENTIN 300 MG CAPSULE PO SCH ×2 (05:58→14:44)
[2022-07-16] MEDS: LOSARTAN POTASSIUM 50 MG TABLET PO SCH (10:24)
[2022-07-16] MEDS: CLOPIDOGREL BISULFATE 75 MG TABLET (FP) PO SCH (10:24)
[2022-07-16] MEDS: ENOXAPARIN NA (PORCINE) 40 MG/0.4 ML DISP.SYRIN SQ SCH (10:24)
[2022-07-16] MEDS: ASPIRIN 81 MG CHEWABLE TABLETS PO SCH (10:24)
[2022-07-16] MEDS: MECLIZINE HCL 25 MG TABLET (FP) PO SCH (10:24)
[2022-07-16] MEDS: METOPROLOL SUCCINATE 100 MG, METOPROLOL SUCCINATE 25 MG PO SCH (10:24)
[2022-07-16 13:51] VITALS: BP 123/78; PULSE 67; RESP 16; TEMP 98.7
== END 2022-07-16 03:00 | disposition home or self-care (01) ==
LOC: JER 19:22 → INTOOBSV 20:36 → UNDOADMOB 20:36 → JERBED 20:36 → J4W 07-14 04:04 → JERBED 07-14 04:04
PROVIDERS: ADMIT Internal Medicine; ATTEND Internal Medicine
PROC: 3E023GC Introduction of Other Therapeutic Substance into Muscle, Percutaneous Approach (ICD-10-PCS; principal; 2022-07-14)
DX: R55 Syncope and collapse (principal); J44.9 Chronic obstructive pulmonary disease, unspecified; I11.0 Hypertensive heart disease with heart failure; E78.5 Hyperlipidemia, unspecified; I25.10 Atherosclerotic heart disease of native coronary artery without angina pectoris; Z99.89 Dependence on other enabling machines and devices; Z91.041 Radiographic dye allergy status; Z95.5 Presence of coronary angioplasty implant and graft; R42 Dizziness and giddiness; H93.19 Tinnitus, unspecified ear; Z88.0 Allergy status to penicillin; Z87.891 Personal history of nicotine dependence; Z88.5 Allergy status to narcotic agent
CPT/HCPCS: 0241U-QW; 36415; 70450-TC; 71250-TC; 72125-TC; 74176-TC; 76705-TC; 80048; 80053; 80061; 81003; 82247; 82550; 82553; 83036; 83735; 84100; 84439; 84443; 84450; 84460; 84484; 85025; 85610; 85730; 86705; 86803; 87086; 87340; 87517; 93005; 93010; 93880-TC; 96372; 97116-GP; 97161-GP; 99285-25; C9803-CS; G0378; U0003; U0005

== ENCOUNTER 2022-12-28 04:29 | Emergency (ER) | payer OTHER ==
[2022-12-28 04:38] VITALS: BMI 29.2
[2022-12-28] MEDS ORDERED: FUROSEMIDE 40 MG/4 ML INJECTABLE VIAL IVPUSH ONE (06:00)
[2022-12-28] MEDS ORDERED: FUROSEMIDE 40 MG/4 ML INJECTABLE VIAL ONE (06:07)
[2022-12-28 06:31] LABS: BASO % 0.9 % (0-2.0); EOS % 4.9 % (0-4.5); HEMOGLOBIN 11.3 GM/dL (10.7-15.3); LYMPH % 25.8 % (8-40); MCHC 34.3 g/dl (32.0-36.0); MEAN CELL VOLUME 90.3 fl (80-96); MEAN PLT VOLUME 9.9 fl (7.5-11.1); MONO % 10.7 % (3.8-10.2); NEUT % 57.7 % (42.8-82.8); PLATELET COUNT 254 10^3/uL (134-434); RBC 3.66 M/mm3 (3.60-5.2); RDW 13.9 % (11.6-15.6); WHITE BLOOD COUNT 5.5 K/mm3 (4.0-10.0)
[2022-12-28 06:43] LABS: INR 0.99 (0.83-1.09); PROTHROMBIN TIME (PATIENT) 11.5 SEC (9.7-13.0)
[2022-12-28 06:46] LABS: ACTIVATED PTT 30.1 SECONDS (25.2-36.5)
[2022-12-28 06:50] LABS: POTASSIUM 5.6 mmol/L (3.5-5.1)
[2022-12-28 06:52] LABS: ALBUMIN 3.2 g/dl (3.4-5.0); CALCIUM 8.8 mg/dL (8.5-10.1)
[2022-12-28 06:53] LABS: BLOOD UREA NITROGEN 24.7 mg/dL (7-18); MAGNESIUM 2.1 mg/dL (1.8-2.4)
[2022-12-28 06:55] LABS: CREATININE 0.7 mg/dL (0.55-1.3)
[2022-12-28 06:57] LABS: BILIRUBIN,TOTAL 0.5 mg/dL (0.2-1); TOT PROT 7.5 g/dl (6.4-8.2)
[2022-12-28 06:58] LABS: N-TERMINAL BNP 1203.5 pg/ml (5-450)
[2022-12-28 08:36] VITALS: BP 129/67; PULSE 83; RESP 18; TEMP 98.2
== END 2022-12-28 08:05 | disposition left against medical advice (07) ==
LOC: JER 04:29
PROC: 3E033NZ Introduction of Analgesics, Hypnotics, Sedatives into Peripheral Vein, Percutaneous Approach (ICD-10-PCS; principal; 2022-12-28)
DX: R07.9 Chest pain, unspecified (principal); R00.2 Palpitations; R06.02 Shortness of breath; R42 Dizziness and giddiness; I24.9 Acute ischemic heart disease, unspecified; R51.9 Headache, unspecified; R10.13 Epigastric pain; I48.91 Unspecified atrial fibrillation; R60.0 Localized edema; Z20.822 Contact with and (suspected) exposure to COVID-19
CPT/HCPCS: 0241U-QW; 36415; 71045-TC-FY; 80053; 82550; 82553; 83690; 83735; 83880; 84443; 84484; 85025; 85379; 85610; 85730; 86850; 86900; 86901; 93005; 93010; 99285-25

== ENCOUNTER 2023-07-26 11:50 | Inpatient (IN) | payer OTHER ==
[2023-07-26 12:09] VITALS: BMI 28.3
[2023-07-26 15:56] LABS: EPI CELLS 6 /uL (0-25.1); HYALINE CASTS 0 /uL (0-3.1); PH,URINE 5.5 (5.0-8.0); URINE APPEARANCE CLEAR; URINE BACTERIA >9,000 /uL (0-1359); URINE BILIRUBIN NEGATIVE (NEGATIVE); URINE COLOR YELLOW; URINE GLUCOSE (UA) NEGATIVE (NEGATIVE); URINE KETONE NEGATIVE (NEGATIVE); URINE LEUK ESTERASE 1+ (NEGATIVE); URINE NITRITE POSITIVE (NEGATIVE); URINE PROTEIN NEGATIVE (NEGATIVE); URINE RBC 8 /uL (0-23.9); URINE UROBILINOGEN 0.2 mg/dL (0.2-1.0); URINE WBC 10 /uL (0-25.8)
[2023-07-26] MEDS ORDERED: ACETAMINOPHEN 1000 MG/100 ML BAG IVPB ONE (16:05)
[2023-07-26] MEDS ORDERED: CEFTRIAXONE 1 GM in DEXTROSE 5%-WATER - 50 ML IVPB ONE (16:05)
[2023-07-26] MEDS ORDERED: SODIUM CHLORIDE 0.9% 500 ML INFUS.BAG IV ONE (16:06)
[2023-07-26] MEDS ORDERED: METOCLOPRAMIDE HCL INJECTION 10 MG/2 ML VIAL IVPB ONE (17:08)
[2023-07-26 17:19] LABS: BASO % 0.6 % (0-2.0); EOS % 2.5 % (0-4.5); HEMATOCRIT 39.7 % (32.4-45.2); LYMPH % 25.5 % (8-40); MCH 29.7 pg (25.7-33.7); MCHC 32.8 g/dl (32.0-36.0); MEAN CELL VOLUME 90.7 fl (80-96); MEAN PLT VOLUME 9.7 fl (7.5-11.1); MONO % 9.2 % (3.8-10.2); NEUT % 62.2 % (42.8-82.8); PLATELET COUNT 257 10^3/uL (134-434); RBC 4.38 M/mm3 (3.60-5.2); RDW 13.7 % (11.6-15.6); WHITE BLOOD COUNT 6.5 K/mm3 (4.0-10.0)
[2023-07-26] MEDS ORDERED: CEFTRIAXONE 1 GM/50 ML BAG ONE (17:20)
[2023-07-26] MEDS ORDERED: METOCLOPRAMIDE HCL INJECTION 10 MG/2 ML VIAL ONE (17:20)
[2023-07-26] MEDS ORDERED: ACETAMINOPHEN INJECTION 100 ML IVPB ONE (17:20)
[2023-07-26 17:28] LABS: INR 0.97 (0.83-1.09); PROTHROMBIN TIME (PATIENT) 11.2 SEC (9.7-13.0)
[2023-07-26 17:30] LABS: ACTIVATED PTT 28.8 SECONDS (25.2-36.5)
[2023-07-26 17:41] LABS: POTASSIUM 4.1 mmol/L (3.5-5.1)
[2023-07-26 17:43] LABS: ALBUMIN 3.2 g/dl (3.4-5.0); BLOOD UREA NITROGEN 21.4 mg/dL (7-18)
[2023-07-26 17:46] LABS: CREATININE 0.6 mg/dL (0.55-1.3)
[2023-07-26 17:48] LABS: BILIRUBIN,TOTAL 0.4 mg/dL (0.2-1); TOT PROT 7.1 g/dl (6.4-8.2)
[2023-07-26] MEDS ORDERED: ALBUTEROL SO4 HFA INHALER IH PRN (23:30)
[2023-07-26] MEDS ORDERED: MECLIZINE HCL 25 MG TABLET (FP) ONE (23:55)
[2023-07-26] MEDS ORDERED: GABAPENTIN 300 MG CAPSULE ONE (23:55)
[2023-07-27] MEDS ORDERED: ISOSORBIDE MONONITRATE 30 MG TAB.SR.24H (FP) PO ONE (01:52)
[2023-07-27] MEDS ORDERED: hydrALAZINE HCL 20 MG/ML VIAL IVPUSH ONE (01:52)
[2023-07-27] MEDS ORDERED: ACETAMINOPHEN 1000 MG/100 ML BAG IVPB ONE (02:34)
[2023-07-27] MEDS ORDERED: ACETAMINOPHEN 1000 MG/100 ML BAG IVPB PRN (02:34)
[2023-07-27] MEDS ORDERED: METOCLOPRAMIDE HCL INJECTION 10 MG/2 ML VIAL IVPUSH PRN (06:01)
[2023-07-27 06:30] LABS: HEMATOCRIT 36.8 % (32.4-45.2); HEMOGLOBIN 12.3 GM/dL (10.7-15.3); MCH 30.6 pg (25.7-33.7); MCHC 33.4 g/dl (32.0-36.0); MEAN CELL VOLUME 91.5 fl (80-96); PLATELET COUNT 235 10^3/uL (134-434); RBC 4.03 M/mm3 (3.60-5.2); RDW 13.7 % (11.6-15.6); WHITE BLOOD COUNT 8.6 K/mm3 (4.0-10.0)
[2023-07-27 06:41] LABS: POTASSIUM 3.9 mmol/L (3.5-5.1)
[2023-07-27 06:43] LABS: ALBUMIN 2.8 g/dl (3.4-5.0); CALCIUM 8.5 mg/dL (8.5-10.1)
[2023-07-27 06:44] LABS: BLOOD UREA NITROGEN 20.2 mg/dL (7-18); MAGNESIUM 1.7 mg/dL (1.8-2.4)
[2023-07-27 06:47] LABS: CREATININE 0.8 mg/dL (0.55-1.3); PHOSPHOROUS 3.4 mg/dL (2.5-4.9)
[2023-07-27 06:49] LABS: TOT PROT 6.2 g/dl (6.4-8.2)
[2023-07-27 07:13] LABS: BILIRUBIN,TOTAL 0.4 mg/dL (0.2-1)
[2023-07-27] MEDS: LOSARTAN POTASSIUM 50 MG TABLET PO SCH (10:11)
[2023-07-27] MEDS: ISOSORBIDE MONONITRATE 30 MG TAB.SR.24H (FP) PO SCH (10:11)
[2023-07-27] MEDS: METOPROLOL SUCCINATE 100 MG, METOPROLOL SUCCINATE 25 MG PO SCH (10:11)
[2023-07-27] MEDS: ASPIRIN COATED 81 MG TABLET.EC PO SCH (10:11)
[2023-07-27] MEDS: ENOXAPARIN NA (PORCINE) 40 MG/0.4 ML DISP.SYRIN SQ SCH (10:12)
[2023-07-27] MEDS: MECLIZINE HCL 25 MG TABLET (FP) PO SCH ×2 (10:12)
[2023-07-27] MEDS: CEFTRIAXONE 1 GM in DEXTROSE 5%-WATER - 50 ML IVPB SCH ×2 (10:12→19:52)
[2023-07-27] MEDS: GABAPENTIN 300 MG CAPSULE PO SCH ×3 (10:12→23:13)
[2023-07-27] MEDS: FAMOTIDINE 20 MG TABLET PO SCH (10:12)
[2023-07-27] MEDS ORDERED: MECLIZINE HCL 25 MG TABLET (FP) PO PRN (16:10)
[2023-07-27] MEDS: BUDESONIDE/FORMOTEROL FUMARATE 160-4.5 MCG (10.3 GM INHALER) IH SCH ×2 (19:51→23:14)
[2023-07-27] MEDS: DOXYCYCLINE HYCLATE 100 MG CAPSULE PO SCH (19:51)
[2023-07-27] MEDS: FLUTICASONE PROP 0.05% 16 GM NASAL SPRAY NS SCH ×2 (19:51→23:12)
[2023-07-27] MEDS: ATORVASTATIN CA 80 MG TABLET (FP) PO SCH (23:13)
[2023-07-28] MEDS ORDERED: ACETAMINOPHEN 325 MG TABLET (FP) PO PRN (02:52)
[2023-07-28] MEDS ORDERED: MAGNESIUM SULF 50% (8.12 MEQ/2 ML-1 GM VIAL) IVPB ONE (07:22)
[2023-07-28] MEDS ORDERED: CEPHALEXIN MONOHYDRATE 500 MG CAPSULE (UD) PO ONE (08:15)
[2023-07-28 08:30] LABS: POTASSIUM 3.8 mmol/L (3.5-5.1)
[2023-07-28 08:38] LABS: ALBUMIN 2.9 g/dl (3.4-5.0); BLOOD UREA NITROGEN 17.4 mg/dL (7-18); CALCIUM 8.5 mg/dL (8.5-10.1)
[2023-07-28 08:40] LABS: BILIRUBIN,TOTAL 0.5 mg/dL (0.2-1); TOT PROT 6.2 g/dl (6.4-8.2)
[2023-07-28 08:41] LABS: CREATININE 0.7 mg/dL (0.55-1.3)
[2023-07-28] MEDS: CEFTRIAXONE 1 GM in DEXTROSE 5%-WATER - 50 ML IVPB SCH (09:53)
[2023-07-28] MEDS: METOPROLOL SUCCINATE 100 MG, METOPROLOL SUCCINATE 25 MG PO SCH (09:54)
[2023-07-28] MEDS: ISOSORBIDE MONONITRATE 30 MG TAB.SR.24H (FP) PO SCH (09:54)
[2023-07-28] MEDS: DOXYCYCLINE HYCLATE 100 MG CAPSULE PO SCH ×2 (09:54→17:22)
[2023-07-28] MEDS: FAMOTIDINE 20 MG TABLET PO SCH (09:54)
[2023-07-28] MEDS: LOSARTAN POTASSIUM 50 MG TABLET PO SCH (09:54)
[2023-07-28] MEDS: ASPIRIN COATED 81 MG TABLET.EC PO SCH (09:54)
[2023-07-28] MEDS: BUDESONIDE/FORMOTEROL FUMARATE 160-4.5 MCG (10.3 GM INHALER) IH SCH ×2 (09:55→21:05)
[2023-07-28] MEDS: FLUTICASONE PROP 0.05% 16 GM NASAL SPRAY NS SCH ×2 (09:55→21:06)
[2023-07-28] MEDS: GABAPENTIN 300 MG CAPSULE PO SCH ×2 (09:55→21:03)
[2023-07-28] MEDS: ENOXAPARIN NA (PORCINE) 40 MG/0.4 ML DISP.SYRIN SQ SCH (09:55)
[2023-07-28] MEDS: ATORVASTATIN CA 80 MG TABLET (FP) PO SCH (21:03)
[2023-07-28] MEDS ORDERED: MECLIZINE HCL 25 MG TABLET (FP) PO PRN (22:02)
[2023-07-28] MEDS ORDERED: ALBUTEROL SO4 HFA INHALER IH PRN (22:02)
[2023-07-29 09:28] LABS: BASO % 0.9 % (0-2.0); EOS % 4.6 % (0-4.5); HEMATOCRIT 37.8 % (32.4-45.2); HEMOGLOBIN 12.6 GM/dL (10.7-15.3); LYMPH % 42.1 % (8-40); MCH 30.4 pg (25.7-33.7); MCHC 33.4 g/dl (32.0-36.0); MEAN PLT VOLUME 10.1 fl (7.5-11.1); MONO % 14.3 % (3.8-10.2); NEUT % 38.1 % (42.8-82.8); PLATELET COUNT 243 10^3/uL (134-434); RBC 4.16 M/mm3 (3.60-5.2); RDW 13.8 % (11.6-15.6); WHITE BLOOD COUNT 4.9 K/mm3 (4.0-10.0)
[2023-07-29] MEDS: ASPIRIN COATED 81 MG TABLET.EC PO SCH (09:34)
[2023-07-29] MEDS: FAMOTIDINE 20 MG TABLET PO SCH (09:34)
[2023-07-29] MEDS: ISOSORBIDE MONONITRATE 30 MG TAB.SR.24H (FP) PO SCH (09:34)
[2023-07-29] MEDS: LOSARTAN POTASSIUM 50 MG TABLET PO SCH (09:34)
[2023-07-29] MEDS: METOPROLOL SUCCINATE 100 MG, METOPROLOL SUCCINATE 25 MG PO SCH (09:34)
[2023-07-29] MEDS: ENOXAPARIN NA (PORCINE) 40 MG/0.4 ML DISP.SYRIN SQ SCH (09:35)
[2023-07-29] MEDS: GABAPENTIN 300 MG CAPSULE PO SCH ×2 (09:35→21:15)
[2023-07-29] MEDS: CEFTRIAXONE 1 GM in DEXTROSE 5%-WATER - 50 ML IVPB SCH (09:35)
[2023-07-29] MEDS: DOXYCYCLINE HYCLATE 100 MG CAPSULE PO SCH ×2 (09:35→17:18)
[2023-07-29] MEDS: BUDESONIDE/FORMOTEROL FUMARATE 160-4.5 MCG (10.3 GM INHALER) IH SCH ×2 (09:38→21:19)
[2023-07-29] MEDS: FLUTICASONE PROP 0.05% 16 GM NASAL SPRAY NS SCH ×2 (09:39→21:18)
[2023-07-29 09:45] LABS: POTASSIUM 3.8 mmol/L (3.5-5.1)
[2023-07-29 10:07] LABS: ALBUMIN 2.8 g/dl (3.4-5.0); BLOOD UREA NITROGEN 20.3 mg/dL (7-18); CALCIUM 8.6 mg/dL (8.5-10.1)
[2023-07-29 10:08] LABS: MAGNESIUM 1.9 mg/dL (1.8-2.4)
[2023-07-29 10:10] LABS: BILIRUBIN,TOTAL 0.5 mg/dL (0.2-1); CREATININE 0.6 mg/dL (0.55-1.3); PHOSPHOROUS 3.5 mg/dL (2.5-4.9); TOT PROT 6.4 g/dl (6.4-8.2)
[2023-07-29] MEDS: ATORVASTATIN CA 80 MG TABLET (FP) PO SCH (21:15)
[2023-07-29] MEDS: ACETAMINOPHEN 325 MG TABLET (FP) PO PRN (22:27)
[2023-07-30 08:03] LABS: BASO % 1.1 % (0-2.0); EOS % 5.2 % (0-4.5); HEMATOCRIT 36.4 % (32.4-45.2); HEMOGLOBIN 12.1 GM/dL (10.7-15.3); LYMPH % 44.3 % (8-40); MCH 30.5 pg (25.7-33.7); MCHC 33.2 g/dl (32.0-36.0); MEAN CELL VOLUME 91.9 fl (80-96); MEAN PLT VOLUME 9.6 fl (7.5-11.1); MONO % 13.3 % (3.8-10.2); NEUT % 36.1 % (42.8-82.8); PLATELET COUNT 229 10^3/uL (134-434); RBC 3.96 M/mm3 (3.60-5.2); RDW 13.5 % (11.6-15.6); WHITE BLOOD COUNT 4.9 K/mm3 (4.0-10.0)
[2023-07-30 08:24] LABS: POTASSIUM 3.8 mmol/L (3.5-5.1)
[2023-07-30 08:45] LABS: CALCIUM 8.7 mg/dL (8.5-10.1)
[2023-07-30 08:47] LABS: BLOOD UREA NITROGEN 22.7 mg/dL (7-18)
[2023-07-30 08:49] LABS: CREATININE 0.6 mg/dL (0.55-1.3)
[2023-07-30] MEDS: ACETAMINOPHEN 325 MG TABLET (FP) PO PRN (08:59)
[2023-07-30] MEDS: METOPROLOL SUCCINATE 100 MG, METOPROLOL SUCCINATE 25 MG PO SCH (09:00)
[2023-07-30] MEDS: CEFTRIAXONE 1 GM in DEXTROSE 5%-WATER - 50 ML IVPB SCH (09:00)
[2023-07-30] MEDS: ISOSORBIDE MONONITRATE 30 MG TAB.SR.24H (FP) PO SCH (09:00)
[2023-07-30] MEDS: GABAPENTIN 300 MG CAPSULE PO SCH ×2 (09:00→21:45)
[2023-07-30] MEDS: ENOXAPARIN NA (PORCINE) 40 MG/0.4 ML DISP.SYRIN SQ SCH (09:00)
[2023-07-30] MEDS: LOSARTAN POTASSIUM 50 MG TABLET PO SCH (09:00)
[2023-07-30] MEDS: FLUTICASONE PROP 0.05% 16 GM NASAL SPRAY NS SCH ×2 (09:01→21:47)
[2023-07-30] MEDS: DOXYCYCLINE HYCLATE 100 MG CAPSULE PO SCH ×2 (09:01→17:02)
[2023-07-30] MEDS: FAMOTIDINE 20 MG TABLET PO SCH (09:01)
[2023-07-30] MEDS: BUDESONIDE/FORMOTEROL FUMARATE 160-4.5 MCG (10.3 GM INHALER) IH SCH ×2 (09:01→21:53)
[2023-07-30] MEDS: ASPIRIN COATED 81 MG TABLET.EC PO SCH (09:01)
[2023-07-30] MEDS: ATORVASTATIN CA 80 MG TABLET (FP) PO SCH (21:45)
[2023-07-31 09:32] LABS: BASO % 1.3 % (0-2.0); EOS % 4.8 % (0-4.5); HEMOGLOBIN 13.2 GM/dL (10.7-15.3); LYMPH % 37.8 % (8-40); MCH 30.1 pg (25.7-33.7); MCHC 33.1 g/dl (32.0-36.0); MEAN CELL VOLUME 90.8 fl (80-96); MEAN PLT VOLUME 9.8 fl (7.5-11.1); MONO % 9.4 % (3.8-10.2); NEUT % 46.7 % (42.8-82.8); PLATELET COUNT 266 10^3/uL (134-434); RDW 13.6 % (11.6-15.6); WHITE BLOOD COUNT 5.2 K/mm3 (4.0-10.0)
[2023-07-31] MEDS: LOSARTAN POTASSIUM 50 MG TABLET PO SCH (09:51)
[2023-07-31] MEDS: GABAPENTIN 300 MG CAPSULE PO SCH ×2 (09:51→21:55)
[2023-07-31] MEDS: ENOXAPARIN NA (PORCINE) 40 MG/0.4 ML DISP.SYRIN SQ SCH (09:52)
[2023-07-31] MEDS: DOXYCYCLINE HYCLATE 100 MG CAPSULE PO SCH ×2 (09:52→17:27)
[2023-07-31] MEDS: METOPROLOL SUCCINATE 100 MG, METOPROLOL SUCCINATE 25 MG PO SCH (09:52)
[2023-07-31] MEDS: ISOSORBIDE MONONITRATE 30 MG TAB.SR.24H (FP) PO SCH (09:52)
[2023-07-31] MEDS: ASPIRIN COATED 81 MG TABLET.EC PO SCH (09:53)
[2023-07-31] MEDS: FLUTICASONE PROP 0.05% 16 GM NASAL SPRAY NS SCH ×2 (09:55→22:00)
[2023-07-31] MEDS: BUDESONIDE/FORMOTEROL FUMARATE 160-4.5 MCG (10.3 GM INHALER) IH SCH ×2 (09:55→22:01)
[2023-07-31 09:56] LABS: POTASSIUM 4.1 mmol/L (3.5-5.1)
[2023-07-31 09:57] LABS: CALCIUM 8.8 mg/dL (8.5-10.1)
[2023-07-31 09:58] LABS: ALBUMIN 2.9 g/dl (3.4-5.0); BLOOD UREA NITROGEN 19.1 mg/dL (7-18)
[2023-07-31 10:01] LABS: CREATININE 0.6 mg/dL (0.55-1.3)
[2023-07-31 10:02] LABS: BILIRUBIN,TOTAL 0.6 mg/dL (0.2-1); TOT PROT 6.7 g/dl (6.4-8.2)
[2023-07-31] MEDS: FAMOTIDINE 20 MG TABLET PO SCH (10:05)
[2023-07-31] MEDS ORDERED: FLU VACCINE (FLULAVAL) PF 60 MCG/0.5 ML SYRINGE 2023-2024 IM ONE (18:00)
[2023-07-31] MEDS: ATORVASTATIN CA 80 MG TABLET (FP) PO SCH (21:55)
[2023-08-01 08:55] LABS: BASO % 0.9 % (0-2.0); EOS % 3.3 % (0-4.5); HEMATOCRIT 39.9 % (32.4-45.2); HEMOGLOBIN 13.3 GM/dL (10.7-15.3); LYMPH % 35.2 % (8-40); MCH 30.6 pg (25.7-33.7); MCHC 33.2 g/dl (32.0-36.0); MEAN CELL VOLUME 92.1 fl (80-96); MEAN PLT VOLUME 9.8 fl (7.5-11.1); MONO % 10.2 % (3.8-10.2); NEUT % 50.4 % (42.8-82.8); PLATELET COUNT 234 10^3/uL (134-434); RBC 4.33 M/mm3 (3.60-5.2); RDW 13.6 % (11.6-15.6); WHITE BLOOD COUNT 5.9 K/mm3 (4.0-10.0)
[2023-08-01] MEDS: METOPROLOL SUCCINATE 100 MG, METOPROLOL SUCCINATE 25 MG PO SCH (09:10)
[2023-08-01] MEDS: LOSARTAN POTASSIUM 50 MG TABLET PO SCH (09:10)
[2023-08-01] MEDS: ENOXAPARIN NA (PORCINE) 40 MG/0.4 ML DISP.SYRIN SQ SCH (09:10)
[2023-08-01] MEDS: FAMOTIDINE 20 MG TABLET PO SCH (09:11)
[2023-08-01] MEDS: GABAPENTIN 300 MG CAPSULE PO SCH ×2 (09:11→21:34)
[2023-08-01 09:12] LABS: POTASSIUM 3.9 mmol/L (3.5-5.1)
[2023-08-01] MEDS: ISOSORBIDE MONONITRATE 30 MG TAB.SR.24H (FP) PO SCH (09:12)
[2023-08-01] MEDS: DOXYCYCLINE HYCLATE 100 MG CAPSULE PO SCH ×2 (09:12→18:25)
[2023-08-01] MEDS: ASPIRIN COATED 81 MG TABLET.EC PO SCH (09:12)
[2023-08-01] MEDS: BUDESONIDE/FORMOTEROL FUMARATE 160-4.5 MCG (10.3 GM INHALER) IH SCH ×2 (09:12→21:39)
[2023-08-01] MEDS: FLUTICASONE PROP 0.05% 16 GM NASAL SPRAY NS SCH ×2 (09:14→21:39)
[2023-08-01 09:19] LABS: ALBUMIN 2.8 g/dl (3.4-5.0); CALCIUM 9.2 mg/dL (8.5-10.1); MAGNESIUM 1.9 mg/dL (1.8-2.4)
[2023-08-01 09:20] LABS: BLOOD UREA NITROGEN 22.6 mg/dL (7-18); CREATININE 0.6 mg/dL (0.55-1.3); PHOSPHOROUS 3.9 mg/dL (2.5-4.9)
[2023-08-01 09:21] LABS: BILIRUBIN,TOTAL 0.4 mg/dL (0.2-1)
[2023-08-01 09:22] LABS: TOT PROT 6.4 g/dl (6.4-8.2)
[2023-08-01] MEDS: ATORVASTATIN CA 80 MG TABLET (FP) PO SCH (21:34)
[2023-08-02] MEDS: GABAPENTIN 300 MG CAPSULE PO SCH (05:18)
[2023-08-02] MEDS: METOPROLOL SUCCINATE 100 MG, METOPROLOL SUCCINATE 25 MG PO SCH (09:02)
[2023-08-02] MEDS: FAMOTIDINE 20 MG TABLET PO SCH (09:02)
[2023-08-02] MEDS: LOSARTAN POTASSIUM 50 MG TABLET PO SCH (09:02)
[2023-08-02] MEDS: ISOSORBIDE MONONITRATE 30 MG TAB.SR.24H (FP) PO SCH (09:02)
[2023-08-02] MEDS: ENOXAPARIN NA (PORCINE) 40 MG/0.4 ML DISP.SYRIN SQ SCH (09:03)
[2023-08-02] MEDS: DOXYCYCLINE HYCLATE 100 MG CAPSULE PO SCH (09:03)
[2023-08-02] MEDS: FLUTICASONE PROP 0.05% 16 GM NASAL SPRAY NS SCH (09:06)
[2023-08-02] MEDS: ASPIRIN COATED 81 MG TABLET.EC PO SCH (09:06)
[2023-08-02 09:07] LABS: BASO % 1.1 % (0-2.0); EOS % 4.5 % (0-4.5); HEMATOCRIT 38.2 % (32.4-45.2); HEMOGLOBIN 12.8 GM/dL (10.7-15.3); LYMPH % 33.1 % (8-40); MCH 30.6 pg (25.7-33.7); MCHC 33.3 g/dl (32.0-36.0); MEAN CELL VOLUME 91.8 fl (80-96); MEAN PLT VOLUME 9.3 fl (7.5-11.1); MONO % 9.8 % (3.8-10.2); NEUT % 51.5 % (42.8-82.8); PLATELET COUNT 241 10^3/uL (134-434); RBC 4.17 M/mm3 (3.60-5.2); RDW 13.6 % (11.6-15.6); WHITE BLOOD COUNT 5.3 K/mm3 (4.0-10.0)
[2023-08-02] MEDS: BUDESONIDE/FORMOTEROL FUMARATE 160-4.5 MCG (10.3 GM INHALER) IH SCH (09:08)
[2023-08-02 09:33] LABS: ALBUMIN 2.8 g/dl (3.4-5.0); BLOOD UREA NITROGEN 23.4 mg/dL (7-18); CALCIUM 8.6 mg/dL (8.5-10.1); CREATININE 0.7 mg/dL (0.55-1.3)
[2023-08-02 09:34] LABS: MAGNESIUM 1.9 mg/dL (1.8-2.4)
[2023-08-02 09:35] LABS: BILIRUBIN,TOTAL 0.4 mg/dL (0.2-1); TOT PROT 6.4 g/dl (6.4-8.2)
[2023-08-02 09:36] LABS: PHOSPHOROUS 3.6 mg/dL (2.5-4.9)
[2023-08-02 12:09] VITALS: BP 128/62; PULSE 66; RESP 16; TEMP 97.9
== END 2023-08-02 12:46 | disposition home or self-care (01) | DRG 690 ==
LOC: JER 11:50 → JERBED 21:53 → J4W 07-27 08:57 → OBSVTOIN 07-27 16:00 → J6S 07-28 21:23
PROVIDERS: ADMIT Internal Medicine; ATTEND Internal Medicine
DX: N39.0 Urinary tract infection, site not specified (principal); I50.32 Chronic diastolic (congestive) heart failure; I16.0 Hypertensive urgency; J44.9 Chronic obstructive pulmonary disease, unspecified; K21.9 Gastro-esophageal reflux disease without esophagitis; E78.5 Hyperlipidemia, unspecified; I44.7 Left bundle-branch block, unspecified; I73.9 Peripheral vascular disease, unspecified; I65.29 Occlusion and stenosis of unspecified carotid artery; I25.10 Atherosclerotic heart disease of native coronary artery without angina pectoris; B96.89 Other specified bacterial agents as the cause of diseases classified elsewhere; K57.90 Diverticulosis of intestine, part unspecified, without perforation or abscess without bleeding; G62.9 Polyneuropathy, unspecified; I71.40 Abdominal aortic aneurysm, without rupture, unspecified; M48.061 Spinal stenosis, lumbar region without neurogenic claudication; M79.604 Pain in right leg; M79.605 Pain in left leg; R29.6 Repeated falls; J01.90 Acute sinusitis, unspecified; I11.0 Hypertensive heart disease with heart failure; Z88.0 Allergy status to penicillin; Z95.5 Presence of coronary angioplasty implant and graft
CPT/HCPCS: 0241U-QW; 36415; 70450-TC; 71045-TC-FY; 72131-TC; 73562-TC-LT-FY; 73562-TC-RT-FY; 74176-TC; 80048; 80053; 81003; 82550; 82607; 82746; 83605; 83690; 83735; 84100; 84439; 84443; 84484; 85025; 85027; 85610; 85651; 85730; 86140; 87086; 87186; 93005; 93010; 93926-TC; 97116-GP; 97162-GP; 99285-25; G0378